=== PATIENT | male | born 1935 | race Asian ===

== ENCOUNTER 2017-03-15 22:38 | Inpatient (IN) | payer OTHER, MEDICAID ==
[~2017-03-15] VITALS: Ht 172.7 cm; Wt 72.6 kg
[2017-03-15] MEDS ORDERED: Vancomycin 1 GM in NS 275 ML IV ONE (22:45)
[2017-03-15] MEDS ORDERED: Piperacillin/Tazobactam 4.5 GM in NS 110 ML IVPB ONE (22:45)
[2017-03-15] MEDS ORDERED: Acetaminophen 650 MG SUPP RECTAL ONE (22:45)
[2017-03-15] MEDS ORDERED: HUMALOG100 UNIT/1 SUBQ (22:50)
[2017-03-15] MEDS ORDERED: METOPROLOL TART50 M1 GT (22:50)
[2017-03-15] MEDS ORDERED: LOVENOX10 MG SUBQ (22:50)
[2017-03-15] MEDS ORDERED: DIGOXIN0.125 MG/2 GT (22:50)
[2017-03-15] MEDS ORDERED: OMEPRAZOLE20 M2 GT (22:50)
[2017-03-15] MEDS ORDERED: CATAPRES0.1 MG GT (22:50)
--- NOTE | 2017-03-15 22:52 | Emergency Room Report ---
History of Present Illness General Chief Complaint: Fever Source: Medical Record, EMS Present Illness HPI This is an 82-year-old [place] male who is a senior care patient. He has a history of rest or failure with tracheostomy, G-tube, chronic Varela, and a PICC line. He was just discharged from [facility] for sepsis from UTI. He presents with chief complaint of fever up to 102. Unable to get any other history from the patient. Onset today. Allergies: Coded Allergies: No Known Allergies (Unverified , 03/15/17) Patient History Past Medical History: see triage record, old chart reviewed Past Surgical History: other Pertinent Family History: none Social History: Denies: smoking Immunizations: other Reviewed Nursing Documentation: PMH: Agreed, PSxH: Agreed Nursing Documentation-PMH Past Medical History: No History, Except For Hx Cardiac Problems: Yes - A-fib, sepsis, cardiac arrest Hx Hypertension: Yes Hx Diabetes: Yes Hx Gastrointestinal Problems: Yes - G-tube Hx Neurological Problems: Yes - quadriplegia Review of Systems Constitutional: Reports: fever All Other Systems: limited - Secondary to his condition. He is nonverbal. Physical Exam Vital Signs Date Time Temp Pulse Resp B/P Pulse Ox O2 Delivery O2 Flow Rate FiO2 03/15/17 22:32 101.1 100 23 92/44 100 Trach Collar 03/15/17 22:44 40 vitals with fever and hypotension Sp02 EP Interpretation: reviewed, normal General Appearance: moderate distress, lethargic, Chronically Ill Head: normocephalic, atraumatic Eyes: bilateral eye EOMI, bilateral eye PERRL ENT: hearing grossly normal, normal pharynx Neck: full range of motion, supple, no meningismus, tracheotomy Respiratory: chest non-tender, respiratory distress, rhonchi Cardiovascular #1: no murmur, irregularly irregular Gastrointestinal: normal bowel sounds, non tender, no mass, no organomegaly, no bruit, non-distended, other - G-tube Musculoskeletal: other - Patient is contracted. Back with multiple shelters Skin: warm/dry Procedures Critical Care Time Critical Care Time Critical care is mandated in this patient who presented with sepsis from UTI. Patient require my urgent intervention to attenuate the risks of metabolic collapse which may lead to cardiovascular collapse and . Critical care time is 35 minutes excluding any reportable procedure. Critical care time included evaluation, multiple reevaluation, looking at old charts, interpreting laboratory and diagnostic data, discussing case with patient and family and consultants, and charting. Medical Decision Making Diagnostic Impression: Primary Impression: Sepsis Qualified Codes: A41.9 - Sepsis, unspecified organism Additional Impressions: Acute and chronic respiratory failure UTI (urinary tract infection) Qualified Codes: N30.00 - Acute cystitis without hematuria Anemia Qualified Codes: D64.9 - Anemia, unspecified Proteinuria Qualified Codes: R80.9 - Proteinuria, unspecified ER Course Patient with sepsis. History of UTI in the past. X-ray unremarkable. Wide spectrum antibiotic started. Also give vancomycin to cover for MRSA because of his PICC line. I discussed the case with Dr. Dao who will admit. Lab Results Impression labs with anemia EKG Diagnostic Results EKG Time: 22:56 Rate: normal Rhythm: other - afib ST Segments: no acute changes Rhythm Strip Diag. Results Rhythm Strip Time: 22:56 EP Interpretation: yes Rate: 95 Rhythm: no PVC's, no ectopy, other - A. fib Chest X-Ray Diagnostic Results Chest X-Ray Diagnostic Results : Chest X-Ray Ordered: Yes # of Views/Limited/Complete: 1 View Indication: Shortness of Breath EP Interpretation: Yes Interpretation: no consolidation, no effusion, no pneumothorax, no acute cardiopulmonary disease Impression: No acute disease Interpreting ER Provider: Electronically signed by Eleazar Chase MD Last Vital Signs Date Time Temp Pulse Resp B/P Pulse Ox O2 Delivery O2 Flow Rate FiO2 03/15/17 22:44 97 16 40 03/15/17 22:32 101.1 92/44 100 Trach Collar Status: improved Disposition: ADMITTED INPATIENT Condition: Critical ELEAZAR CHASE M.D. Mar 15, 2017 22:52
[2017-03-15 23:00] VITALS: BP 97/45
[2017-03-15] MEDS ORDERED: LORazepam Inj 2mg/ml 1ml IV PRN (23:00)
[2017-03-15] MEDS ORDERED: Miralax 17gm pkt ORAL PRN (23:00)
[2017-03-15] MEDS ORDERED: DuoNeb 0.5-3(2.5)mg/3ml neb HHN PRN (23:00)
[2017-03-15] MEDS ORDERED: Morphine Sulfate 4mg/ml Inj IVP PRN (23:00)
[2017-03-15 23:18] LABS: MEAN CORPUSCULAR HEMOGLOBIN 32.7 PG (27.0-31.0); MEAN CORPUSCULAR HGB CONC 33.5 G/DL (32.0-36.0); MEAN CORPUSCULAR VOLUME 98 FL (80-99); MEAN PLATELET VOLUME 6.6 FL (6.5-10.1); PLATELET COUNT 173 K/UL (150-450); RED BLOOD COUNT 2.23 M/UL (4.70-6.10); RED CELL DISTRIBUTION WIDTH 15.5 % (11.6-14.8); WHITE BLOOD COUNT 13.5 K/UL (4.8-10.8)
[2017-03-15 23:22] LABS: APPEARANCE,URINE CLEAR; KETONES,URINE 1+ (NEGATIVE); LEUKOCYTE ESTERASE ,URINE 2+ (NEGATIVE); NITRITE,URINE NEGATIVE (NEGATIVE); PH,URINE 5 (4.5-8.0); PROTEIN,URINE 2+ (NEGATIVE); UROBILINOGEN,URINE 1 MG/DL (0.0-1.0)
[2017-03-15 23:25] LABS: INR 1.1 (0.9-1.1); PROTHROMBIN TIME 11.5 SEC (9.30-11.50)
[2017-03-15 23:29] LABS: TROPONIN I < 0.30 ng/mL (<=0.30)
[2017-03-15 23:32] LABS: ALANINE AMINOTRANSFERASE 12 U/L (3-41); ALBUMIN/GLOBULIN RATIO 0.5 (1.0-2.7); ANION GAP 12 (5-15); ASPARTATE AMINO TRANSFERASE 24 U/L (5-40); CARBON DIOXIDE 24 mEQ/L (20-30); CHLORIDE 95 mEQ/L (98-107); CREATININE 0.7 mg/dL (0.7-1.2); HEMOLYSIS 3; POTASSIUM 4.2 mEQ/L (3.4-4.9); SODIUM 131 mEQ/L (135-145)
[2017-03-15] MEDS ORDERED: Zosyn 4.5gm inj ONE (23:33)
[2017-03-15 23:34] LABS: BACTERIA,URINE FEW /HPF; CALCIUM OXALATE CRYSTALS,UR FEW /LPF; SQUAMOUS EPITHELIAL CELL,UR FEW /LPF (NONE/OCC)
[2017-03-15 23:35] LABS: YEAST,URINE MANY /HPF
[2017-03-15 23:38] LABS: REFLEX LACTIC ACID YES OR NO YES
[2017-03-15 23:42] LABS: CKMB < 1.5 ng/mL (< 6.7)
[2017-03-16] VITALS (7 sets, daily range): BP systolic 102–128; BP diastolic 49–67
[2017-03-16] MEDS ORDERED: Vancomycin 1gm inj IVPB ONE (00:01)
[2017-03-16] MEDS ORDERED: Rx Monitoring Vancomycin MISC PRN (02:45)
[2017-03-16 05:52] LABS: ANION GAP 10 (5-15); CALCIUM 7.8 mg/dL (8.6-10.2); CARBON DIOXIDE 24 mEQ/L (20-30); CHLORIDE 99 mEQ/L (98-107); CREATININE 0.7 mg/dL (0.7-1.2); HEMOLYSIS 2; POTASSIUM 4.3 mEQ/L (3.4-4.9); SODIUM 133 mEQ/L (135-145)
[2017-03-16] MEDS ORDERED: Zosyn 3.375gm inj ONE (05:59)
[2017-03-16] MEDS: Piperacillin/Tazobactam 3.375 GM in NS 110 ML IVPB SCH ×3 (06:03→22:16)
[2017-03-16] MEDS ORDERED: NovoLOG Insulin Flexpen SUBQ SCH ×2 (06:30)
[2017-03-16 07:29] LABS: MEAN CORPUSCULAR HEMOGLOBIN 32.3 PG (27.0-31.0); MEAN CORPUSCULAR VOLUME 98 FL (80-99); MEAN PLATELET VOLUME 6.5 FL (6.5-10.1); PLATELET COUNT 166 K/UL (150-450); RED BLOOD COUNT 2.38 M/UL (4.70-6.10); RED CELL DISTRIBUTION WIDTH 15.4 % (11.6-14.8); WHITE BLOOD COUNT 14.3 K/UL (4.8-10.8)
[2017-03-16] MEDS ORDERED: Heparin 5000 units/ml inj SUBQ SCH (09:00)
[2017-03-16] MEDS: Digoxin Elixir 0.125mg GT SCH (09:44)
[2017-03-16] MEDS: Metoprolol Tartrate 50mg tab GT SCH ×2 (09:45→18:04)
[2017-03-16 09:53] LABS: BAND NEUTROPHILS % (MANUAL) 6 % (0-8); BASOPHILS % (MANUAL) 0 % (0-2); EOSINOPHILS % (MANUAL) 1 % (0-3); LYMPHOCYTES % (MANUAL) 8 % (20-45); NEUTROPHILS % (MANUAL) 81 % (45-75); PLATELET ESTIMATE ADEQUATE; PLATELET MORPHOLOGY NORMAL; TOTAL CELLS COUNTED 100
[2017-03-16 09:54] LABS: ANISOCYTOSIS 1+; MACROCYTES 1+
--- NOTE | 2017-03-16 10:02 | General Progress Note ---
Progress Note Progress Note pt doesn't have any family members to sign his consents. He needs blood transfusion for his severe anemia. LIGIA JARAMILLO Mar 16, 2017 10:02
--- NOTE | 2017-03-16 10:07 | History and Physical ---
History of Present Illness General Date patient seen: Mar 16, 2017 Reason for Hospitalization: Fever Present Illness HPI 82-year-old [place] male with hx of chronic trach/vent/peg, encephalopathy, bed ridden, alf resident was just discharged from [facility] for sepsis from UTI. He presents with chief complaint of fever up to 102. He was diagnosed to have sepsis and admitted for further work up. He looks comfortable and doesn't respond to any tactile stimuli. Allergies: Coded Allergies: No Known Allergies (Unverified , 03/15/17) Medication History Scheduled Clonidine Hcl* (Catapres*), 0.1 MG GT EVERY 6 HOURS, (Reported) Digoxin* (Digoxin*), 0.125 MG GT DAILY, (Reported) Enoxaparin* (Lovenox*), 30 MG SUBQ DAILY, (Reported) Metoprolol Tartrate* (Metoprolol Tartrate*), 50 MG GT BID, (Reported) Omeprazole (Omeprazole), 20 MG GT DAILY, (Reported) Miscellaneous Medications Insulin Lispro (Humalog), 0 SUBQ, (Reported) Patient History Healthcare decision maker Resuscitation status Full Code Advanced Directive on File No Past Medical/Surgical History Past Medical/Surgical History: (1) Anoxic encephalopathy (2) Feeding by G-tube (3) Chronic vegetative state Review of Systems All Other Systems: negative except mentioned in HPI Physical Exam General Appearance: WD/WN Lines, tubes and drains: peripheral HEENT: normocephalic, atraumatic Neck: non-tender, normal alignment Respiratory/Chest: chest wall non-tender, lungs clear Breasts: no masses Cardiovascular/Chest: normal peripheral pulses Abdomen: normal bowel sounds, non tender Genitourinary/Rectal: normal genital exam Extremities: normal range of motion Skin Exam: normal pigmentation Neurologic: inspector chief II-XII grossly normal Lymphatic: posterior cervical (L) Last 24 Hour Vital Signs Date Time Temp Pulse Resp B/P Pulse Ox O2 Delivery O2 Flow Rate FiO2 03/16/17 09:45 99 128/49 03/16/17 09:44 99 03/16/17 08:38 99 18 40 03/16/17 08:00 99.5 104 27 128/49 100 Mechanical Ventilator 40 03/16/17 07:17 97.7 03/16/17 07:00 97 24 40 03/16/17 05:50 40 03/16/17 05:05 85 24 40 03/16/17 04:00 99 03/16/17 04:00 40 03/16/17 04:00 100.4 102 25 111/61 100 Mechanical Ventilator 40 03/16/17 03:39 99 16 40 03/16/17 02:05 99.0 104 21 124/67 100 Mechanical Ventilator 40 03/16/17 01:57 99.0 03/16/17 01:45 99.0 104 21 124/67 100 Mechanical Ventilator 40 03/16/17 00:37 100 16 40 03/16/17 00:29 99.0 108 19 105/53 100 Mechanical Ventilator 40 03/16/17 00:02 40 03/15/17 23:00 101.1 91 17 97/45 100 Mechanical Ventilator 40 03/15/17 22:44 97 16 40 03/15/17 22:32 101.1 100 23 92/44 100 Trach Collar Intake and Output 03/15/17 03/16/17 19:00 07:00 Intake Total 210 ml Output Total 1150 ml Balance -940 ml Intake Oral 0 ml Free Water 100 ml IV Total 110 ml Output Urine Total 1150 ml Laboratory Tests Test 03/15/17 22:55 03/15/17 23:00 03/16/17 01:02 03/16/17 05:00 Urine Color Yellow Urine Appearance Clear Urine pH 5 (4.5-8.0) Urine Specific [place] 1.010 (1.005-1.035) Urine Protein 2+ (NEGATIVE) H Urine Glucose (UA) Negative (NEGATIVE) Urine Ketones 1+ (NEGATIVE) H Urine Occult Blood 4+ (NEGATIVE) H Urine Nitrite Negative (NEGATIVE) Urine Bilirubin Negative (NEGATIVE) Urine Urobilinogen 1 MG/DL (0.0-1.0) H Urine Leukocyte Esterase 2+ (NEGATIVE) H Urine RBC 10-15 /HPF (0 - 0) H Urine WBC 5-10 /HPF (0 - 0) H Urine Squamous Epithelial Cells Few /LPF (NONE/OCC) Urine Calcium Oxalate Crystals Few /LPF (NONE) Urine Bacteria Few /HPF (NONE) Urine Coarse Granular Casts 2-4 /LPF (NONE) H Urine Yeast Many /HPF (NONE) H White Blood Count 13.5 K/UL (4.8-10.8) H 14.3 K/UL (4.8-10.8) H Red Blood Count 2.23 M/UL (4.70-6.10) L 2.38 M/UL (4.70-6.10) L Hemoglobin 7.3 G/DL (14.2-18.0) L 7.7 G/DL (14.2-18.0) L Hematocrit 21.8 % (42.0-52.0) L 23.3 % (42.0-52.0) L Mean Corpuscular Volume 98 FL (80-99) 98 FL (80-99) Mean Corpuscular Hemoglobin 32.7 PG (27.0-31.0) H 32.3 PG (27.0-31.0) H Mean Corpuscular Hemoglobin Concent 33.5 G/DL (32.0-36.0) 33.0 G/DL (32.0-36.0) Red Cell Distribution Width 15.5 % (11.6-14.8) H 15.4 % (11.6-14.8) H Platelet Count 173 K/UL (150-450) 166 K/UL (150-450) Mean Platelet Volume 6.6 FL (6.5-10.1) 6.5 FL (6.5-10.1) Neutrophils (%) (Auto) % (45.0-75.0) % (45.0-75.0) Lymphocytes (%) (Auto) % (20.0-45.0) % (20.0-45.0) Monocytes (%) (Auto) % (1.0-10.0) % (1.0-10.0) Eosinophils (%) (Auto) % (0.0-3.0) % (0.0-3.0) Basophils (%) (Auto) % (0.0-2.0) % (0.0-2.0) Prothrombin Time 11.5 SEC (9.30-11.50) Prothromb Time International Ratio 1.1 (0.9-1.1) Activated Partial Thromboplast Time 39 SEC (23-33) H Sodium Level 131 mEQ/L (135-145) L 133 mEQ/L (135-145) L Potassium Level 4.2 mEQ/L (3.4-4.9) 4.3 mEQ/L (3.4-4.9) Chloride Level 95 mEQ/L (98-107) L 99 mEQ/L (98-107) Carbon Dioxide Level 24 mEQ/L (20-30) 24 mEQ/L (20-30) Anion Gap 12 (5-15) 10 (5-15) Blood Urea Nitrogen 24 mg/dL (7-23) H 20 mg/dL (7-23) Creatinine 0.7 mg/dL (0.7-1.2) 0.7 mg/dL (0.7-1.2) Estimat Glomerular Filtration Rate mL/min (>60) mL/min (>60) Glucose Level 199 mg/dL (74-106) H 167 mg/dL (74-106) H Lactic Acid Level 2.90 mmol/L (0.66-2.22) H 1.70 mmol/L (0.66-2.22) Calcium Level 8.0 mg/dL (8.6-10.2) L 7.8 mg/dL (8.6-10.2) L Total Bilirubin 0.4 mg/dL (0.0-1.2) Aspartate Amino Transf (AST/SGOT) 24 U/L (5-40) Alanine Aminotransferase (ALT/SGPT) 12 U/L (3-41) Alkaline Phosphatase 162 U/L (40-129) H Total Creatine Kinase 105 U/L (38-174) Creatine Kinase MB < 1.5 ng/mL (< 6.7) Creatine Kinase MB Relative Index 1.4 Troponin I < 0.30 ng/mL (<=0.30) Total Protein 6.0 g/dL (6.6-8.7) L Albumin 2.1 g/dL (3.5-5.2) L 2.1 g/dL (3.5-5.2) L Globulin 3.9 g/dL Albumin/Globulin Ratio 0.5 (1.0-2.7) L Differential Total Cells Counted 100 Neutrophils % (Manual) 81 % (45-75) H Lymphocytes % (Manual) 8 % (20-45) L Monocytes % (Manual) 4 % (1-10) Eosinophils % (Manual) 1 % (0-3) Basophils % (Manual) 0 % (0-2) Band Neutrophils 6 % (0-8) Platelet Estimate Adequate Platelet Morphology Normal Anisocytosis 1+ Macrocytosis 1+ Phosphorus Level 3.0 mg/dL (2.5-4.8) Height (Feet): 5 Height (Inches): 8.00 Weight (Pounds): 160 Medications Current Medications Medications (Trade) Dose Ordered Sig/Millicent Route PRN Reason Start Time Stop Time Status Last Admin Dose Admin Acetaminophen (Tylenol) 650 mg Q4H PRN ORAL FEVER 03/15/17 23:00 04/14/17 22:59 03/16/17 06:18 Albuterol/ Ipratropium 3 ml 3 ml Q4H PRN HHN Shortness of Breath 03/15/17 23:00 03/20/17 22:59 Dextrose STAT PRN IV Hypoglycemia 03/15/17 23:00 04/14/17 22:59 Digoxin (Lanoxin) 0.125 mg DAILY GT 03/16/17 09:00 04/15/17 08:59 03/16/17 09:44 Heparin Sodium (Porcine) (Heparin 5000 units/ml) 5,000 units EVERY 12 HOURS SUBQ 03/16/17 09:00 04/15/17 08:59 Insulin Aspart (NovoLOG) Q6HR SUBQ 03/16/17 12:00 04/15/17 11:59 Lorazepam (Ativan 2mg/ml 1ml) 2 mg Q2H PRN IV For Anxiety 03/15/17 23:00 03/22/17 22:59 Metoprolol Tartrate (Lopressor) 50 mg BID GT 03/16/17 09:00 04/15/17 08:59 03/16/17 09:45 Morphine Sulfate (Morphine Sulfate) 4 mg Q4H PRN IVP Severe Pain (Pain Scale 7-10) 03/15/17 23:00 03/22/17 22:59 Ondansetron HCl (Zofran) 4 mg Q6H PRN IVP Nausea & Vomiting 03/15/17 23:00 04/14/17 22:59 Piperacillin Sod/ Tazobactam Sod/ Sodium Chloride (Zosyn/Sodium Chloride) 110 ml @ 27.5 mls/hr Q8H IVPB 03/16/17 06:00 03/23/17 05:59 03/16/17 06:03 Polyethylene Glycol (Miralax) 17 gm DAILYPRN PRN ORAL Constipation 03/15/17 23:00 04/14/17 22:59 Vancomycin HCl (Rx Monitoring Vancomycin) 1 ea DAILY PRN MISC per protocol 03/16/17 02:45 04/15/17 02:44 Vancomycin HCl/ Dextrose (Vancomycin/D5W) 275 ml @ 183.3 mls/ hr Q24H IVPB 03/16/17 21:00 03/21/17 20:59 Assessment/Plan Problem List: (1) Acute and chronic respiratory failure ICD Codes: J96.20 - Acute and chronic respiratory failure, unspecified whether with hypoxia or hypercapnia SNOMED: 88089139 (2) Sepsis ICD Codes: A41.9 - Sepsis, unspecified organism SNOMED: 60338217 Qualifiers: Qualified Codes: A41.9 - Sepsis, unspecified organism (3) Feeding by G-tube ICD Codes: Z93.1 - Gastrostomy status SNOMED: 084227152, 699299301 (4) Chronic vegetative state ICD Codes: R40.3 - Persistent vegetative state SNOMED: 74044597, 274840838 (5) Anemia ICD Codes: D64.9 - Anemia, unspecified SNOMED: 758984090 Qualifiers: Qualified Codes: D64.9 - Anemia, unspecified Respiratory: monitor respiratory rate, adjust FIO2, weaning trial Cardiac: continue to monitor HR/BP Renal: F/U I&O, keep IV fluid, check electrolytes Infectious Disease: check cultures, continue antibiotics Gastrointestinal: continue feedings/current rate Endocrine: monitor blood sugar, check HgA1C, continue sliding scale insulin Hematologic: monitor H/H, transfuse if hgb<8.5 Neurologic: PRN Ativan, PRN Morphine, keep patient comfortable Affect: PRN ativan Prophylaxis: Heparin Notes Reviewed: splicing technician, cardio Discussed with: nurses, consultants, rn case management LIGIA JARAMILLO Mar 16, 2017 10:07
[2017-03-16] MEDS ORDERED: Tubing IV Secondary IV ONE (10:32)
[2017-03-16] MEDS ORDERED: NS 275ml ONE (10:32)
--- NOTE | 2017-03-16 11:02 | Infectious Diseases Prog Note ---
Assessment/Plan Assessment/Plan ID consult dictated # [id number] Subjective Allergies: Coded Allergies: No Known Allergies (Unverified , 03/15/17) Objective Vital Signs Last 24 Hour Vital Signs Date Time Temp Pulse Resp B/P Pulse Ox O2 Delivery O2 Flow Rate FiO2 03/16/17 10:30 89 18 40 03/16/17 09:45 99 128/49 03/16/17 09:44 99 03/16/17 08:38 99 18 40 03/16/17 08:00 99.5 104 27 128/49 100 Mechanical Ventilator 40 03/16/17 07:17 97.7 03/16/17 07:00 97 24 40 03/16/17 05:50 40 03/16/17 05:05 85 24 40 03/16/17 04:00 99 03/16/17 04:00 40 03/16/17 04:00 100.4 102 25 111/61 100 Mechanical Ventilator 40 03/16/17 03:39 99 16 40 03/16/17 02:05 99.0 104 21 124/67 100 Mechanical Ventilator 40 03/16/17 01:57 99.0 03/16/17 01:45 99.0 104 21 124/67 100 Mechanical Ventilator 40 03/16/17 00:37 100 16 40 03/16/17 00:29 99.0 108 19 105/53 100 Mechanical Ventilator 40 03/16/17 00:02 40 03/15/17 23:00 101.1 91 17 97/45 100 Mechanical Ventilator 40 03/15/17 22:44 97 16 40 03/15/17 22:32 101.1 100 23 92/44 100 Trach Collar Height (Feet): 5 Height (Inches): 8.00 Weight (Pounds): 160 Laboratory Tests Test 03/15/17 22:55 03/15/17 23:00 03/16/17 01:02 03/16/17 05:00 Urine Color Yellow Urine Appearance Clear Urine pH 5 (4.5-8.0) Urine Specific [place] 1.010 (1.005-1.035) Urine Protein 2+ (NEGATIVE) H Urine Glucose (UA) Negative (NEGATIVE) Urine Ketones 1+ (NEGATIVE) H Urine Occult Blood 4+ (NEGATIVE) H Urine Nitrite Negative (NEGATIVE) Urine Bilirubin Negative (NEGATIVE) Urine Urobilinogen 1 MG/DL (0.0-1.0) H Urine Leukocyte Esterase 2+ (NEGATIVE) H Urine RBC 10-15 /HPF (0 - 0) H Urine WBC 5-10 /HPF (0 - 0) H Urine Squamous Epithelial Cells Few /LPF (NONE/OCC) Urine Calcium Oxalate Crystals Few /LPF (NONE) Urine Bacteria Few /HPF (NONE) Urine Coarse Granular Casts 2-4 /LPF (NONE) H Urine Yeast Many /HPF (NONE) H White Blood Count 13.5 K/UL (4.8-10.8) H 14.3 K/UL (4.8-10.8) H Red Blood Count 2.23 M/UL (4.70-6.10) L 2.38 M/UL (4.70-6.10) L Hemoglobin 7.3 G/DL (14.2-18.0) L 7.7 G/DL (14.2-18.0) L Hematocrit 21.8 % (42.0-52.0) L 23.3 % (42.0-52.0) L Mean Corpuscular Volume 98 FL (80-99) 98 FL (80-99) Mean Corpuscular Hemoglobin 32.7 PG (27.0-31.0) H 32.3 PG (27.0-31.0) H Mean Corpuscular Hemoglobin Concent 33.5 G/DL (32.0-36.0) 33.0 G/DL (32.0-36.0) Red Cell Distribution Width 15.5 % (11.6-14.8) H 15.4 % (11.6-14.8) H Platelet Count 173 K/UL (150-450) 166 K/UL (150-450) Mean Platelet Volume 6.6 FL (6.5-10.1) 6.5 FL (6.5-10.1) Neutrophils (%) (Auto) % (45.0-75.0) % (45.0-75.0) Lymphocytes (%) (Auto) % (20.0-45.0) % (20.0-45.0) Monocytes (%) (Auto) % (1.0-10.0) % (1.0-10.0) Eosinophils (%) (Auto) % (0.0-3.0) % (0.0-3.0) Basophils (%) (Auto) % (0.0-2.0) % (0.0-2.0) Prothrombin Time 11.5 SEC (9.30-11.50) Prothromb Time International Ratio 1.1 (0.9-1.1) Activated Partial Thromboplast Time 39 SEC (23-33) H Sodium Level 131 mEQ/L (135-145) L 133 mEQ/L (135-145) L Potassium Level 4.2 mEQ/L (3.4-4.9) 4.3 mEQ/L (3.4-4.9) Chloride Level 95 mEQ/L (98-107) L 99 mEQ/L (98-107) Carbon Dioxide Level 24 mEQ/L (20-30) 24 mEQ/L (20-30) Anion Gap 12 (5-15) 10 (5-15) Blood Urea Nitrogen 24 mg/dL (7-23) H 20 mg/dL (7-23) Creatinine 0.7 mg/dL (0.7-1.2) 0.7 mg/dL (0.7-1.2) Estimat Glomerular Filtration Rate mL/min (>60) mL/min (>60) Glucose Level 199 mg/dL (74-106) H 167 mg/dL (74-106) H Lactic Acid Level 2.90 mmol/L (0.66-2.22) H 1.70 mmol/L (0.66-2.22) Calcium Level 8.0 mg/dL (8.6-10.2) L 7.8 mg/dL (8.6-10.2) L Total Bilirubin 0.4 mg/dL (0.0-1.2) Aspartate Amino Transf (AST/SGOT) 24 U/L (5-40) Alanine Aminotransferase (ALT/SGPT) 12 U/L (3-41) Alkaline Phosphatase 162 U/L (40-129) H Total Creatine Kinase 105 U/L (38-174) Creatine Kinase MB < 1.5 ng/mL (< 6.7) Creatine Kinase MB Relative Index 1.4 Troponin I < 0.30 ng/mL (<=0.30) Total Protein 6.0 g/dL (6.6-8.7) L Albumin 2.1 g/dL (3.5-5.2) L 2.1 g/dL (3.5-5.2) L Globulin 3.9 g/dL Albumin/Globulin Ratio 0.5 (1.0-2.7) L Differential Total Cells Counted 100 Neutrophils % (Manual) 81 % (45-75) H Lymphocytes % (Manual) 8 % (20-45) L Monocytes % (Manual) 4 % (1-10) Eosinophils % (Manual) 1 % (0-3) Basophils % (Manual) 0 % (0-2) Band Neutrophils 6 % (0-8) Platelet Estimate Adequate Platelet Morphology Normal Anisocytosis 1+ Macrocytosis 1+ Phosphorus Level 3.0 mg/dL (2.5-4.8) Current Medications Medications (Trade) Dose Ordered Sig/Millicent Route PRN Reason Start Time Stop Time Status Last Admin Dose Admin Acetaminophen (Tylenol) 650 mg Q4H PRN ORAL FEVER 03/15/17 23:00 04/14/17 22:59 03/16/17 06:18 Albuterol/ Ipratropium 3 ml 3 ml Q4H PRN HHN Shortness of Breath 03/15/17 23:00 03/20/17 22:59 Dextrose STAT PRN IV Hypoglycemia 03/15/17 23:00 04/14/17 22:59 Digoxin (Lanoxin) 0.125 mg DAILY GT 03/16/17 09:00 04/15/17 08:59 03/16/17 09:44 Heparin Sodium (Porcine) (Heparin 5000 units/ml) 5,000 units EVERY 12 HOURS SUBQ 03/16/17 09:00 04/15/17 08:59 Insulin Aspart (NovoLOG) Q6HR SUBQ 03/16/17 12:00 04/15/17 11:59 Lorazepam (Ativan 2mg/ml 1ml) 2 mg Q2H PRN IV For Anxiety 03/15/17 23:00 03/22/17 22:59 Metoprolol Tartrate (Lopressor) 50 mg BID GT 03/16/17 09:00 04/15/17 08:59 03/16/17 09:45 Morphine Sulfate (Morphine Sulfate) 4 mg Q4H PRN IVP Severe Pain (Pain Scale 7-10) 03/15/17 23:00 03/22/17 22:59 Ondansetron HCl (Zofran) 4 mg Q6H PRN IVP Nausea & Vomiting 03/15/17 23:00 04/14/17 22:59 Piperacillin Sod/ Tazobactam Sod/ Sodium Chloride (Zosyn/Sodium Chloride) 110 ml @ 27.5 mls/hr Q8H IVPB 03/16/17 06:00 03/23/17 05:59 03/16/17 06:03 Polyethylene Glycol (Miralax) 17 gm DAILYPRN PRN ORAL Constipation 03/15/17 23:00 04/14/17 22:59 Vancomycin HCl (Rx Monitoring Vancomycin) 1 ea DAILY PRN MISC per protocol 03/16/17 02:45 04/15/17 02:44 Vancomycin HCl/ Dextrose (Vancomycin/D5W) 275 ml @ 183.3 mls/ hr Q24H IVPB 03/16/17 21:00 03/21/17 20:59 ROMIE LANDRY Mar 16, 2017 11:02
[2017-03-16] MEDS: NovoLOG Insulin Flexpen SUBQ SCH ×2 (12:21→18:07)
--- NOTE | 2017-03-16 12:43 | Wound Care Consultation ---
Wound Assessment Wound Assessment #1: Wound Number: #1 Wound Present on Admission: Yes New Wound: No Status Change of Wound: No Wound Location Body Site Modif: mid Wound Location Body Site: other - sacrococcygeal that extended to left and right buttocks Wound Type: pressure ulcer Eliz Test: Does not Eliz Pressure Ulcer Stage: IV/unstageable Wound Thickness: Full Thickness Wound Length: 12.0 Wound Width: 10.0 Wound Depth: utd Percent of Wound [place]/Red: 10 Percent of Wound Bed Yellow/Wh: 40 Percent of Wound Black/Brown: 50 Wound Drainage Description: Serosanguineous Wound Drainage Amount: Moderate Wound Drainage Odor: None/Absent Tissue Surrounding Wound: Macerated Wound General Appearance: Draining, Necrotic Wound Assessment #2: Wound Number: #2 Wound Present on Admission: Yes New Wound: No Status Change of Wound: No Wound Location Body Site Modif: right, lower Wound Location Body Site: trochanter Wound Type: pressure ulcer Eliz Test: Does not Eliz Pressure Ulcer Stage: deep tissue injury Wound Thickness: Full Thickness Wound Length: 5.5 Wound Width: 3.0 Wound Depth: utd Percent of Wound Purple/Maroon: 100 Wound Drainage Amount: None Wound Drainage Odor: None/Absent Tissue Surrounding Wound: Erythemic Wound General Appearance: Reddened - purple Wound Assessment #3: Wound Number: #3 Wound Present on Admission: Yes New Wound: No Status Change of Wound: No Wound Location Body Site Modif: right, upper, lateral Wound Location Body Site: thigh Wound Type: blister - open blister Eliz Test: Does not Eliz Wound Thickness: Partial Thickness Wound Length: 3.0 Wound Width: 2.0 Wound Depth: less than 0.1 Percent of Wound [place]/Red: 100 Wound Drainage Description: Serosanguineous Wound Drainage Amount: Scant Wound Drainage Odor: None/Absent Tissue Surrounding Wound: Intact Wound General Appearance: Reddened Wound Assessment #4: Wound Number: #4 Wound Present on Admission: Yes New Wound: No Status Change of Wound: No Wound Location Body Site Modif: right, upper, medial Wound Location Body Site: thigh Wound Type: blister - open blister Eliz Test: Does not Eliz Wound Thickness: Partial Thickness Wound Length: 2.5 Wound Width: 2.0 Wound Depth: less than 0.1 Percent of Wound [place]/Red: 100 Wound Drainage Description: Serosanguineous Wound Drainage Amount: Scant Wound Drainage Odor: None/Absent Tissue Surrounding Wound: Intact Wound General Appearance: Reddened, Draining Wound Assessment #5: Wound Number: #5 Wound Present on Admission: Yes New Wound: No Status Change of Wound: No Wound Location Body Site Modif: right Wound Location Body Site: shoulder Wound Type: pressure ulcer Eliz Test: Does not Eliz Pressure Ulcer Stage: deep tissue injury - blood filled blister Wound Thickness: Full Thickness Wound Length: 1.0 Wound Width: 1.0 Wound Depth: utd Percent of Wound Purple/Maroon: 100 Wound Drainage Amount: None Wound Drainage Odor: None/Absent Tissue Surrounding Wound: Erythemic Wound Assessment #6: Wound Number: #6 Wound Present on Admission: Yes New Wound: No Status Change of Wound: No Wound Location Body Site Modif: right Wound Location Body Site: scapula Wound Type: pressure ulcer Eliz Test: Does not Eliz Pressure Ulcer Stage: II Wound Thickness: Partial Thickness Wound Length: 2.5 Wound Width: 3.5 Wound Depth: 0.1 Percent of Wound [place]/Red: 100 Wound Drainage Description: Serosanguineous Wound Drainage Amount: Scant Wound Drainage Odor: None/Absent Tissue Surrounding Wound: Erythemic Wound General Appearance: Reddened, Draining Wound Assessment #7: Wound Number: #7 Wound Present on Admission: Yes New Wound: No Status Change of Wound: No Wound Location Body Site Modif: left, lower, lateral Wound Location Body Site: leg Wound Type: pressure ulcer Eliz Test: Does not Eliz Pressure Ulcer Stage: IV/unstageable Wound Thickness: Full Thickness Wound Length: 8.0 Wound Width: 1.5 Wound Depth: utd Percent of Wound Bed Yellow/Wh: 60 Percent of Wound Purple/Maroon: 40 Wound Drainage Amount: None Wound Drainage Odor: None/Absent Tissue Surrounding Wound: Intact Wound General Appearance: Reddened Wound Assessment #8: Wound Number: #8 Wound Present on Admission: Yes New Wound: No Status Change of Wound: No Wound Location Body Site Modif: left Wound Location Body Site: knee Wound Type: pressure ulcer Eliz Test: Does not Eliz Pressure Ulcer Stage: IV/unstageable Wound Thickness: Full Thickness Wound Length: 8.5 Wound Width: 8.5 Wound Depth: utd Percent of Wound Black/Brown: 100 Wound Drainage Description: Serosanguineous Wound Drainage Amount: Moderate Wound Drainage Odor: Foul Odor Tissue Surrounding Wound: Macerated - indurated Wound General Appearance: Blackened, Draining, Necrotic Wound Assessment #9: Wound Number: #9 Wound Present on Admission: Yes New Wound: No Status Change of Wound: No Wound Location Body Site Modif: right Wound Location Body Site: heel Wound Type: pressure ulcer Eliz Test: Does not Eliz Pressure Ulcer Stage: deep tissue injury Wound Thickness: Full Thickness Wound Length: 5.0 Wound Width: 6.5 Wound Depth: utd Percent of Wound Purple/Maroon: 100 Wound Drainage Amount: None Wound Drainage Odor: None/Absent Tissue Surrounding Wound: Denuded Wound General Appearance: Reddened - Maroon Wound Assessment #10: Wound Number: #10 Wound Present on Admission: Yes New Wound: No Status Change of Wound: No Wound Location Body Site Modif: medial Wound Location Body Site: malleolus/ankle Wound Type: pressure ulcer Eliz Test: Does not Eliz Pressure Ulcer Stage: deep tissue injury - blood filled blister Wound Thickness: Full Thickness Wound Length: 1.5 Wound Width: 1.0 Wound Depth: utd Percent of Wound Purple/Maroon: 100 Wound Drainage Amount: None Wound Drainage Odor: None/Absent Tissue Surrounding Wound: Erythemic Wound General Appearance: Reddened Wound Assessment #11: Wound Number: #11 Wound Present on Admission: Yes New Wound: No Status Change of Wound: No Wound Location Body Site Modif: right, mid Wound Location Body Site: foot Wound Type: pressure ulcer Eliz Test: Does not Eliz Pressure Ulcer Stage: deep tissue injury Wound Thickness: Full Thickness Wound Length: 2.0 Wound Width: 4.0 Wound Depth: utd Percent of Wound Purple/Maroon: 100 Wound Drainage Amount: None Wound Drainage Odor: None/Absent Tissue Surrounding Wound: Intact Wound Assessment #12: Wound Number: #12 Wound Present on Admission: Yes New Wound: No Status Change of Wound: No Wound Location Body Site Modif: right, lateral Wound Location Body Site: metatarsal head - 1st Wound Type: pressure ulcer Eliz Test: Does not Eliz Pressure Ulcer Stage: deep tissue injury Wound Thickness: Full Thickness Wound Length: 2.5 Wound Width: 2.5 Wound Depth: utd Percent of Wound Purple/Maroon: 100 Wound Drainage Amount: None Wound Drainage Odor: None/Absent Tissue Surrounding Wound: Erythemic Wound Assessment #13: Wound Number: #13 Wound Present on Admission: Yes New Wound: No Status Change of Wound: No Wound Location Body Site Modif: lower Wound Location Body Site: back Wound Type: pressure ulcer Eliz Test: Does not Eliz Pressure Ulcer Stage: II - scattered Wound Thickness: Partial Thickness Percent of Wound [place]/Red: 100 Wound Drainage Description: Serosanguineous Wound Drainage Amount: Scant Wound Drainage Odor: None/Absent Tissue Surrounding Wound: scattered scar tissue Wound General Appearance: Reddened Wound Assessment #14: Wound Number: #14 Wound Present on Admission: Yes New Wound: No Status Change of Wound: No Wound Location Body Site Modif: left, lateral Wound Location Body Site: malleolus/ankle Wound Type: pressure ulcer Eliz Test: Does not Eliz Pressure Ulcer Stage: deep tissue injury Wound Thickness: Full Thickness Wound Length: 3.0 Wound Width: 2.5 Wound Depth: utd Percent of Wound Purple/Maroon: 100 Wound Drainage Amount: None Wound Drainage Odor: None/Absent Tissue Surrounding Wound: Erythemic Wound Comment #1 Sacrococcygeal unstageable pressure ulcer that extended to left and right buttocks #2 Right shoulder blood filled DTI pressure ulcer #3 Right scapula stage II pressure ulcer #4 Right lower trochanter DTI pressure ulcer #5 Right upper lateral thigh open blister #6 Right inner upper thigh open blister #7 Left lower lateral leg unstageable pressure ulcer #8 Right heel DTI pressure ulcer #9 Left heel unstageable pressure ulcer with black eschar adhered to wound bed #10 Left lateral malleolus DTI pressure ulcer #11 Left medial malleolus DTI pressure ulcer #12 Right mid foot DTI pressure ulcer #13 Right 1st lateral metatarsal head DTI pressure ulcer #14 Lower back with scattered stage II pressure ulcers and with scattered scars Recommendation -Right scapula stage II pressure ulcer, Right upper lateral thigh open blister, Right inner upper thigh open blister and Lower back with scattered stage II pressure ulcers Cleanse with saline, pat dry, apply Triad cream, cover with Biatain silicone daily and PRN soiled/dislodged -Sacrococcygeal unstageable pressure ulcer that extended to left and right buttocks Cleanse with saline, pat dry, apply Triad cream on sharon wound area, apply Therahoney to wound bed, cover with 4x4, secure with bordered gauze daily and PRN soiled/ dislodged -Local wound care per protocol for DTIs -Low air loss mattress -Optimize nutrition -Keep clean and dry -Turn and reposition -Offload both heels -Heel protector on both heels -Podiatry consult for left foot -Assess and f/u accordingly for any changes SORIN HU RN Mar 16, 2017 12:43
[2017-03-16] MEDS ORDERED: Miralax 17gm pkt GT PRN (15:00)
[2017-03-16 18:13] LABS: PATH BLOOD SMEAR/OMC SENT TO PATHOLOGIST
[2017-03-16 18:16] LABS: PSA TOTAL 1.3 ng/mL (< 4.5)
[2017-03-16 18:33] LABS: HEMOLYSIS 5; IRON 26 ug/dL (59-158); TOTAL IRON BINDING CAPACITY 151 ug/dL (250-400)
[2017-03-16 18:37] LABS: FERRITIN > 2000 ng/mL (10-230)
[2017-03-16] MEDS: Vancomycin 1 GM in D5W 275 ML IVPB SCH (20:38)
[2017-03-17] VITALS (7 sets, daily range): BP systolic 95–116; BP diastolic 52–64
[2017-03-17] MEDS: NovoLOG Insulin Flexpen SUBQ SCH ×4 (00:09→18:00)
--- NOTE | 2017-03-17 01:30 | Consultation ---
DATE OF CONSULTATION: 03/16/2017 HEMATOLOGY/ONCOLOGY CONSULTATION REQUESTING PHYSICIAN: Dago Dao M.D. REASON FOR CONSULTATION: Evaluation of anemia and coagulopathy. IDENTIFICATION DATA: The patient is a pleasant 82-year-old male who presents to [facility]. He has a past medical history significant for chronic trach, vent, PEG, and history of encephalopathy. He is bedridden. He is a residential patient. He has been discharged from [facility] with sepsis and UTI, and presents with a chief complaint of fever up to 102 degrees Fahrenheit, diagnosed with sepsis, admitted for further care. Appears at this time; however, was not found to have any stimuli, was noted to be with a hemoglobin of 7.7 as well as leukocytosis. Therefore, Hematology service is consulted. The patient also noted to have an elevated PTT and therefore Hematology will continue to follow up and again consultation. PAST MEDICAL HISTORY: Chronic vent, trach, PEG, encephalopathy, bedridden, and residential resident. MEDICATIONS: Clonidine, digoxin, Lovenox, metoprolol, and metronidazole . ALLERGIES: No known drug allergies. SOCIAL HISTORY: Lives in a nursing facility. FAMILY HISTORY: Difficult to obtain. Again, the patient is on chronic trach. REVIEW OF SYSTEMS: Difficult to obtain. PHYSICAL EXAMINATION: VITAL SIGNS: Temperature is 98 degrees Fahrenheit, pulse 82, respiratory rate 12, blood pressure 128/79, and pulse oximetry is 100% on room air. GENERAL: The patient is in no acute distress. PULMONARY: Decreased breath sounds. Some crackles noted and trach. CARDIOVASCULAR: Regular rate. No S3 or S4. ABDOMEN: Soft, nontender, and nondistended. EXTREMITIES: No cyanosis, edema noted. LABORATORY DATA: WBC 14, hemoglobin 10.7, hematocrit 23, and platelet count 166,000. BUN of 20, creatinine 0.7. Lactic acid 1.7. 0.9. Calcium 7.8. AST 24 and ALT 12. ASSESSMENT AND PLAN: 1. Coagulopathy, potentially secondary to underlying sepsis. We will order PTT. 2. Anemia, likely secondary to hemodilution. 3. Anemia, secondary to chronic disease. Anemia workup has been ordered and ordered. If those are within normal limits, . 4. Leukocytosis, potentially secondary to underlying sepsis with a left shift, neutrophil predominant leukocytosis. Infectious Disease service has been consulted. We will continue to follow up. 5. Hypocalcemia potentially secondary to hemodilution. Continue to monitor. 6. Sepsis. He is on antibiotics. 7. Chronic vegetative state, persistent vegetative state. Giovanny Brennan M.D. DR: VANIA JOB#: [id number] CC:
--- NOTE | 2017-03-17 02:00 | Consultation ---
DATE OF CONSULTATION: 03/16/2017 INFECTIOUS DISEASE CONSULTATION This consult is for coverage of Dr. Crawley. PRIMARY ATTENDING PHYSICIAN: Dago Dao M.D. REASON FOR CONSULT: Sepsis. HISTORY OF PRESENT ILLNESS: This is an 82-year-old Irish male, who is a long-term resident admitted last night because of fever with a temperature of 102 degrees in the facility and in the ER, temperature 101.1 degrees. The patient is not a source of history. He had recent admission to [facility] with sepsis. He had a PICC line at the time of admission and leukocytosis and lactic acidosis. PAST MEDICAL HISTORY: Significant for diabetes mellitus, hypertension, ventilator-dependent respiratory failure, status post G-tube, chronic atrial fibrillation, anemia, dementia, and persistent Flavio Sparks M.D. DR: NATHALIA JOB#: [id number] CC:
[2017-03-17] MEDS: Piperacillin/Tazobactam 3.375 GM in NS 110 ML IVPB SCH ×3 (05:37→23:07)
--- NOTE | 2017-03-17 07:48 | Diagnostic Imaging Report ---
Indications: Shortness breath Technique: Portable AP chest Findings: Comparison: None Right hemidiaphragm mildly elevated. Linear densities overlying right lung base. Downward retraction of right minor fissure. Linear density left lung base. Heart size, pulmonary vasculature within normal limits. No pleural abnormalities. Aortic arch calcified. Tracheostomy tube in place. PICC in place. IMPRESSION: Bibasal subsegmental atelectasis, right greater left, with associated right lung volume loss Aortosclerosis Lines and tubes in place as described
[2017-03-17] MEDS: Digoxin Elixir 0.125mg GT SCH (09:16)
[2017-03-17] MEDS: Metoprolol Tartrate 50mg tab GT SCH ×2 (09:16→21:32)
--- NOTE | 2017-03-17 10:27 | Pulmonology Progress Note ---
Assessment/Plan Problems: (1) Acute and chronic respiratory failure (2) Sepsis (3) Feeding by G-tube (4) Chronic vegetative state (5) Anemia Respiratory: monitor respiratory rate, adjust FIO2, CXR Cardiac: continue pressors Renal: F/U I&O, keep IV fluid Infectious Disease: check cultures Gastrointestinal: continue feedings/current rate, hold feedings Endocrine: check TSH, continue sliding scale insulin Hematologic: monitor H/H, transfuse if hgb<8.5 Neurologic: PRN Ativan, keep patient comfortable Affect: PRN ativan Prophylaxis: Heparin Disposition: keep in ICU Notes Reviewed: cardio, renal Discussed with: nurses, employment case manager Subjective ROS Limited/Unobtainable: No Interval Events: still febrile, got prbc yesterday Allergies: Coded Allergies: No Known Allergies (Unverified , 03/15/17) Objective Last 24 Hour Vital Signs Date Time Temp Pulse Resp B/P (MAP) Pulse Ox O2 Delivery O2 Flow Rate FiO2 03/17/17 09:16 112 95/52 03/17/17 09:16 112 03/17/17 08:32 99.5 03/17/17 08:00 40 03/17/17 08:00 102.9 112 24 95/52 100 Mechanical Ventilator 03/17/17 07:45 129 03/17/17 05:02 116 21 40 03/17/17 04:00 40 03/17/17 04:00 91 03/17/17 04:00 Mechanical Ventilator 03/17/17 02:38 95 39 40 03/17/17 01:32 95 34 40 03/17/17 00:00 93 03/17/17 00:00 40 03/17/17 00:00 100.9 120 24 95/53 100 Mechanical Ventilator 03/16/17 23:38 98 36 40 03/16/17 22:30 101.3 110 35 100 03/16/17 22:01 111 35 40 03/16/17 20:00 101 03/16/17 20:00 40 03/16/17 19:50 103.0 111 20 109/60 100 Mechanical Ventilator 03/16/17 19:26 107 32 40 03/16/17 18:04 102 102/52 03/16/17 16:53 102 20 40 03/16/17 16:00 100.9 99 18 103/51 100 Mechanical Ventilator 40 03/16/17 16:00 40 03/16/17 16:00 95 03/16/17 15:22 93 18 40 03/16/17 12:30 90 19 40 03/16/17 12:00 100.4 107 23 102/52 100 Mechanical Ventilator 40 03/16/17 12:00 40 03/16/17 11:34 93 03/16/17 10:30 89 18 40 Intake and Output 03/17/17 03/18/17 19:00 07:00 Intake Total 82.5 ml Balance 82.5 ml IV Total 82.5 ml General Appearance: WD/WN HEENT: normocephalic, atraumatic Respiratory/Chest: chest wall non-tender, lungs clear Cardiovascular: normal peripheral pulses, normal rate Abdomen: normal bowel sounds, soft, non tender Genitourinary: normal external genitalia Extremities: no cyanosis Skin: no rash Neurologic/Psychiatric: package 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 grossly normal, no motor/sensory deficits Lymphatic: no groin adenopathy Musculoskeletal: normal muscle bulk Microbiology Date/Time Source Procedure Growth Status 03/15/17 23:00 Blood Blood Culture - Preliminary NO GROWTH AFTER 24 HOURS Resulted 03/15/17 23:00 Blood Blood Culture - Preliminary NO GROWTH AFTER 24 HOURS Resulted 03/15/17 22:55 Indwelling Cath Urine Culture - Preliminary Mixed Gram Positive Organism Resulted 03/16/17 02:00 Back Gram Stain - Final Resulted 03/16/17 02:00 Back Wound Culture Pending Resulted Laboratory Tests 03/16/17 16:55: Reticulocyte Count 1.0, PTT Mixing Study [Pending], APTT Patient/Control Mix [ Pending], Mix PTT Incubation Time [Pending], Mix PTT Normal/Saline 1:1 Immediate [Pending], Thrombin Time Normal Plasma [Pending], Fibrinogen 638H, Iron Level 26L, Total Iron Binding Capacity 151L, Percent Iron Saturation 17, Unsaturated Iron Binding 125, Ferritin > 2000H, Carcinoembryonic Antigen 5.8H, Prostate Specific Antigen 1.3, Vitamin B12 Level 1262H, Methylmalonic Acid [ Pending], Folate [Pending], Thyroid Stimulating Hormone (TSH) 1.910, Hepatitis A IgM Antibody [Pending], Hepatitis B Surface Antigen [Pending], Hepatitis B Core IgM Antibody [Pending], Hepatitis C Antibody [Pending], HIV (1&2) Antibody Rapid Negative 03/16/17 18:00: Stool Occult Blood Negative Current Medications Medications (Trade) Dose Ordered Sig/Millicent Route PRN Reason Start Time Stop Time Status Last Admin Dose Admin Acetaminophen (Tylenol) 650 mg Q4H PRN ORAL FEVER 03/15/17 23:00 04/14/17 22:59 03/17/17 07:33 Albuterol/ Ipratropium (DuoNeb 0.5-3(2.5)mg/3ml) 3 ml Q4H PRN HHN Shortness of Breath 03/15/17 23:00 03/20/17 22:59 Dextrose (Dextrose 50%) STAT PRN IV Hypoglycemia 03/15/17 23:00 04/14/17 22:59 Digoxin (Lanoxin) 0.125 mg DAILY GT 03/16/17 09:00 04/15/17 08:59 03/17/17 09:16 Insulin Aspart (NovoLOG) Q6HR SUBQ 03/16/17 12:00 04/15/17 11:59 03/17/17 05:58 Lorazepam (Ativan 2mg/ml 1ml) 2 mg Q2H PRN IV For Anxiety 03/15/17 23:00 03/22/17 22:59 Metoprolol Tartrate (Lopressor) 50 mg Q12HR GT 03/17/17 09:00 04/15/17 08:59 03/17/17 09:16 Morphine Sulfate (Morphine Sulfate) 4 mg Q4H PRN IVP Severe Pain (Pain Scale 7-10) 03/15/17 23:00 03/22/17 22:59 Ondansetron HCl (Zofran) 4 mg Q6H PRN IVP Nausea & Vomiting 03/15/17 23:00 04/14/17 22:59 Piperacillin Sod/ Tazobactam Sod 3.375 gm/Sodium Chloride 110 ml @ 27.5 mls/hr Q8H IVPB 03/16/17 06:00 03/23/17 05:59 03/17/17 05:37 Polyethylene Glycol (Miralax) 17 gm DAILYPRN PRN GT Constipation 03/16/17 15:00 04/14/17 22:59 Vancomycin HCl (Rx Monitoring Vancomycin) 1 ea DAILY PRN MISC per protocol 03/16/17 02:45 04/15/17 02:44 Vancomycin HCl 1 gm/Dextrose 275 ml @ 183.3 mls/ hr Q24H IVPB 03/16/17 21:00 03/21/17 20:59 03/16/17 20:38 LIGIA JARAMILLO Mar 17, 2017 10:27
[2017-03-17] MEDS ORDERED: Amikacin Rx to dose MISC PRN (11:30)
[2017-03-17 11:36] LABS: MEAN CORPUSCULAR HEMOGLOBIN 31.4 PG (27.0-31.0); MEAN CORPUSCULAR HGB CONC 32.5 G/DL (32.0-36.0); MEAN CORPUSCULAR VOLUME 97 FL (80-99); MEAN PLATELET VOLUME 7.1 FL (6.5-10.1); PLATELET COUNT 160 K/UL (150-450); RED BLOOD COUNT 2.38 M/UL (4.70-6.10); RED CELL DISTRIBUTION WIDTH 15.3 % (11.6-14.8); WHITE BLOOD COUNT 10.1 K/UL (4.8-10.8)
[2017-03-17 11:43] LABS: ALANINE AMINOTRANSFERASE 13 U/L (3-41); ALBUMIN/GLOBULIN RATIO 0.3 (1.0-2.7); ANION GAP 11 (5-15); ASPARTATE AMINO TRANSFERASE 23 U/L (5-40); CALCIUM 7.8 mg/dL (8.6-10.2); CARBON DIOXIDE 22 mEQ/L (20-30); CHLORIDE 100 mEQ/L (98-107); CREATININE 0.8 mg/dL (0.7-1.2); HEMOLYSIS 4; POTASSIUM 3.7 mEQ/L (3.4-4.9); SODIUM 133 mEQ/L (135-145); TOTAL PROTEIN 5.8 g/dL (6.6-8.7)
[2017-03-17 12:07] LABS: BAND NEUTROPHILS % (MANUAL) 3 % (0-8); EOSINOPHILS % (MANUAL) 4 % (0-3); LYMPHOCYTES % (MANUAL) 11 % (20-45); NEUTROPHILS % (MANUAL) 74 % (45-75); TOTAL CELLS COUNTED 100
[2017-03-17 12:08] LABS: ANISOCYTOSIS 1+; BASOPHILS % (MANUAL) 0 % (0-2); PLATELET ESTIMATE ADEQUATE; PLATELET MORPHOLOGY NORMAL
[2017-03-17 12:09] LABS: MICROCYTES 1+
[2017-03-17 12:43] LABS: MEAN CORPUSCULAR HEMOGLOBIN 30.9 PG (27.0-31.0); MEAN CORPUSCULAR HGB CONC 32.2 G/DL (32.0-36.0); MEAN CORPUSCULAR VOLUME 96 FL (80-99); MEAN PLATELET VOLUME 6.6 FL (6.5-10.1); PLATELET COUNT 156 K/UL (150-450); RED BLOOD COUNT 2.47 M/UL (4.70-6.10); RED CELL DISTRIBUTION WIDTH 15.2 % (11.6-14.8); WHITE BLOOD COUNT 9.8 K/UL (4.8-10.8)
[2017-03-17] MEDS ORDERED: Amikacin 1,000 MG in NS 110 ML IV SCH (13:00)
[2017-03-17 13:07] LABS: BAND NEUTROPHILS % (MANUAL) 2 % (0-8); EOSINOPHILS % (MANUAL) 5 % (0-3); LYMPHOCYTES % (MANUAL) 7 % (20-45); NEUTROPHILS % (MANUAL) 77 % (45-75); TOTAL CELLS COUNTED 100
[2017-03-17 13:08] LABS: ANISOCYTOSIS 1+; BASOPHILS % (MANUAL) 0 % (0-2); PLATELET ESTIMATE ADEQUATE; PLATELET MORPHOLOGY NORMAL
[2017-03-17 13:09] LABS: MICROCYTES 1+
--- NOTE | 2017-03-17 15:17 | Infectious Diseases Prog Note ---
Assessment/Plan Assessment/Plan Assessment 1. Febrile illness, persistent, w/o MSOF, improved a bit with addition of amikacin. 2. Leukocytosis with left shift, resolved on >24hrs empiric antibiotics, clinical course overall improved. 3. Sepsis 4. Chronic vegetative state, vent dependent, s/p peg tube 5. h/o recent sepsis, admitted to [facility], still has RUE PICC in place 6. L heel dry gangrene 7. CXR w/ subtle R>L basilar changes, pneumonia less likely. 8. r/o urosepsis 9. r/o L heel osteomyelitis 10. r/o line infection 11. superficial sacral pressure ulcer 12. Hyperferritinemia, no rash, no other criteria to suggest AOSD. 13. HIV and viral hepatitis serology negative Recs: --continue empiric IV vancomycin and zosyn D#2 and IV amikacin D#1 --f/u blood, urine, sputum, and wound cx --abd x ray --low threshold to d/c RUE picc line if fevers persist, since as of yet no clear alternative source of infection identified. -- heel X rays to r/o obvious bony erosions. --ESR and CRP Subjective ROS Limited/Unobtainable: Yes Allergies: Coded Allergies: No Known Allergies (Unverified , 03/15/17) Objective Vital Signs Last 24 Hour Vital Signs Date Time Temp Pulse Resp B/P (MAP) Pulse Ox O2 Delivery O2 Flow Rate FiO2 03/17/17 12:00 40 03/17/17 12:00 98.8 93 24 98/54 100 Mechanical Ventilator 40 03/17/17 11:54 103 03/17/17 09:16 112 95/52 03/17/17 09:16 112 03/17/17 08:32 99.5 03/17/17 08:00 40 03/17/17 08:00 102.9 112 24 95/52 100 Mechanical Ventilator 03/17/17 07:45 129 03/17/17 05:02 116 21 40 03/17/17 04:00 40 03/17/17 04:00 91 03/17/17 04:00 Mechanical Ventilator 03/17/17 02:38 95 39 40 03/17/17 01:32 95 34 40 03/17/17 00:00 93 03/17/17 00:00 40 03/17/17 00:00 100.9 120 24 95/53 100 Mechanical Ventilator 03/16/17 23:38 98 36 40 03/16/17 22:30 101.3 110 35 100 03/16/17 22:01 111 35 40 03/16/17 20:00 101 03/16/17 20:00 40 03/16/17 19:50 103.0 111 20 109/60 100 Mechanical Ventilator 03/16/17 19:26 107 32 40 03/16/17 18:04 102 102/52 03/16/17 16:53 102 20 40 03/16/17 16:00 100.9 99 18 103/51 100 Mechanical Ventilator 40 03/16/17 16:00 40 03/16/17 16:00 95 03/16/17 15:22 93 18 40 Height (Feet): 5 Height (Inches): 8.00 Weight (Pounds): 160 Objective gen: eyes open, not responsive heent: sclera anicteric, oral mucosa dry cv: tachycardic, no murmurs lungs: faint rhonchi abd: soft, nt, difficult exam, peg tube c/d/i ext: RUE picc c/d/i w/o surrounding erythema. L heel with large dry eschar w/o surrounding erythema. gu: condom cath in place Microbiology Date/Time Source Procedure Growth Status 03/15/17 23:00 Blood Blood Culture - Preliminary Resulted 03/15/17 23:00 Blood Blood Culture - Preliminary Resulted 03/16/17 07:30 Sputum Gram Stain - Final Resulted 03/16/17 07:30 Sputum Sputum Culture Pending Resulted 03/15/17 22:55 Indwelling Cath Urine Culture - Preliminary Mixed Gram Positive Organism Resulted 03/16/17 02:00 Back Gram Stain - Final Resulted 03/16/17 02:00 Wound Culture - Preliminary Gram Negative Bacillus 1 Gram Negative Bacillus 2 Gram Negative Bacillus 3 Resulted Laboratory Tests Test 03/16/17 16:55 03/16/17 18:00 03/17/17 11:00 03/17/17 12:00 Reticulocyte Count 1.0 % (0.0-2.0) PTT Mixing Study Pending APTT Patient/Control Mix Pending Mix PTT Incubation Time Pending Mix PTT Normal/Saline 1:1 Immediate Pending Thrombin Time Normal Plasma Pending Fibrinogen 638 mg/dL (200-400) H Iron Level 26 ug/dL (59-158) L Total Iron Binding Capacity 151 ug/dL (250-400) L Percent Iron Saturation 17 % (15-50) Unsaturated Iron Binding 125 ug/dL (112-346) Ferritin > 2000 ng/mL (10-230) H Carcinoembryonic Antigen 5.8 ng/mL H Prostate Specific Antigen 1.3 ng/mL (< 4.5) Vitamin B12 Level 1262 pg/mL (211-946) H Methylmalonic Acid Pending Folate Pending Thyroid Stimulating Hormone (TSH) 1.910 uIU/mL (0.300-4.500) Hepatitis A IgM Antibody Negative (Negative) Hepatitis B Surface Antigen Negative (Negative) Hepatitis B Core IgM Antibody Negative (Negative) Hepatitis C Antibody 0.1 s/co ratio (0.0-0.9) HIV (1&2) Antibody Rapid Negative (NEGATIVE) Stool Occult Blood Negative (NEGATIVE) White Blood Count 10.1 K/UL (4.8-10.8) 9.8 K/UL (4.8-10.8) Red Blood Count 2.38 M/UL (4.70-6.10) L 2.47 M/UL (4.70-6.10) L Hemoglobin 7.5 G/DL (14.2-18.0) L 7.6 G/DL (14.2-18.0) L Hematocrit 23.0 % (42.0-52.0) L 23.7 % (42.0-52.0) L Mean Corpuscular Volume 97 FL (80-99) 96 FL (80-99) Mean Corpuscular Hemoglobin 31.4 PG (27.0-31.0) H 30.9 PG (27.0-31.0) Mean Corpuscular Hemoglobin Concent 32.5 G/DL (32.0-36.0) 32.2 G/DL (32.0-36.0) Red Cell Distribution Width 15.3 % (11.6-14.8) H 15.2 % (11.6-14.8) H Platelet Count 160 K/UL (150-450) 156 K/UL (150-450) Mean Platelet Volume 7.1 FL (6.5-10.1) 6.6 FL (6.5-10.1) Neutrophils (%) (Auto) % (45.0-75.0) % (45.0-75.0) Lymphocytes (%) (Auto) % (20.0-45.0) % (20.0-45.0) Monocytes (%) (Auto) % (1.0-10.0) % (1.0-10.0) Eosinophils (%) (Auto) % (0.0-3.0) % (0.0-3.0) Basophils (%) (Auto) % (0.0-2.0) % (0.0-2.0) Differential Total Cells Counted 100 100 Neutrophils % (Manual) 74 % (45-75) 77 % (45-75) H Lymphocytes % (Manual) 11 % (20-45) L 7 % (20-45) L Monocytes % (Manual) 8 % (1-10) 9 % (1-10) Eosinophils % (Manual) 4 % (0-3) H 5 % (0-3) H Basophils % (Manual) 0 % (0-2) 0 % (0-2) Band Neutrophils 3 % (0-8) 2 % (0-8) Platelet Estimate Adequate Adequate Platelet Morphology Normal Normal Anisocytosis 1+ 1+ Microcytosis 1+ 1+ Sodium Level 133 mEQ/L (135-145) L Potassium Level 3.7 mEQ/L (3.4-4.9) Chloride Level 100 mEQ/L (98-107) Carbon Dioxide Level 22 mEQ/L (20-30) Anion Gap 11 (5-15) Blood Urea Nitrogen 21 mg/dL (7-23) Creatinine 0.8 mg/dL (0.7-1.2) Estimat Glomerular Filtration Rate mL/min (>60) Glucose Level 121 mg/dL (74-106) H Calcium Level 7.8 mg/dL (8.6-10.2) L Total Bilirubin 0.6 mg/dL (0.0-1.2) Aspartate Amino Transf (AST/SGOT) 23 U/L (5-40) Alanine Aminotransferase (ALT/SGPT) 13 U/L (3-41) Alkaline Phosphatase 163 U/L (40-129) H Total Protein 5.8 g/dL (6.6-8.7) L Albumin 1.5 g/dL (3.5-5.2) L Globulin 4.3 g/dL Albumin/Globulin Ratio 0.3 (1.0-2.7) L Current Medications Medications (Trade) Dose Ordered Sig/Millicent Route PRN Reason Start Time Stop Time Status Last Admin Dose Admin Acetaminophen (Tylenol) 650 mg Q4H PRN ORAL FEVER 03/15/17 23:00 04/14/17 22:59 03/17/17 07:33 Albuterol/ Ipratropium (DuoNeb 0.5-3(2.5)mg/3ml) 3 ml Q4H PRN HHN Shortness of Breath 03/15/17 23:00 03/20/17 22:59 Amikacin Protocol (Amikacin pharmacy to dose) 1 ea DAILY PRN MISC Per rx protocol 03/17/17 11:30 04/16/17 11:29 Amikacin Sulfate 1000 mg/Sodium Chloride 114 ml @ 114 mls/hr Q36H IV 03/17/17 13:00 03/24/17 12:59 03/17/17 13:34 Dextrose (Dextrose 50%) STAT PRN IV Hypoglycemia 03/15/17 23:00 04/14/17 22:59 Digoxin (Lanoxin) 0.125 mg DAILY GT 03/16/17 09:00 04/15/17 08:59 03/17/17 09:16 Insulin Aspart (NovoLOG) Q6HR SUBQ 03/16/17 12:00 04/15/17 11:59 03/17/17 12:34 Lorazepam (Ativan 2mg/ml 1ml) 2 mg Q2H PRN IV For Anxiety 03/15/17 23:00 03/22/17 22:59 Metoprolol Tartrate (Lopressor) 50 mg Q12HR GT 03/17/17 09:00 04/15/17 08:59 03/17/17 09:16 Morphine Sulfate (Morphine Sulfate) 4 mg Q4H PRN IVP Severe Pain (Pain Scale 7-10) 03/15/17 23:00 03/22/17 22:59 Ondansetron HCl (Zofran) 4 mg Q6H PRN IVP Nausea & Vomiting 03/15/17 23:00 04/14/17 22:59 Piperacillin Sod/ Tazobactam Sod 3.375 gm/Sodium Chloride 110 ml @ 27.5 mls/hr Q8H IVPB 03/16/17 06:00 03/23/17 05:59 03/17/17 05:37 Polyethylene Glycol (Miralax) 17 gm DAILYPRN PRN GT Constipation 03/16/17 15:00 04/14/17 22:59 Vancomycin HCl (Rx Monitoring Vancomycin) 1 ea DAILY PRN MISC per protocol 03/16/17 02:45 04/15/17 02:44 Vancomycin HCl 1 gm/Dextrose 275 ml @ 183.3 mls/ hr Q24H IVPB 03/16/17 21:00 03/21/17 20:59 03/16/17 20:38 Moises Aleman M.D. Mar 17, 2017 15:17
--- NOTE | 2017-03-17 15:33 | Cardiology Report ---
APPROVED REPORT EKG Measurement Heart [id number] Atrial fibrillation Abnormal ECG
--- NOTE | 2017-03-17 16:06 | Diagnostic Imaging Report ---
Indications: Abdominal/flank pain. Technique: AP view of the abdomen Findings: Comparison: None. Bowel gas pattern is unremarkable. Scattered arterial mural calcifications. 5 mm calcific density projects over the interpolar region of the left renal silhouette. No additional abnormal calcific or soft tissue densities are demonstrated. Disc margin osteophytes scattered throughout lumbar, lower thoracic spine. Percutaneous gastrostomy tube in place.. IMPRESSION: No evidence of acute cardiopulmonary disease. Suggestion of left nephrolithiasis versus overlying calcification Degenerative spondylosis Arteriosclerosis Gastrostomy tube
--- NOTE | 2017-03-17 16:16 | Diagnostic Imaging Report ---
Indications: Left heel pain, dry gangrene Technique: 2 views left calcaneus Findings: Comparison: None Soft tissues of the posterior aspect of the calcaneus are swollen and irregular. Subjacent posterior calcaneal cortex demonstrates multiple areas of disruption with subjacent marrow space lucency. No similar changes are identified in remaining bones imaged. Prominent vascular calcifications are present. IMPRESSION: Posterior heel pad soft tissue swelling and irregularity compatible with given history. Underlying changes in the posterior calcaneus compatible with osteomyelitis. Arteriosclerosis
[2017-03-17] MEDS ORDERED: Tubing IV Secondary IV ONE (16:25)
[2017-03-17] MEDS ORDERED: NS 275ml ONE (16:25)
--- NOTE | 2017-03-17 16:26 | Diagnostic Imaging Report ---
Indications: Right heel pain, dry gangrene Technique: 2 views right calcaneus. Findings: Comparison: None Small foci of cortical discontinuity are suggested along the posterior margin of the calcaneus on craniocaudal view. No fracture, dislocation, joint space widening , Johnson lytic destruction, periosteal reaction , surrounding soft tissue swelling/foreign body/gas, or other acute changes are identified. Small spurs emanate from plantar and posterior aspects of calcaneus. Prominent arterial mural calcifications are present. IMPRESSION: Suggestion of small foci of cortical discontinuity posterior calcaneus. Early osteomyelitis must be considered. Consider MRI for further evaluation. Calcaneal enthesophytes Arteriosclerosis .
[2017-03-17] MEDS: Vancomycin 1 GM in D5W 275 ML IVPB SCH (21:33)
[2017-03-18] MEDS: NovoLOG Insulin Flexpen SUBQ SCH ×4 (00:47→17:10)
[2017-03-18 02:04] LABS: MEAN CORPUSCULAR HEMOGLOBIN 31.4 PG (27.0-31.0); MEAN CORPUSCULAR HGB CONC 32.6 G/DL (32.0-36.0); MEAN CORPUSCULAR VOLUME 96 FL (80-99); MEAN PLATELET VOLUME 6.9 FL (6.5-10.1); PLATELET COUNT 142 K/UL (150-450); RED BLOOD COUNT 2.31 M/UL (4.70-6.10); RED CELL DISTRIBUTION WIDTH 15.2 % (11.6-14.8); WHITE BLOOD COUNT 8.6 K/UL (4.8-10.8)
[2017-03-18 02:18] LABS: ALANINE AMINOTRANSFERASE 12 U/L (3-41); ALBUMIN/GLOBULIN RATIO 0.3 (1.0-2.7); ANION GAP 11 (5-15); ASPARTATE AMINO TRANSFERASE 25 U/L (5-40); CALCIUM 7.9 mg/dL (8.6-10.2); CARBON DIOXIDE 22 mEQ/L (20-30); CHLORIDE 101 mEQ/L (98-107); CREATININE 0.6 mg/dL (0.7-1.2); HEMOLYSIS 1; MAGNESIUM 1.6 mg/dL (1.7-2.5); PHOSPHORUS 3.3 mg/dL (2.5-4.8); POTASSIUM 3.6 mEQ/L (3.4-4.9); SODIUM 134 mEQ/L (135-145)
[2017-03-18 04:00] VITALS: BP 101/66
[2017-03-18] MEDS: Piperacillin/Tazobactam 3.375 GM in NS 110 ML IVPB SCH ×3 (06:22→22:33)
[2017-03-18 08:00] VITALS: BP 113/59
--- NOTE | 2017-03-18 08:49 | Diagnostic Imaging Report ---
Indication: Dyspnea Comparison: 03/15/17 A single view chest radiograph was obtained. Findings: There is a tracheostomy. Lungs are clear. Heart size is normal. Aorta is mildly calcified. The bones are osteopenic. There is a right PICC line present in good position. The tip is projected over the SVC. Impression: No acute findings. No change compared to the previous study done 03/15/17
[2017-03-18 09:27] LABS: MEAN CORPUSCULAR HEMOGLOBIN 31.8 PG (27.0-31.0); MEAN CORPUSCULAR HGB CONC 32.5 G/DL (32.0-36.0); MEAN CORPUSCULAR VOLUME 98 FL (80-99); MEAN PLATELET VOLUME 7.2 FL (6.5-10.1); PLATELET COUNT 155 K/UL (150-450); RED BLOOD COUNT 2.56 M/UL (4.70-6.10); RED CELL DISTRIBUTION WIDTH 15.3 % (11.6-14.8); WHITE BLOOD COUNT 8.5 K/UL (4.8-10.8)
[2017-03-18] MEDS: Digoxin Elixir 0.125mg GT SCH (09:36)
[2017-03-18] MEDS: Metoprolol Tartrate 50mg tab GT SCH ×2 (09:36→22:13)
[2017-03-18 10:28] LABS: BAND NEUTROPHILS % (MANUAL) 5 % (0-8); BASOPHILS % (MANUAL) 0 % (0-2); EOSINOPHILS % (MANUAL) 1 % (0-3); LYMPHOCYTES % (MANUAL) 15 % (20-45); NEUTROPHILS % (MANUAL) 76 % (45-75); PLATELET ESTIMATE ADEQUATE; TOTAL CELLS COUNTED 100
[2017-03-18 10:29] LABS: ANISOCYTOSIS 1+; MACROCYTES 1+; PLATELET MORPHOLOGY NORMAL
[2017-03-18 12:00] VITALS: BP 99/50
--- NOTE | 2017-03-18 12:11 | Pulmonology Progress Note ---
Assessment/Plan Problems: (1) Acute and chronic respiratory failure (2) Sepsis (3) Feeding by G-tube (4) Chronic vegetative state (5) Anemia Respiratory: monitor respiratory rate Cardiac: continue pressors Renal: F/U I&O, keep IV fluid Infectious Disease: check cultures Gastrointestinal: continue feedings/current rate, hold feedings Endocrine: monitor blood sugar, continue sliding scale insulin Hematologic: monitor H/H, transfuse if hgb<8.5 Neurologic: PRN Ativan, keep patient comfortable Prophylaxis: Heparin Notes Reviewed: cardio, renal Discussed with: consultants, medical case manager Subjective ROS Limited/Unobtainable: No Interval Events: was febrile, all night, couldn't get blood transfusion Constitutional: Reports: no symptoms HEENT: Repors: no symptoms Allergies: Coded Allergies: No Known Allergies (Unverified , 03/15/17) Objective Last 24 Hour Vital Signs Date Time Temp Pulse Resp B/P (MAP) Pulse Ox O2 Delivery O2 Flow Rate FiO2 03/18/17 12:00 40 03/18/17 11:15 107 19 40 03/18/17 09:36 101 113/59 03/18/17 09:36 101 03/18/17 09:17 118 20 40 03/18/17 08:00 102.2 119 21 113/59 100 Mechanical Ventilator 40 03/18/17 08:00 142 03/18/17 08:00 40 03/18/17 07:54 100.1 03/18/17 06:53 139 28 40 03/18/17 05:30 106 21 40 03/18/17 04:12 100.9 03/18/17 04:05 96 03/18/17 04:00 40 03/18/17 04:00 100.1 92 21 101/66 100 Mechanical Ventilator 40 03/18/17 03:23 94 18 40 03/18/17 01:13 88 22 40 03/18/17 00:00 40 03/18/17 00:00 95 03/17/17 23:53 99.9 95 23 103/54 100 03/17/17 23:27 84 23 40 03/17/17 21:32 124 100/55 03/17/17 21:10 124 23 40 03/17/17 20:08 99.9 100 21 100/55 100 Mechanical Ventilator 40 03/17/17 20:00 40 03/17/17 19:40 117 16 40 03/17/17 19:23 118 03/17/17 17:27 111 18 40 03/17/17 16:00 40 03/17/17 16:00 101.5 102 24 99/56 100 Mechanical Ventilator 40 03/17/17 15:22 107 22 40 03/17/17 15:17 116 03/17/17 12:39 106 23 40 General Appearance: WD/WN HEENT: normocephalic, atraumatic Respiratory/Chest: chest wall non-tender, lungs clear Cardiovascular: normal peripheral pulses, normal rate Abdomen: normal bowel sounds, soft, non tender, no organomegaly Genitourinary: normal external genitalia Extremities: no clubbing Skin: no ulcers 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, no motor/sensory deficits Lymphatic: no neck adenopathy Microbiology Date/Time Source Procedure Growth Status 03/15/17 23:00 Blood Blood Culture - Preliminary Gram Negative Bacillus 1 Gram Negative Bacillus 2 Resulted 03/15/17 23:00 Blood Blood Culture - Preliminary Staphylococcus Sp Coag Neg Resulted 03/16/17 07:30 Sputum Gram Stain - Final Resulted 03/16/17 07:30 Sputum Culture - Preliminary Gram Negative Bacillus 1 Gram Negative Bacillus 2 Resulted 03/15/17 22:55 Indwelling Cath Urine Culture - Final Mixed Gram Positive Organism Complete 03/16/17 02:00 Back Gram Stain - Final Resulted 03/16/17 02:00 Wound Culture - Preliminary Klebsiella Pneumoniae Gram Negative Bacillus 2 Gram Negative Bacillus 3 Staphylococcus Aureus Resulted 03/15/17 22:55 Rectum VRE Culture - Final Enterococcus Faecium - Vre Complete Laboratory Tests 03/18/17 01:30: White Blood Count 8.6, Red Blood Count 2.31L, Hemoglobin 7.2L, Hematocrit 22.2L , Mean Corpuscular Volume 96, Mean Corpuscular Hemoglobin 31.4H, Mean Corpuscular Hemoglobin Concent 32.6, Red Cell Distribution Width 15.2H, Platelet Count 142L, Mean Platelet Volume 6.9, Neutrophils (%) (Auto) , Lymphocytes (%) (Auto) , Monocytes (%) (Auto) , Eosinophils (%) (Auto) , Basophils (%) (Auto) , Sodium Level 134L, Potassium Level 3.6, Chloride Level 101, Carbon Dioxide Level 22, Anion Gap 11, Blood Urea Nitrogen 18, Creatinine 0.6L, Estimat Glomerular Filtration Rate , Glucose Level 128H, Calcium Level 7.9L, Phosphorus Level 3.3, Magnesium Level 1.6L, Total Bilirubin 0.7, Aspartate Amino Transf (AST/SGOT) 25, Alanine Aminotransferase (ALT/SGPT) 12, Alkaline Phosphatase 167H, Total Protein 6.0L, Albumin 1.7L, Globulin 4.3, Albumin/Globulin Ratio 0.3L, Random Amikacin Level 8.7 03/18/17 08:30: White Blood Count 8.5, Red Blood Count 2.56L, Hemoglobin 8.2L, Hematocrit 25.1L , Mean Corpuscular Volume 98, Mean Corpuscular Hemoglobin 31.8H, Mean Corpuscular Hemoglobin Concent 32.5, Red Cell Distribution Width 15.3H, Platelet Count 155, Mean Platelet Volume 7.2, Neutrophils (%) (Auto) , Lymphocytes (%) (Auto) , Monocytes (%) (Auto) , Eosinophils (%) (Auto) , Basophils (%) (Auto) , Differential Total Cells Counted 100, Neutrophils % ( Manual) 76H, Lymphocytes % (Manual) 15L, Monocytes % (Manual) 3, Eosinophils % ( Manual) 1, Basophils % (Manual) 0, Band Neutrophils 5, Platelet Estimate Adequate, Platelet Morphology Normal, Anisocytosis 1+, Macrocytosis 1+ Current Medications Medications (Trade) Dose Ordered Sig/Millicent Route PRN Reason Start Time Stop Time Status Last Admin Dose Admin Acetaminophen (Tylenol) 650 mg Q4H PRN ORAL FEVER 03/15/17 23:00 04/14/17 22:59 03/18/17 06:55 Albuterol/ Ipratropium (DuoNeb 0.5-3(2.5)mg/3ml) 3 ml Q4H PRN HHN Shortness of Breath 03/15/17 23:00 03/20/17 22:59 Amikacin Protocol (Amikacin pharmacy to dose) 1 ea DAILY PRN MISC Per rx protocol 03/17/17 11:30 04/16/17 11:29 Amikacin Sulfate 1000 mg/Sodium Chloride 114 ml @ 114 mls/hr Q24H IV 03/18/17 13:00 03/25/17 12:59 Dextrose (Dextrose 50%) STAT PRN IV Hypoglycemia 03/15/17 23:00 04/14/17 22:59 Digoxin (Lanoxin) 0.125 mg DAILY GT 03/16/17 09:00 04/15/17 08:59 03/18/17 09:36 Insulin Aspart (NovoLOG) Q6HR SUBQ 03/16/17 12:00 04/15/17 11:59 03/18/17 06:02 Lorazepam (Ativan 2mg/ml 1ml) 2 mg Q2H PRN IV For Anxiety 03/15/17 23:00 03/22/17 22:59 Metoprolol Tartrate (Lopressor) 50 mg Q12HR GT 03/17/17 09:00 04/15/17 08:59 03/18/17 09:36 Morphine Sulfate (Morphine Sulfate) 4 mg Q4H PRN IVP Severe Pain (Pain Scale 7-10) 03/15/17 23:00 03/22/17 22:59 Ondansetron HCl (Zofran) 4 mg Q6H PRN IVP Nausea & Vomiting 03/15/17 23:00 04/14/17 22:59 Piperacillin Sod/ Tazobactam Sod 3.375 gm/Sodium Chloride 110 ml @ 27.5 mls/hr Q8H IVPB 03/16/17 06:00 03/23/17 05:59 03/18/17 06:22 Polyethylene Glycol (Miralax) 17 gm DAILYPRN PRN GT Constipation 03/16/17 15:00 04/14/17 22:59 Vancomycin HCl (Rx Monitoring Vancomycin) 1 ea DAILY PRN MISC per protocol 03/16/17 02:45 04/15/17 02:44 Vancomycin HCl 1 gm/Dextrose 275 ml @ 183.3 mls/ hr Q24H IVPB 03/16/17 21:00 03/21/17 20:59 03/17/17 21:33 LIGIA JARAMILLO Mar 18, 2017 12:11
[2017-03-18] MEDS ORDERED: Amikacin 1,000 MG in NS 110 ML IV SCH (13:00)
--- NOTE | 2017-03-18 13:40 | Diagnostic Imaging Report ---
APPROVED REPORT CPT Code: 76924 Present Symptoms Shortness of breath BILATERAL: Imaging reveals a patent deep venous system bilaterally. There is no evidence of thrombus within the femoral, popliteal or tibial segments. The greater saphenous veins are also within normal limits. Doppler indicates normal spontaneous flow within these segments.
[2017-03-18] MEDS ORDERED: Tubing Blood Filter IV ONE (13:51)
--- NOTE | 2017-03-18 15:05 | Infectious Diseases Prog Note ---
Assessment/Plan Assessment/Plan Assessment Persistently febrile on empiric IV vanc/zosyn/amikacin with GNR bacteremia. 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 doesn't looks like he has pulmonary or urinary tract source. KUB negative for acute findings and his LFTs are reassuring, although mildly elevated alk phos concerning for increased bone turnover (eg. osteomyelitis). his severe diffuse xerosis puts him at risk of invasive gram positive infections, but he has no evidence of cellulitis at this time. sacral wound growing a carbapenem/aminoglycoside resistant Klebsiella, so given his persistent fevers I am concerned that the GNR bacteremia is the MDR Klebsiella that is also in his sacral wound. If that proves to be the case, it is critical that we ensure whatever source is involved that he have effective debridement as this may be our only chance to eradicate infection. He does have a coag negative staph in his blood from one set on admission, so will continue on iv vanc for minimum 5-7 days. --Gram negative bacteremia --Febrile illness, persistent, w/o MSOF, improved a bit with addition of amikacin. --Leukocytosis with left shift, resolved on >24hrs empiric antibiotics. 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 --HIV and viral hepatitis serology negative --elevated inflammatory markers (CRP 23 mg/dL) --severe diffuse xerosis --b/l onychomycosis --poor healing potential Recs: --continue empiric IV vancomycin and zosyn D#3. --D/c IV amikacin currently on D#2 --Start colistin 2.5mg/kg IV q12hr, first dose stat --I'hermelindo called micro lab to ask them to check the susceptibility of the sacral wound cx Klebsiella pneumoniae (specimen # [id number] ) for: 1) colistin (or polymyxin B) e-test 2) fosfomycin 3) Avycaz (ceftazadime/avibactam)--although suspect will be negative --If he continues to be febrile or develops hypotension, his RUE Picc has to be removed and tip sent for culture. If he grows Acinetobacter or Pseudomonas from blood, also these would be absolute indications for catheter removal as well. --f/u blood, urine, sputum, and wound cx --MRI pelvis to evaluate for sacral osteomyelitis or abscess --surveillance blood cx today --continue wound care. s/p wound care consultation. --will defer to primary service for topical emollients for severe xerosis. --prealbumin, nutrition consultation Subjective ROS Limited/Unobtainable: Yes Allergies: Coded Allergies: No Known Allergies (Unverified , 03/15/17) Objective Vital Signs Last 24 Hour Vital Signs Date Time Temp Pulse Resp B/P (MAP) Pulse Ox O2 Delivery O2 Flow Rate FiO2 03/18/17 12:46 103 18 40 03/18/17 12:00 40 03/18/17 12:00 103 03/18/17 12:00 98.1 107 16 99/50 100 Mechanical Ventilator 40 03/18/17 11:15 107 19 40 03/18/17 09:36 101 113/59 03/18/17 09:36 101 03/18/17 09:17 118 20 40 03/18/17 08:00 102.2 119 21 113/59 100 Mechanical Ventilator 40 03/18/17 08:00 142 03/18/17 08:00 40 03/18/17 07:54 100.1 03/18/17 06:53 139 28 40 03/18/17 05:30 106 21 40 03/18/17 04:12 100.9 03/18/17 04:05 96 03/18/17 04:00 40 03/18/17 04:00 100.1 92 21 101/66 100 Mechanical Ventilator 40 03/18/17 03:23 94 18 40 03/18/17 01:13 88 22 40 03/18/17 00:00 40 03/18/17 00:00 95 03/17/17 23:53 99.9 95 23 103/54 100 03/17/17 23:27 84 23 40 03/17/17 21:32 124 100/55 03/17/17 21:10 124 23 40 03/17/17 20:08 99.9 100 21 100/55 100 Mechanical Ventilator 40 03/17/17 20:00 40 03/17/17 19:40 117 16 40 03/17/17 19:23 118 03/17/17 17:27 111 18 40 03/17/17 16:00 40 03/17/17 16:00 101.5 102 24 99/56 100 Mechanical Ventilator 40 03/17/17 15:22 107 22 40 03/17/17 15:17 116 Height (Feet): 5 Height (Inches): 8.00 Weight (Pounds): 160 Objective gen: eyes open, not responsive heent: sclera anicteric, oral mucosa dry cv: tachycardic, no murmurs lungs: faint rhonchi abd: soft, nt, difficult exam, peg tube c/d/i ext: RUE picc c/d/i w/o surrounding erythema. L heel with large dry eschar w/o surrounding erythema. gu: condom cath in place reviewed wound care notes and wound care photos, demonstrating a stage IV sacral decubitus ulcer that doesn't seem to extend deep. Microbiology Date/Time Source Procedure Growth Status 03/15/17 23:00 Blood Blood Culture - Preliminary Gram Negative Bacillus 1 Gram Negative Bacillus 2 Resulted 03/15/17 23:00 Blood Blood Culture - Preliminary Staphylococcus Sp Coag Neg Resulted 03/16/17 07:30 Sputum Gram Stain - Final Resulted 03/16/17 07:30 Sputum Culture - Preliminary Gram Negative Bacillus 1 Gram Negative Bacillus 2 Resulted 03/15/17 22:55 Indwelling Cath Urine Culture - Final Mixed Gram Positive Organism Complete 03/16/17 02:00 Back Gram Stain - Final Resulted 03/16/17 02:00 Wound Culture - Preliminary Klebsiella Pneumoniae Gram Negative Bacillus 2 Gram Negative Bacillus 3 Staphylococcus Aureus Resulted 03/15/17 22:55 Rectum VRE Culture - Final Enterococcus Faecium - Vre Complete Laboratory Tests Test 03/18/17 01:30 03/18/17 08:30 White Blood Count 8.6 K/UL (4.8-10.8) 8.5 K/UL (4.8-10.8) Red Blood Count 2.31 M/UL (4.70-6.10) L 2.56 M/UL (4.70-6.10) L Hemoglobin 7.2 G/DL (14.2-18.0) L 8.2 G/DL (14.2-18.0) L Hematocrit 22.2 % (42.0-52.0) L 25.1 % (42.0-52.0) L Mean Corpuscular Volume 96 FL (80-99) 98 FL (80-99) Mean Corpuscular Hemoglobin 31.4 PG (27.0-31.0) H 31.8 PG (27.0-31.0) H Mean Corpuscular Hemoglobin Concent 32.6 G/DL (32.0-36.0) 32.5 G/DL (32.0-36.0) Red Cell Distribution Width 15.2 % (11.6-14.8) H 15.3 % (11.6-14.8) H Platelet Count 142 K/UL (150-450) L 155 K/UL (150-450) Mean Platelet Volume 6.9 FL (6.5-10.1) 7.2 FL (6.5-10.1) Neutrophils (%) (Auto) % (45.0-75.0) % (45.0-75.0) Lymphocytes (%) (Auto) % (20.0-45.0) % (20.0-45.0) Monocytes (%) (Auto) % (1.0-10.0) % (1.0-10.0) Eosinophils (%) (Auto) % (0.0-3.0) % (0.0-3.0) Basophils (%) (Auto) % (0.0-2.0) % (0.0-2.0) Sodium Level 134 mEQ/L (135-145) L Potassium Level 3.6 mEQ/L (3.4-4.9) Chloride Level 101 mEQ/L (98-107) Carbon Dioxide Level 22 mEQ/L (20-30) Anion Gap 11 (5-15) Blood Urea Nitrogen 18 mg/dL (7-23) Creatinine 0.6 mg/dL (0.7-1.2) L Estimat Glomerular Filtration Rate mL/min (>60) Glucose Level 128 mg/dL (74-106) H Calcium Level 7.9 mg/dL (8.6-10.2) L Phosphorus Level 3.3 mg/dL (2.5-4.8) Magnesium Level 1.6 mg/dL (1.7-2.5) L Total Bilirubin 0.7 mg/dL (0.0-1.2) Aspartate Amino Transf (AST/SGOT) 25 U/L (5-40) Alanine Aminotransferase (ALT/SGPT) 12 U/L (3-41) Alkaline Phosphatase 167 U/L (40-129) H Total Protein 6.0 g/dL (6.6-8.7) L Albumin 1.7 g/dL (3.5-5.2) L Globulin 4.3 g/dL Albumin/Globulin Ratio 0.3 (1.0-2.7) L Random Amikacin Level 8.7 ug/mL Differential Total Cells Counted 100 Neutrophils % (Manual) 76 % (45-75) H Lymphocytes % (Manual) 15 % (20-45) L Monocytes % (Manual) 3 % (1-10) Eosinophils % (Manual) 1 % (0-3) Basophils % (Manual) 0 % (0-2) Band Neutrophils 5 % (0-8) Platelet Estimate Adequate Platelet Morphology Normal Anisocytosis 1+ Macrocytosis 1+ Current Medications Medications (Trade) Dose Ordered Sig/Millicent Route PRN Reason Start Time Stop Time Status Last Admin Dose Admin Acetaminophen (Tylenol) 650 mg Q4H PRN ORAL FEVER 03/15/17 23:00 04/14/17 22:59 03/18/17 06:55 Albuterol/ Ipratropium (DuoNeb 0.5-3(2.5)mg/3ml) 3 ml Q4H PRN HHN Shortness of Breath 03/15/17 23:00 03/20/17 22:59 Amikacin Protocol (Amikacin pharmacy to dose) 1 ea DAILY PRN MISC Per rx protocol 03/17/17 11:30 04/16/17 11:29 Amikacin Sulfate 1000 mg/Sodium Chloride 114 ml @ 114 mls/hr Q24H IV 03/18/17 13:00 03/25/17 12:59 03/18/17 12:54 Dextrose (Dextrose 50%) STAT PRN IV Hypoglycemia 03/15/17 23:00 04/14/17 22:59 Digoxin (Lanoxin) 0.125 mg DAILY GT 03/16/17 09:00 04/15/17 08:59 03/18/17 09:36 Insulin Aspart (NovoLOG) Q6HR SUBQ 03/16/17 12:00 04/15/17 11:59 03/18/17 12:22 Lorazepam (Ativan 2mg/ml 1ml) 2 mg Q2H PRN IV For Anxiety 03/15/17 23:00 03/22/17 22:59 Metoprolol Tartrate (Lopressor) 50 mg Q12HR GT 03/17/17 09:00 04/15/17 08:59 03/18/17 09:36 Morphine Sulfate (Morphine Sulfate) 4 mg Q4H PRN IVP Severe Pain (Pain Scale 7-10) 03/15/17 23:00 03/22/17 22:59 Ondansetron HCl (Zofran) 4 mg Q6H PRN IVP Nausea & Vomiting 03/15/17 23:00 04/14/17 22:59 Piperacillin Sod/ Tazobactam Sod 3.375 gm/Sodium Chloride 110 ml @ 27.5 mls/hr Q8H IVPB 03/16/17 06:00 03/23/17 05:59 03/18/17 14:08 Polyethylene Glycol (Miralax) 17 gm DAILYPRN PRN GT Constipation 03/16/17 15:00 04/14/17 22:59 Vancomycin HCl (Rx Monitoring Vancomycin) 1 ea DAILY PRN MISC per protocol 03/16/17 02:45 04/15/17 02:44 Vancomycin HCl 1 gm/Dextrose 275 ml @ 183.3 mls/ hr Q24H IVPB 03/16/17 21:00 03/21/17 20:59 03/17/17 21:33 Moises Aleman M.D. Mar 18, 2017 15:05
[2017-03-18 16:00] VITALS: BP 114/70
[2017-03-18] MEDS: Colistin 150mg vial IVP SCH (16:10)
--- NOTE | 2017-03-18 17:14 | General Progress Note ---
Assessment/Plan Assessment/Plan 1. Coagulopathy, potentially secondary to underlying sepsis. We will order PTT. 2. Anemia, likely secondary to hemodilution. 3. Anemia, secondary to chronic disease. Anemia workup has been ordered. 4. Leukocytosis, potentially secondary to underlying sepsis with a left shift, neutrophil predominant leukocytosis. --> id following 5. Hypocalcemia potentially secondary to hemodilution. Continue to monitor. 6. Sepsis. He is on antibiotics. 7. Chronic vegetative state Subjective Date patient seen: Mar 17, 2017 Constitutional: Reports: no symptoms HEENT: Reports: no symptoms Cardiovascular: Reports: no symptoms Respiratory: Reports: no symptoms Gastrointestinal/Abdominal: Reports: no symptoms Genitourinary: Reports: no symptoms Neurologic/Psychiatric: Reports: no symptoms Endocrine: Reports: no symptoms Hematologic/Lymphatic: Reports: anemia Allergies: Coded Allergies: No Known Allergies (Unverified , 03/15/17) Subjective on a vent Objective Last 24 Hour Vital Signs Date Time Temp Pulse Resp B/P (MAP) Pulse Ox O2 Delivery O2 Flow Rate FiO2 03/18/17 16:48 112 21 40 03/18/17 16:00 98.2 102 18 114/70 100 Mechanical Ventilator 40 03/18/17 16:00 40 03/18/17 15:31 97 21 40 03/18/17 12:46 103 18 40 03/18/17 12:00 40 03/18/17 12:00 103 03/18/17 12:00 98.1 107 16 99/50 100 Mechanical Ventilator 40 03/18/17 11:15 107 19 40 03/18/17 09:36 101 113/59 03/18/17 09:36 101 03/18/17 09:17 118 20 40 03/18/17 08:00 102.2 119 21 113/59 100 Mechanical Ventilator 40 03/18/17 08:00 142 03/18/17 08:00 40 03/18/17 07:54 100.1 03/18/17 06:53 139 28 40 03/18/17 05:30 106 21 40 03/18/17 04:12 100.9 03/18/17 04:05 96 03/18/17 04:00 40 03/18/17 04:00 100.1 92 21 101/66 100 Mechanical Ventilator 40 03/18/17 03:23 94 18 40 03/18/17 01:13 88 22 40 8/24/17 00:00 40 03/18/17 00:00 95 03/17/17 23:53 99.9 95 23 103/54 100 03/17/17 23:27 84 23 40 03/17/17 21:32 124 100/55 03/17/17 21:10 124 23 40 03/17/17 20:08 99.9 100 21 100/55 100 Mechanical Ventilator 40 03/17/17 20:00 40 03/17/17 19:40 117 16 40 03/17/17 19:23 118 03/17/17 17:27 111 18 40 Intake and Output 03/18/17 03/19/17 19:00 07:00 Intake Total 1006.5 ml Balance 1006.5 ml Free Water 200 ml IV Total 251.5 ml Tube Feeding 495 ml Other 60 ml Laboratory Tests 03/18/17 01:30: White Blood Count 8.6, Red Blood Count 2.31L, Hemoglobin 7.2L, Hematocrit 22.2L , Mean Corpuscular Volume 96, Mean Corpuscular Hemoglobin 31.4H, Mean Corpuscular Hemoglobin Concent 32.6, Red Cell Distribution Width 15.2H, Platelet Count 142L, Mean Platelet Volume 6.9, Neutrophils (%) (Auto) , Lymphocytes (%) (Auto) , Monocytes (%) (Auto) , Eosinophils (%) (Auto) , Basophils (%) (Auto) , Sodium Level 134L, Potassium Level 3.6, Chloride Level 101, Carbon Dioxide Level 22, Anion Gap 11, Blood Urea Nitrogen 18, Creatinine 0.6L, Estimat Glomerular Filtration Rate , Glucose Level 128H, Calcium Level 7.9L, Phosphorus Level 3.3, Magnesium Level 1.6L, Total Bilirubin 0.7, Aspartate Amino Transf (AST/SGOT) 25, Alanine Aminotransferase (ALT/SGPT) 12, Alkaline Phosphatase 167H, Total Protein 6.0L, Albumin 1.7L, Globulin 4.3, Albumin/Globulin Ratio 0.3L, Random Amikacin Level 8.7 03/18/17 08:30: White Blood Count 8.5, Red Blood Count 2.56L, Hemoglobin 8.2L, Hematocrit 25.1L , Mean Corpuscular Volume 98, Mean Corpuscular Hemoglobin 31.8H, Mean Corpuscular Hemoglobin Concent 32.5, Red Cell Distribution Width 15.3H, Platelet Count 155, Mean Platelet Volume 7.2, Neutrophils (%) (Auto) , Lymphocytes (%) (Auto) , Monocytes (%) (Auto) , Eosinophils (%) (Auto) , Basophils (%) (Auto) , Differential Total Cells Counted 100, Neutrophils % ( Manual) 76H, Lymphocytes % (Manual) 15L, Monocytes % (Manual) 3, Eosinophils % ( Manual) 1, Basophils % (Manual) 0, Band Neutrophils 5, Platelet Estimate Adequate, Platelet Morphology Normal, Anisocytosis 1+, Macrocytosis 1+ Height (Feet): 5 Height (Inches): 8.00 Weight (Pounds): 160 General Appearance: no apparent distress EENT: normal ENT inspection Cardiovascular: normal rate Neurologic: unresponsive Giovanny Brennan Mar 18, 2017 17:14
--- NOTE | 2017-03-18 18:00 | General Progress Note ---
Assessment/Plan Assessment/Plan 1. Coagulopathy, potentially secondary to underlying sepsis. We will order PTT study --> pending 2. Anemia, likely secondary to hemodilution. 3. Anemia, secondary to chronic disease. Anemia workup has been ordered. --> no evidence of iron,folate, b12 def, ferritin is elevated and tibc is low --> continue to monitor counts 4. Leukocytosis, potentially secondary to underlying sepsis with a left shift, neutrophil predominant leukocytosis. --> id following 5. Hypocalcemia potentially secondary to hemodilution. Continue to monitor. 6. Sepsis. He is on antibiotics. 7. Chronic vegetative state Subjective Constitutional: Reports: no symptoms HEENT: Reports: no symptoms Cardiovascular: Reports: no symptoms Respiratory: Reports: no symptoms Gastrointestinal/Abdominal: Reports: no symptoms Genitourinary: Reports: no symptoms Neurologic/Psychiatric: Reports: no symptoms Endocrine: Reports: no symptoms Hematologic/Lymphatic: Reports: anemia Allergies: Coded Allergies: No Known Allergies (Unverified , 03/15/17) Subjective H/H better, plt count wnl Objective Last 24 Hour Vital Signs Date Time Temp Pulse Resp B/P (MAP) Pulse Ox O2 Delivery O2 Flow Rate FiO2 03/18/17 16:48 112 21 40 03/18/17 16:00 98.2 102 18 114/70 100 Mechanical Ventilator 40 03/18/17 16:00 40 03/18/17 16:00 107 03/18/17 15:31 97 21 40 03/18/17 12:46 103 18 40 03/18/17 12:00 40 03/18/17 12:00 103 03/18/17 12:00 98.1 107 16 99/50 100 Mechanical Ventilator 40 03/18/17 11:15 107 19 40 03/18/17 09:36 101 113/59 03/18/17 09:36 101 03/18/17 09:17 118 20 40 03/18/17 08:00 102.2 119 21 113/59 100 Mechanical Ventilator 40 03/18/17 08:00 142 03/18/17 08:00 40 03/18/17 07:54 100.1 03/18/17 06:53 139 28 40 03/18/17 05:30 106 21 40 03/18/17 04:12 100.9 03/18/17 04:05 96 03/18/17 04:00 40 03/18/17 04:00 100.1 92 21 101/66 100 Mechanical Ventilator 40 03/18/17 03:23 94 18 40 03/18/17 01:13 88 22 40 03/18/17 00:00 40 03/18/17 00:00 95 03/17/17 23:53 99.9 95 23 103/54 100 03/17/17 23:27 84 23 40 03/17/17 21:32 124 100/55 03/17/17 21:10 124 23 40 03/17/17 20:08 99.9 100 21 100/55 100 Mechanical Ventilator 40 03/17/17 20:00 40 03/17/17 19:40 117 16 40 03/17/17 19:23 118 Intake and Output 03/18/17 03/19/17 19:00 07:00 Intake Total 1006.5 ml Balance 1006.5 ml Free Water 200 ml IV Total 251.5 ml Tube Feeding 495 ml Other 60 ml Laboratory Tests 03/18/17 01:30: White Blood Count 8.6, Red Blood Count 2.31L, Hemoglobin 7.2L, Hematocrit 22.2L , Mean Corpuscular Volume 96, Mean Corpuscular Hemoglobin 31.4H, Mean Corpuscular Hemoglobin Concent 32.6, Red Cell Distribution Width 15.2H, Platelet Count 142L, Mean Platelet Volume 6.9, Neutrophils (%) (Auto) , Lymphocytes (%) (Auto) , Monocytes (%) (Auto) , Eosinophils (%) (Auto) , Basophils (%) (Auto) , Sodium Level 134L, Potassium Level 3.6, Chloride Level 101, Carbon Dioxide Level 22, Anion Gap 11, Blood Urea Nitrogen 18, Creatinine 0.6L, Estimat Glomerular Filtration Rate , Glucose Level 128H, Calcium Level 7.9L, Phosphorus Level 3.3, Magnesium Level 1.6L, Total Bilirubin 0.7, Aspartate Amino Transf (AST/SGOT) 25, Alanine Aminotransferase (ALT/SGPT) 12, Alkaline Phosphatase 167H, Total Protein 6.0L, Albumin 1.7L, Globulin 4.3, Albumin/Globulin Ratio 0.3L, Random Amikacin Level 8.7 03/18/17 08:30: White Blood Count 8.5, Red Blood Count 2.56L, Hemoglobin 8.2L, Hematocrit 25.1L , Mean Corpuscular Volume 98, Mean Corpuscular Hemoglobin 31.8H, Mean Corpuscular Hemoglobin Concent 32.5, Red Cell Distribution Width 15.3H, Platelet Count 155, Mean Platelet Volume 7.2, Neutrophils (%) (Auto) , Lymphocytes (%) (Auto) , Monocytes (%) (Auto) , Eosinophils (%) (Auto) , Basophils (%) (Auto) , Differential Total Cells Counted 100, Neutrophils % ( Manual) 76H, Lymphocytes % (Manual) 15L, Monocytes % (Manual) 3, Eosinophils % ( Manual) 1, Basophils % (Manual) 0, Band Neutrophils 5, Platelet Estimate Adequate, Platelet Morphology Normal, Anisocytosis 1+, Macrocytosis 1+ Height (Feet): 5 Height (Inches): 8.00 Weight (Pounds): 160 General Appearance: no apparent distress EENT: normal ENT inspection Cardiovascular: normal rate Respiratory/Chest: no accessory muscle use Skin: warm/dry Giovanny Brennan Mar 18, 2017 18:00
[2017-03-18 20:33] VITALS: BP 109/57
[2017-03-18] MEDS ORDERED: Dyna-Hex 2% Top Sol 8oz TOPIC SCH (21:00)
[2017-03-18] MEDS: Vancomycin 1 GM in D5W 275 ML IVPB SCH (22:07)
[2017-03-19] MEDS: Colistin 150mg vial IVP SCH ×3 (00:12→20:41)
[2017-03-19] MEDS: NovoLOG Insulin Flexpen SUBQ SCH ×4 (00:14→18:00)
[2017-03-19 00:51] VITALS: BP 103/53
[2017-03-19 04:00] VITALS: BP 119/65
[2017-03-19 05:31] LABS: MEAN CORPUSCULAR HEMOGLOBIN 31.1 PG (27.0-31.0); MEAN CORPUSCULAR HGB CONC 32.3 G/DL (32.0-36.0); MEAN CORPUSCULAR VOLUME 96 FL (80-99); PLATELET COUNT 154 K/UL (150-450); RED BLOOD COUNT 2.48 M/UL (4.70-6.10); RED CELL DISTRIBUTION WIDTH 14.8 % (11.6-14.8); WHITE BLOOD COUNT 8.5 K/UL (4.8-10.8)
[2017-03-19] MEDS: Piperacillin/Tazobactam 3.375 GM in NS 110 ML IVPB SCH ×3 (06:13→22:19)
[2017-03-19 06:32] LABS: ALANINE AMINOTRANSFERASE 16 U/L (3-41); ALBUMIN/GLOBULIN RATIO 0.4 (1.0-2.7); ANION GAP 14 (5-15); ASPARTATE AMINO TRANSFERASE 34 U/L (5-40); CALCIUM 8.3 mg/dL (8.6-10.2); CARBON DIOXIDE 23 mEQ/L (20-30); CHLORIDE 100 mEQ/L (98-107); CREATININE 0.7 mg/dL (0.7-1.2); HEMOLYSIS 4; MAGNESIUM 1.7 mg/dL (1.7-2.5); PHOSPHORUS 3.6 mg/dL (2.5-4.8); POTASSIUM 4.3 mEQ/L (3.4-4.9); SODIUM 137 mEQ/L (135-145); TOTAL PROTEIN 6.8 g/dL (6.6-8.7)
[2017-03-19 08:00] VITALS: BP 102/48
[2017-03-19] MEDS ORDERED: Vancomycin 1250mg/D5W 250ml IVPB SCH (09:00)
[2017-03-19] MEDS ORDERED: Dyna-Hex 2% Top Sol 8oz TOPIC SCH ×2 (09:00→21:00)
[2017-03-19] MEDS: Digoxin Elixir 0.125mg GT SCH (09:18)
[2017-03-19] MEDS: Metoprolol Tartrate 50mg tab GT SCH ×2 (09:19→20:39)
[2017-03-19 09:20] LABS: MEAN CORPUSCULAR HEMOGLOBIN 31.9 PG (27.0-31.0); MEAN CORPUSCULAR HGB CONC 32.9 G/DL (32.0-36.0); MEAN CORPUSCULAR VOLUME 97 FL (80-99); MEAN PLATELET VOLUME 7.1 FL (6.5-10.1); PLATELET COUNT 145 K/UL (150-450); RED BLOOD COUNT 2.13 M/UL (4.70-6.10); RED CELL DISTRIBUTION WIDTH 14.7 % (11.6-14.8); WHITE BLOOD COUNT 7.7 K/UL (4.8-10.8)
--- NOTE | 2017-03-19 09:20 | Diagnostic Imaging Report ---
Indication: Sacrum decubitus ulcer stage IV Technique: Continuous helical transaxial imaging of the pelvis was obtained from the iliac crest to the pubic symphysis. Coronal 2-D reformats were also obtained. Study obtained in a Siemens sensation [address] Intravenous non-ionic contrast was administered. Total Dose length Product (DLP): [address] Dose Index Volume (CTDIvol): 19 mGy Comparison: None Findings: There is a prominent decubitus ulcer, midline in location posterior to the coccyx. The ulcer that is identified on this examination by presence of air that extends anteriorly to the posterior margin of the coccyx, just below the sacral hiatus of the median crest. The coccyx itself appears intact. There is no abscess. The sacral vertebral and posterior median crest structures are normal and uninvolved. Whether there is bone marrow edema within the coccyx (i.e. early osteomyelitis) is not elucidated adequately on CT. That said, there is no erosion or destruction of the coccyx identified on this study, which would represent late findings of osteomyelitis. There is generalized subcutaneous edema within the visualized pelvis seen as reticulation and soft tissue stranding of the subcutaneous fat. The reason for this is unknown and is nonspecific finding. In terms of the intrapelvic region, there is presacral edema noted. No abscess is seen. There is some thickening of the urinary bladder wall. There is air in the bladder lumen which may be associated with recent Varela catheter placement. Please correlate clinically. Moderate arterial calcifications are present within the aorta and iliac arteries. 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 On the left the aneurysm is about 2.3 cm. On the right the aneurysm is approximately 1.9 cm. Impression: Stage IV decubitus ulcer extending to the posterior margin of the coccyx. Coccyx appears normal by CT. As CT only detects late osteomyelitis, consider MRI for further evaluation as warranted clinically. No abscess identified. Generalized subcutaneous edema (anasarca), generalized reticulation involving presacral periotoneal and extraperitoneal spaces. Nature of this is unknown. 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 Air in the bladder lumen probably on the basis of recent Varela catheter placement. Please correlate clinically. Thickening of the urinary bladder wall. Cystitis should be considered. The CT scanner at [facility] is accredited by the [employer] and the scans are performed using dose optimization techniques as appropriate to a performed exam including Automatic Exposure control.
[2017-03-19 09:50] LABS: ANISOCYTOSIS 1+; BAND NEUTROPHILS % (MANUAL) 1 % (0-8); BASOPHILS % (MANUAL) 0 % (0-2); EOSINOPHILS % (MANUAL) 3 % (0-3); HYPOCHROMASIA 1+; LYMPHOCYTES % (MANUAL) 7 % (20-45); NEUTROPHILS % (MANUAL) 79 % (45-75); PLATELET ESTIMATE ADEQUATE; PLATELET MORPHOLOGY NORMAL; TOTAL CELLS COUNTED 100
[2017-03-19 10:05] LABS: ANISOCYTOSIS 1+; BAND NEUTROPHILS % (MANUAL) 1 % (0-8); BASOPHILS % (MANUAL) 0 % (0-2); EOSINOPHILS % (MANUAL) 1 % (0-3); HYPOCHROMASIA 1+; LYMPHOCYTES % (MANUAL) 13 % (20-45); NEUTROPHILS % (MANUAL) 79 % (45-75); PLATELET ESTIMATE ADEQUATE; PLATELET MORPHOLOGY NORMAL; TOTAL CELLS COUNTED 100
--- NOTE | 2017-03-19 11:09 | Pulmonology Progress Note ---
Assessment/Plan Problems: (1) Acute and chronic respiratory failure (2) Sepsis (3) Feeding by G-tube (4) Chronic vegetative state (5) Anemia Respiratory: monitor respiratory rate, adjust FIO2, CXR Renal: F/U I&O Infectious Disease: check cultures, continue antibiotics Gastrointestinal: other - still febrile Endocrine: monitor blood sugar Hematologic: monitor H/H Neurologic: PRN Ativan, PRN Morphine Affect: PRN ativan Notes Reviewed: rigging man, cardio Discussed with: nurses, consultants, lead case manager Subjective ROS Limited/Unobtainable: No Constitutional: Reports: no symptoms HEENT: Repors: no symptoms Allergies: Coded Allergies: No Known Allergies (Unverified , 03/15/17) Objective Last 24 Hour Vital Signs Date Time Temp Pulse Resp B/P (MAP) Pulse Ox O2 Delivery O2 Flow Rate FiO2 03/19/17 10:38 88 18 30 03/19/17 09:19 97 102/48 03/19/17 09:18 97 03/19/17 08:43 97 18 30 03/19/17 08:00 99.7 97 21 102/48 100 Mechanical Ventilator 30 03/19/17 08:00 40 03/19/17 07:40 97 03/19/17 07:18 100.0 03/19/17 06:39 122 19 30 03/19/17 05:11 112 25 30 03/19/17 04:00 40 03/19/17 04:00 100 03/19/17 04:00 102.2 127 23 119/65 100 Mechanical Ventilator 35 03/19/17 02:51 101 24 30 03/19/17 01:30 102 21 30 03/19/17 00:51 98.8 95 23 103/53 100 Mechanical Ventilator 30 03/18/17 22:44 90 25 30 03/18/17 22:13 100 113/64 03/18/17 21:05 98 18 30 03/18/17 20:33 98.2 94 17 109/57 100 Mechanical Ventilator 30 03/18/17 20:00 107 03/18/17 20:00 40 03/18/17 19:30 101 17 30 03/18/17 16:48 112 21 40 03/18/17 16:00 98.2 102 18 114/70 100 Mechanical Ventilator 40 03/18/17 16:00 40 03/18/17 16:00 107 03/18/17 15:31 97 21 40 03/18/17 12:46 103 18 40 03/18/17 12:00 40 03/18/17 12:00 103 03/18/17 12:00 98.1 107 16 99/50 100 Mechanical Ventilator 40 03/18/17 11:15 107 19 40 Intake and Output 03/19/17 03/20/17 19:00 07:00 Intake Total 276.667 ml Balance 276.667 ml IV Total 276.667 ml General Appearance: WD/WN HEENT: normocephalic, atraumatic, status post trach Respiratory/Chest: chest wall non-tender, lungs clear Cardiovascular: normal peripheral pulses, normal rate Abdomen: normal bowel sounds, soft, non tender Extremities: no cyanosis, no clubbing Neurologic/Psychiatric: no motor/sensory deficits, alert Microbiology Date/Time Source Procedure Growth Status 03/18/17 08:30 Blood Blood Culture - Preliminary Resulted 03/18/17 08:39 Sputum Induced Gram Stain Pending Resulted 03/18/17 08:39 Sputum Induced Sputum Culture - Preliminary Resulted 03/18/17 11:00 Urine,Clean Catch Urine Culture - Preliminary NO GROWTH Resulted Laboratory Tests 03/18/17 21:00: Vancomycin Level Trough 10.0 03/19/17 04:30: White Blood Count 8.5, Red Blood Count 2.48L, Hemoglobin 7.7L, Hematocrit 23.9L , Mean Corpuscular Volume 96, Mean Corpuscular Hemoglobin 31.1H, Mean Corpuscular Hemoglobin Concent 32.3, Red Cell Distribution Width 14.8, Platelet Count 154, Mean Platelet Volume 7.0, Neutrophils (%) (Auto) , Lymphocytes (%) ( Auto) , Monocytes (%) (Auto) , Eosinophils (%) (Auto) , Basophils (%) (Auto) , Differential Total Cells Counted 100, Neutrophils % (Manual) 79H, Lymphocytes % (Manual) 7L, Monocytes % (Manual) 10, Eosinophils % (Manual) 3, Basophils % ( Manual) 0, Band Neutrophils 1, Platelet Estimate Adequate, Platelet Morphology Normal, Hypochromasia 1+, Anisocytosis 1+, Sodium Level 137, Potassium Level 4.3 , Chloride Level 100, Carbon Dioxide Level 23, Anion Gap 14, Blood Urea Nitrogen 21, Creatinine 0.7, Estimat Glomerular Filtration Rate , Glucose Level 137H, Calcium Level 8.3L, Phosphorus Level 3.6, Magnesium Level 1.7, Total Bilirubin 0.6, Aspartate Amino Transf (AST/SGOT) 34, Alanine Aminotransferase ( ALT/SGPT) 16, Alkaline Phosphatase 282H, Total Protein 6.8, Albumin 2.1L, Globulin 4.7, Albumin/Globulin Ratio 0.4L 03/19/17 08:50: White Blood Count 7.7, Red Blood Count 2.13L, Hemoglobin 6.8*L, Hematocrit 20.6L , Mean Corpuscular Volume 97, Mean Corpuscular Hemoglobin 31.9H, Mean Corpuscular Hemoglobin Concent 32.9, Red Cell Distribution Width 14.7, Platelet Count 145L, Mean Platelet Volume 7.1, Neutrophils (%) (Auto) , Lymphocytes (%) ( Auto) , Monocytes (%) (Auto) , Eosinophils (%) (Auto) , Basophils (%) (Auto) , Differential Total Cells Counted 100, Neutrophils % (Manual) 79H, Lymphocytes % (Manual) 13L, Monocytes % (Manual) 6, Eosinophils % (Manual) 1, Basophils % ( Manual) 0, Band Neutrophils 1, Platelet Estimate Adequate, Platelet Morphology Normal, Hypochromasia 1+, Anisocytosis 1+ Current Medications Medications (Trade) Dose Ordered Sig/Millicent Route PRN Reason Start Time Stop Time Status Last Admin Dose Admin Acetaminophen (Tylenol) 650 mg Q4H PRN ORAL FEVER 03/15/17 23:00 04/14/17 22:59 03/19/17 06:16 Albuterol/ Ipratropium (DuoNeb 0.5-3(2.5)mg/3ml) 3 ml Q4H PRN HHN Shortness of Breath 03/15/17 23:00 03/20/17 22:59 Chlorhexidine Gluconate (Ivanna-Hex 2%) 1 applic BEDTIME TOPIC 03/19/17 21:00 04/18/17 20:59 Chlorhexidine Gluconate (Ivanna-Hex 2%) 1 applic QHS TOPIC 03/19/17 21:00 04/18/17 20:59 Colistimethate Sodium (Colistin) 180 mg EVERY 12 HOURS IVP 03/18/17 16:00 03/25/17 15:59 03/19/17 09:11 Dextrose (Dextrose 50%) STAT PRN IV Hypoglycemia 03/15/17 23:00 04/14/17 22:59 Digoxin (Lanoxin) 0.125 mg DAILY GT 03/16/17 09:00 04/15/17 08:59 03/19/17 09:18 Heparin Sodium/ Sodium Chloride (Heparin 2000 units/Ns 1000ml premix) 2,000 unit ONCE ONCE INJ 03/19/17 21:00 03/19/17 21:01 Insulin Aspart (NovoLOG) Q6HR SUBQ 03/16/17 12:00 04/15/17 11:59 03/19/17 06:15 Lidocaine HCl (Xylocaine 1% 30ml) 30 ml ONCE ONCE INJ 03/19/17 21:00 03/19/17 21:01 Lorazepam (Ativan 2mg/ml 1ml) 2 mg Q2H PRN IV For Anxiety 03/15/17 23:00 03/22/17 22:59 Metoprolol Tartrate (Lopressor) 50 mg Q12HR GT 03/17/17 09:00 04/15/17 08:59 03/19/17 09:19 Morphine Sulfate (Morphine Sulfate) 4 mg Q4H PRN IVP Severe Pain (Pain Scale 7-10) 03/15/17 23:00 03/22/17 22:59 Ondansetron HCl (Zofran) 4 mg Q6H PRN IVP Nausea & Vomiting 03/15/17 23:00 04/14/17 22:59 Piperacillin Sod/ Tazobactam Sod 3.375 gm/Sodium Chloride 110 ml @ 27.5 mls/hr Q8H IVPB 03/16/17 06:00 03/23/17 05:59 03/19/17 06:13 Polyethylene Glycol (Miralax) 17 gm DAILYPRN PRN GT Constipation 03/16/17 15:00 04/14/17 22:59 Vancomycin HCl (Rx Monitoring Vancomycin) 1 ea DAILY PRN MISC per protocol 03/16/17 02:45 04/15/17 02:44 Vancomycin HCl/ Dextrose 250 ml @ 166.667 mls/hr Q24H IVPB 03/19/17 09:00 03/24/17 08:59 03/19/17 09:11 LIGIA JARAMILLO Mar 19, 2017 11:09
[2017-03-19 11:23] LABS: OTHERS PATHOLOGIST COMMENT
--- NOTE | 2017-03-19 12:35 | Cardiology Progress Note ---
Assessment/Plan Assessment/Plan [id number] Objective Last 24 Hour Vital Signs Date Time Temp Pulse Resp B/P (MAP) Pulse Ox O2 Delivery O2 Flow Rate FiO2 03/19/17 12:00 40 03/19/17 10:38 88 18 30 03/19/17 09:19 97 102/48 03/19/17 09:18 97 03/19/17 08:43 97 18 30 03/19/17 08:00 99.7 97 21 102/48 100 Mechanical Ventilator 30 03/19/17 08:00 40 03/19/17 07:40 97 03/19/17 07:18 100.0 03/19/17 06:39 122 19 30 03/19/17 05:11 112 25 30 03/19/17 04:00 40 03/19/17 04:00 100 03/19/17 04:00 102.2 127 23 119/65 100 Mechanical Ventilator 35 03/19/17 02:51 101 24 30 03/19/17 01:30 102 21 30 03/19/17 00:51 98.8 95 23 103/53 100 Mechanical Ventilator 30 03/18/17 22:44 90 25 30 03/18/17 22:13 100 113/64 03/18/17 21:05 98 18 30 03/18/17 20:33 98.2 94 17 109/57 100 Mechanical Ventilator 30 03/18/17 20:00 107 03/18/17 20:00 40 03/18/17 19:30 101 17 30 03/18/17 16:48 112 21 40 03/18/17 16:00 98.2 102 18 114/70 100 Mechanical Ventilator 40 03/18/17 16:00 40 03/18/17 16:00 107 03/18/17 15:31 97 21 40 03/18/17 12:46 103 18 40 Intake and Output 03/19/17 03/20/17 19:00 07:00 Intake Total 360.000 ml Balance 360.000 ml IV Total 360.000 ml Laboratory Tests Test 03/18/17 21:00 03/19/17 04:30 03/19/17 08:50 Vancomycin Level Trough 10.0 ug/mL (5.0-12.0) White Blood Count 8.5 K/UL (4.8-10.8) 7.7 K/UL (4.8-10.8) Red Blood Count 2.48 M/UL (4.70-6.10) L 2.13 M/UL (4.70-6.10) L Hemoglobin 7.7 G/DL (14.2-18.0) L 6.8 G/DL (14.2-18.0) *L Hematocrit 23.9 % (42.0-52.0) L 20.6 % (42.0-52.0) L Mean Corpuscular Volume 96 FL (80-99) 97 FL (80-99) Mean Corpuscular Hemoglobin 31.1 PG (27.0-31.0) H 31.9 PG (27.0-31.0) H Mean Corpuscular Hemoglobin Concent 32.3 G/DL (32.0-36.0) 32.9 G/DL (32.0-36.0) Red Cell Distribution Width 14.8 % (11.6-14.8) 14.7 % (11.6-14.8) Platelet Count 154 K/UL (150-450) 145 K/UL (150-450) L Mean Platelet Volume 7.0 FL (6.5-10.1) 7.1 FL (6.5-10.1) Neutrophils (%) (Auto) % (45.0-75.0) % (45.0-75.0) Lymphocytes (%) (Auto) % (20.0-45.0) % (20.0-45.0) Monocytes (%) (Auto) % (1.0-10.0) % (1.0-10.0) Eosinophils (%) (Auto) % (0.0-3.0) % (0.0-3.0) Basophils (%) (Auto) % (0.0-2.0) % (0.0-2.0) Differential Total Cells Counted 100 100 Neutrophils % (Manual) 79 % (45-75) H 79 % (45-75) H Lymphocytes % (Manual) 7 % (20-45) L 13 % (20-45) L Monocytes % (Manual) 10 % (1-10) 6 % (1-10) Eosinophils % (Manual) 3 % (0-3) 1 % (0-3) Basophils % (Manual) 0 % (0-2) 0 % (0-2) Band Neutrophils 1 % (0-8) 1 % (0-8) Platelet Estimate Adequate Adequate Platelet Morphology Normal Normal Hypochromasia 1+ 1+ Anisocytosis 1+ 1+ Sodium Level 137 mEQ/L (135-145) Potassium Level 4.3 mEQ/L (3.4-4.9) Chloride Level 100 mEQ/L (98-107) Carbon Dioxide Level 23 mEQ/L (20-30) Anion Gap 14 (5-15) Blood Urea Nitrogen 21 mg/dL (7-23) Creatinine 0.7 mg/dL (0.7-1.2) Estimat Glomerular Filtration Rate mL/min (>60) Glucose Level 137 mg/dL (74-106) H Calcium Level 8.3 mg/dL (8.6-10.2) L Phosphorus Level 3.6 mg/dL (2.5-4.8) Magnesium Level 1.7 mg/dL (1.7-2.5) Total Bilirubin 0.6 mg/dL (0.0-1.2) Aspartate Amino Transf (AST/SGOT) 34 U/L (5-40) Alanine Aminotransferase (ALT/SGPT) 16 U/L (3-41) Alkaline Phosphatase 282 U/L (40-129) H Total Protein 6.8 g/dL (6.6-8.7) Albumin 2.1 g/dL (3.5-5.2) L Globulin 4.7 g/dL Albumin/Globulin Ratio 0.4 (1.0-2.7) L Microbiology Date/Time Source Procedure Growth Status 03/18/17 08:30 Blood Blood Culture - Preliminary Resulted 03/18/17 08:39 Sputum Induced Gram Stain - Final Resulted 03/18/17 08:39 Sputum Induced Sputum Culture - Preliminary Resulted 03/18/17 11:00 Urine,Clean Catch Urine Culture - Preliminary NO GROWTH Resulted DEBORAH MUKHERJEE Mar 19, 2017 12:35
[2017-03-19 13:00] VITALS: BP 123/62
--- NOTE | 2017-03-19 14:45 | Infectious Diseases Prog Note ---
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 This explains why he had been persistently febrile on empiric IV vanc, zosyn, and amikacin. 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 doesn't looks like he has pulmonary or urinary tract source. both blood cx from admission were from picc and surveillance blood cx drawn yesterday before colistin started was drawn from peripheral and is also positive, so I don't have a differential time to positivity that could help us conclude whether this is primarily PICC infection. However, based on superficial cx of his Stage IV sacral decub, i think this is the primary source and the picc may have been secondarily infected. picc being removed today. b/c of persistent fevers, will add on tigecycline now which will also cover the coag neg staph found from one blood cx bottle on admission. However, because of tigecycline's large volume of distribution and is bacteriostatic, will remain on the colistin now full D#1 and remains on the zosyn to cover the Proteus mirabilis also in sacral wound, since proteus is intrinsically resistant to tigecycline. 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 Sputum colonized with ESBL Proteus mirabilis --r/o'ed urosepsis; small L nephrolithiasis w/o evidence of obstruction --r/o line infection --Stage IV sacral pressure ulcer with foul smell, receiving medihoney s/p CT w/o significant bony erosions and negative for abscess --Hyperferritinemia, no rash, no other criteria to suggest AOSD. --HIV and viral hepatitis serology negative --elevated inflammatory markers (CRP 23 mg/dL) --severe diffuse xerosis --b/l onychomycosis --poor healing potential Recs: --Continue colistin 2.5mg/kg IV q12hr D#1 --Start tigecycline 100mg loading dose then 50mg IV q12hr D#0 --d/c IV vancomycin now (D#4) (03/18 s/p IV amikacin D#2) --f/u extended spectrum susceptibilities for the ACB and KPC --d/c RUE picc, please send tip for culture --f/u surveillance blood cx result from yesterday drawn before colistin started --repeat surveillance blood cx in morning to document clearance --continue wound care. s/p wound care consultation. continue topical/chemical debridements as needed --will defer to primary service for topical emollients for severe xerosis. --prealbumin, nutrition consultation Subjective ROS Limited/Unobtainable: Yes Allergies: Coded Allergies: No Known Allergies (Unverified , 03/15/17) Objective Vital Signs Last 24 Hour Vital Signs Date Time Temp Pulse Resp B/P (MAP) Pulse Ox O2 Delivery O2 Flow Rate FiO2 03/19/17 13:00 98.5 106 21 123/62 100 Mechanical Ventilator 30 03/19/17 12:45 95 18 30 03/19/17 12:00 40 03/19/17 12:00 92 03/19/17 10:38 88 18 30 03/19/17 09:19 97 102/48 03/19/17 09:18 97 03/19/17 08:43 97 18 30 03/19/17 08:00 99.7 97 21 102/48 100 Mechanical Ventilator 30 03/19/17 08:00 40 03/19/17 07:40 97 03/19/17 07:18 100.0 03/19/17 06:39 122 19 30 03/19/17 05:11 112 25 30 03/19/17 04:00 40 03/19/17 04:00 100 03/19/17 04:00 102.2 127 23 119/65 100 Mechanical Ventilator 35 03/19/17 02:51 101 24 30 03/19/17 01:30 102 21 30 03/19/17 00:51 98.8 95 23 103/53 100 Mechanical Ventilator 30 03/18/17 22:44 90 25 30 03/18/17 22:13 100 113/64 03/18/17 21:05 98 18 30 03/18/17 20:33 98.2 94 17 109/57 100 Mechanical Ventilator 30 03/18/17 20:00 107 03/18/17 20:00 40 03/18/17 19:30 101 17 30 03/18/17 16:48 112 21 40 03/18/17 16:00 98.2 102 18 114/70 100 Mechanical Ventilator 40 03/18/17 16:00 40 03/18/17 16:00 107 03/18/17 15:31 97 21 40 Height (Feet): 5 Height (Inches): 8.00 Weight (Pounds): 160 Objective gen: eyes open, not responsive heent: sclera anicteric, oral mucosa dry cv: tachycardic, no murmurs lungs: faint rhonchi abd: soft, nt, difficult exam, peg tube c/d/i ext: RUE picc c/d/i w/o surrounding erythema. L heel with large dry eschar w/o surrounding erythema. gu: condom cath in place reviewed wound care notes and wound care photos, demonstrating a stage IV sacral decubitus ulcer that doesn't seem to extend deep. Microbiology Date/Time Source Procedure Growth Status 03/18/17 08:30 Blood Blood Culture - Preliminary Resulted 03/18/17 08:39 Sputum Induced Gram Stain - Final Resulted 03/18/17 08:39 Sputum Induced Sputum Culture - Preliminary Resulted 03/18/17 11:00 Urine,Clean Catch Urine Culture - Preliminary NO GROWTH Resulted Laboratory Tests Test 03/18/17 21:00 03/19/17 04:30 03/19/17 08:50 Vancomycin Level Trough 10.0 ug/mL (5.0-12.0) White Blood Count 8.5 K/UL (4.8-10.8) 7.7 K/UL (4.8-10.8) Red Blood Count 2.48 M/UL (4.70-6.10) L 2.13 M/UL (4.70-6.10) L Hemoglobin 7.7 G/DL (14.2-18.0) L 6.8 G/DL (14.2-18.0) *L Hematocrit 23.9 % (42.0-52.0) L 20.6 % (42.0-52.0) L Mean Corpuscular Volume 96 FL (80-99) 97 FL (80-99) Mean Corpuscular Hemoglobin 31.1 PG (27.0-31.0) H 31.9 PG (27.0-31.0) H Mean Corpuscular Hemoglobin Concent 32.3 G/DL (32.0-36.0) 32.9 G/DL (32.0-36.0) Red Cell Distribution Width 14.8 % (11.6-14.8) 14.7 % (11.6-14.8) Platelet Count 154 K/UL (150-450) 145 K/UL (150-450) L Mean Platelet Volume 7.0 FL (6.5-10.1) 7.1 FL (6.5-10.1) Neutrophils (%) (Auto) % (45.0-75.0) % (45.0-75.0) Lymphocytes (%) (Auto) % (20.0-45.0) % (20.0-45.0) Monocytes (%) (Auto) % (1.0-10.0) % (1.0-10.0) Eosinophils (%) (Auto) % (0.0-3.0) % (0.0-3.0) Basophils (%) (Auto) % (0.0-2.0) % (0.0-2.0) Differential Total Cells Counted 100 100 Neutrophils % (Manual) 79 % (45-75) H 79 % (45-75) H Lymphocytes % (Manual) 7 % (20-45) L 13 % (20-45) L Monocytes % (Manual) 10 % (1-10) 6 % (1-10) Eosinophils % (Manual) 3 % (0-3) 1 % (0-3) Basophils % (Manual) 0 % (0-2) 0 % (0-2) Band Neutrophils 1 % (0-8) 1 % (0-8) Platelet Estimate Adequate Adequate Platelet Morphology Normal Normal Hypochromasia 1+ 1+ Anisocytosis 1+ 1+ Sodium Level 137 mEQ/L (135-145) Potassium Level 4.3 mEQ/L (3.4-4.9) Chloride Level 100 mEQ/L (98-107) Carbon Dioxide Level 23 mEQ/L (20-30) Anion Gap 14 (5-15) Blood Urea Nitrogen 21 mg/dL (7-23) Creatinine 0.7 mg/dL (0.7-1.2) Estimat Glomerular Filtration Rate mL/min (>60) Glucose Level 137 mg/dL (74-106) H Calcium Level 8.3 mg/dL (8.6-10.2) L Phosphorus Level 3.6 mg/dL (2.5-4.8) Magnesium Level 1.7 mg/dL (1.7-2.5) Total Bilirubin 0.6 mg/dL (0.0-1.2) Aspartate Amino Transf (AST/SGOT) 34 U/L (5-40) Alanine Aminotransferase (ALT/SGPT) 16 U/L (3-41) Alkaline Phosphatase 282 U/L (40-129) H Total Protein 6.8 g/dL (6.6-8.7) Albumin 2.1 g/dL (3.5-5.2) L Globulin 4.7 g/dL Albumin/Globulin Ratio 0.4 (1.0-2.7) L Current Medications Medications (Trade) Dose Ordered Sig/Millicent Route PRN Reason Start Time Stop Time Status Last Admin Dose Admin Acetaminophen (Tylenol) 650 mg Q4H PRN ORAL FEVER 03/15/17 23:00 04/14/17 22:59 03/19/17 06:16 Albuterol/ Ipratropium (DuoNeb 0.5-3(2.5)mg/3ml) 3 ml Q4H PRN HHN Shortness of Breath 03/15/17 23:00 03/20/17 22:59 Chlorhexidine Gluconate (Ivanna-Hex 2%) 1 applic QHS TOPIC 03/19/17 21:00 04/18/17 20:59 Colistimethate Sodium (Colistin) 180 mg EVERY 12 HOURS IVP 03/18/17 16:00 03/25/17 15:59 03/19/17 09:11 Dextrose (Dextrose 50%) STAT PRN IV Hypoglycemia 03/15/17 23:00 04/14/17 22:59 Digoxin (Lanoxin) 0.125 mg DAILY GT 03/16/17 09:00 04/15/17 08:59 03/19/17 09:18 Heparin Sodium/ Sodium Chloride (Heparin 2000 units/Ns 1000ml premix) 2,000 unit ONCE ONCE INJ 03/19/17 21:00 03/19/17 21:01 Insulin Aspart (NovoLOG) Q6HR SUBQ 03/16/17 12:00 04/15/17 11:59 03/19/17 11:35 Lidocaine HCl (Xylocaine 1% 30ml) 30 ml ONCE ONCE INJ 03/19/17 21:00 03/19/17 21:01 Lorazepam (Ativan 2mg/ml 1ml) 2 mg Q2H PRN IV For Anxiety 03/15/17 23:00 03/22/17 22:59 Metoprolol Tartrate (Lopressor) 50 mg Q12HR GT 03/17/17 09:00 04/15/17 08:59 03/19/17 09:19 Morphine Sulfate (Morphine Sulfate) 4 mg Q4H PRN IVP Severe Pain (Pain Scale 7-10) 03/15/17 23:00 03/22/17 22:59 Ondansetron HCl (Zofran) 4 mg Q6H PRN IVP Nausea & Vomiting 03/15/17 23:00 04/14/17 22:59 Piperacillin Sod/ Tazobactam Sod 3.375 gm/Sodium Chloride 110 ml @ 27.5 mls/hr Q8H IVPB 03/16/17 06:00 03/23/17 05:59 03/19/17 06:13 Polyethylene Glycol (Miralax) 17 gm DAILYPRN PRN GT Constipation 03/16/17 15:00 04/14/17 22:59 Tigecycline 100 mg/Dextrose 110 ml @ 110 mls/hr ONCE ONCE IVPB 03/19/17 20:00 03/19/17 20:59 Tigecycline 50 mg/ Dextrose 110 ml @ 220 mls/hr Q12H IVPB 03/20/17 08:00 03/27/17 07:59 Moises Aleman M.D. Mar 19, 2017 14:45
[2017-03-19 16:00] VITALS: BP 147/73
--- NOTE | 2017-03-19 16:36 | Diagnostic Imaging Report ---
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 The left upper extremity was prepped with alcohol. All elements of maximal sterile barrier technique were followed including usage of a cap, mask, sterile gown, sterile gloves, hand hygiene and a large sterile sheet. Sonographic evaluation of the upper extremity was performed demonstrating a patent and compressible basilic vein. Access was obtained under real-time ultrasound guidance and digital image was saved and archived. An .018 wire was introduced. Needle exchanged for a 5 Ukrainian peel-away sheath. Measurements were obtained. A 5 Ukrainian dual-lumen Power PICC line catheter was cut to 30 cm and introduced over the wire. Peel-away sheath and wire were removed.Catheter was secured to the skin using 2-0 Prolene suture. Both ports aspirate and flush easily. Post procedure chest x-ray demonstrates good position of the PICC line catheter within the left innominate vein. Impression: Successful placement of an upper extremity PICC line catheter
--- NOTE | 2017-03-19 17:19 | General Progress Note ---
Assessment/Plan Assessment/Plan 1. Coagulopathy. PTT study reviewed. -->2/2 sepsis vs medications 2. Anemia, likely secondary to hemodilution. 3. Anemia, secondary to chronic disease. Anemia workup has been ordered. --> no evidence of iron,folate, b12 def, ferritin is elevated and tibc is low --> continue to monitor counts --> tranfusion in process 4. Leukocytosis, potentially secondary to underlying sepsis with a left shift, neutrophil predominant leukocytosis. --> id following 5. Hypocalcemia potentially secondary to hemodilution. Continue to monitor. 6. Sepsis. He is on antibiotics. 7. Chronic vegetative state Subjective Constitutional: Reports: no symptoms HEENT: Reports: no symptoms Cardiovascular: Reports: no symptoms Respiratory: Reports: no symptoms Gastrointestinal/Abdominal: Reports: no symptoms Genitourinary: Reports: no symptoms Neurologic/Psychiatric: Reports: no symptoms Endocrine: Reports: no symptoms Hematologic/Lymphatic: Reports: no symptoms Allergies: Coded Allergies: No Known Allergies (Unverified , 03/15/17) Subjective febrile, needs prbc, already ordered Objective Last 24 Hour Vital Signs Date Time Temp Pulse Resp B/P (MAP) Pulse Ox O2 Delivery O2 Flow Rate FiO2 03/19/17 16:35 91 20 30 03/19/17 16:00 40 03/19/17 16:00 98.1 98 17 147/73 100 Mechanical Ventilator 30 03/19/17 15:57 96 03/19/17 15:04 101 18 30 03/19/17 13:00 98.5 106 21 123/62 100 Mechanical Ventilator 30 03/19/17 12:45 95 18 30 03/19/17 12:00 40 03/19/17 12:00 92 03/19/17 10:38 88 18 30 03/19/17 09:19 97 102/48 03/19/17 09:18 97 03/19/17 08:43 97 18 30 03/19/17 08:00 99.7 97 21 102/48 100 Mechanical Ventilator 30 03/19/17 08:00 40 03/19/17 07:40 97 03/19/17 07:18 100.0 03/19/17 06:39 122 19 30 03/19/17 05:11 112 25 30 03/19/17 04:00 40 03/19/17 04:00 100 03/19/17 04:00 102.2 127 23 119/65 100 Mechanical Ventilator 35 03/19/17 02:51 101 24 30 03/19/17 01:30 102 21 30 03/19/17 00:51 98.8 95 23 103/53 100 Mechanical Ventilator 30 03/18/17 22:44 90 25 30 03/18/17 22:13 100 113/64 03/18/17 21:05 98 18 30 03/18/17 20:33 98.2 94 17 109/57 100 Mechanical Ventilator 30 03/18/17 20:00 107 03/18/17 20:00 40 03/18/17 19:30 101 17 30 Intake and Output 03/19/17 03/20/17 19:00 07:00 Intake Total 360.000 ml Balance 360.000 ml IV Total 360.000 ml Laboratory Tests 03/18/17 21:00: Vancomycin Level Trough 10.0 03/19/17 04:30: White Blood Count 8.5, Red Blood Count 2.48L, Hemoglobin 7.7L, Hematocrit 23.9L , Mean Corpuscular Volume 96, Mean Corpuscular Hemoglobin 31.1H, Mean Corpuscular Hemoglobin Concent 32.3, Red Cell Distribution Width 14.8, Platelet Count 154, Mean Platelet Volume 7.0, Neutrophils (%) (Auto) , Lymphocytes (%) ( Auto) , Monocytes (%) (Auto) , Eosinophils (%) (Auto) , Basophils (%) (Auto) , Differential Total Cells Counted 100, Neutrophils % (Manual) 79H, Lymphocytes % (Manual) 7L, Monocytes % (Manual) 10, Eosinophils % (Manual) 3, Basophils % ( Manual) 0, Band Neutrophils 1, Platelet Estimate Adequate, Platelet Morphology Normal, Hypochromasia 1+, Anisocytosis 1+, Sodium Level 137, Potassium Level 4.3 , Chloride Level 100, Carbon Dioxide Level 23, Anion Gap 14, Blood Urea Nitrogen 21, Creatinine 0.7, Estimat Glomerular Filtration Rate , Glucose Level 137H, Calcium Level 8.3L, Phosphorus Level 3.6, Magnesium Level 1.7, Total Bilirubin 0.6, Aspartate Amino Transf (AST/SGOT) 34, Alanine Aminotransferase ( ALT/SGPT) 16, Alkaline Phosphatase 282H, Total Protein 6.8, Albumin 2.1L, Globulin 4.7, Albumin/Globulin Ratio 0.4L 8/25/17 08:50: White Blood Count 7.7, Red Blood Count 2.13L, Hemoglobin 6.8*L, Hematocrit 20.6L , Mean Corpuscular Volume 97, Mean Corpuscular Hemoglobin 31.9H, Mean Corpuscular Hemoglobin Concent 32.9, Red Cell Distribution Width 14.7, Platelet Count 145L, Mean Platelet Volume 7.1, Neutrophils (%) (Auto) , Lymphocytes (%) ( Auto) , Monocytes (%) (Auto) , Eosinophils (%) (Auto) , Basophils (%) (Auto) , Differential Total Cells Counted 100, Neutrophils % (Manual) 79H, Lymphocytes % (Manual) 13L, Monocytes % (Manual) 6, Eosinophils % (Manual) 1, Basophils % ( Manual) 0, Band Neutrophils 1, Platelet Estimate Adequate, Platelet Morphology Normal, Hypochromasia 1+, Anisocytosis 1+ Height (Feet): 5 Height (Inches): 8.00 Weight (Pounds): 160 General Appearance: no apparent distress EENT: normal ENT inspection Neck: normal alignment Abdomen: no mass Neurologic: bag machine tender II-XII grossly normal Skin: warm/dry Giovanny Brennan Mar 19, 2017 17:19
[2017-03-19] MEDS ORDERED: Tigecycline 100 MG in D5W 110 ML IVPB ONE ×2 (20:00→20:30)
[2017-03-19 20:31] VITALS: BP 134/78
[2017-03-19] MEDS: Dyna-Hex 2% Top Sol 8oz TOPIC SCH (20:39)
[2017-03-19] MEDS ORDERED: Lidocaine 1% Plain 30 ml INJ ONE (21:00)
[2017-03-19] MEDS ORDERED: Heparin 2000 units/Ns 1000ml INJ ONE (21:00)
[2017-03-20] MEDS: NovoLOG Insulin Flexpen SUBQ SCH ×4 (00:27→18:00)
[2017-03-20 00:48] VITALS: BP 139/70
[2017-03-20 04:00] VITALS: BP 140/70
[2017-03-20 05:18] LABS: METHYLMALONIC ACID 217 nmol/L (0-378)
[2017-03-20 05:41] LABS: BASOPHILS % (AUTO) 0.5 % (0.0-2.0); EOSINOPHILS % (AUTO) 2.7 % (0.0-3.0); LYMPHOCYTES % (AUTO) 14.6 % (20.0-45.0); MEAN CORPUSCULAR HEMOGLOBIN 32.1 PG (27.0-31.0); MEAN CORPUSCULAR HGB CONC 33.2 G/DL (32.0-36.0); MEAN CORPUSCULAR VOLUME 96 FL (80-99); MEAN PLATELET VOLUME 8.2 FL (6.5-10.1); MONOCYTES % (AUTO) 10.5 % (1.0-10.0); NEUTROPHILS % (AUTO) 71.7 % (45.0-75.0); PLATELET COUNT 144 K/UL (150-450); RED BLOOD COUNT 2.48 M/UL (4.70-6.10); RED CELL DISTRIBUTION WIDTH 14.8 % (11.6-14.8); WHITE BLOOD COUNT 8.8 K/UL (4.8-10.8)
--- NOTE | 2017-03-20 06:00 | Consultation ---
DATE OF CONSULTATION: 03/19/2017 CARDIOLOGY CONSULTATION CONSULTING PHYSICIAN: Khadar Giordano M.D. REFERRING PHYSICIAN: Dago Dao M.D. REASON FOR REFERRAL: Atrial fibrillation with rapid ventricular response. HISTORY OF PRESENT ILLNESS: This is an elderly gentleman who has had a family history of cardiac arrest. He has been admitted to the hospital because of sepsis, was noted to be tachycardic; therefore this consultation was requested. The patient is unable to provide any meaningful history whatsoever; therefore information is obtained from the review of the patient's chart. The patient is being treated at this time for sepsis as well as acute on chronic respiratory failure with persistent vegetative state and is on antibiotics at the present time. PAST MEDICAL HISTORY: Positive for history of sepsis, secondary urinary tract infection, G-tube site cellulitis and possible abscess, chronic respiratory failure, vent-dependent, tracheostomy, history of cardiac arrest with anoxic encephalopathy, diabetes mellitus, atrial fibrillation, chronic, permanent; and anemia. ALLERGIES: No known drug allergies. SOCIAL HISTORY: The patient is a resident of convalescent facility on a mechanical ventilator at the present time. He has a son here. Apparently the son is March here. REVIEW OF SYSTEMS: Unable to obtain. PHYSICAL EXAMINATION: VITAL SIGNS: Temperature is 99.7 axillary, blood pressure 102/48 with a heart rate of 97, O2 saturation 100% saturation. GENERAL: Shows to be elderly gentleman with decorticate posturing. NECK: Supple. Trach is in place. LUNGS: Appear to be clear to auscultation anteriorly. CARDIAC: Irregularly irregular. Borderline tachycardia. ABDOMEN: Soft. G-tube is present. EXTREMITIES: There is trace edema. Dressing on the lower extremities in the feet are noted. GENITOURINARY: External condom catheter is noted. LABORATORY AND DIAGNOSTIC DATA: White count of 7.7, hemoglobin 6.8, and platelet count of 145,000. The patient's hemoglobin earlier was 8.2. Sodium is 137, potassium 4.2, chloride 100, bicarbonate 23, BUN 21, creatinine 0.7. Troponin was less than 0.01 at time of admission. Electrocardiogram shows atrial fibrillation. Telemetry shows also atrial fibrillation. No significant ST or T-wave abnormalities noted. ASSESSMENT: 1. Permanent atrial fibrillation. 2. Anoxic encephalopathy. 3. Sepsis. Dr. Dao, this patient was seen in cardiac consultation being treated with Zosyn intravenous antibiotic as well as vancomycin for the sepsis. Heart rate appears to be well controlled at the present time with the combination of digoxin and metoprolol that he has been getting. I would continue those at this time as the patient appears to be responding. We will continue vent support and treatment of underlying infection which is likely contributing to the tachycardia process although not appear to be as significant at the time of admission. Khadar Giordano M.D. DR: Rola JOB#: [id number] CC:
[2017-03-20 06:16] LABS: ALANINE AMINOTRANSFERASE 14 U/L (3-41); ALBUMIN/GLOBULIN RATIO 0.3 (1.0-2.7); ANION GAP 12 (5-15); ASPARTATE AMINO TRANSFERASE 33 U/L (5-40); CALCIUM 8.1 mg/dL (8.6-10.2); CARBON DIOXIDE 23 mEQ/L (20-30); CHLORIDE 100 mEQ/L (98-107); CREATININE 0.7 mg/dL (0.7-1.2); HEMOLYSIS 8; MAGNESIUM 1.5 mg/dL (1.7-2.5); PHOSPHORUS 3.4 mg/dL (2.5-4.8); POTASSIUM 3.7 mEQ/L (3.4-4.9); SODIUM 135 mEQ/L (135-145); TOTAL PROTEIN 6.1 g/dL (6.6-8.7)
[2017-03-20] MEDS: Piperacillin/Tazobactam 3.375 GM in NS 110 ML IVPB SCH (06:24)
[2017-03-20 08:00] VITALS: BP 153/75
[2017-03-20] MEDS: Tigecycline 50 MG in D5W 110 ML IVPB SCH ×2 (08:36→20:35)
[2017-03-20] MEDS: Digoxin Elixir 0.125mg GT SCH (08:44)
[2017-03-20] MEDS: Colistin 150mg vial IVP SCH ×2 (08:44→21:42)
[2017-03-20] MEDS: Metoprolol Tartrate 50mg tab GT SCH ×2 (08:45→20:41)
[2017-03-20] MEDS: Acetaminophen 650mg/20.3ml GT PRN ×2 (09:21→16:17)
[2017-03-20 10:16] LABS: OTHERS PATHOLOGIST COMMENT
[2017-03-20 12:00] VITALS: BP 131/71
[2017-03-20] MEDS ORDERED: NS 275ml ONE (13:31)
[2017-03-20] MEDS ORDERED: Tubing IV Secondary IV ONE (13:31)
--- NOTE | 2017-03-20 14:05 | Infectious Diseases Prog Note ---
Assessment/Plan Assessment/Plan Assessment Polymicrobial gram negative bacteremia. both the KPC and the MDR ACB are sensitive to tigecycline and colistin, confirmed today. persistently bacteremic , with blood cx from 03/18 also now positive pending org identification but likely the same. now s/p removal of old RUE PICC with tip sent for cx yesterday afternoon, so far cx ngtd at 24 hrs. 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 expect his bacteremia to start to clear and fevers to resolve now s/p PICC removal yesterday and on colistin D#2 and tigecycline D#1. suspect source of bacteremia was originally his sacral decub that infected the picc. starting to develop a subtle torso/upper arm rash today w/o leukocytosis, so will d/c zosyn as don't think the Proteus is a real pathogen here. alk phos doubled over last two days, so will r/o biliary source for gram negative septicemia --Polymicrobial MDR Gram negative septicemia (KPC, MDR ACB); persistent (03/16), (03/18) --Febrile illness, persistent --Leukocytosis with left shift, resolved on >24hrs empiric antibiotics. 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 Sputum colonized with ESBL Proteus mirabilis --r/o'ed urosepsis; small L nephrolithiasis w/o evidence of obstruction --yeast from condom cath --r/o line infection --Stage IV sacral pressure ulcer with foul smell, receiving medihoney s/p CT w/o significant bony erosions and negative for abscess --Hyperferritinemia, no rash, no other criteria to suggest AOSD. --HIV and viral hepatitis serology negative --elevated inflammatory markers (CRP 23 mg/dL) --severe diffuse xerosis --b/l onychomycosis --poor healing potential --torso/upper arm rash --increasing alk phos Recs: --Continue colistin 2.5mg/kg IV q12hr D#2 --Continue tigecycline 50mg IV q12hr D#1 --d/c IV zosyn D#4 now (03/19 s/p IV IV vancomycin D#4 (03/18 s/p IV amikacin D#2) --f/u RUE picc tip cx (03/19) --f/u surveillance blood cx (03/20) --f/u ucx from condom cath growing yeast. likely colonized, but low threshold to start antifungals if fevers persist on broad spectrum gram negative coverage --continue wound care. s/p wound care consultation. continue topical/chemical debridements as needed --will defer to primary service for topical emollients for severe xerosis. --prealbumin, nutrition consultation --RUQ u/s to r/o biliary source of septicemia Subjective ROS Limited/Unobtainable: Yes Allergies: Coded Allergies: No Known Allergies (Unverified , 03/15/17) Objective Vital Signs Last 24 Hour Vital Signs Date Time Temp Pulse Resp B/P (MAP) Pulse Ox O2 Delivery O2 Flow Rate FiO2 03/20/17 12:40 88 26 30 03/20/17 12:00 100.3 91 21 131/71 100 Mechanical Ventilator 30 03/20/17 11:00 99.9 03/20/17 10:38 77 20 30 03/20/17 09:45 101.5 03/20/17 09:30 101.5 03/20/17 08:45 119 153/75 03/20/17 08:44 119 03/20/17 08:39 115 24 30 03/20/17 08:38 116 03/20/17 08:00 102.0 119 25 153/75 100 Mechanical Ventilator 30 03/20/17 06:58 125 26 30 03/20/17 05:06 114 22 30 03/20/17 04:00 97 03/20/17 04:00 40 03/20/17 04:00 99.7 105 21 140/70 100 Mechanical Ventilator 30 03/20/17 02:58 104 24 30 03/20/17 02:19 100.0 03/20/17 00:52 110 25 30 03/20/17 00:48 99.5 99 27 139/70 100 Mechanical Ventilator 30 03/20/17 00:00 40 03/19/17 23:18 99 24 30 03/19/17 21:11 100 21 30 03/19/17 20:39 118 134/78 03/19/17 20:31 98.6 118 20 134/78 100 Mechanical Ventilator 30 03/19/17 20:00 40 03/19/17 20:00 109 03/19/17 19:09 100 23 30 03/19/17 16:35 91 20 30 03/19/17 16:00 40 03/19/17 16:00 98.1 98 17 147/73 100 Mechanical Ventilator 30 03/19/17 15:57 96 03/19/17 15:04 101 18 30 Height (Feet): 5 Height (Inches): 8.00 Weight (Pounds): 160 Objective gen: eyes open, not responsive heent: sclera anicteric, oral mucosa dry cv: tachycardic, no murmurs lungs: faint rhonchi, scant trach aspirate abd: soft, nt, difficult exam, peg tube c/d/i ext: new picc c/d/i w/o surrounding erythema. L heel with large dry eschar w/o surrounding erythema. gu: condom cath in place skin: faint erythematous rash developing on torso and upper arms reviewed wound care notes and wound care photos, demonstrating a stage IV sacral decubitus ulcer that doesn't seem to extend deep. Microbiology Date/Time Source Procedure Growth Status 03/18/17 08:30 Blood Blood Culture - Preliminary Gram Negative Tim Resulted 03/18/17 08:39 Sputum Induced Gram Stain - Final Resulted 03/18/17 08:39 Sputum Culture - Preliminary Gram Negative Bacillus 1 Gram Negative Bacillus 2 Resulted 03/18/17 11:00 Urine,Clean Catch Urine Culture - Final YEAST Complete 03/19/17 17:17 Arm Right Catheter Tip Culture - Preliminary NO GROWTH AFTER 24 HOURS Resulted Laboratory Tests Test 03/20/17 03:30 White Blood Count 8.8 K/UL (4.8-10.8) Red Blood Count 2.48 M/UL (4.70-6.10) L Hemoglobin 8.0 G/DL (14.2-18.0) L Hematocrit 23.9 % (42.0-52.0) L Mean Corpuscular Volume 96 FL (80-99) Mean Corpuscular Hemoglobin 32.1 PG (27.0-31.0) H Mean Corpuscular Hemoglobin Concent 33.2 G/DL (32.0-36.0) Red Cell Distribution Width 14.8 % (11.6-14.8) Platelet Count 144 K/UL (150-450) L Mean Platelet Volume 8.2 FL (6.5-10.1) Neutrophils (%) (Auto) 71.7 % (45.0-75.0) Lymphocytes (%) (Auto) 14.6 % (20.0-45.0) L Monocytes (%) (Auto) 10.5 % (1.0-10.0) H Eosinophils (%) (Auto) 2.7 % (0.0-3.0) Basophils (%) (Auto) 0.5 % (0.0-2.0) Sodium Level 135 mEQ/L (135-145) Potassium Level 3.7 mEQ/L (3.4-4.9) Chloride Level 100 mEQ/L (98-107) Carbon Dioxide Level 23 mEQ/L (20-30) Anion Gap 12 (5-15) Blood Urea Nitrogen 27 mg/dL (7-23) H Creatinine 0.7 mg/dL (0.7-1.2) Estimat Glomerular Filtration Rate mL/min (>60) Glucose Level 123 mg/dL (74-106) H Calcium Level 8.1 mg/dL (8.6-10.2) L Phosphorus Level 3.4 mg/dL (2.5-4.8) Magnesium Level 1.5 mg/dL (1.7-2.5) L Total Bilirubin 0.9 mg/dL (0.0-1.2) Aspartate Amino Transf (AST/SGOT) 33 U/L (5-40) Alanine Aminotransferase (ALT/SGPT) 14 U/L (3-41) Alkaline Phosphatase 306 U/L (40-129) H Total Protein 6.1 g/dL (6.6-8.7) L Albumin 1.7 g/dL (3.5-5.2) L Globulin 4.4 g/dL Albumin/Globulin Ratio 0.3 (1.0-2.7) L Current Medications Medications (Trade) Dose Ordered Sig/Millicent Route PRN Reason Start Time Stop Time Status Last Admin Dose Admin Acetaminophen (Tylenol) 650 mg EVERY 4 HOURS PRN GT fever 03/20/17 08:15 04/19/17 08:14 03/20/17 09:21 Albuterol/ Ipratropium (DuoNeb 0.5-3(2.5)mg/3ml) 3 ml Q4H PRN HHN Shortness of Breath 03/15/17 23:00 03/20/17 22:59 Chlorhexidine Gluconate (Ivanna-Hex 2%) 1 applic QHS TOPIC 03/19/17 21:00 04/18/17 20:59 03/19/17 20:39 Colistimethate Sodium (Colistin) 180 mg EVERY 12 HOURS IVP 03/18/17 16:00 03/25/17 15:59 03/20/17 08:44 Dextrose (Dextrose 50%) STAT PRN IV Hypoglycemia 03/15/17 23:00 04/14/17 22:59 Digoxin (Lanoxin) 0.125 mg DAILY GT 03/16/17 09:00 04/15/17 08:59 03/20/17 08:44 Insulin Aspart (NovoLOG) Q6HR SUBQ 03/16/17 12:00 04/15/17 11:59 03/20/17 11:36 Lorazepam (Ativan 2mg/ml 1ml) 2 mg Q2H PRN IV For Anxiety 03/15/17 23:00 03/22/17 22:59 Metoprolol Tartrate (Lopressor) 50 mg Q12HR GT 03/17/17 09:00 04/15/17 08:59 03/20/17 08:45 Morphine Sulfate (Morphine Sulfate) 4 mg Q4H PRN IVP Severe Pain (Pain Scale 7-10) 03/15/17 23:00 03/22/17 22:59 Ondansetron HCl (Zofran) 4 mg Q6H PRN IVP Nausea & Vomiting 03/15/17 23:00 04/14/17 22:59 Polyethylene Glycol (Miralax) 17 gm DAILYPRN PRN GT Constipation 03/16/17 15:00 04/14/17 22:59 Tigecycline 50 mg/ Dextrose 110 ml @ 220 mls/hr Q12H IVPB 03/20/17 08:00 03/27/17 07:59 03/20/17 08:36 Moises Aleman M.D. Mar 20, 2017 14:05
--- NOTE | 2017-03-20 14:13 | Cardiology Progress Note ---
Assessment/Plan Problem List: (1) Anemia (2) Acute and chronic respiratory failure (3) UTI (urinary tract infection) (4) Anoxic encephalopathy (5) Chronic vegetative state (6) Feeding by G-tube (7) Sepsis (8) Persistent atrial fibrillation Status: stable, unchanged Status Narrative s/p cardiac arrest - anoxic encephalopathy, persistent vegetative state. Sepsis - GNR on 08/27 blood cultures - ID/sens pending Vent support- chronic GT feeds AF - persistent/ permanent Assessment/Plan Pt febrile, to 100. + bld cx noted. PICC line, decubitus sources of infection suspected per ID. Continue iv antibiotics, vent support , GT feeds. Continue metoprolol for rate control in AF. No anticoagulation due to anemia, bleeding risk Subjective ROS Limited/Unobtainable: Yes Subjective Intubated, not responsive Objective Last 24 Hour Vital Signs Date Time Temp Pulse Resp B/P (MAP) Pulse Ox O2 Delivery O2 Flow Rate FiO2 03/20/17 12:40 88 26 30 03/20/17 12:00 100.3 91 21 131/71 100 Mechanical Ventilator 30 03/20/17 11:00 99.9 03/20/17 10:38 77 20 30 03/20/17 09:45 101.5 03/20/17 09:30 101.5 03/20/17 08:45 119 153/75 03/20/17 08:44 119 03/20/17 08:39 115 24 30 03/20/17 08:38 116 03/20/17 08:00 102.0 119 25 153/75 100 Mechanical Ventilator 30 03/20/17 06:58 125 26 30 03/20/17 05:06 114 22 30 03/20/17 04:00 97 03/20/17 04:00 40 03/20/17 04:00 99.7 105 21 140/70 100 Mechanical Ventilator 30 03/20/17 02:58 104 24 30 03/20/17 02:19 100.0 03/20/17 00:52 110 25 30 03/20/17 00:48 99.5 99 27 139/70 100 Mechanical Ventilator 30 03/20/17 00:00 40 03/19/17 23:18 99 24 30 03/19/17 21:11 100 21 30 03/19/17 20:39 118 134/78 03/19/17 20:31 98.6 118 20 134/78 100 Mechanical Ventilator 30 03/19/17 20:00 40 03/19/17 20:00 109 03/19/17 19:09 100 23 30 03/19/17 16:35 91 20 30 03/19/17 16:00 40 03/19/17 16:00 98.1 98 17 147/73 100 Mechanical Ventilator 30 03/19/17 15:57 96 03/19/17 15:04 101 18 30 General Appearance: WD/WN, obese, on vent EENT: PERRL/EOMI Neck: other - trach Rhythm: Afib Cardiovascular: no gallop/murmur, irregularly irregular Respiratory/Chest: other - R rhonchi.. erythema - chest wall Abdomen: non tender, soft, other - + g tube Extremities: other - UE contractures Laboratory Tests Test 03/20/17 03:30 White Blood Count 8.8 K/UL (4.8-10.8) Red Blood Count 2.48 M/UL (4.70-6.10) L Hemoglobin 8.0 G/DL (14.2-18.0) L Hematocrit 23.9 % (42.0-52.0) L Mean Corpuscular Volume 96 FL (80-99) Mean Corpuscular Hemoglobin 32.1 PG (27.0-31.0) H Mean Corpuscular Hemoglobin Concent 33.2 G/DL (32.0-36.0) Red Cell Distribution Width 14.8 % (11.6-14.8) Platelet Count 144 K/UL (150-450) L Mean Platelet Volume 8.2 FL (6.5-10.1) Neutrophils (%) (Auto) 71.7 % (45.0-75.0) Lymphocytes (%) (Auto) 14.6 % (20.0-45.0) L Monocytes (%) (Auto) 10.5 % (1.0-10.0) H Eosinophils (%) (Auto) 2.7 % (0.0-3.0) Basophils (%) (Auto) 0.5 % (0.0-2.0) Sodium Level 135 mEQ/L (135-145) Potassium Level 3.7 mEQ/L (3.4-4.9) Chloride Level 100 mEQ/L (98-107) Carbon Dioxide Level 23 mEQ/L (20-30) Anion Gap 12 (5-15) Blood Urea Nitrogen 27 mg/dL (7-23) H Creatinine 0.7 mg/dL (0.7-1.2) Estimat Glomerular Filtration Rate mL/min (>60) Glucose Level 123 mg/dL (74-106) H Calcium Level 8.1 mg/dL (8.6-10.2) L Phosphorus Level 3.4 mg/dL (2.5-4.8) Magnesium Level 1.5 mg/dL (1.7-2.5) L Total Bilirubin 0.9 mg/dL (0.0-1.2) Aspartate Amino Transf (AST/SGOT) 33 U/L (5-40) Alanine Aminotransferase (ALT/SGPT) 14 U/L (3-41) Alkaline Phosphatase 306 U/L (40-129) H Total Protein 6.1 g/dL (6.6-8.7) L Albumin 1.7 g/dL (3.5-5.2) L Globulin 4.4 g/dL Albumin/Globulin Ratio 0.3 (1.0-2.7) L Microbiology Date/Time Source Procedure Growth Status 03/18/17 08:30 Blood Blood Culture - Preliminary Gram Negative Tim Resulted 03/18/17 08:39 Sputum Induced Gram Stain - Final Resulted 03/18/17 08:39 Sputum Culture - Preliminary Gram Negative Bacillus 1 Gram Negative Bacillus 2 Resulted 03/18/17 11:00 Urine,Clean Catch Urine Culture - Final YEAST Complete 03/19/17 17:17 Arm Right Catheter Tip Culture - Preliminary NO GROWTH AFTER 24 HOURS Resulted GLORIA RAZA Mar 20, 2017 14:13
[2017-03-20 16:00] VITALS: BP 146/59
--- NOTE | 2017-03-20 17:54 | Pulmonology Progress Note ---
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 Anemia requiring blood transfusion Elevated inflammatory markers Dysphagia, G tube Functional quadriplegia Chronic vegetative state Multiple decub ulcers POA: sacrococcyx decub ulcer st 3, R scapula decub ulcer st 2 POA, L heel pressure ulcer unstageable L heel dry gangrene Coagulopathy PLAN OF CARE ELBA status Vent care, Pulmonary toilet Baseline ABG and titrate settings as needed Abx ID follows 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 cx + GNR PICC line changed 03/19, tip sent for for cx, preliminary negative X ray L heel c/w OM, X ray R heel possible early OM CT pelvis no significant bony erosions, no abscess Wound care as per wound nurse recommendations Monitor HH, transfuse prn Heme follows Coagulopathy likely 2 to sepsis vs medications Stool OB negative Strict aspiration precautions, G tube feeing, monitor tolerance Venous Duplex BLE negative, SCD for mechanical prophylaxis of DVT DNR/DNI status case discussed and evaluated by supervising physician Subjective Allergies: Coded Allergies: No Known Allergies (Unverified , 03/15/17) Subjective febrile-102.6, no leucocytosis PICC line changed 03/19, preliminary cath tip cx negative s/p blood transfusion HH only up to 8.0/23.9 no signs of respiratory distress on current settings Objective Last 24 Hour Vital Signs Date Time Temp Pulse Resp B/P (MAP) Pulse Ox O2 Delivery O2 Flow Rate FiO2 03/20/17 16:45 89 23 30 03/20/17 16:08 40 03/20/17 16:00 102.6 96 25 146/59 100 Mechanical Ventilator 30 03/20/17 16:00 85 03/20/17 14:49 93 26 30 03/20/17 12:40 88 26 30 03/20/17 12:00 40 03/20/17 12:00 100.3 91 21 131/71 100 Mechanical Ventilator 30 03/20/17 12:00 91 03/20/17 12:00 40 03/20/17 11:00 99.9 03/20/17 10:38 77 20 30 03/20/17 09:45 101.5 03/20/17 09:30 101.5 03/20/17 08:45 119 153/75 03/20/17 08:44 119 03/20/17 08:39 115 24 30 03/20/17 08:38 116 03/20/17 08:00 40 03/20/17 08:00 102.0 119 25 153/75 100 Mechanical Ventilator 30 03/20/17 06:58 125 26 30 03/20/17 05:06 114 22 30 03/20/17 04:00 97 03/20/17 04:00 40 03/20/17 04:00 99.7 105 21 140/70 100 Mechanical Ventilator 30 03/20/17 02:58 104 24 30 03/20/17 02:19 100.0 03/20/17 00:52 110 25 30 03/20/17 00:48 99.5 99 27 139/70 100 Mechanical Ventilator 30 03/20/17 00:00 40 03/19/17 23:18 99 24 30 03/19/17 21:11 100 21 30 03/19/17 20:39 118 134/78 03/19/17 20:31 98.6 118 20 134/78 100 Mechanical Ventilator 30 03/19/17 20:00 40 03/19/17 20:00 109 03/19/17 19:09 100 23 30 Intake and Output 03/20/17 03/21/17 19:00 07:00 # Bowel Movements 3 General Appearance: other - bedridden, vent dependent chronically ill looking, elderly male SIMV 60-30-8 HEENT: normocephalic, atraumatic, anicteric, status post trach - Shiley #7, secretions scant, yellow, thick Respiratory/Chest: no respiratory distress, rhonchi - scattered Cardiovascular: tachycardia - 110th , irregularly irregular - A fib on monitor , other - LUE PICC intact Abdomen: soft, non tender, non distended, other - G tube with TF Genitourinary: other - jamie catheter Extremities: other - edema +1 BUE Skin: other - decub ulcers POA Neurologic/Psychiatric: other - open eyes spontaneously, poorly resposnive, spastic LE Musculoskeletal: atrophy - BLE Microbiology Date/Time Source Procedure Growth Status 03/18/17 08:30 Blood Blood Culture - Preliminary Gram Negative Tim Resulted 03/18/17 08:39 Sputum Induced Gram Stain - Final Resulted 03/18/17 08:39 Sputum Culture - Preliminary Gram Negative Bacillus 1 Gram Negative Bacillus 2 Resulted 03/18/17 11:00 Urine,Clean Catch Urine Culture - Final YEAST Complete 03/19/17 17:17 Arm Right Catheter Tip Culture - Preliminary NO GROWTH AFTER 24 HOURS Resulted Laboratory Tests 03/20/17 03:30: White Blood Count 8.8, Red Blood Count 2.48L, Hemoglobin 8.0L, Hematocrit 23.9L , Mean Corpuscular Volume 96, Mean Corpuscular Hemoglobin 32.1H, Mean Corpuscular Hemoglobin Concent 33.2, Red Cell Distribution Width 14.8, Platelet Count 144L, Mean Platelet Volume 8.2, Neutrophils (%) (Auto) 71.7, Lymphocytes ( %) (Auto) 14.6L, Monocytes (%) (Auto) 10.5H, Eosinophils (%) (Auto) 2.7, Basophils (%) (Auto) 0.5, Sodium Level 135, Potassium Level 3.7, Chloride Level 100, Carbon Dioxide Level 23, Anion Gap 12, Blood Urea Nitrogen 27H, Creatinine 0.7, Estimat Glomerular Filtration Rate , Glucose Level 123H, Calcium Level 8.1L , Phosphorus Level 3.4, Magnesium Level 1.5L, Total Bilirubin 0.9, Aspartate Amino Transf (AST/SGOT) 33, Alanine Aminotransferase (ALT/SGPT) 14, Alkaline Phosphatase 306H, Total Protein 6.1L, Albumin 1.7L, Globulin 4.4, Albumin/ Globulin Ratio 0.3L Current Medications Medications (Trade) Dose Ordered Sig/Millicent Route PRN Reason Start Time Stop Time Status Last Admin Dose Admin Acetaminophen (Tylenol) 650 mg EVERY 4 HOURS PRN GT fever 03/20/17 08:15 04/19/17 08:14 03/20/17 16:17 Albuterol/ Ipratropium (DuoNeb 0.5-3(2.5)mg/3ml) 3 ml Q4H PRN HHN Shortness of Breath 03/15/17 23:00 03/20/17 22:59 Chlorhexidine Gluconate (Ivanna-Hex 2%) 1 applic QHS TOPIC 03/19/17 21:00 04/18/17 20:59 03/19/17 20:39 Colistimethate Sodium (Colistin) 180 mg EVERY 12 HOURS IVP 03/18/17 16:00 03/25/17 15:59 03/20/17 08:44 Dextrose (Dextrose 50%) STAT PRN IV Hypoglycemia 03/15/17 23:00 04/14/17 22:59 Digoxin (Lanoxin) 0.125 mg DAILY GT 03/16/17 09:00 04/15/17 08:59 03/20/17 08:44 Insulin Aspart (NovoLOG) Q6HR SUBQ 03/16/17 12:00 04/15/17 11:59 03/20/17 11:36 Lorazepam (Ativan 2mg/ml 1ml) 2 mg Q2H PRN IV For Anxiety 03/15/17 23:00 03/22/17 22:59 Metoprolol Tartrate (Lopressor) 50 mg Q12HR GT 03/17/17 09:00 04/15/17 08:59 03/20/17 08:45 Morphine Sulfate (Morphine Sulfate) 4 mg Q4H PRN IVP Severe Pain (Pain Scale 7-10) 03/15/17 23:00 03/22/17 22:59 Ondansetron HCl (Zofran) 4 mg Q6H PRN IVP Nausea & Vomiting 03/15/17 23:00 04/14/17 22:59 Polyethylene Glycol (Miralax) 17 gm DAILYPRN PRN GT Constipation 03/16/17 15:00 04/14/17 22:59 Tigecycline 50 mg/ Dextrose 110 ml @ 220 mls/hr Q12H IVPB 03/20/17 08:00 03/27/17 07:59 03/20/17 08:36 Chelly Coelho NP ([facility]) Mar 20, 2017 17:54
[2017-03-20] MEDS ORDERED: Morphine Sulfate 4mg/ml Inj IVP PRN (19:00)
[2017-03-20] MEDS ORDERED: LORazepam Inj 2mg/ml 1ml IV PRN (19:00)
[2017-03-20] MEDS ORDERED: DuoNeb 0.5-3(2.5)mg/3ml neb HHN PRN (19:00)
[2017-03-20 20:00] VITALS: BP 108/50
[2017-03-20] MEDS: Dyna-Hex 2% Top Sol 8oz TOPIC SCH (20:35)
[2017-03-21] VITALS: BP 122/57
[2017-03-21 04:00] VITALS: BP 106/61
[2017-03-21 05:08] LABS: BASOPHILS % (AUTO) 0.5 % (0.0-2.0); EOSINOPHILS % (AUTO) 3.1 % (0.0-3.0); LYMPHOCYTES % (AUTO) 7.6 % (20.0-45.0); MEAN CORPUSCULAR HEMOGLOBIN 33.3 PG (27.0-31.0); MEAN CORPUSCULAR HGB CONC 34.4 G/DL (32.0-36.0); MEAN CORPUSCULAR VOLUME 97 FL (80-99); MEAN PLATELET VOLUME 8.3 FL (6.5-10.1); MONOCYTES % (AUTO) 9.2 % (1.0-10.0); NEUTROPHILS % (AUTO) 79.7 % (45.0-75.0); PLATELET COUNT 143 K/UL (150-450); RED BLOOD COUNT 2.52 M/UL (4.70-6.10); RED CELL DISTRIBUTION WIDTH 14.8 % (11.6-14.8); WHITE BLOOD COUNT 15.2 K/UL (4.8-10.8)
[2017-03-21 05:38] LABS: ANION GAP 14 (5-15); CALCIUM 8.2 mg/dL (8.6-10.2); CARBON DIOXIDE 22 mEQ/L (20-30); CHLORIDE 96 mEQ/L (98-107); HEMOLYSIS 0; POTASSIUM 4.5 mEQ/L (3.4-4.9); SODIUM 132 mEQ/L (135-145)
[2017-03-21] MEDS: NovoLOG Insulin Flexpen SUBQ SCH ×5 (06:00→23:32)
[2017-03-21] MEDS: Tigecycline 50 MG in D5W 110 ML IVPB SCH ×2 (07:57→20:28)
[2017-03-21 08:00] VITALS: BP 141/81
[2017-03-21] MEDS: Metoprolol Tartrate 50mg tab GT SCH ×2 (09:07→20:28)
[2017-03-21] MEDS: Colistin 150mg vial IVP SCH ×2 (09:08→21:00)
[2017-03-21] MEDS: Digoxin Elixir 0.125mg GT SCH (09:08)
[2017-03-21 12:00] VITALS: BP 115/52
--- NOTE | 2017-03-21 13:02 | Cardiology Progress Note ---
Assessment/Plan Problem List: (1) Anemia (2) Acute and chronic respiratory failure (3) UTI (urinary tract infection) (4) Anoxic encephalopathy (5) Chronic vegetative state (6) Feeding by G-tube (7) Sepsis (8) Persistent atrial fibrillation Status: stable, unchanged Status Narrative s/p cardiac arrest - anoxic encephalopathy, persistent vegetative state. Sepsis - polymicrobial, w/ klebsiella and A baumanii in blood, as well as proteus, MRSA in wound GT feeds AF - appears to be permanent Assessment/Plan Pt febrile, WBC has increased. Continue iv antibiotics, per ID Colistin, tigecycline . Continue metoprolol and low dose digoxin for rate control in AF. No anticoagulation due to anemia, bleeding risk and overall functional status. Subjective ROS Limited/Unobtainable: Yes Subjective Intubated, not responsive Objective Last 24 Hour Vital Signs Date Time Temp Pulse Resp B/P (MAP) Pulse Ox O2 Delivery O2 Flow Rate FiO2 03/21/17 12:00 98.5 85 18 115/52 99 Mechanical Ventilator 30 03/21/17 10:46 82 25 30 03/21/17 09:20 85 22 30 03/21/17 09:08 100 03/21/17 09:07 100 141/81 03/21/17 08:00 99.8 100 28 141/81 100 Mechanical Ventilator 30 03/21/17 07:59 40 03/21/17 07:49 104 03/21/17 06:49 104 24 30 03/21/17 05:10 121 25 30 03/21/17 04:00 98.4 121 20 106/61 100 Mechanical Ventilator 50 03/21/17 04:00 40 03/21/17 04:00 98 03/21/17 03:00 105 26 30 03/21/17 00:52 95 26 30 03/21/17 00:00 40 03/21/17 00:00 103 03/21/17 00:00 98.8 89 25 122/57 100 Mechanical Ventilator 30 03/20/17 22:41 91 21 30 03/20/17 20:48 81 19 30 03/20/17 20:41 89 96/57 03/20/17 20:00 40 03/20/17 20:00 84 03/20/17 20:00 98.6 76 25 108/50 100 Mechanical Ventilator 30 03/20/17 18:39 88 20 30 03/20/17 16:45 89 23 30 03/20/17 16:40 100.0 03/20/17 16:40 100.0 03/20/17 16:08 40 03/20/17 16:00 102.6 96 25 146/59 100 Mechanical Ventilator 30 03/20/17 16:00 85 03/20/17 14:49 93 26 30 General Appearance: on vent, other - comatose Neck: other - trach Rhythm: Afib Cardiovascular: normal rate, irregularly irregular Respiratory/Chest: other - scattered rhonchi bilat Abdomen: non tender, soft, other - + gtube Extremities: moderate edema - 2+ pitting edema of hands, forearms bilat. Bilat SCDs Intake and Output 03/21/17 03/22/17 19:00 07:00 Intake Total 475 ml Balance 475 ml Free Water 200 ml IV Total 110 ml Tube Feeding 165 ml # Bowel Movements 1 Laboratory Tests Test 03/21/17 04:00 White Blood Count 15.2 K/UL (4.8-10.8) #H Red Blood Count 2.52 M/UL (4.70-6.10) L Hemoglobin 8.4 G/DL (14.2-18.0) L Hematocrit 24.4 % (42.0-52.0) L Mean Corpuscular Volume 97 FL (80-99) Mean Corpuscular Hemoglobin 33.3 PG (27.0-31.0) H Mean Corpuscular Hemoglobin Concent 34.4 G/DL (32.0-36.0) Red Cell Distribution Width 14.8 % (11.6-14.8) Platelet Count 143 K/UL (150-450) L Mean Platelet Volume 8.3 FL (6.5-10.1) Neutrophils (%) (Auto) 79.7 % (45.0-75.0) H Lymphocytes (%) (Auto) 7.6 % (20.0-45.0) L Monocytes (%) (Auto) 9.2 % (1.0-10.0) Eosinophils (%) (Auto) 3.1 % (0.0-3.0) H Basophils (%) (Auto) 0.5 % (0.0-2.0) Sodium Level 132 mEQ/L (135-145) L Potassium Level 4.5 mEQ/L (3.4-4.9) Chloride Level 96 mEQ/L (98-107) L Carbon Dioxide Level 22 mEQ/L (20-30) Anion Gap 14 (5-15) Blood Urea Nitrogen 52 mg/dL (7-23) #H Creatinine 2.0 mg/dL (0.7-1.2) #H Estimat Glomerular Filtration Rate mL/min (>60) Glucose Level 82 mg/dL (74-106) Calcium Level 8.2 mg/dL (8.6-10.2) L Digoxin Level Pending Microbiology Date/Time Source Procedure Growth Status 03/20/17 03:05 Blood Blood Culture - Preliminary NO GROWTH AFTER 24 HOURS Resulted 03/20/17 03:00 Blood Blood Culture - Preliminary NO GROWTH AFTER 24 HOURS Resulted 03/19/17 17:17 Arm Right Catheter Tip Culture - Preliminary NO GROWTH AFTER 48 HOURS Resulted GLORIA RAZA Mar 21, 2017 13:02
--- NOTE | 2017-03-21 13:06 | Pulmonology Progress Note ---
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 Anemia requiring blood transfusion Elevated inflammatory markers Dysphagia, G tube Functional quadriplegia Chronic vegetative state Multiple decub ulcers POA: sacrococcyx decub ulcer st 3, R scapula decub ulcer st 2 POA, L heel pressure ulcer unstageable L heel dry gangrene Coagulopathy PLAN OF CARE ELBA status Vent care, Pulmonary toilet get baseline ABG and titrate settings as needed Abx ID follows 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 cx preliminary negative, prior + KPC PICC line changed 03/19, tip sent for for cx, preliminary negative nephro eval due to ARF start IVF further management of ARF as per nephro X ray L heel c/w OM, X ray R heel possible early OM CT pelvis no significant bony erosions, no abscess Wound care as per wound nurse recommendations Monitor HH, transfuse prn Heme follows Coagulopathy likely 2 to sepsis vs medications Stool OB negative Strict aspiration precautions, G tube feeing, monitor tolerance Venous Duplex BLE negative, SCD for mechanical prophylaxis of DVT DNR/DNI status case discussed and evaluated by supervising physician Subjective Allergies: Coded Allergies: No Known Allergies (Unverified , 03/15/17) Subjective febrile earlier, now afebrile, with leucocytosis today up to 15 PICC line changed 03/19, preliminary cath tip cx negative no signs of respiratory distress on current settings lab work this am with evidence of acute renal failrue : BUN-52 , creat -2.0 Objective Last 24 Hour Vital Signs Date Time Temp Pulse Resp B/P (MAP) Pulse Ox O2 Delivery O2 Flow Rate FiO2 03/21/17 12:56 84 24 30 03/21/17 12:00 98.5 85 18 115/52 99 Mechanical Ventilator 30 03/21/17 10:46 82 25 30 03/21/17 09:20 85 22 30 03/21/17 09:08 100 03/21/17 09:07 100 141/81 03/21/17 08:00 99.8 100 28 141/81 100 Mechanical Ventilator 30 03/21/17 07:59 40 03/21/17 07:49 104 03/21/17 06:49 104 24 30 8/27/17 05:10 121 25 30 03/21/17 04:00 98.4 121 20 106/61 100 Mechanical Ventilator 50 03/21/17 04:00 40 03/21/17 04:00 98 03/21/17 03:00 105 26 30 03/21/17 00:52 95 26 30 03/21/17 00:00 40 03/21/17 00:00 103 03/21/17 00:00 98.8 89 25 122/57 100 Mechanical Ventilator 30 03/20/17 22:41 91 21 30 03/20/17 20:48 81 19 30 03/20/17 20:41 89 96/57 03/20/17 20:00 40 03/20/17 20:00 84 03/20/17 20:00 98.6 76 25 108/50 100 Mechanical Ventilator 30 03/20/17 18:39 88 20 30 03/20/17 16:45 89 23 30 03/20/17 16:40 100.0 03/20/17 16:40 100.0 03/20/17 16:08 40 03/20/17 16:00 102.6 96 25 146/59 100 Mechanical Ventilator 30 03/20/17 16:00 85 03/20/17 14:49 93 26 30 Intake and Output 03/21/17 03/22/17 19:00 07:00 Intake Total 475 ml Balance 475 ml Free Water 200 ml IV Total 110 ml Tube Feeding 165 ml # Bowel Movements 1 Objective General Appearance: bedridden, vent dependent chronically ill looking, elderly male SIMV 60-30-8 HEENT: normocephalic, atraumatic, anicteric, status post trach - Shiley #7, secretions scant, yellow, thick Respiratory/Chest: no respiratory distress, rhonchi - scattered Cardiovascular: tachycardia - 110th , irregularly irregular - A fib on monitor , other - LUE PICC intact Abdomen: soft, non tender, non distended, other - G tube with TF Genitourinary: condom catheter Extremities: edema +1 BUE Skin: decub ulcers POA Neurologic/Psychiatric: open eyes spontaneously, poorly responsive, spastic LE Musculoskeletal: atrophy - BLE Microbiology Date/Time Source Procedure Growth Status 03/20/17 03:05 Blood Blood Culture - Preliminary NO GROWTH AFTER 24 HOURS Resulted 03/20/17 03:00 Blood Blood Culture - Preliminary NO GROWTH AFTER 24 HOURS Resulted 03/19/17 17:17 Arm Right Catheter Tip Culture - Preliminary NO GROWTH AFTER 48 HOURS Resulted Laboratory Tests 03/21/17 04:00: White Blood Count 15.2#H, Red Blood Count 2.52L, Hemoglobin 8.4L, Hematocrit 24.4L, Mean Corpuscular Volume 97, Mean Corpuscular Hemoglobin 33.3H, Mean Corpuscular Hemoglobin Concent 34.4, Red Cell Distribution Width 14.8, Platelet Count 143L, Mean Platelet Volume 8.3, Neutrophils (%) (Auto) 79.7H, Lymphocytes (%) (Auto) 7.6L, Monocytes (%) (Auto) 9.2, Eosinophils (%) (Auto) 3.1H, Basophils (%) (Auto) 0.5, Sodium Level 132L, Potassium Level 4.5, Chloride Level 96L, Carbon Dioxide Level 22, Anion Gap 14, Blood Urea Nitrogen 52#H, Creatinine 2.0#H, Estimat Glomerular Filtration Rate , Glucose Level 82, Calcium Level 8.2L, Digoxin Level [Pending] Current Medications Medications (Trade) Dose Ordered Sig/Millicent Route PRN Reason Start Time Stop Time Status Last Admin Dose Admin Acetaminophen (Tylenol) 650 mg EVERY 4 HOURS PRN GT fever 03/20/17 08:15 04/19/17 08:14 03/20/17 16:17 Albuterol/ Ipratropium (DuoNeb 0.5-3(2.5)mg/3ml) 3 ml Q4H PRN HHN Shortness of Breath 03/20/17 19:00 03/25/17 23:59 Chlorhexidine Gluconate (Ivanna-Hex 2%) 1 applic QHS TOPIC 03/19/17 21:00 04/18/17 20:59 03/20/17 20:35 Colistimethate Sodium (Colistin) 180 mg EVERY 12 HOURS IVP 03/18/17 16:00 03/25/17 15:59 03/21/17 09:08 Dextrose (Dextrose 50%) STAT PRN IV Hypoglycemia 03/15/17 23:00 04/14/17 22:59 Digoxin (Lanoxin) 0.125 mg DAILY GT 03/16/17 09:00 04/15/17 08:59 03/21/17 09:08 Insulin Aspart (NovoLOG) Q6HR SUBQ 03/16/17 12:00 04/15/17 11:59 03/20/17 11:36 Lorazepam (Ativan 2mg/ml 1ml) 2 mg Q2H PRN IV For Anxiety 03/20/17 19:00 03/27/17 23:59 Metoprolol Tartrate (Lopressor) 50 mg Q12HR GT 03/17/17 09:00 04/15/17 08:59 03/21/17 09:07 Morphine Sulfate (Morphine Sulfate) 4 mg Q4H PRN IVP Severe Pain (Pain Scale 7-10) 03/20/17 19:00 03/27/17 23:59 Ondansetron HCl (Zofran) 4 mg Q6H PRN IVP Nausea & Vomiting 03/15/17 23:00 04/14/17 22:59 Polyethylene Glycol (Miralax) 17 gm DAILYPRN PRN GT Constipation 03/16/17 15:00 04/14/17 22:59 Tigecycline 50 mg/ Dextrose 110 ml @ 220 mls/hr Q12H IVPB 03/20/17 08:00 03/27/17 07:59 03/21/17 07:57 [facility]Chelly NP Mar 21, 2017 13:06
[2017-03-21 16:00] VITALS: BP 116/62
[2017-03-21 20:00] VITALS: BP 119/63
[2017-03-21] MEDS: Dyna-Hex 2% Top Sol 8oz TOPIC SCH (20:28)
--- NOTE | 2017-03-21 23:35 | General Progress Note ---
Assessment/Plan Assessment/Plan 1. Coagulopathy. PTT study reviewed. -->2/2 sepsis vs medications 2. Anemia, likely secondary to hemodilution. 3. Anemia, secondary to chronic disease. Anemia workup has been ordered. --> no evidence of iron,folate, b12 def, ferritin is elevated and tibc is low --> continue to monitor counts --> s/p transfusion, hgb now over 8 4. Leukocytosis, potentially secondary to underlying sepsis with a left shift, neutrophil predominant leukocytosis. --> id following 5. Hypocalcemia potentially secondary to hemodilution. Continue to monitor. 6. Sepsis. He is on antibiotics. 7. Chronic vegetative state Subjective Date patient seen: Mar 20, 2017 ROS Limited/Unobtainable: No Constitutional: Denies: no symptoms, chills, diaphoresis, fever, malaise, weakness, other HEENT: Denies: no symptoms, eye pain, blurred vision, tearing, double vision, ear pain, ear discharge, nose pain, nose congestion, throat pain, throat swelling, mouth pain, mouth swelling, other Cardiovascular: Denies: no symptoms, chest pain, edema, irregular heart rate, lightheadedness, palpitations, syncope, other Respiratory: Denies: no symptoms, cough, orthopnea, shortness of breath, SOB with excertion, SOB at rest, sputum, stridor, wheezing, other Gastrointestinal/Abdominal: Denies: no symptoms, abdomen distended, abdominal pain, black stools, tarry stools, blood in stool, constipated, diarrhea, difficulty swallowing, nausea, poor appetite, poor fluid intake, rectal bleeding , vomiting, other Genitourinary: Denies: no symptoms, burning, discharge, frequency, flank pain, hematuria, incontinence, pain, urgency, other Neurologic/Psychiatric: Denies: no symptoms, anxiety, depressed, emotional problems, headache, numbness, paresthesia, pre-existing deficit, seizure, tingling, tremors, weakness, other Endocrine: Denies: no symptoms, excessive sweating, flushing, intolerance to cold, intolerance to heat, increased hunger, increased thirst, increased urine, unexplained weight gain, unexplained weight loss, other Hematologic/Lymphatic: Reports: anemia Allergies: Coded Allergies: No Known Allergies (Unverified , 03/15/17) Subjective S/P PRBC, no adverse reactions, Temperature down from yesterday Objective Last 24 Hour Vital Signs Date Time Temp Pulse Resp B/P (MAP) Pulse Ox O2 Delivery O2 Flow Rate FiO2 03/21/17 23:05 72 27 30 03/21/17 21:03 74 29 30 03/21/17 20:28 77 119/62 03/21/17 20:00 40 03/21/17 20:00 98.1 77 22 119/63 100 30 03/21/17 20:00 75 03/21/17 19:05 71 27 30 03/21/17 17:20 73 18 30 03/21/17 16:00 76 03/21/17 16:00 40 03/21/17 16:00 97.8 81 19 116/62 100 Mechanical Ventilator 30 03/21/17 15:08 85 28 30 03/21/17 12:56 84 24 30 03/21/17 12:00 82 03/21/17 12:00 40 03/21/17 12:00 98.5 85 18 115/52 99 Mechanical Ventilator 30 03/21/17 10:46 82 25 30 03/21/17 09:20 85 22 30 03/21/17 09:08 100 03/21/17 09:07 100 141/81 03/21/17 08:00 99.8 100 28 141/81 100 Mechanical Ventilator 30 03/21/17 07:59 40 03/21/17 07:49 104 03/21/17 06:49 104 24 30 03/21/17 05:10 121 25 30 03/21/17 04:00 98.4 121 20 106/61 100 Mechanical Ventilator 50 03/21/17 04:00 40 03/21/17 04:00 98 03/21/17 03:00 105 26 30 03/21/17 00:52 95 26 30 03/21/17 00:00 40 03/21/17 00:00 103 03/21/17 00:00 98.8 89 25 122/57 100 Mechanical Ventilator 30 03/20/17 22:41 91 21 30 03/20/17 20:48 81 19 30 03/20/17 20:41 89 96/57 03/20/17 20:00 40 03/20/17 20:00 84 03/20/17 20:00 98.6 76 25 108/50 100 Mechanical Ventilator 30 03/20/17 18:39 88 20 30 03/20/17 16:45 89 23 30 03/20/17 16:40 100.0 03/20/17 16:40 100.0 03/20/17 16:08 40 03/20/17 16:00 102.6 96 25 146/59 100 Mechanical Ventilator 30 03/20/17 16:00 85 03/20/17 14:49 93 26 30 03/20/17 12:40 88 26 30 03/20/17 12:00 40 03/20/17 12:00 100.3 91 21 131/71 100 Mechanical Ventilator 30 03/20/17 12:00 91 03/20/17 12:00 40 03/20/17 11:00 99.9 03/20/17 10:38 77 20 30 03/20/17 09:30 101.5 03/20/17 08:45 119 153/75 03/20/17 08:44 119 03/20/17 08:39 115 24 30 03/20/17 08:38 116 03/20/17 08:00 40 03/20/17 08:00 102.0 119 25 153/75 100 Mechanical Ventilator 30 03/20/17 06:58 125 26 30 03/20/17 05:06 114 22 30 03/20/17 04:00 97 03/20/17 04:00 40 03/20/17 04:00 99.7 105 21 140/70 100 Mechanical Ventilator 30 03/20/17 02:58 104 24 30 03/20/17 02:19 100.0 03/20/17 00:52 110 25 30 03/20/17 00:48 99.5 99 27 139/70 100 Mechanical Ventilator 30 03/20/17 00:00 40 Labs Test 03/20/17 03:30 03/21/17 04:00 White Blood Count 8.8 K/UL (4.8-10.8) 15.2 K/UL (4.8-10.8) Red Blood Count 2.48 M/UL (4.70-6.10) 2.52 M/UL (4.70-6.10) Hemoglobin 8.0 G/DL (14.2-18.0) 8.4 G/DL (14.2-18.0) Hematocrit 23.9 % (42.0-52.0) 24.4 % (42.0-52.0) Mean Corpuscular Volume 96 FL (80-99) 97 FL (80-99) Mean Corpuscular Hemoglobin 32.1 PG (27.0-31.0) 33.3 PG (27.0-31.0) Mean Corpuscular Hemoglobin Concent 33.2 G/DL (32.0-36.0) 34.4 G/DL (32.0-36.0) Red Cell Distribution Width 14.8 % (11.6-14.8) 14.8 % (11.6-14.8) Platelet Count 144 K/UL (150-450) 143 K/UL (150-450) Mean Platelet Volume 8.2 FL (6.5-10.1) 8.3 FL (6.5-10.1) Neutrophils (%) (Auto) 71.7 % (45.0-75.0) 79.7 % (45.0-75.0) Lymphocytes (%) (Auto) 14.6 % (20.0-45.0) 7.6 % (20.0-45.0) Monocytes (%) (Auto) 10.5 % (1.0-10.0) 9.2 % (1.0-10.0) Eosinophils (%) (Auto) 2.7 % (0.0-3.0) 3.1 % (0.0-3.0) Basophils (%) (Auto) 0.5 % (0.0-2.0) 0.5 % (0.0-2.0) Sodium Level 135 mEQ/L (135-145) 132 mEQ/L (135-145) Potassium Level 3.7 mEQ/L (3.4-4.9) 4.5 mEQ/L (3.4-4.9) Chloride Level 100 mEQ/L (98-107) 96 mEQ/L (98-107) Carbon Dioxide Level 23 mEQ/L (20-30) 22 mEQ/L (20-30) Anion Gap 12 (5-15) 14 (5-15) Blood Urea Nitrogen 27 mg/dL (7-23) 52 mg/dL (7-23) Creatinine 0.7 mg/dL (0.7-1.2) 2.0 mg/dL (0.7-1.2) Estimat Glomerular Filtration Rate mL/min (>60) mL/min (>60) Glucose Level 123 mg/dL (74-106) 82 mg/dL (74-106) Calcium Level 8.1 mg/dL (8.6-10.2) 8.2 mg/dL (8.6-10.2) Phosphorus Level 3.4 mg/dL (2.5-4.8) Magnesium Level 1.5 mg/dL (1.7-2.5) Total Bilirubin 0.9 mg/dL (0.0-1.2) Aspartate Amino Transf (AST/SGOT) 33 U/L (5-40) Alanine Aminotransferase (ALT/SGPT) 14 U/L (3-41) Alkaline Phosphatase 306 U/L (40-129) Total Protein 6.1 g/dL (6.6-8.7) Albumin 1.7 g/dL (3.5-5.2) Globulin 4.4 g/dL Albumin/Globulin Ratio 0.3 (1.0-2.7) Digoxin Level 1.2 ng/mL (0.5-2.0) Last 24 Hour Vital Signs Date Time Temp Pulse Resp B/P (MAP) Pulse Ox O2 Delivery O2 Flow Rate FiO2 03/21/17 23:05 72 27 30 03/21/17 21:03 74 29 30 03/21/17 20:28 77 119/62 03/21/17 20:00 40 03/21/17 20:00 98.1 77 22 119/63 100 30 03/21/17 20:00 75 03/21/17 19:05 71 27 30 03/21/17 17:20 73 18 30 03/21/17 16:00 76 03/21/17 16:00 40 03/21/17 16:00 97.8 81 19 116/62 100 Mechanical Ventilator 30 03/21/17 15:08 85 28 30 03/21/17 12:56 84 24 30 03/21/17 12:00 82 03/21/17 12:00 40 03/21/17 12:00 98.5 85 18 115/52 99 Mechanical Ventilator 30 03/21/17 10:46 82 25 30 03/21/17 09:20 85 22 30 03/21/17 09:08 100 03/21/17 09:07 100 141/81 8/27/17 08:00 99.8 100 28 141/81 100 Mechanical Ventilator 30 03/21/17 07:59 40 03/21/17 07:49 104 03/21/17 06:49 104 24 30 03/21/17 05:10 121 25 30 03/21/17 04:00 98.4 121 20 106/61 100 Mechanical Ventilator 50 03/21/17 04:00 40 03/21/17 04:00 98 03/21/17 03:00 105 26 30 03/21/17 00:52 95 26 30 03/21/17 00:00 40 03/21/17 00:00 103 03/21/17 00:00 98.8 89 25 122/57 100 Mechanical Ventilator 30 03/20/17 22:41 91 21 30 03/20/17 20:48 81 19 30 03/20/17 20:41 89 96/57 03/20/17 20:00 40 03/20/17 20:00 84 03/20/17 20:00 98.6 76 25 108/50 100 Mechanical Ventilator 30 03/20/17 18:39 88 20 30 03/20/17 16:45 89 23 30 03/20/17 16:40 100.0 03/20/17 16:40 100.0 03/20/17 16:08 40 03/20/17 16:00 102.6 96 25 146/59 100 Mechanical Ventilator 30 03/20/17 16:00 85 03/20/17 14:49 93 26 30 03/20/17 12:40 88 26 30 03/20/17 12:00 40 03/20/17 12:00 100.3 91 21 131/71 100 Mechanical Ventilator 30 03/20/17 12:00 91 03/20/17 12:00 40 03/20/17 11:00 99.9 03/20/17 10:38 77 20 30 03/20/17 09:30 101.5 03/20/17 08:45 119 153/75 03/20/17 08:44 119 03/20/17 08:39 115 24 30 03/20/17 08:38 116 03/20/17 08:00 40 03/20/17 08:00 102.0 119 25 153/75 100 Mechanical Ventilator 30 03/20/17 06:58 125 26 30 03/20/17 05:06 114 22 30 03/20/17 04:00 97 03/20/17 04:00 40 03/20/17 04:00 99.7 105 21 140/70 100 Mechanical Ventilator 30 03/20/17 02:58 104 24 30 03/20/17 02:19 100.0 03/20/17 00:52 110 25 30 03/20/17 00:48 99.5 99 27 139/70 100 Mechanical Ventilator 30 03/20/17 00:00 40 Last 24 Hour Vital Signs Date Time Temp Pulse Resp B/P (MAP) Pulse Ox O2 Delivery O2 Flow Rate FiO2 03/21/17 23:05 72 27 30 03/21/17 21:03 74 29 30 03/21/17 20:28 77 119/62 03/21/17 20:00 40 03/21/17 20:00 98.1 77 22 119/63 100 30 03/21/17 20:00 75 03/21/17 19:05 71 27 30 03/21/17 17:20 73 18 30 03/21/17 16:00 76 03/21/17 16:00 40 03/21/17 16:00 97.8 81 19 116/62 100 Mechanical Ventilator 30 03/21/17 15:08 85 28 30 03/21/17 12:56 84 24 30 03/21/17 12:00 82 03/21/17 12:00 40 03/21/17 12:00 98.5 85 18 115/52 99 Mechanical Ventilator 30 03/21/17 10:46 82 25 30 03/21/17 09:20 85 22 30 03/21/17 09:08 100 03/21/17 09:07 100 141/81 03/21/17 08:00 99.8 100 28 141/81 100 Mechanical Ventilator 30 03/21/17 07:59 40 03/21/17 07:49 104 03/21/17 06:49 104 24 30 03/21/17 05:10 121 25 30 03/21/17 04:00 98.4 121 20 106/61 100 Mechanical Ventilator 50 03/21/17 04:00 40 03/21/17 04:00 98 03/21/17 03:00 105 26 30 03/21/17 00:52 95 26 30 03/21/17 00:00 40 03/21/17 00:00 103 03/21/17 00:00 98.8 89 25 122/57 100 Mechanical Ventilator 30 Intake and Output 03/21/17 03/22/17 19:00 07:00 Intake Total 1490 ml 810 ml Output Total 200 ml Balance 1290 ml 810 ml Free Water 400 ml 200 ml IV Total 485 ml 445 ml Tube Feeding 605 ml 165 ml Output Urine Total 200 ml # Bowel Movements 5 1 Labs Test 03/20/17 03:30 03/21/17 04:00 White Blood Count 8.8 K/UL (4.8-10.8) 15.2 K/UL (4.8-10.8) Red Blood Count 2.48 M/UL (4.70-6.10) 2.52 M/UL (4.70-6.10) Hemoglobin 8.0 G/DL (14.2-18.0) 8.4 G/DL (14.2-18.0) Hematocrit 23.9 % (42.0-52.0) 24.4 % (42.0-52.0) Mean Corpuscular Volume 96 FL (80-99) 97 FL (80-99) Mean Corpuscular Hemoglobin 32.1 PG (27.0-31.0) 33.3 PG (27.0-31.0) Mean Corpuscular Hemoglobin Concent 33.2 G/DL (32.0-36.0) 34.4 G/DL (32.0-36.0) Red Cell Distribution Width 14.8 % (11.6-14.8) 14.8 % (11.6-14.8) Platelet Count 144 K/UL (150-450) 143 K/UL (150-450) Mean Platelet Volume 8.2 FL (6.5-10.1) 8.3 FL (6.5-10.1) Neutrophils (%) (Auto) 71.7 % (45.0-75.0) 79.7 % (45.0-75.0) Lymphocytes (%) (Auto) 14.6 % (20.0-45.0) 7.6 % (20.0-45.0) Monocytes (%) (Auto) 10.5 % (1.0-10.0) 9.2 % (1.0-10.0) Eosinophils (%) (Auto) 2.7 % (0.0-3.0) 3.1 % (0.0-3.0) Basophils (%) (Auto) 0.5 % (0.0-2.0) 0.5 % (0.0-2.0) Sodium Level 135 mEQ/L (135-145) 132 mEQ/L (135-145) Potassium Level 3.7 mEQ/L (3.4-4.9) 4.5 mEQ/L (3.4-4.9) Chloride Level 100 mEQ/L (98-107) 96 mEQ/L (98-107) Carbon Dioxide Level 23 mEQ/L (20-30) 22 mEQ/L (20-30) Anion Gap 12 (5-15) 14 (5-15) Blood Urea Nitrogen 27 mg/dL (7-23) 52 mg/dL (7-23) Creatinine 0.7 mg/dL (0.7-1.2) 2.0 mg/dL (0.7-1.2) Estimat Glomerular Filtration Rate mL/min (>60) mL/min (>60) Glucose Level 123 mg/dL (74-106) 82 mg/dL (74-106) Calcium Level 8.1 mg/dL (8.6-10.2) 8.2 mg/dL (8.6-10.2) Phosphorus Level 3.4 mg/dL (2.5-4.8) Magnesium Level 1.5 mg/dL (1.7-2.5) Total Bilirubin 0.9 mg/dL (0.0-1.2) Aspartate Amino Transf (AST/SGOT) 33 U/L (5-40) Alanine Aminotransferase (ALT/SGPT) 14 U/L (3-41) Alkaline Phosphatase 306 U/L (40-129) Total Protein 6.1 g/dL (6.6-8.7) Albumin 1.7 g/dL (3.5-5.2) Globulin 4.4 g/dL Albumin/Globulin Ratio 0.3 (1.0-2.7) Digoxin Level 1.2 ng/mL (0.5-2.0) Laboratory Tests Test 03/21/17 04:00 White Blood Count 15.2 K/UL (4.8-10.8) #H Red Blood Count 2.52 M/UL (4.70-6.10) L Hemoglobin 8.4 G/DL (14.2-18.0) L Hematocrit 24.4 % (42.0-52.0) L Mean Corpuscular Volume 97 FL (80-99) Mean Corpuscular Hemoglobin 33.3 PG (27.0-31.0) H Mean Corpuscular Hemoglobin Concent 34.4 G/DL (32.0-36.0) Red Cell Distribution Width 14.8 % (11.6-14.8) Platelet Count 143 K/UL (150-450) L Mean Platelet Volume 8.3 FL (6.5-10.1) Neutrophils (%) (Auto) 79.7 % (45.0-75.0) H Lymphocytes (%) (Auto) 7.6 % (20.0-45.0) L Monocytes (%) (Auto) 9.2 % (1.0-10.0) Eosinophils (%) (Auto) 3.1 % (0.0-3.0) H Basophils (%) (Auto) 0.5 % (0.0-2.0) Sodium Level 132 mEQ/L (135-145) L Potassium Level 4.5 mEQ/L (3.4-4.9) Chloride Level 96 mEQ/L (98-107) L Carbon Dioxide Level 22 mEQ/L (20-30) Anion Gap 14 (5-15) Blood Urea Nitrogen 52 mg/dL (7-23) #H Creatinine 2.0 mg/dL (0.7-1.2) #H Estimat Glomerular Filtration Rate mL/min (>60) Glucose Level 82 mg/dL (74-106) Calcium Level 8.2 mg/dL (8.6-10.2) L Digoxin Level 1.2 ng/mL (0.5-2.0) Laboratory Tests 03/21/17 04:00: White Blood Count 15.2#H, Red Blood Count 2.52L, Hemoglobin 8.4L, Hematocrit 24.4L, Mean Corpuscular Volume 97, Mean Corpuscular Hemoglobin 33.3H, Mean Corpuscular Hemoglobin Concent 34.4, Red Cell Distribution Width 14.8, Platelet Count 143L, Mean Platelet Volume 8.3, Neutrophils (%) (Auto) 79.7H, Lymphocytes (%) (Auto) 7.6L, Monocytes (%) (Auto) 9.2, Eosinophils (%) (Auto) 3.1H, Basophils (%) (Auto) 0.5, Sodium Level 132L, Potassium Level 4.5, Chloride Level 96L, Carbon Dioxide Level 22, Anion Gap 14, Blood Urea Nitrogen 52#H, Creatinine 2.0#H, Estimat Glomerular Filtration Rate , Glucose Level 82, Calcium Level 8.2L, Digoxin Level 1.2 Height (Feet): 5 Height (Inches): 8.00 Weight (Pounds): 160 General Appearance: no apparent distress EENT: normal ENT inspection Neck: non-tender Abdomen: non tender Neurologic: carbonation equipment tender II-XII grossly normal AMALIA SAEED Mar 21, 2017 23:35
--- NOTE | 2017-03-21 23:36 | General Progress Note ---
Assessment/Plan Assessment/Plan 1. Coagulopathy. PTT study reviewed. -->2/2 sepsis vs medications 2. Anemia, likely secondary to hemodilution. 3. Anemia, secondary to chronic disease. Anemia workup has been ordered. --> no evidence of iron,folate, b12 def, ferritin is elevated and tibc is low --> continue to monitor counts --> s/p transfusion, hgb now over 8 4. Leukocytosis, potentially secondary to underlying sepsis with a left shift, neutrophil predominant leukocytosis. --> id following 5. Hypocalcemia potentially secondary to hemodilution. Continue to monitor. 6. Sepsis. He is on antibiotics. 7. Chronic vegetative state Subjective Date patient seen: Mar 21, 2017 Constitutional: Denies: no symptoms, chills, diaphoresis, fever, malaise, weakness, other HEENT: Denies: no symptoms, eye pain, blurred vision, tearing, double vision, ear pain, ear discharge, nose pain, nose congestion, throat pain, throat swelling, mouth pain, mouth swelling, other Cardiovascular: Denies: no symptoms, chest pain, edema, irregular heart rate, lightheadedness, palpitations, syncope, other Respiratory: Denies: no symptoms, cough, orthopnea, shortness of breath, SOB with excertion, SOB at rest, sputum, stridor, wheezing, other Gastrointestinal/Abdominal: Denies: no symptoms, abdomen distended, abdominal pain, black stools, tarry stools, blood in stool, constipated, diarrhea, difficulty swallowing, nausea, poor appetite, poor fluid intake, rectal bleeding , vomiting, other Genitourinary: Denies: no symptoms, burning, discharge, frequency, flank pain, hematuria, incontinence, pain, urgency, other Hematologic/Lymphatic: Reports: anemia Allergies: Coded Allergies: No Known Allergies (Unverified , 03/15/17) Subjective S/P PRBC, no adverse reactions, Afebrile. Hemoglobin stable Objective Last 24 Hour Vital Signs Date Time Temp Pulse Resp B/P (MAP) Pulse Ox O2 Delivery O2 Flow Rate FiO2 03/21/17 23:05 72 27 30 03/21/17 21:03 74 29 30 03/21/17 20:28 77 119/62 03/21/17 20:00 40 03/21/17 20:00 98.1 77 22 119/63 100 30 03/21/17 20:00 75 03/21/17 19:05 71 27 30 03/21/17 17:20 73 18 30 03/21/17 16:00 76 03/21/17 16:00 40 03/21/17 16:00 97.8 81 19 116/62 100 Mechanical Ventilator 30 03/21/17 15:08 85 28 30 03/21/17 12:56 84 24 30 03/21/17 12:00 82 03/21/17 12:00 40 03/21/17 12:00 98.5 85 18 115/52 99 Mechanical Ventilator 30 03/21/17 10:46 82 25 30 03/21/17 09:20 85 22 30 03/21/17 09:08 100 03/21/17 09:07 100 141/81 03/21/17 08:00 99.8 100 28 141/81 100 Mechanical Ventilator 30 03/21/17 07:59 40 03/21/17 07:49 104 03/21/17 06:49 104 24 30 03/21/17 05:10 121 25 30 03/21/17 04:00 98.4 121 20 106/61 100 Mechanical Ventilator 50 03/21/17 04:00 40 03/21/17 04:00 98 03/21/17 03:00 105 26 30 03/21/17 00:52 95 26 30 03/21/17 00:00 40 03/21/17 00:00 103 03/21/17 00:00 98.8 89 25 122/57 100 Mechanical Ventilator 30 Intake and Output 03/21/17 03/22/17 19:00 07:00 Intake Total 1490 ml 810 ml Output Total 200 ml Balance 1290 ml 810 ml Free Water 400 ml 200 ml IV Total 485 ml 445 ml Tube Feeding 605 ml 165 ml Output Urine Total 200 ml # Bowel Movements 5 1 Laboratory Tests 03/21/17 04:00: White Blood Count 15.2#H, Red Blood Count 2.52L, Hemoglobin 8.4L, Hematocrit 24.4L, Mean Corpuscular Volume 97, Mean Corpuscular Hemoglobin 33.3H, Mean Corpuscular Hemoglobin Concent 34.4, Red Cell Distribution Width 14.8, Platelet Count 143L, Mean Platelet Volume 8.3, Neutrophils (%) (Auto) 79.7H, Lymphocytes (%) (Auto) 7.6L, Monocytes (%) (Auto) 9.2, Eosinophils (%) (Auto) 3.1H, Basophils (%) (Auto) 0.5, Sodium Level 132L, Potassium Level 4.5, Chloride Level 96L, Carbon Dioxide Level 22, Anion Gap 14, Blood Urea Nitrogen 52#H, Creatinine 2.0#H, Estimat Glomerular Filtration Rate , Glucose Level 82, Calcium Level 8.2L, Digoxin Level 1.2 Height (Feet): 5 Height (Inches): 8.00 Weight (Pounds): 160 General Appearance: no apparent distress EENT: normal ENT inspection Cardiovascular: normal rate Respiratory/Chest: decreased breath sounds Neurologic: alum operator II-XII grossly normal AMALIA SAEED Mar 21, 2017 23:36
[2017-03-22] VITALS: BP 117/58
[2017-03-22 04:00] VITALS: BP 132/65
[2017-03-22 05:15] LABS: MEAN CORPUSCULAR HEMOGLOBIN 32.3 PG (27.0-31.0); MEAN CORPUSCULAR HGB CONC 33.3 G/DL (32.0-36.0); MEAN CORPUSCULAR VOLUME 97 FL (80-99); PLATELET COUNT 121 K/UL (150-450); RED BLOOD COUNT 2.28 M/UL (4.70-6.10); RED CELL DISTRIBUTION WIDTH 14.4 % (11.6-14.8); WHITE BLOOD COUNT 16.3 K/UL (4.8-10.8)
[2017-03-22] MEDS: NovoLOG Insulin Flexpen SUBQ SCH ×4 (05:36→23:02)
[2017-03-22 05:57] LABS: ANION GAP 16 (5-15); CALCIUM 7.5 mg/dL (8.6-10.2); CARBON DIOXIDE 18 mEQ/L (20-30); CHLORIDE 99 mEQ/L (98-107); CREATININE 2.6 mg/dL (0.7-1.2); HEMOLYSIS 0; POTASSIUM 4.7 mEQ/L (3.4-4.9); SODIUM 133 mEQ/L (135-145)
[2017-03-22 08:00] VITALS: BP 128/69
[2017-03-22 08:14] LABS: BASOPHILS % (AUTO) 0.4 % (0.0-2.0); EOSINOPHILS % (AUTO) 2.5 % (0.0-3.0); LYMPHOCYTES % (AUTO) 10.6 % (20.0-45.0); MEAN CORPUSCULAR HEMOGLOBIN 32.1 PG (27.0-31.0); MEAN CORPUSCULAR VOLUME 97 FL (80-99); MEAN PLATELET VOLUME 8.4 FL (6.5-10.1); NEUTROPHILS % (AUTO) 78.5 % (45.0-75.0); PLATELET COUNT 134 K/UL (150-450); RED BLOOD COUNT 2.53 M/UL (4.70-6.10); RED CELL DISTRIBUTION WIDTH 14.7 % (11.6-14.8); WHITE BLOOD COUNT 12.7 K/UL (4.8-10.8)
[2017-03-22] MEDS: Tigecycline 50 MG in D5W 110 ML IVPB SCH ×2 (08:15→20:08)
[2017-03-22 08:43] LABS: ABG BASE EXCESS -4.7; ABG PCO2 31.1 mmHg (35.0-45.0)
[2017-03-22 08:44] LABS: ABG ALLEN TEST POSITIVE
[2017-03-22] MEDS: Digoxin Elixir 0.125mg GT SCH (09:51)
[2017-03-22] MEDS: Colistin 150mg vial IVP SCH (09:51)
[2017-03-22] MEDS: Metoprolol Tartrate 50mg tab GT SCH ×2 (09:51→20:01)
[2017-03-22 11:03] LABS: ANISOCYTOSIS 1+; BAND NEUTROPHILS % (MANUAL) 0 % (0-8); BASOPHILS % (MANUAL) 0 % (0-2); EOSINOPHILS % (MANUAL) 1 % (0-3); HYPOCHROMASIA 1+; LYMPHOCYTES % (MANUAL) 8 % (20-45); NEUTROPHILS % (MANUAL) 84 % (45-75); PLATELET ESTIMATE DECREASED; PLATELET MORPHOLOGY NORMAL; TOTAL CELLS COUNTED 100
--- NOTE | 2017-03-22 11:09 | Pulmonology Progress Note ---
Assessment/Plan Problems: (1) Acute and chronic respiratory failure (2) Sepsis (3) Bacteremia (4) ATN (acute tubular necrosis) (5) Anemia (6) Chronic vegetative state (7) Feeding by G-tube Respiratory: monitor respiratory rate, adjust FIO2 Cardiac: continue to monitor HR/BP Renal: F/U I&O, check electrolytes Infectious Disease: check cultures, continue antibiotics, other - --Continue colistin 2.5mg/kg IV q12hr D#2 Gastrointestinal: continue feedings/current rate Endocrine: monitor blood sugar, check HgA1C, continue sliding scale insulin Hematologic: transfuse if hgb<8.5 Neurologic: PRN Morphine, keep patient comfortable Affect: PRN ativan Prophylaxis: Protonix Time Spent (Minutes): 40 Notes Reviewed: cardio Discussed with: nurses, consultants, casework supervisor Subjective ROS Limited/Unobtainable: No Constitutional: Reports: no symptoms HEENT: Repors: no symptoms Respiratory: Reports: no symptoms Allergies: Coded Allergies: No Known Allergies (Unverified , 03/15/17) Objective Last 24 Hour Vital Signs Date Time Temp Pulse Resp B/P (MAP) Pulse Ox O2 Delivery O2 Flow Rate FiO2 03/22/17 10:45 70 23 30 03/22/17 09:51 63 128/69 03/22/17 09:51 63 03/22/17 08:48 63 21 30 03/22/17 08:00 40 03/22/17 08:00 68 03/22/17 08:00 97.9 68 21 128/69 100 Mechanical Ventilator 30 03/22/17 07:00 60 23 30 03/22/17 04:55 63 23 30 03/22/17 04:00 72 03/22/17 04:00 97.7 65 22 132/65 100 Mechanical Ventilator 30 03/22/17 04:00 40 03/22/17 03:14 67 27 30 03/22/17 01:28 65 24 30 03/22/17 00:00 97.5 70 28 117/58 100 Mechanical Ventilator 30 03/22/17 00:00 68 03/22/17 00:00 40 03/21/17 23:05 72 27 30 03/21/17 21:03 74 29 30 03/21/17 20:28 77 119/62 03/21/17 20:00 40 03/21/17 20:00 98.1 77 22 119/63 100 30 03/21/17 20:00 75 03/21/17 19:05 71 27 30 03/21/17 17:20 73 18 30 03/21/17 16:00 76 03/21/17 16:00 40 03/21/17 16:00 97.8 81 19 116/62 100 Mechanical Ventilator 30 03/21/17 15:08 85 28 30 03/21/17 12:56 84 24 30 03/21/17 12:00 82 03/21/17 12:00 40 03/21/17 12:00 98.5 85 18 115/52 99 Mechanical Ventilator 30 Intake and Output 03/22/17 03/23/17 19:00 07:00 # Bowel Movements 1 General Appearance: WD/WN Respiratory/Chest: chest wall non-tender, lungs clear, chest wall tender Cardiovascular: normal rate, regular rhythm, regularly irregular Abdomen: normal bowel sounds, soft, non tender Genitourinary: normal external genitalia Extremities: no clubbing Skin: no lesions, no ulcers Microbiology Date/Time Source Procedure Growth Status 03/20/17 03:05 Blood Blood Culture - Preliminary NO GROWTH AFTER 48 HOURS Resulted 03/20/17 03:00 Blood Blood Culture - Preliminary NO GROWTH AFTER 48 HOURS Resulted 03/19/17 17:17 Arm Right Catheter Tip Culture - Preliminary NO GROWTH AFTER 72 HOURS Resulted Laboratory Tests 03/22/17 04:00: White Blood Count 16.3H, Red Blood Count 2.28L, Hemoglobin 7.4L, Hematocrit 22.1L, Mean Corpuscular Volume 97, Mean Corpuscular Hemoglobin 32.3H, Mean Corpuscular Hemoglobin Concent 33.3, Red Cell Distribution Width 14.4, Platelet Count 121L, Mean Platelet Volume 9.0, Neutrophils (%) (Auto) , Lymphocytes (%) ( Auto) , Monocytes (%) (Auto) , Eosinophils (%) (Auto) , Basophils (%) (Auto) , Differential Total Cells Counted 100, Neutrophils % (Manual) 84H, Lymphocytes % (Manual) 8L, Monocytes % (Manual) 7, Eosinophils % (Manual) 1, Basophils % ( Manual) 0, Band Neutrophils 0, Platelet Estimate DecreasedL, Platelet Morphology Normal, Hypochromasia 1+, Anisocytosis 1+, Sodium Level 133L, Potassium Level 4.7, Chloride Level 99, Carbon Dioxide Level 18L, Anion Gap 16H , Blood Urea Nitrogen 68H, Creatinine 2.6H, Estimat Glomerular Filtration Rate , Glucose Level 142H, Calcium Level 7.5L 03/22/17 07:01: White Blood Count 12.7H, Red Blood Count 2.53L, Hemoglobin 8.1L, Hematocrit 24.7L, Mean Corpuscular Volume 97, Mean Corpuscular Hemoglobin 32.1H, Mean Corpuscular Hemoglobin Concent 33.0, Red Cell Distribution Width 14.7, Platelet Count 134L, Mean Platelet Volume 8.4, Neutrophils (%) (Auto) 78.5H, Lymphocytes (%) (Auto) 10.6L, Monocytes (%) (Auto) 8.0, Eosinophils (%) (Auto) 2.5, Basophils (%) (Auto) 0.4 03/22/17 08:40: Arterial Blood pH 7.410, Arterial Blood Partial Pressure CO2 31.1L, Arterial Blood Partial Pressure O2 139.6H, Arterial Blood HCO3 19.3L, Arterial Blood Oxygen Saturation 98.5H, Arterial Blood Base Excess -4.7, Daniel Test Positive Current Medications Medications (Trade) Dose Ordered Sig/Millicent Route PRN Reason Start Time Stop Time Status Last Admin Dose Admin Acetaminophen (Tylenol) 650 mg EVERY 4 HOURS PRN GT fever 03/20/17 08:15 04/19/17 08:14 03/20/17 16:17 Albuterol/ Ipratropium (DuoNeb 0.5-3(2.5)mg/3ml) 3 ml Q4H PRN HHN Shortness of Breath 03/20/17 19:00 03/25/17 23:59 Chlorhexidine Gluconate (Ivanna-Hex 2%) 1 applic QHS TOPIC 03/19/17 21:00 04/18/17 20:59 03/21/17 20:28 Colistimethate Sodium (Colistin) 90 mg EVERY 12 HOURS IVP 03/21/17 21:00 03/28/17 20:59 03/22/17 09:51 Dextrose (Dextrose 50%) STAT PRN IV Hypoglycemia 03/15/17 23:00 04/14/17 22:59 Digoxin (Lanoxin) 0.125 mg DAILY GT 03/16/17 09:00 04/15/17 08:59 03/22/17 09:51 Insulin Aspart (NovoLOG) Q6HR SUBQ 03/16/17 12:00 04/15/17 11:59 03/22/17 05:36 Lorazepam (Ativan 2mg/ml 1ml) 2 mg Q2H PRN IV For Anxiety 03/20/17 19:00 03/27/17 23:59 Metoprolol Tartrate (Lopressor) 50 mg Q12HR GT 03/17/17 09:00 04/15/17 08:59 03/22/17 09:51 Morphine Sulfate (Morphine Sulfate) 4 mg Q4H PRN IVP Severe Pain (Pain Scale 7-10) 03/20/17 19:00 03/27/17 23:59 Ondansetron HCl (Zofran) 4 mg Q6H PRN IVP Nausea & Vomiting 03/15/17 23:00 04/14/17 22:59 Polyethylene Glycol (Miralax) 17 gm DAILYPRN PRN GT Constipation 03/16/17 15:00 04/14/17 22:59 Sodium Chloride 1,000 ml @ 75 mls/hr [id number] IV 03/21/17 14:00 04/20/17 13:59 03/22/17 02:22 Tigecycline 50 mg/ Dextrose 110 ml @ 220 mls/hr Q12H IVPB 03/20/17 08:00 03/27/17 07:59 03/22/17 08:15 LIGIA JARAMILLO Mar 22, 2017 11:09
[2017-03-22 11:27] VITALS: BP 129/65
[2017-03-22 12:17] LABS: URIC ACID 5.2 mg/dL (3.0-7.5)
--- NOTE | 2017-03-22 12:33 | Diagnostic Imaging Report ---
Indication: Dyspnea Comparison: 03/18/17 A single view chest radiograph was obtained. Findings: Mild interstitial edema suspected. Dense left basal consolidation or atelectasis demonstrated. Cardiomegaly is stable. Tracheostomy noted. New left PICC line is present in good position. The tip is projected over the left innominate vein. Impression: Interstitial edema.
--- NOTE | 2017-03-22 14:48 | Diagnostic Imaging Report ---
Indication:Abdominal pain. Rising alkaline phosphatase. Technique: Grayscale and duplex Doppler imaging of the abdomen performed. Comparison: None Findings: The liver is unremarkable. There are bilateral pleural effusions present slightly larger on the right. Demonstrated part of the pancreas is unremarkable. The liver surface does not appear nodular. The main portal vein is patent by Doppler examination. Gallbladder is not visualized. The kidneys appear slightly echogenic. There are a few cysts present within the kidneys. There is no hydronephrosis. The IVC is unremarkable. CBD measures 7 mm. Aorta shows calcium within the wall. Spleen is normal in size. There is no ascites. Impression: No evidence of biliary ductal dilatation. Unremarkable sonographic appearance of the liver. Echogenic kidneys. Medical renal disease suspected. Small bilateral renal cysts. Atherosclerotic disease
--- NOTE | 2017-03-22 15:00 | Consultation ---
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
[2017-03-22 16:32] LABS: APPEARANCE,URINE SLIGHTLY CLOUDY; KETONES,URINE NEGATIVE (NEGATIVE); LEUKOCYTE ESTERASE ,URINE 3+ (NEGATIVE); NITRITE,URINE NEGATIVE (NEGATIVE); PH,URINE 7 (4.5-8.0); PROTEIN,URINE 3+ (NEGATIVE); UROBILINOGEN,URINE NORMAL MG/DL (0.0-1.0)
[2017-03-22 16:36] VITALS: BP 119/63
[2017-03-22 17:12] LABS: BACTERIA,URINE MODERATE /HPF
[2017-03-22 17:13] LABS: AMORPHOUS SEDIMENT,UR MODERATE /LPF
[2017-03-22 17:14] LABS: YEAST,URINE FEW /HPF
--- NOTE | 2017-03-22 19:02 | Cardiology Progress Note ---
Assessment/Plan Assessment/Plan 1. Permanent atrial fibrillation. 2. Anoxic encephalopathy. 3. Sepsis. on vetn iv abx hhn tel noted poor anticoag candidate Subjective ROS Limited/Unobtainable: Yes Objective Last 24 Hour Vital Signs Date Time Temp Pulse Resp B/P (MAP) Pulse Ox O2 Delivery O2 Flow Rate FiO2 03/22/17 17:25 66 23 30 03/22/17 16:36 98.1 62 20 119/63 100 30 03/22/17 16:00 40 03/22/17 16:00 60 03/22/17 15:23 67 23 30 03/22/17 13:10 69 21 30 03/22/17 11:28 40 03/22/17 11:27 97.7 65 22 129/65 100 Mechanical Ventilator 30 03/22/17 11:27 71 03/22/17 10:45 70 23 30 03/22/17 09:51 63 128/69 03/22/17 09:51 63 03/22/17 08:48 63 21 30 03/22/17 08:00 40 03/22/17 08:00 68 03/22/17 08:00 97.9 68 21 128/69 100 Mechanical Ventilator 30 03/22/17 07:00 60 23 30 03/22/17 04:55 63 23 30 03/22/17 04:00 72 03/22/17 04:00 97.7 65 22 132/65 100 Mechanical Ventilator 30 03/22/17 04:00 40 03/22/17 03:14 67 27 30 03/22/17 01:28 65 24 30 03/22/17 00:00 97.5 70 28 117/58 100 Mechanical Ventilator 30 03/22/17 00:00 68 03/22/17 00:00 40 03/21/17 23:05 72 27 30 03/21/17 21:03 74 29 30 03/21/17 20:28 77 119/62 03/21/17 20:00 40 03/21/17 20:00 98.1 77 22 119/63 100 30 03/21/17 20:00 75 03/21/17 19:05 71 27 30 General Appearance: on vent, patient on isolation Neck: supple Cardiovascular: irregularly irregular Respiratory/Chest: rhonchi - bilaterally Abdomen: normal bowel sounds, non tender, soft Extremities: no swelling Intake and Output 03/22/17 03/23/17 19:00 07:00 Intake Total 1390 ml Output Total 250 ml Balance 1140 ml Free Water 200 ml IV Total 860 ml Tube Feeding 330 ml Output Urine Total 250 ml # Bowel Movements 4 Laboratory Tests Test 03/22/17 04:00 03/22/17 06:00 03/22/17 07:01 03/22/17 08:40 White Blood Count 16.3 K/UL (4.8-10.8) H 12.7 K/UL (4.8-10.8) H Red Blood Count 2.28 M/UL (4.70-6.10) L 2.53 M/UL (4.70-6.10) L Hemoglobin 7.4 G/DL (14.2-18.0) L 8.1 G/DL (14.2-18.0) L Hematocrit 22.1 % (42.0-52.0) L 24.7 % (42.0-52.0) L Mean Corpuscular Volume 97 FL (80-99) 97 FL (80-99) Mean Corpuscular Hemoglobin 32.3 PG (27.0-31.0) H 32.1 PG (27.0-31.0) H Mean Corpuscular Hemoglobin Concent 33.3 G/DL (32.0-36.0) 33.0 G/DL (32.0-36.0) Red Cell Distribution Width 14.4 % (11.6-14.8) 14.7 % (11.6-14.8) Platelet Count 121 K/UL (150-450) L 134 K/UL (150-450) L Mean Platelet Volume 9.0 FL (6.5-10.1) 8.4 FL (6.5-10.1) Neutrophils (%) (Auto) % (45.0-75.0) 78.5 % (45.0-75.0) H Lymphocytes (%) (Auto) % (20.0-45.0) 10.6 % (20.0-45.0) L Monocytes (%) (Auto) % (1.0-10.0) 8.0 % (1.0-10.0) Eosinophils (%) (Auto) % (0.0-3.0) 2.5 % (0.0-3.0) Basophils (%) (Auto) % (0.0-2.0) 0.4 % (0.0-2.0) Differential Total Cells Counted 100 Neutrophils % (Manual) 84 % (45-75) H Lymphocytes % (Manual) 8 % (20-45) L Monocytes % (Manual) 7 % (1-10) Eosinophils % (Manual) 1 % (0-3) Basophils % (Manual) 0 % (0-2) Band Neutrophils 0 % (0-8) Platelet Estimate Decreased L Platelet Morphology Normal Hypochromasia 1+ Anisocytosis 1+ Sodium Level 133 mEQ/L (135-145) L Potassium Level 4.7 mEQ/L (3.4-4.9) Chloride Level 99 mEQ/L (98-107) Carbon Dioxide Level 18 mEQ/L (20-30) L Anion Gap 16 (5-15) H Blood Urea Nitrogen 68 mg/dL (7-23) H Creatinine 2.6 mg/dL (0.7-1.2) H Estimat Glomerular Filtration Rate mL/min (>60) Glucose Level 142 mg/dL (74-106) H Calcium Level 7.5 mg/dL (8.6-10.2) L Uric Acid 5.2 mg/dL (3.0-7.5) Total Creatine Kinase 49 U/L (38-174) Arterial Blood pH 7.410 (7.350-7.450) Arterial Blood Partial Pressure CO2 31.1 mmHg (35.0-45.0) L Arterial Blood Partial Pressure O2 139.6 mmHg (75.0-100.0) H Arterial Blood HCO3 19.3 mmol/L (22.0-26.0) L Arterial Blood Oxygen Saturation 98.5 % (92.0-98.0) H Arterial Blood Base Excess -4.7 Daniel Test Positive Test 03/22/17 14:00 Urine Color Pale yellow Urine Appearance Slightly cloudy Urine pH 7 (4.5-8.0) Urine Specific [place] 1.010 (1.005-1.035) Urine Protein 3+ (NEGATIVE) H Urine Glucose (UA) Negative (NEGATIVE) Urine Ketones Negative (NEGATIVE) Urine Occult Blood 5+ (NEGATIVE) H Urine Nitrite Negative (NEGATIVE) Urine Bilirubin Negative (NEGATIVE) Urine Urobilinogen Normal MG/DL (0.0-1.0) Urine Leukocyte Esterase 3+ (NEGATIVE) H Urine RBC 10-15 /HPF (0 - 0) H Urine WBC 5-10 /HPF (0 - 0) H Urine Squamous Epithelial Cells None /LPF (NONE/OCC) Urine Amorphous Sediment Moderate /LPF (NONE) H Urine Bacteria Moderate /HPF (NONE) H Urine Coarse Granular Casts 2-4 /LPF (NONE) H Urine Yeast Few /HPF (NONE) H Urine Eosinophils None seen Urine Random Sodium 80 mmol/L Urine Potassium Timed 42 mmol/L Microbiology Date/Time Source Procedure Growth Status 03/20/17 03:05 Blood Blood Culture - Preliminary NO GROWTH AFTER 48 HOURS Resulted 03/20/17 03:00 Blood Blood Culture - Preliminary NO GROWTH AFTER 48 HOURS Resulted DEBORAH MUKHERJEE Mar 22, 2017 19:02
--- NOTE | 2017-03-22 19:37 | General Progress Note ---
Assessment/Plan Status: stable Assessment/Plan 1. Coagulopathy. PTT study reviewed. -->2/2 sepsis vs medications 2. Anemia, likely secondary to hemodilution. --> Monitor 3. Anemia, secondary to chronic disease. Anemia workup has been ordered. --> no evidence of iron,folate, b12 def, ferritin is elevated and tibc is low --> continue to monitor counts --> give blood transfusion if symptomatic or hgb <7.5 --> s/p transfusion, hgb now over 8 4. Leukocytosis, potentially secondary to underlying sepsis with a left shift, neutrophil predominant leukocytosis. --> id following --> On Antibiotics, has improved 5. Hypocalcemia potentially secondary to hemodilution. Continue to monitor. 6. Sepsis. He is on antibiotics. 7. Chronic vegetative state Subjective Date patient seen: Mar 22, 2017 Constitutional: Denies: no symptoms, chills, diaphoresis, fever, malaise, weakness, other HEENT: Denies: no symptoms, eye pain, blurred vision, tearing, double vision, ear pain, ear discharge, nose pain, nose congestion, throat pain, throat swelling, mouth pain, mouth swelling, other Cardiovascular: Denies: no symptoms, chest pain, edema, irregular heart rate, lightheadedness, palpitations, syncope, other Respiratory: Denies: no symptoms, cough, orthopnea, shortness of breath, SOB with excertion, SOB at rest, sputum, stridor, wheezing, other Gastrointestinal/Abdominal: Denies: no symptoms, abdomen distended, abdominal pain, black stools, tarry stools, blood in stool, constipated, diarrhea, difficulty swallowing, nausea, poor appetite, poor fluid intake, rectal bleeding , vomiting, other Genitourinary: Denies: no symptoms, burning, discharge, frequency, flank pain, hematuria, incontinence, pain, urgency, other Hematologic/Lymphatic: Reports: anemia Allergies: Coded Allergies: No Known Allergies (Unverified , 03/15/17) Subjective S/P PRBC, no adverse reactions, Afebrile. Hemoglobin has improved. Leukocytosis has improved. Objective Last 24 Hour Vital Signs Date Time Temp Pulse Resp B/P (MAP) Pulse Ox O2 Delivery O2 Flow Rate FiO2 03/22/17 17:25 66 23 30 03/22/17 16:36 98.1 62 20 119/63 100 30 8/28/17 16:00 40 03/22/17 16:00 60 03/22/17 15:23 67 23 30 03/22/17 13:10 69 21 30 03/22/17 11:28 40 03/22/17 11:27 97.7 65 22 129/65 100 Mechanical Ventilator 30 03/22/17 11:27 71 03/22/17 10:45 70 23 30 03/22/17 09:51 63 128/69 03/22/17 09:51 63 03/22/17 08:48 63 21 30 03/22/17 08:00 40 03/22/17 08:00 68 03/22/17 08:00 97.9 68 21 128/69 100 Mechanical Ventilator 30 03/22/17 07:00 60 23 30 03/22/17 04:55 63 23 30 03/22/17 04:00 72 03/22/17 04:00 97.7 65 22 132/65 100 Mechanical Ventilator 30 03/22/17 04:00 40 03/22/17 03:14 67 27 30 03/22/17 01:28 65 24 30 03/22/17 00:00 97.5 70 28 117/58 100 Mechanical Ventilator 30 03/22/17 00:00 68 03/22/17 00:00 40 03/21/17 23:05 72 27 30 03/21/17 21:03 74 29 30 03/21/17 20:28 77 119/62 03/21/17 20:00 40 03/21/17 20:00 98.1 77 22 119/63 100 30 03/21/17 20:00 75 Intake and Output 03/22/17 03/23/17 19:00 07:00 Intake Total 1390 ml Output Total 250 ml Balance 1140 ml Free Water 200 ml IV Total 860 ml Tube Feeding 330 ml Output Urine Total 250 ml # Bowel Movements 4 Labs Test 03/21/17 04:00 03/22/17 04:00 03/22/17 06:00 03/22/17 07:01 White Blood Count 15.2 K/UL (4.8-10.8) 16.3 K/UL (4.8-10.8) 12.7 K/UL (4.8-10.8) Red Blood Count 2.52 M/UL (4.70-6.10) 2.28 M/UL (4.70-6.10) 2.53 M/UL (4.70-6.10) Hemoglobin 8.4 G/DL (14.2-18.0) 7.4 G/DL (14.2-18.0) 8.1 G/DL (14.2-18.0) Hematocrit 24.4 % (42.0-52.0) 22.1 % (42.0-52.0) 24.7 % (42.0-52.0) Mean Corpuscular Volume 97 FL (80-99) 97 FL (80-99) 97 FL (80-99) Mean Corpuscular Hemoglobin 33.3 PG (27.0-31.0) 32.3 PG (27.0-31.0) 32.1 PG (27.0-31.0) Mean Corpuscular Hemoglobin Concent 34.4 G/DL (32.0-36.0) 33.3 G/DL (32.0-36.0) 33.0 G/DL (32.0-36.0) Red Cell Distribution Width 14.8 % (11.6-14.8) 14.4 % (11.6-14.8) 14.7 % (11.6-14.8) Platelet Count 143 K/UL (150-450) 121 K/UL (150-450) 134 K/UL (150-450) Mean Platelet Volume 8.3 FL (6.5-10.1) 9.0 FL (6.5-10.1) 8.4 FL (6.5-10.1) Neutrophils (%) (Auto) 79.7 % (45.0-75.0) % (45.0-75.0) 78.5 % (45.0-75.0) Lymphocytes (%) (Auto) 7.6 % (20.0-45.0) % (20.0-45.0) 10.6 % (20.0-45.0) Monocytes (%) (Auto) 9.2 % (1.0-10.0) % (1.0-10.0) 8.0 % (1.0-10.0) Eosinophils (%) (Auto) 3.1 % (0.0-3.0) % (0.0-3.0) 2.5 % (0.0-3.0) Basophils (%) (Auto) 0.5 % (0.0-2.0) % (0.0-2.0) 0.4 % (0.0-2.0) Sodium Level 132 mEQ/L (135-145) 133 mEQ/L (135-145) Potassium Level 4.5 mEQ/L (3.4-4.9) 4.7 mEQ/L (3.4-4.9) Chloride Level 96 mEQ/L (98-107) 99 mEQ/L (98-107) Carbon Dioxide Level 22 mEQ/L (20-30) 18 mEQ/L (20-30) Anion Gap 14 (5-15) 16 (5-15) Blood Urea Nitrogen 52 mg/dL (7-23) 68 mg/dL (7-23) Creatinine 2.0 mg/dL (0.7-1.2) 2.6 mg/dL (0.7-1.2) Estimat Glomerular Filtration Rate mL/min (>60) mL/min (>60) Glucose Level 82 mg/dL (74-106) 142 mg/dL (74-106) Calcium Level 8.2 mg/dL (8.6-10.2) 7.5 mg/dL (8.6-10.2) Digoxin Level 1.2 ng/mL (0.5-2.0) Differential Total Cells Counted 100 Neutrophils % (Manual) 84 % (45-75) Lymphocytes % (Manual) 8 % (20-45) Monocytes % (Manual) 7 % (1-10) Eosinophils % (Manual) 1 % (0-3) Basophils % (Manual) 0 % (0-2) Band Neutrophils 0 % (0-8) Platelet Estimate Decreased Platelet Morphology Normal Hypochromasia 1+ Anisocytosis 1+ Uric Acid 5.2 mg/dL (3.0-7.5) Total Creatine Kinase 49 U/L (38-174) Test 03/22/17 08:40 03/22/17 14:00 Arterial Blood pH 7.410 (7.350-7.450) Arterial Blood Partial Pressure CO2 31.1 mmHg (35.0-45.0) Arterial Blood Partial Pressure O2 139.6 mmHg (75.0-100.0) Arterial Blood HCO3 19.3 mmol/L (22.0-26.0) Arterial Blood Oxygen Saturation 98.5 % (92.0-98.0) Arterial Blood Base Excess -4.7 Daniel Test Positive Urine Color Pale yellow Urine Appearance Slightly cloudy Urine pH 7 (4.5-8.0) Urine Specific [place] 1.010 (1.005-1.035) Urine Protein 3+ (NEGATIVE) Urine Glucose (UA) Negative (NEGATIVE) Urine Ketones Negative (NEGATIVE) Urine Occult Blood 5+ (NEGATIVE) Urine Nitrite Negative (NEGATIVE) Urine Bilirubin Negative (NEGATIVE) Urine Urobilinogen Normal MG/DL (0.0-1.0) Urine Leukocyte Esterase 3+ (NEGATIVE) Urine RBC 10-15 /HPF (0 - 0) Urine WBC 5-10 /HPF (0 - 0) Urine Squamous Epithelial Cells None /LPF (NONE/OCC) Urine Amorphous Sediment Moderate /LPF (NONE) Urine Bacteria Moderate /HPF (NONE) Urine Coarse Granular Casts 2-4 /LPF (NONE) Urine Yeast Few /HPF (NONE) Urine Eosinophils None seen Urine Random Sodium 80 mmol/L Urine Potassium Timed 42 mmol/L Laboratory Tests 03/22/17 04:00: White Blood Count 16.3H, Red Blood Count 2.28L, Hemoglobin 7.4L, Hematocrit 22.1L, Mean Corpuscular Volume 97, Mean Corpuscular Hemoglobin 32.3H, Mean Corpuscular Hemoglobin Concent 33.3, Red Cell Distribution Width 14.4, Platelet Count 121L, Mean Platelet Volume 9.0, Neutrophils (%) (Auto) , Lymphocytes (%) ( Auto) , Monocytes (%) (Auto) , Eosinophils (%) (Auto) , Basophils (%) (Auto) , Differential Total Cells Counted 100, Neutrophils % (Manual) 84H, Lymphocytes % (Manual) 8L, Monocytes % (Manual) 7, Eosinophils % (Manual) 1, Basophils % ( Manual) 0, Band Neutrophils 0, Platelet Estimate DecreasedL, Platelet Morphology Normal, Hypochromasia 1+, Anisocytosis 1+, Sodium Level 133L, Potassium Level 4.7, Chloride Level 99, Carbon Dioxide Level 18L, Anion Gap 16H , Blood Urea Nitrogen 68H, Creatinine 2.6H, Estimat Glomerular Filtration Rate , Glucose Level 142H, Calcium Level 7.5L 03/22/17 06:00: Uric Acid 5.2, Total Creatine Kinase 49 03/22/17 07:01: White Blood Count 12.7H, Red Blood Count 2.53L, Hemoglobin 8.1L, Hematocrit 24.7L, Mean Corpuscular Volume 97, Mean Corpuscular Hemoglobin 32.1H, Mean Corpuscular Hemoglobin Concent 33.0, Red Cell Distribution Width 14.7, Platelet Count 134L, Mean Platelet Volume 8.4, Neutrophils (%) (Auto) 78.5H, Lymphocytes (%) (Auto) 10.6L, Monocytes (%) (Auto) 8.0, Eosinophils (%) (Auto) 2.5, Basophils (%) (Auto) 0.4 03/22/17 08:40: Arterial Blood pH 7.410, Arterial Blood Partial Pressure CO2 31.1L, Arterial Blood Partial Pressure O2 139.6H, Arterial Blood HCO3 19.3L, Arterial Blood Oxygen Saturation 98.5H, Arterial Blood Base Excess -4.7, Daniel Test Positive 03/22/17 14:00: Urine Color Pale yellow, Urine Appearance Slightly cloudy, Urine pH 7, Urine Specific [place] 1.010, Urine Protein 3+H, Urine Glucose (UA) Negative, Urine Ketones Negative, Urine Occult Blood 5+H, Urine Nitrite Negative, Urine Bilirubin Negative, Urine Urobilinogen Normal, Urine Leukocyte Esterase 3+H, Urine RBC 10-15H, Urine WBC 5-10H, Urine Squamous Epithelial Cells None, Urine Amorphous Sediment ModerateH, Urine Bacteria ModerateH, Urine Coarse Granular Casts 2-4H, Urine Yeast FewH, Urine Eosinophils None seen, Urine Random Sodium 80, Urine Potassium Timed 42 Height (Feet): 5 Height (Inches): 8.00 Weight (Pounds): 160 General Appearance: WD/WN Cardiovascular: normal rate, regular rhythm, regularly irregular Respiratory/Chest: chest wall non-tender, lungs clear, normal breath sounds Abdomen: normal bowel sounds, non tender, soft AMALIA SAEED Mar 22, 2017 19:37
[2017-03-22 20:00] VITALS: BP 108/68
[2017-03-22] MEDS: Dyna-Hex 2% Top Sol 8oz TOPIC SCH (20:08)
--- NOTE | 2017-03-22 23:16 | Infectious Diseases Prog Note ---
Assessment/Plan Assessment/Plan Assessment Polymicrobial gram negative bacteremia. both the KPC and the MDR ACB are sensitive to tigecycline and colistin, confirmed today. persistently bacteremic , with blood cx from 03/18 also now positive pending org identification but likely the same. now s/p removal of old RUE PICC with tip sent for cx yesterday afternoon, so far cx ngtd at 24 hrs. 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 expect his bacteremia to start to clear and fevers to resolve now s/p PICC removal yesterday and on colistin D#2 and tigecycline D#1. suspect source of bacteremia was originally his sacral decub that infected the picc. starting to develop a subtle torso/upper arm rash today w/o leukocytosis, so will d/c zosyn as don't think the Proteus is a real pathogen here. 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 pneumonia less likely. 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 colistin --Chronic vegetative state, vent dependent, s/p peg tube --HIV and viral hepatitis serology negative --elevated inflammatory markers (CRP 23 mg/dL) --severe diffuse xerosis --b/l onychomycosis --poor healing potential --torso/upper arm rash --increasing alk phos Recs: - add Merrem d# 1 ( synergic effect w Colistin ) --Continue colistin 2.5mg/kg IV q12hr D# 4 ( will cont despite of ARF, pt has no better AB Rx choice a this time ) --Continue tigecycline 50mg IV q12hr D#3 -- ( IV zosyn D#4 ) (03/19 s/p IV IV vancomycin D#4 (03/18 s/p IV amikacin D#2) --f/u RUE picc tip cx (03/19) --f/u surveillance blood cx (03/20) --f/u ucx from condom cath growing yeast. likely colonized, but low threshold to start antifungals if fevers persist on broad spectrum gram negative coverage --continue wound care. s/p wound care consultation. continue topical/chemical debridements as needed --will defer to primary service for topical emollients for severe xerosis. --prealbumin, nutrition consultation Subjective Allergies: Coded Allergies: No Known Allergies (Unverified , 03/15/17) Subjective Cr is worsening Objective Vital Signs Last 24 Hour Vital Signs Date Time Temp Pulse Resp B/P (MAP) Pulse Ox O2 Delivery O2 Flow Rate FiO2 03/22/17 21:30 60 21 30 03/22/17 20:01 68 108/60 03/22/17 20:00 60 03/22/17 20:00 40 03/22/17 20:00 97.9 68 18 108/68 100 30 03/22/17 19:30 67 26 30 03/22/17 17:25 66 23 30 03/22/17 16:36 98.1 62 20 119/63 100 30 03/22/17 16:00 40 03/22/17 16:00 60 03/22/17 15:23 67 23 30 03/22/17 13:10 69 21 30 03/22/17 11:28 40 03/22/17 11:27 97.7 65 22 129/65 100 Mechanical Ventilator 30 03/22/17 11:27 71 03/22/17 10:45 70 23 30 03/22/17 09:51 63 128/69 03/22/17 09:51 63 03/22/17 08:48 63 21 30 03/22/17 08:00 40 03/22/17 08:00 68 03/22/17 08:00 97.9 68 21 128/69 100 Mechanical Ventilator 30 03/22/17 07:00 60 23 30 03/22/17 04:55 63 23 30 03/22/17 04:00 72 03/22/17 04:00 97.7 65 22 132/65 100 Mechanical Ventilator 30 03/22/17 04:00 40 03/22/17 03:14 67 27 30 03/22/17 01:28 65 24 30 03/22/17 00:00 97.5 70 28 117/58 100 Mechanical Ventilator 30 03/22/17 00:00 68 03/22/17 00:00 40 Height (Feet): 5 Height (Inches): 8.00 Weight (Pounds): 160 HEENT: anicteric Respiratory/Chest: normal breath sounds Cardiovascular: normal rate Abdomen: non distended Microbiology Date/Time Source Procedure Growth Status 03/20/17 03:05 Blood Blood Culture - Preliminary NO GROWTH AFTER 48 HOURS Resulted 03/20/17 03:00 Blood Blood Culture - Preliminary NO GROWTH AFTER 48 HOURS Resulted Laboratory Tests Test 03/22/17 04:00 03/22/17 06:00 03/22/17 07:01 03/22/17 08:40 White Blood Count 16.3 K/UL (4.8-10.8) H 12.7 K/UL (4.8-10.8) H Red Blood Count 2.28 M/UL (4.70-6.10) L 2.53 M/UL (4.70-6.10) L Hemoglobin 7.4 G/DL (14.2-18.0) L 8.1 G/DL (14.2-18.0) L Hematocrit 22.1 % (42.0-52.0) L 24.7 % (42.0-52.0) L Mean Corpuscular Volume 97 FL (80-99) 97 FL (80-99) Mean Corpuscular Hemoglobin 32.3 PG (27.0-31.0) H 32.1 PG (27.0-31.0) H Mean Corpuscular Hemoglobin Concent 33.3 G/DL (32.0-36.0) 33.0 G/DL (32.0-36.0) Red Cell Distribution Width 14.4 % (11.6-14.8) 14.7 % (11.6-14.8) Platelet Count 121 K/UL (150-450) L 134 K/UL (150-450) L Mean Platelet Volume 9.0 FL (6.5-10.1) 8.4 FL (6.5-10.1) Neutrophils (%) (Auto) % (45.0-75.0) 78.5 % (45.0-75.0) H Lymphocytes (%) (Auto) % (20.0-45.0) 10.6 % (20.0-45.0) L Monocytes (%) (Auto) % (1.0-10.0) 8.0 % (1.0-10.0) Eosinophils (%) (Auto) % (0.0-3.0) 2.5 % (0.0-3.0) Basophils (%) (Auto) % (0.0-2.0) 0.4 % (0.0-2.0) Differential Total Cells Counted 100 Neutrophils % (Manual) 84 % (45-75) H Lymphocytes % (Manual) 8 % (20-45) L Monocytes % (Manual) 7 % (1-10) Eosinophils % (Manual) 1 % (0-3) Basophils % (Manual) 0 % (0-2) Band Neutrophils 0 % (0-8) Platelet Estimate Decreased L Platelet Morphology Normal Hypochromasia 1+ Anisocytosis 1+ Sodium Level 133 mEQ/L (135-145) L Potassium Level 4.7 mEQ/L (3.4-4.9) Chloride Level 99 mEQ/L (98-107) Carbon Dioxide Level 18 mEQ/L (20-30) L Anion Gap 16 (5-15) H Blood Urea Nitrogen 68 mg/dL (7-23) H Creatinine 2.6 mg/dL (0.7-1.2) H Estimat Glomerular Filtration Rate mL/min (>60) Glucose Level 142 mg/dL (74-106) H Calcium Level 7.5 mg/dL (8.6-10.2) L Uric Acid 5.2 mg/dL (3.0-7.5) Total Creatine Kinase 49 U/L (38-174) Arterial Blood pH 7.410 (7.350-7.450) Arterial Blood Partial Pressure CO2 31.1 mmHg (35.0-45.0) L Arterial Blood Partial Pressure O2 139.6 mmHg (75.0-100.0) H Arterial Blood HCO3 19.3 mmol/L (22.0-26.0) L Arterial Blood Oxygen Saturation 98.5 % (92.0-98.0) H Arterial Blood Base Excess -4.7 Daniel Test Positive Test 03/22/17 14:00 Urine Color Pale yellow Urine Appearance Slightly cloudy Urine pH 7 (4.5-8.0) Urine Specific [place] 1.010 (1.005-1.035) Urine Protein 3+ (NEGATIVE) H Urine Glucose (UA) Negative (NEGATIVE) Urine Ketones Negative (NEGATIVE) Urine Occult Blood 5+ (NEGATIVE) H Urine Nitrite Negative (NEGATIVE) Urine Bilirubin Negative (NEGATIVE) Urine Urobilinogen Normal MG/DL (0.0-1.0) Urine Leukocyte Esterase 3+ (NEGATIVE) H Urine RBC 10-15 /HPF (0 - 0) H Urine WBC 5-10 /HPF (0 - 0) H Urine Squamous Epithelial Cells None /LPF (NONE/OCC) Urine Amorphous Sediment Moderate /LPF (NONE) H Urine Bacteria Moderate /HPF (NONE) H Urine Coarse Granular Casts 2-4 /LPF (NONE) H Urine Yeast Few /HPF (NONE) H Urine Eosinophils None seen Urine Random Sodium 80 mmol/L Urine Potassium Timed 42 mmol/L Current Medications Medications (Trade) Dose Ordered Sig/Millicent Route PRN Reason Start Time Stop Time Status Last Admin Dose Admin Acetaminophen (Tylenol) 650 mg EVERY 4 HOURS PRN GT fever 03/20/17 08:15 04/19/17 08:14 03/20/17 16:17 Albuterol/ Ipratropium (DuoNeb 0.5-3(2.5)mg/3ml) 3 ml Q4H PRN HHN Shortness of Breath 03/20/17 19:00 03/25/17 23:59 Chlorhexidine Gluconate (Ivanna-Hex 2%) 1 applic QHS TOPIC 03/19/17 21:00 04/18/17 20:59 03/22/17 20:08 Colistimethate Sodium (Colistin) 100 mg Q36H IVP 03/23/17 21:00 03/30/17 20:59 Dextrose (Dextrose 50%) STAT PRN IV Hypoglycemia 03/15/17 23:00 04/14/17 22:59 Digoxin (Lanoxin) 0.125 mg DAILY GT 03/16/17 09:00 04/15/17 08:59 03/22/17 09:51 Insulin Aspart (NovoLOG) Q6HR SUBQ 03/16/17 12:00 04/15/17 11:59 03/22/17 23:02 Lorazepam (Ativan 2mg/ml 1ml) 2 mg Q2H PRN IV For Anxiety 03/20/17 19:00 03/27/17 23:59 Metoprolol Tartrate (Lopressor) 50 mg Q12HR GT 03/17/17 09:00 04/15/17 08:59 03/22/17 09:51 Morphine Sulfate (Morphine Sulfate) 4 mg Q4H PRN IVP Severe Pain (Pain Scale 7-10) 03/20/17 19:00 03/27/17 23:59 Ondansetron HCl (Zofran) 4 mg Q6H PRN IVP Nausea & Vomiting 03/15/17 23:00 04/14/17 22:59 Polyethylene Glycol (Miralax) 17 gm DAILYPRN PRN GT Constipation 03/16/17 15:00 04/14/17 22:59 Sodium Chloride 1,000 ml @ 75 mls/hr [id number] IV 03/21/17 14:00 04/20/17 13:59 03/22/17 17:12 Tigecycline 50 mg/ Dextrose 110 ml @ 220 mls/hr Q12H IVPB 03/20/17 08:00 03/27/17 07:59 03/22/17 20:08 SOFIA HUBER M.D. Mar 22, 2017 23:16
[2017-03-23] VITALS: BP_SYST 108; BP_DIAS 58; BP_DIAS 68
[2017-03-23] MEDS ORDERED: Meropenem 1gm vial ONE (00:14)
[2017-03-23] MEDS: Meropenem 1 GM in NS 110 ML IVPB SCH ×2 (00:24→15:30)
[2017-03-23 04:00] VITALS: BP 97/48
[2017-03-23 05:42] LABS: MEAN CORPUSCULAR HEMOGLOBIN 32.8 PG (27.0-31.0); MEAN CORPUSCULAR HGB CONC 34.2 G/DL (32.0-36.0); MEAN CORPUSCULAR VOLUME 96 FL (80-99); MEAN PLATELET VOLUME 8.3 FL (6.5-10.1); PLATELET COUNT 122 K/UL (150-450); RED CELL DISTRIBUTION WIDTH 14.6 % (11.6-14.8); WHITE BLOOD COUNT 10.2 K/UL (4.8-10.8)
[2017-03-23] MEDS: NovoLOG Insulin Flexpen SUBQ SCH ×4 (06:16→23:24)
[2017-03-23 07:13] LABS: ERYTHROCYTE SEDIMENTATION RATE 129 MM/HR (0-20)
[2017-03-23 07:53] LABS: BAND NEUTROPHILS % (MANUAL) 0 % (0-8); BASOPHILS % (MANUAL) 0 % (0-2); EOSINOPHILS % (MANUAL) 4 % (0-3); LYMPHOCYTES % (MANUAL) 12 % (20-45); NEUTROPHILS % (MANUAL) 73 % (45-75); PLATELET ESTIMATE DECREASED; PLATELET MORPHOLOGY NORMAL; TOTAL CELLS COUNTED 100
[2017-03-23 07:54] LABS: ANISOCYTOSIS 1+
[2017-03-23 08:00] VITALS: BP 128/69
[2017-03-23 08:09] LABS: URIC ACID 6.5 mg/dL (3.0-7.5)
[2017-03-23 08:31] LABS: ALANINE AMINOTRANSFERASE 19 U/L (3-41); ALBUMIN/GLOBULIN RATIO 0.3 (1.0-2.7); ANION GAP 19 (5-15); ASPARTATE AMINO TRANSFERASE 38 U/L (5-40); CALCIUM 7.9 mg/dL (8.6-10.2); CARBON DIOXIDE 14 mEQ/L (20-30); CHLORIDE 98 mEQ/L (98-107); CREATININE 3.4 mg/dL (0.7-1.2); CRP QUANT 23.2 mg/dL (< 0.5); HEMOLYSIS 8; MAGNESIUM 2.5 mg/dL (1.7-2.5); PHOSPHORUS 7.4 mg/dL (2.5-4.8); POTASSIUM 5.2 mEQ/L (3.4-4.9); SODIUM 131 mEQ/L (135-145); TOTAL PROTEIN 5.2 g/dL (6.6-8.7)
[2017-03-23] MEDS: Metoprolol Tartrate 50mg tab GT SCH (09:00)
[2017-03-23] MEDS: Digoxin Elixir 0.125mg GT SCH (09:00)
[2017-03-23] MEDS: Tigecycline 50 MG in D5W 110 ML IVPB SCH ×2 (09:47→20:36)
--- NOTE | 2017-03-23 10:46 | Pulmonology Progress Note ---
Assessment/Plan Problems: (1) ATN (acute tubular necrosis) (2) Acute and chronic respiratory failure (3) Sepsis (4) Bacteremia (5) Anemia (6) Chronic vegetative state (7) Feeding by G-tube Respiratory: monitor respiratory rate, adjust FIO2, CXR Cardiac: continue to monitor HR/BP Renal: F/U I&O, keep IV fluid Infectious Disease: check cultures Gastrointestinal: continue feedings/current rate Endocrine: monitor blood sugar, check TSH, continue sliding scale insulin Hematologic: monitor H/H, transfuse if hgb<8.5 Neurologic: PRN Ativan, PRN Morphine, keep patient comfortable Affect: PRN ativan Notes 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: 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 services 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, cardio, renal Discussed with: nurses, consultants, manager case management Subjective ROS Limited/Unobtainable: Yes Constitutional: Reports: no symptoms HEENT: Repors: no symptoms Allergies: Coded Allergies: No Known Allergies (Unverified , 03/15/17) Objective Last 24 Hour Vital Signs Date Time Temp Pulse Resp B/P (MAP) Pulse Ox O2 Delivery O2 Flow Rate FiO2 03/23/17 09:00 63 114/63 03/23/17 09:00 63 03/23/17 08:41 70 25 30 03/23/17 08:00 63 03/23/17 08:00 97.9 68 21 128/69 100 Mechanical Ventilator 30 03/23/17 08:00 40 03/23/17 07:18 66 25 30 03/23/17 05:34 79 29 30 03/23/17 04:00 61 03/23/17 04:00 97.6 64 20 97/48 100 30 03/23/17 04:00 40 03/23/17 03:18 64 27 30 03/23/17 00:15 71 26 30 03/23/17 00:00 61 03/23/17 00:00 40 03/23/17 00:00 40 03/23/17 00:00 97.1 61 20 108/58 100 30 03/22/17 23:30 65 27 30 03/22/17 21:30 60 21 30 03/22/17 20:01 68 108/60 03/22/17 20:00 60 03/22/17 20:00 40 03/22/17 20:00 97.9 68 18 108/68 100 30 8/28/17 19:30 67 26 30 03/22/17 17:25 66 23 30 03/22/17 16:36 98.1 62 20 119/63 100 30 03/22/17 16:00 40 03/22/17 16:00 60 03/22/17 15:23 67 23 30 03/22/17 13:10 69 21 30 03/22/17 11:28 40 03/22/17 11:27 97.7 65 22 129/65 100 Mechanical Ventilator 30 03/22/17 11:27 71 Intake and Output 03/23/17 03/24/17 19:00 07:00 # Bowel Movements 1 HEENT: normocephalic, atraumatic Respiratory/Chest: chest wall non-tender, lungs clear Cardiovascular: normal rate, regular rhythm, no JVD Abdomen: soft, non tender, no scars Extremities: no cyanosis Skin: no rash Microbiology Date/Time Source Procedure Growth Status 03/22/17 14:00 Urine,Clean Catch Urine Culture - Preliminary NO GROWTH Resulted Laboratory Tests 03/22/17 14:00: Urine Color Pale yellow, Urine Appearance Slightly cloudy, Urine pH 7, Urine Specific [place] 1.010, Urine Protein 3+H, Urine Glucose (UA) Negative, Urine Ketones Negative, Urine Occult Blood 5+H, Urine Nitrite Negative, Urine Bilirubin Negative, Urine Urobilinogen Normal, Urine Leukocyte Esterase 3+H, Urine RBC 10-15H, Urine WBC 5-10H, Urine Squamous Epithelial Cells None, Urine Amorphous Sediment ModerateH, Urine Bacteria ModerateH, Urine Coarse Granular Casts 2-4H, Urine Yeast FewH, Urine Eosinophils None seen, Urine Random Sodium 80, Urine Potassium Timed 42 03/23/17 04:25: White Blood Count 10.2, Red Blood Count 2.40L, Hemoglobin 7.9L, Hematocrit 23.0L , Mean Corpuscular Volume 96, Mean Corpuscular Hemoglobin 32.8H, Mean Corpuscular Hemoglobin Concent 34.2, Red Cell Distribution Width 14.6, Platelet Count 122L, Mean Platelet Volume 8.3, Neutrophils (%) (Auto) , Lymphocytes (%) ( Auto) , Monocytes (%) (Auto) , Eosinophils (%) (Auto) , Basophils (%) (Auto) , Differential Total Cells Counted 100, Neutrophils % (Manual) 73, Lymphocytes % ( Manual) 12L, Monocytes % (Manual) 11H, Eosinophils % (Manual) 4H, Basophils % ( Manual) 0, Band Neutrophils 0, Platelet Estimate DecreasedL, Platelet Morphology Normal, Anisocytosis 1+, Erythrocyte Sedimentation Rate 129H, Sodium Level 131L, Potassium Level 5.2H, Chloride Level 98, Carbon Dioxide Level 14L, Anion Gap 19H, Blood Urea Nitrogen 92H, Creatinine 3.4H, Estimat Glomerular Filtration Rate , Glucose Level 148H, Uric Acid 6.5, Calcium Level 7.9L, Phosphorus Level 7.4H, Magnesium Level 2.5, Total Bilirubin 0.4, Aspartate Amino Transf (AST/SGOT) 38, Alanine Aminotransferase (ALT/SGPT) 19, Alkaline Phosphatase 163H, C-Reactive Protein, Quantitative 23.2H, Pro-B-Type Natriuretic Peptide 15468S, Total Protein 5.2L, Albumin 1.3L, Globulin 3.9, Albumin/Globulin Ratio 0.3L, Thyroid Stimulating Hormone (TSH) 5.370H Current Medications Medications (Trade) Dose Ordered Sig/Millicent Route PRN Reason Start Time Stop Time Status Last Admin Dose Admin Acetaminophen (Tylenol) 650 mg EVERY 4 HOURS PRN GT fever 03/20/17 08:15 04/19/17 08:14 03/20/17 16:17 Albuterol/ Ipratropium (DuoNeb 0.5-3(2.5)mg/3ml) 3 ml Q4H PRN HHN Shortness of Breath 03/20/17 19:00 03/25/17 23:59 Chlorhexidine Gluconate (Ivanna-Hex 2%) 1 applic QHS TOPIC 03/19/17 21:00 04/18/17 20:59 03/22/17 20:08 Colistimethate Sodium (Colistin) 100 mg Q36H IVP 03/23/17 21:00 03/30/17 20:59 Dextrose (Dextrose 50%) STAT PRN IV Hypoglycemia 03/15/17 23:00 04/14/17 22:59 Digoxin (Lanoxin) 0.125 mg DAILY GT 03/16/17 09:00 04/15/17 08:59 03/22/17 09:51 Insulin Aspart (NovoLOG) Q6HR SUBQ 03/16/17 12:00 04/15/17 11:59 03/23/17 06:16 Lorazepam (Ativan 2mg/ml 1ml) 2 mg Q2H PRN IV For Anxiety 03/20/17 19:00 03/27/17 23:59 Meropenem 1 gm/ Sodium Chloride 110 ml @ 220 mls/hr Q12H IVPB 03/23/17 01:00 03/28/17 00:59 03/23/17 00:24 Metoprolol Tartrate (Lopressor) 50 mg Q12HR GT 03/17/17 09:00 04/15/17 08:59 03/22/17 09:51 Morphine Sulfate (Morphine Sulfate) 4 mg Q4H PRN IVP Severe Pain (Pain Scale 7-10) 03/20/17 19:00 03/27/17 23:59 Ondansetron HCl (Zofran) 4 mg Q6H PRN IVP Nausea & Vomiting 03/15/17 23:00 04/14/17 22:59 Polyethylene Glycol (Miralax) 17 gm DAILYPRN PRN GT Constipation 03/16/17 15:00 04/14/17 22:59 Sodium Chloride 1,000 ml @ 75 mls/hr [id number] IV 03/21/17 14:00 04/20/17 13:59 03/23/17 06:17 Tigecycline 50 mg/ Dextrose 110 ml @ 220 mls/hr Q12H IVPB 03/20/17 08:00 03/27/17 07:59 03/23/17 09:47 LIGIA JARAMILLO Mar 23, 2017 10:46
--- NOTE | 2017-03-23 11:35 | Cardiology Progress Note ---
Assessment/Plan Assessment/Plan 1. Permanent atrial fibrillation. 2. Anoxic encephalopathy. 3. Sepsis. 4. ARF on vetn iv abx hhn tel noted poor anticoag candidate hold dig check level cr sig elevated renal following Subjective ROS Limited/Unobtainable: Yes Objective Last 24 Hour Vital Signs Date Time Temp Pulse Resp B/P (MAP) Pulse Ox O2 Delivery O2 Flow Rate FiO2 03/23/17 11:00 68 26 30 03/23/17 09:00 63 114/63 03/23/17 09:00 63 03/23/17 08:41 70 25 30 03/23/17 08:00 63 03/23/17 08:00 97.9 68 21 128/69 100 Mechanical Ventilator 30 03/23/17 08:00 40 03/23/17 07:18 66 25 30 03/23/17 05:34 79 29 30 03/23/17 04:00 61 03/23/17 04:00 97.6 64 20 97/48 100 30 03/23/17 04:00 40 03/23/17 03:18 64 27 30 03/23/17 00:15 71 26 30 03/23/17 00:00 61 03/23/17 00:00 40 03/23/17 00:00 40 03/23/17 00:00 97.1 61 20 108/58 100 30 03/22/17 23:30 65 27 30 03/22/17 21:30 60 21 30 03/22/17 20:01 68 108/60 03/22/17 20:00 60 03/22/17 20:00 40 03/22/17 20:00 97.9 68 18 108/68 100 30 03/22/17 19:30 67 26 30 03/22/17 17:25 66 23 30 03/22/17 16:36 98.1 62 20 119/63 100 30 03/22/17 16:00 40 03/22/17 16:00 60 03/22/17 15:23 67 23 30 03/22/17 13:10 69 21 30 General Appearance: on vent, patient on isolation Neck: supple Cardiovascular: normal rate, regular rhythm Respiratory/Chest: rhonchi - bilaterally Abdomen: normal bowel sounds, non tender, soft Extremities: moderate edema Intake and Output 03/23/17 03/24/17 19:00 07:00 # Bowel Movements 1 Laboratory Tests Test 03/22/17 14:00 03/23/17 04:25 Urine Color Pale yellow Urine Appearance Slightly cloudy Urine pH 7 (4.5-8.0) Urine Specific [place] 1.010 (1.005-1.035) Urine Protein 3+ (NEGATIVE) H Urine Glucose (UA) Negative (NEGATIVE) Urine Ketones Negative (NEGATIVE) Urine Occult Blood 5+ (NEGATIVE) H Urine Nitrite Negative (NEGATIVE) Urine Bilirubin Negative (NEGATIVE) Urine Urobilinogen Normal MG/DL (0.0-1.0) Urine Leukocyte Esterase 3+ (NEGATIVE) H Urine RBC 10-15 /HPF (0 - 0) H Urine WBC 5-10 /HPF (0 - 0) H Urine Squamous Epithelial Cells None /LPF (NONE/OCC) Urine Amorphous Sediment Moderate /LPF (NONE) H Urine Bacteria Moderate /HPF (NONE) H Urine Coarse Granular Casts 2-4 /LPF (NONE) H Urine Yeast Few /HPF (NONE) H Urine Eosinophils None seen Urine Random Sodium 80 mmol/L Urine Potassium Timed 42 mmol/L White Blood Count 10.2 K/UL (4.8-10.8) Red Blood Count 2.40 M/UL (4.70-6.10) L Hemoglobin 7.9 G/DL (14.2-18.0) L Hematocrit 23.0 % (42.0-52.0) L Mean Corpuscular Volume 96 FL (80-99) Mean Corpuscular Hemoglobin 32.8 PG (27.0-31.0) H Mean Corpuscular Hemoglobin Concent 34.2 G/DL (32.0-36.0) Red Cell Distribution Width 14.6 % (11.6-14.8) Platelet Count 122 K/UL (150-450) L Mean Platelet Volume 8.3 FL (6.5-10.1) Neutrophils (%) (Auto) % (45.0-75.0) Lymphocytes (%) (Auto) % (20.0-45.0) Monocytes (%) (Auto) % (1.0-10.0) Eosinophils (%) (Auto) % (0.0-3.0) Basophils (%) (Auto) % (0.0-2.0) Differential Total Cells Counted 100 Neutrophils % (Manual) 73 % (45-75) Lymphocytes % (Manual) 12 % (20-45) L Monocytes % (Manual) 11 % (1-10) H Eosinophils % (Manual) 4 % (0-3) H Basophils % (Manual) 0 % (0-2) Band Neutrophils 0 % (0-8) Platelet Estimate Decreased L Platelet Morphology Normal Anisocytosis 1+ Erythrocyte Sedimentation Rate 129 MM/HR (0-20) H Sodium Level 131 mEQ/L (135-145) L Potassium Level 5.2 mEQ/L (3.4-4.9) H Chloride Level 98 mEQ/L (98-107) Carbon Dioxide Level 14 mEQ/L (20-30) L Anion Gap 19 (5-15) H Blood Urea Nitrogen 92 mg/dL (7-23) H Creatinine 3.4 mg/dL (0.7-1.2) H Estimat Glomerular Filtration Rate mL/min (>60) Glucose Level 148 mg/dL (74-106) H Uric Acid 6.5 mg/dL (3.0-7.5) Calcium Level 7.9 mg/dL (8.6-10.2) L Phosphorus Level 7.4 mg/dL (2.5-4.8) H Magnesium Level 2.5 mg/dL (1.7-2.5) Total Bilirubin 0.4 mg/dL (0.0-1.2) Aspartate Amino Transf (AST/SGOT) 38 U/L (5-40) Alanine Aminotransferase (ALT/SGPT) 19 U/L (3-41) Alkaline Phosphatase 163 U/L (40-129) H C-Reactive Protein, Quantitative 23.2 mg/dL (< 0.5) H Pro-B-Type Natriuretic Peptide 93154 pg/mL (0-450) H Total Protein 5.2 g/dL (6.6-8.7) L Albumin 1.3 g/dL (3.5-5.2) L Globulin 3.9 g/dL Albumin/Globulin Ratio 0.3 (1.0-2.7) L Thyroid Stimulating Hormone (TSH) 5.370 uIU/mL (0.300-4.500) Microbiology Date/Time Source Procedure Growth Status 03/22/17 14:00 Urine,Clean Catch Urine Culture - Preliminary NO GROWTH Resulted DEBORAH MUKHERJEE Mar 23, 2017 11:35
[2017-03-23 12:00] VITALS: BP 101/52
--- NOTE | 2017-03-23 13:58 | General Progress Note ---
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 Anemia requiring blood transfusion Elevated inflammatory markers Dysphagia, G tube Functional quadriplegia Chronic vegetative state Multiple decub ulcers POA: sacrococcyx decub ulcer st 3, R scapula decub ulcer st 2 POA, L heel pressure ulcer unstageable L heel dry gangrene Coagulopathy Sugg: Urine studies- Avoid Nephrotoxics if possible: On colistin and received Amikacin and Vanco Monitor renal parameters Keep BP and BS in check stop Lopressor Albumin bollous Subjective ROS Limited/Unobtainable: Yes Allergies: Coded Allergies: No Known Allergies (Unverified , 03/15/17) Objective Last 24 Hour Vital Signs Date Time Temp Pulse Resp B/P (MAP) Pulse Ox O2 Delivery O2 Flow Rate FiO2 03/23/17 12:45 72 24 30 03/23/17 12:00 60 24 101/52 100 Mechanical Ventilator 30 03/23/17 11:33 71 03/23/17 11:33 40 03/23/17 11:00 68 26 30 03/23/17 09:00 63 114/63 03/23/17 09:00 63 03/23/17 08:41 70 25 30 03/23/17 08:00 63 03/23/17 08:00 97.9 68 21 128/69 100 Mechanical Ventilator 30 03/23/17 08:00 40 03/23/17 07:18 66 25 30 03/23/17 05:34 79 29 30 03/23/17 04:00 61 03/23/17 04:00 97.6 64 20 97/48 100 30 03/23/17 04:00 40 03/23/17 03:18 64 27 30 03/23/17 00:15 71 26 30 03/23/17 00:00 61 03/23/17 00:00 40 03/23/17 00:00 40 03/23/17 00:00 97.1 61 20 108/58 100 30 03/22/17 23:30 65 27 30 03/22/17 21:30 60 21 30 03/22/17 20:01 68 108/60 03/22/17 20:00 60 03/22/17 20:00 40 03/22/17 20:00 97.9 68 18 108/68 100 30 03/22/17 19:30 67 26 30 03/22/17 17:25 66 23 30 03/22/17 16:36 98.1 62 20 119/63 100 30 03/22/17 16:00 40 03/22/17 16:00 60 03/22/17 15:23 67 23 30 Intake and Output 03/23/17 03/24/17 19:00 07:00 # Bowel Movements 2 Laboratory Tests 03/22/17 14:00: Urine Color Pale yellow, Urine Appearance Slightly cloudy, Urine pH 7, Urine Specific [place] 1.010, Urine Protein 3+H, Urine Glucose (UA) Negative, Urine Ketones Negative, Urine Occult Blood 5+H, Urine Nitrite Negative, Urine Bilirubin Negative, Urine Urobilinogen Normal, Urine Leukocyte Esterase 3+H, Urine RBC 10-15H, Urine WBC 5-10H, Urine Squamous Epithelial Cells None, Urine Amorphous Sediment ModerateH, Urine Bacteria ModerateH, Urine Coarse Granular Casts 2-4H, Urine Yeast FewH, Urine Eosinophils None seen, Urine Random Sodium 80, Urine Potassium Timed 42 03/23/17 04:25: White Blood Count 10.2, Red Blood Count 2.40L, Hemoglobin 7.9L, Hematocrit 23.0L , Mean Corpuscular Volume 96, Mean Corpuscular Hemoglobin 32.8H, Mean Corpuscular Hemoglobin Concent 34.2, Red Cell Distribution Width 14.6, Platelet Count 122L, Mean Platelet Volume 8.3, Neutrophils (%) (Auto) , Lymphocytes (%) ( Auto) , Monocytes (%) (Auto) , Eosinophils (%) (Auto) , Basophils (%) (Auto) , Differential Total Cells Counted 100, Neutrophils % (Manual) 73, Lymphocytes % ( Manual) 12L, Monocytes % (Manual) 11H, Eosinophils % (Manual) 4H, Basophils % ( Manual) 0, Band Neutrophils 0, Platelet Estimate DecreasedL, Platelet Morphology Normal, Anisocytosis 1+, Erythrocyte Sedimentation Rate 129H, Sodium Level 131L, Potassium Level 5.2H, Chloride Level 98, Carbon Dioxide Level 14L, Anion Gap 19H, Blood Urea Nitrogen 92H, Creatinine 3.4H, Estimat Glomerular Filtration Rate , Glucose Level 148H, Uric Acid 6.5, Calcium Level 7.9L, Phosphorus Level 7.4H, Magnesium Level 2.5, Total Bilirubin 0.4, Aspartate Amino Transf (AST/SGOT) 38, Alanine Aminotransferase (ALT/SGPT) 19, Alkaline Phosphatase 163H, C-Reactive Protein, Quantitative 23.2H, Pro-B-Type Natriuretic Peptide 61617N, Total Protein 5.2L, Albumin 1.3L, Globulin 3.9, Albumin/Globulin Ratio 0.3L, Thyroid Stimulating Hormone (TSH) 5.370H Height (Feet): 5 Height (Inches): 8.00 Weight (Pounds): 160 General Appearance: lethargic Cardiovascular: normal rate Respiratory/Chest: decreased breath sounds Abdomen: distended MIGUEL SLOAN Mar 23, 2017 13:58
[2017-03-23] MEDS ORDERED: Tubing IV Secondary IV ONE (14:03)
[2017-03-23] MEDS ORDERED: Sterile Water Irrig 1000ml IRRIG ONE (14:03)
[2017-03-23] MEDS ORDERED: NS 275ml ONE (14:03)
[2017-03-23 16:00] VITALS: BP 144/66
[2017-03-23] MEDS ORDERED: Sodium Polystyrene Sulfonate 15gm Powder ORAL ONE (18:00)
--- NOTE | 2017-03-23 19:48 | Infectious Diseases Prog Note ---
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 colistin --Chronic vegetative state, vent dependent, s/p peg tube --HIV and viral hepatitis serology negative --elevated inflammatory markers (CRP 23 mg/dL) --severe diffuse xerosis --b/l onychomycosis --poor healing potential --torso/upper arm rash --increasing alk phos Recs: -- cont Merrem d# 2 / ( synergic effect w Colistin ) --Continue colistin 2.5mg/kg IV q12hr D# / ( will cont despite of ARF, pt has no better AB Rx choice a this time ) --Continue tigecycline 50mg IV q12hr D# 4 /7 -- ( IV zosyn D#4 ) (03/19 s/p IV IV vancomycin D#4 (03/18 s/p IV amikacin D#2) --f/u RUE picc tip cx (03/19) --f/u surveillance blood cx (03/20) --continue wound care. s/p wound care consultation. continue topical/chemical debridements as needed -- Nephro is following Subjective Allergies: Coded Allergies: No Known Allergies (Unverified , 03/15/17) Subjective Cr is worsening Objective Vital Signs Last 24 Hour Vital Signs Date Time Temp Pulse Resp B/P (MAP) Pulse Ox O2 Delivery O2 Flow Rate FiO2 03/23/17 18:42 66 25 30 03/23/17 16:30 66 25 30 03/23/17 16:00 76 28 144/66 100 Mechanical Ventilator 30 03/23/17 15:39 40 03/23/17 15:39 68 03/23/17 14:36 62 28 30 03/23/17 12:45 72 24 30 03/23/17 12:00 60 24 101/52 100 Mechanical Ventilator 30 03/23/17 11:33 71 03/23/17 11:33 40 03/23/17 11:00 68 26 30 03/23/17 09:00 63 114/63 03/23/17 09:00 63 03/23/17 08:41 70 25 30 03/23/17 08:00 63 03/23/17 08:00 97.9 68 21 128/69 100 Mechanical Ventilator 30 03/23/17 08:00 40 03/23/17 07:18 66 25 30 03/23/17 05:34 79 29 30 03/23/17 04:00 61 03/23/17 04:00 97.6 64 20 97/48 100 30 03/23/17 04:00 40 03/23/17 03:18 64 27 30 03/23/17 00:15 71 26 30 03/23/17 00:00 61 03/23/17 00:00 40 03/23/17 00:00 40 03/23/17 00:00 97.1 61 20 108/58 100 30 03/22/17 23:30 65 27 30 03/22/17 21:30 60 21 30 03/22/17 20:01 68 108/60 03/22/17 20:00 60 03/22/17 20:00 40 03/22/17 20:00 97.9 68 18 108/68 100 30 Height (Feet): 5 Height (Inches): 8.00 Weight (Pounds): 160 HEENT: anicteric Respiratory/Chest: respiratory distress Cardiovascular: regularly irregular Abdomen: non distended Microbiology Date/Time Source Procedure Growth Status 03/22/17 14:00 Urine,Clean Catch Urine Culture - Preliminary NO GROWTH Resulted Laboratory Tests Test 03/23/17 04:25 White Blood Count 10.2 K/UL (4.8-10.8) Red Blood Count 2.40 M/UL (4.70-6.10) L Hemoglobin 7.9 G/DL (14.2-18.0) L Hematocrit 23.0 % (42.0-52.0) L Mean Corpuscular Volume 96 FL (80-99) Mean Corpuscular Hemoglobin 32.8 PG (27.0-31.0) H Mean Corpuscular Hemoglobin Concent 34.2 G/DL (32.0-36.0) Red Cell Distribution Width 14.6 % (11.6-14.8) Platelet Count 122 K/UL (150-450) L Mean Platelet Volume 8.3 FL (6.5-10.1) Neutrophils (%) (Auto) % (45.0-75.0) Lymphocytes (%) (Auto) % (20.0-45.0) Monocytes (%) (Auto) % (1.0-10.0) Eosinophils (%) (Auto) % (0.0-3.0) Basophils (%) (Auto) % (0.0-2.0) Differential Total Cells Counted 100 Neutrophils % (Manual) 73 % (45-75) Lymphocytes % (Manual) 12 % (20-45) L Monocytes % (Manual) 11 % (1-10) H Eosinophils % (Manual) 4 % (0-3) H Basophils % (Manual) 0 % (0-2) Band Neutrophils 0 % (0-8) Platelet Estimate Decreased L Platelet Morphology Normal Anisocytosis 1+ Erythrocyte Sedimentation Rate 129 MM/HR (0-20) H Sodium Level 131 mEQ/L (135-145) L Potassium Level 5.2 mEQ/L (3.4-4.9) H Chloride Level 98 mEQ/L (98-107) Carbon Dioxide Level 14 mEQ/L (20-30) L Anion Gap 19 (5-15) H Blood Urea Nitrogen 92 mg/dL (7-23) H Creatinine 3.4 mg/dL (0.7-1.2) H Estimat Glomerular Filtration Rate mL/min (>60) Glucose Level 148 mg/dL (74-106) H Uric Acid 6.5 mg/dL (3.0-7.5) Calcium Level 7.9 mg/dL (8.6-10.2) L Phosphorus Level 7.4 mg/dL (2.5-4.8) H Magnesium Level 2.5 mg/dL (1.7-2.5) Total Bilirubin 0.4 mg/dL (0.0-1.2) Aspartate Amino Transf (AST/SGOT) 38 U/L (5-40) Alanine Aminotransferase (ALT/SGPT) 19 U/L (3-41) Alkaline Phosphatase 163 U/L (40-129) H C-Reactive Protein, Quantitative 23.2 mg/dL (< 0.5) H Pro-B-Type Natriuretic Peptide 22722 pg/mL (0-450) H Total Protein 5.2 g/dL (6.6-8.7) L Albumin 1.3 g/dL (3.5-5.2) L Globulin 3.9 g/dL Albumin/Globulin Ratio 0.3 (1.0-2.7) L Thyroid Stimulating Hormone (TSH) 5.370 uIU/mL (0.300-4.500) Current Medications Medications (Trade) Dose Ordered Sig/Millicent Route PRN Reason Start Time Stop Time Status Last Admin Dose Admin Acetaminophen (Tylenol) 650 mg EVERY 4 HOURS PRN GT fever 03/20/17 08:15 04/19/17 08:14 03/20/17 16:17 Albuterol/ Ipratropium (DuoNeb 0.5-3(2.5)mg/3ml) 3 ml Q4H PRN HHN Shortness of Breath 03/20/17 19:00 03/25/17 23:59 Chlorhexidine Gluconate (Ivanna-Hex 2%) 1 applic QHS TOPIC 03/19/17 21:00 04/18/17 20:59 03/22/17 20:08 Colistimethate Sodium (Colistin) 100 mg Q36H IVP 03/23/17 21:00 03/30/17 20:59 Dextrose (Dextrose 50%) STAT PRN IV Hypoglycemia 03/15/17 23:00 04/14/17 22:59 Insulin Aspart (NovoLOG) Q6HR SUBQ 03/16/17 12:00 04/15/17 11:59 03/23/17 18:00 Lorazepam (Ativan 2mg/ml 1ml) 2 mg Q2H PRN IV For Anxiety 03/20/17 19:00 03/27/17 23:59 Meropenem 1 gm/ Sodium Chloride 110 ml @ 220 mls/hr Q12H IVPB 03/23/17 01:00 03/28/17 00:59 03/23/17 15:30 Morphine Sulfate (Morphine Sulfate) 4 mg Q4H PRN IVP Severe Pain (Pain Scale 7-10) 03/20/17 19:00 03/27/17 23:59 Ondansetron HCl (Zofran) 4 mg Q6H PRN IVP Nausea & Vomiting 03/15/17 23:00 04/14/17 22:59 Polyethylene Glycol (Miralax) 17 gm DAILYPRN PRN GT Constipation 03/16/17 15:00 04/14/17 22:59 Sodium Chloride 1,000 ml @ 75 mls/hr [id number] IV 03/21/17 14:00 04/20/17 13:59 03/23/17 18:33 Tigecycline 50 mg/ Dextrose 110 ml @ 220 mls/hr Q12H IVPB 03/20/17 08:00 03/27/17 07:59 03/23/17 09:47 SOFIA HUBER M.D. Mar 23, 2017 19:48
[2017-03-23 20:00] VITALS: BP 132/79
[2017-03-23] MEDS: Dyna-Hex 2% Top Sol 8oz TOPIC SCH (20:36)
[2017-03-23] MEDS: Colistin 150mg vial IVP SCH (20:36)
[2017-03-23] MEDS ORDERED: Colistin 150mg vial IVP SCH (21:00)
--- NOTE | 2017-03-23 23:05 | General Progress Note ---
Assessment/Plan Status: unchanged Assessment/Plan 1. Coagulopathy. PTT study reviewed. -->2/2 sepsis vs medications 2. Anemia, likely secondary to hemodilution. --> Monitor 3. Anemia, secondary to chronic disease. Anemia workup has been completed and reviewed. --> no evidence of iron,folate, b12 def, ferritin is elevated and tibc is low --> continue to monitor counts --> give blood transfusion if symptomatic or hgb <7.5 --> s/p transfusion, hgb now over 8 4. Leukocytosis, potentially secondary to underlying sepsis with a left shift, neutrophil predominant leukocytosis. --> id following --> On Antibiotics, has improved 5. Hypocalcemia potentially secondary to hemodilution. Continue to monitor. 6. Sepsis. He is on antibiotics. 7. Chronic vegetative state 8. Atherosclerotic disease. --> Ultrasound of abdomen revealed small bilateral renal cysts Subjective Date patient seen: Mar 23, 2017 Time patient seen: 06:00 Constitutional: Denies: no symptoms, chills, diaphoresis, fever, malaise, weakness, other HEENT: Denies: no symptoms, eye pain, blurred vision, tearing, double vision, ear pain, ear discharge, nose pain, nose congestion, throat pain, throat swelling, mouth pain, mouth swelling, other Cardiovascular: Denies: no symptoms, chest pain, edema, irregular heart rate, lightheadedness, palpitations, syncope, other Respiratory: Denies: no symptoms, cough, orthopnea, shortness of breath, SOB with excertion, SOB at rest, sputum, stridor, wheezing, other Gastrointestinal/Abdominal: Denies: no symptoms, abdomen distended, abdominal pain, black stools, tarry stools, blood in stool, constipated, diarrhea, difficulty swallowing, nausea, poor appetite, poor fluid intake, rectal bleeding , vomiting, other Genitourinary: Denies: no symptoms, burning, discharge, frequency, flank pain, hematuria, incontinence, pain, urgency, other Neurologic/Psychiatric: Denies: no symptoms, anxiety, depressed, emotional problems, headache, numbness, paresthesia, pre-existing deficit, seizure, tingling, tremors, weakness, other Hematologic/Lymphatic: Reports: anemia Allergies: Coded Allergies: No Known Allergies (Unverified , 03/15/17) Subjective Comfortable. Afebrile. Hemoglobin levels low. Leukocytosis has improved. Objective Last 24 Hour Vital Signs Date Time Temp Pulse Resp B/P (MAP) Pulse Ox O2 Delivery O2 Flow Rate FiO2 03/23/17 21:25 74 23 30 03/23/17 18:42 66 25 30 03/23/17 16:30 66 25 30 03/23/17 16:00 76 28 144/66 100 Mechanical Ventilator 30 03/23/17 15:39 40 03/23/17 15:39 68 03/23/17 14:36 62 28 30 03/23/17 12:45 72 24 30 03/23/17 12:00 60 24 101/52 100 Mechanical Ventilator 30 03/23/17 11:33 71 03/23/17 11:33 40 03/23/17 11:00 68 26 30 03/23/17 09:00 63 114/63 03/23/17 09:00 63 03/23/17 08:41 70 25 30 03/23/17 08:00 63 03/23/17 08:00 97.9 68 21 128/69 100 Mechanical Ventilator 30 03/23/17 08:00 40 03/23/17 07:18 66 25 30 03/23/17 05:34 79 29 30 03/23/17 04:00 61 03/23/17 04:00 97.6 64 20 97/48 100 30 03/23/17 04:00 40 03/23/17 03:18 64 27 30 03/23/17 00:15 71 26 30 03/23/17 00:00 61 03/23/17 00:00 40 03/23/17 00:00 40 03/23/17 00:00 97.1 61 20 108/58 100 30 03/22/17 23:30 65 27 30 Intake and Output 03/23/17 03/24/17 19:00 07:00 Intake Total 1970 ml Output Total 150 ml Balance 1820 ml Free Water 250 ml IV Total 1220 ml Tube Feeding 500 ml Stool Total 150 ml # Bowel Movements 5 Laboratory Tests 03/23/17 04:25: White Blood Count 10.2, Red Blood Count 2.40L, Hemoglobin 7.9L, Hematocrit 23.0L , Mean Corpuscular Volume 96, Mean Corpuscular Hemoglobin 32.8H, Mean Corpuscular Hemoglobin Concent 34.2, Red Cell Distribution Width 14.6, Platelet Count 122L, Mean Platelet Volume 8.3, Neutrophils (%) (Auto) , Lymphocytes (%) ( Auto) , Monocytes (%) (Auto) , Eosinophils (%) (Auto) , Basophils (%) (Auto) , Differential Total Cells Counted 100, Neutrophils % (Manual) 73, Lymphocytes % ( Manual) 12L, Monocytes % (Manual) 11H, Eosinophils % (Manual) 4H, Basophils % ( Manual) 0, Band Neutrophils 0, Platelet Estimate DecreasedL, Platelet Morphology Normal, Anisocytosis 1+, Erythrocyte Sedimentation Rate 129H, Sodium Level 131L, Potassium Level 5.2H, Chloride Level 98, Carbon Dioxide Level 14L, Anion Gap 19H, Blood Urea Nitrogen 92H, Creatinine 3.4H, Estimat Glomerular Filtration Rate , Glucose Level 148H, Uric Acid 6.5, Calcium Level 7.9L, Phosphorus Level 7.4H, Magnesium Level 2.5, Total Bilirubin 0.4, Aspartate Amino Transf (AST/SGOT) 38, Alanine Aminotransferase (ALT/SGPT) 19, Alkaline Phosphatase 163H, C-Reactive Protein, Quantitative 23.2H, Pro-B-Type Natriuretic Peptide 39679U, Total Protein 5.2L, Albumin 1.3L, Globulin 3.9, Albumin/Globulin Ratio 0.3L, Thyroid Stimulating Hormone (TSH) 5.370H Height (Feet): 5 Height (Inches): 8.00 Weight (Pounds): 160 General Appearance: WD/WN Neck: non-tender Cardiovascular: normal peripheral pulses, normal rate, regular rhythm Respiratory/Chest: chest wall non-tender, lungs clear, no respiratory distress Abdomen: normal bowel sounds, non tender, soft AMALIA SAEED Mar 23, 2017 23:05
[2017-03-24] VITALS: BP 107/63
[2017-03-24] MEDS: Meropenem 1 GM in NS 110 ML IVPB SCH ×2 (00:18→12:16)
[2017-03-24 04:00] VITALS: BP 107/72
[2017-03-24 05:39] LABS: MEAN CORPUSCULAR HEMOGLOBIN 32.4 PG (27.0-31.0); MEAN CORPUSCULAR HGB CONC 33.5 G/DL (32.0-36.0); MEAN CORPUSCULAR VOLUME 97 FL (80-99); MEAN PLATELET VOLUME 10.9 FL (6.5-10.1); PLATELET COUNT 101 K/UL (150-450); RED BLOOD COUNT 2.11 M/UL (4.70-6.10); RED CELL DISTRIBUTION WIDTH 14.2 % (11.6-14.8); WHITE BLOOD COUNT 8.2 K/UL (4.8-10.8)
[2017-03-24 05:54] LABS: URIC ACID 6.7 mg/dL (3.0-7.5)
[2017-03-24 05:55] LABS: ALANINE AMINOTRANSFERASE 17 U/L (3-41); ALBUMIN/GLOBULIN RATIO 0.5 (1.0-2.7); ANION GAP 18 (5-15); ASPARTATE AMINO TRANSFERASE 28 U/L (5-40); CALCIUM 7.6 mg/dL (8.6-10.2); CARBON DIOXIDE 15 mEQ/L (20-30); CHLORIDE 102 mEQ/L (98-107); CREATININE 3.7 mg/dL (0.7-1.2); CRP QUANT 17.3 mg/dL (< 0.5); HEMOLYSIS 5; MAGNESIUM 2.4 mg/dL (1.7-2.5); PHOSPHORUS 7.9 mg/dL (2.5-4.8); POTASSIUM 4.8 mEQ/L (3.4-4.9); SODIUM 135 mEQ/L (135-145)
[2017-03-24] MEDS: NovoLOG Insulin Flexpen SUBQ SCH ×4 (06:06→23:50)
[2017-03-24 07:11] LABS: ERYTHROCYTE SEDIMENTATION RATE 122 MM/HR (0-20)
[2017-03-24 08:00] VITALS: BP 90/36
[2017-03-24 08:11] LABS: BAND NEUTROPHILS % (MANUAL) 17 % (0-8); BASOPHILS % (MANUAL) 0 % (0-2); EOSINOPHILS % (MANUAL) 3 % (0-3); HYPOCHROMASIA 1+; LYMPHOCYTES % (MANUAL) 3 % (20-45); NEUTROPHILS % (MANUAL) 73 % (45-75); PLATELET ESTIMATE DECREASED; PLATELET MORPHOLOGY NORMAL; TOTAL CELLS COUNTED 100
[2017-03-24 08:12] LABS: ANISOCYTOSIS 1+
[2017-03-24] MEDS: Tigecycline 50 MG in D5W 110 ML IVPB SCH ×2 (08:27→20:51)
--- NOTE | 2017-03-24 09:24 | General Progress Note ---
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 Anemia requiring blood transfusion Elevated inflammatory markers Dysphagia, G tube Functional quadriplegia Chronic vegetative state Multiple decub ulcers POA: sacrococcyx decub ulcer st 3, R scapula decub ulcer st 2 POA, L heel pressure ulcer unstageable L heel dry gangrene Coagulopathy Sugg: add bicitra- Transfuse per PMD, 2 units Urine studies- Avoid Nephrotoxics if possible: On colistin and received Amikacin and Vanco Monitor renal parameters Keep BP and BS in check stop Lopressor Subjective ROS Limited/Unobtainable: Yes Allergies: Coded Allergies: No Known Allergies (Unverified , 03/15/17) Objective Last 24 Hour Vital Signs Date Time Temp Pulse Resp B/P (MAP) Pulse Ox O2 Delivery O2 Flow Rate FiO2 03/24/17 08:54 71 26 30 03/24/17 08:00 76 03/24/17 08:00 96.0 74 25 90/36 100 Mechanical Ventilator 30 03/24/17 08:00 30 03/24/17 07:31 61 22 30 03/24/17 04:54 75 27 30 03/24/17 04:00 98.6 96 24 107/72 100 Mechanical Ventilator 03/24/17 04:00 70 03/24/17 04:00 40 03/24/17 02:37 82 25 30 03/24/17 00:42 67 27 30 03/24/17 00:00 96.1 94 24 107/63 100 Mechanical Ventilator 30 03/24/17 00:00 66 03/24/17 00:00 40 03/23/17 23:32 75 24 30 03/23/17 21:25 74 23 30 03/23/17 20:00 40 03/23/17 20:00 97.8 72 22 132/79 100 Mechanical Ventilator 03/23/17 20:00 65 03/23/17 18:42 66 25 30 03/23/17 16:30 66 25 30 03/23/17 16:00 76 28 144/66 100 Mechanical Ventilator 30 03/23/17 15:39 40 03/23/17 15:39 68 03/23/17 14:36 62 28 30 03/23/17 12:45 72 24 30 03/23/17 12:00 60 24 101/52 100 Mechanical Ventilator 30 03/23/17 11:33 71 03/23/17 11:33 40 03/23/17 11:00 68 26 30 Intake and Output 03/24/17 03/25/17 19:00 07:00 Intake Total 400 ml Balance 400 ml Free Water 50 ml IV Total 260 ml Tube Feeding 90 ml Laboratory Tests 03/24/17 04:00: White Blood Count 8.2, Red Blood Count 2.11L, Hemoglobin 6.9*L, Hematocrit 20.5L , Mean Corpuscular Volume 97, Mean Corpuscular Hemoglobin 32.4H, Mean Corpuscular Hemoglobin Concent 33.5, Red Cell Distribution Width 14.2, Platelet Count 101L, Mean Platelet Volume 10.9H, Neutrophils (%) (Auto) , Lymphocytes (% ) (Auto) , Monocytes (%) (Auto) , Eosinophils (%) (Auto) , Basophils (%) (Auto) , Differential Total Cells Counted 100, Neutrophils % (Manual) 73, Lymphocytes % (Manual) 3L, Monocytes % (Manual) 4, Eosinophils % (Manual) 3, Basophils % ( Manual) 0, Band Neutrophils 17H, Platelet Estimate DecreasedL, Platelet Morphology Normal, Hypochromasia 1+, Anisocytosis 1+, Erythrocyte Sedimentation Rate 122H, Sodium Level 135, Potassium Level 4.8, Chloride Level 102, Carbon Dioxide Level 15L, Anion Gap 18H, Blood Urea Nitrogen 103H, Creatinine 3.7H, Estimat Glomerular Filtration Rate , Glucose Level 108H, Uric Acid 6.7, Calcium Level 7.6L, Phosphorus Level 7.9H, Magnesium Level 2.4, Total Bilirubin 0.4, Gamma Glutamyl Transpeptidase 76H, Aspartate Amino Transf (AST/SGOT) 28, Alanine Aminotransferase (ALT/SGPT) 17, Alkaline Phosphatase 153H, Total Creatine Kinase 33L, C-Reactive Protein, Quantitative 17.3H, Pro-B-Type Natriuretic Peptide 30078O, Total Protein 5.0L, Albumin 1.7L, Globulin 3.3, Albumin/Globulin Ratio 0.5L, Digoxin Level [Pending] Height (Feet): 5 Height (Inches): 8.00 Weight (Pounds): 160 General Appearance: no apparent distress, lethargic Cardiovascular: normal rate Respiratory/Chest: decreased breath sounds Abdomen: distended MIGUEL SLOAN Mar 24, 2017 09:24
[2017-03-24] MEDS: Sodium Citrate 30ml GT SCH ×4 (09:43→23:41)
[2017-03-24] MEDS: Famotidine 20 MG/ 2ML VIAL IVP SCH ×2 (09:43→20:52)
--- NOTE | 2017-03-24 10:36 | Pulmonology Progress Note ---
Assessment/Plan Problems: (1) ATN (acute tubular necrosis) (2) Acute and chronic respiratory failure (3) Sepsis (4) Bacteremia (5) Anemia (6) Chronic vegetative state (7) Feeding by G-tube Respiratory: monitor respiratory rate, adjust FIO2 Cardiac: continue to monitor HR/BP Renal: F/U I&O, other - renal function worsening Infectious Disease: check cultures Gastrointestinal: continue feedings/current rate Endocrine: monitor blood sugar Hematologic: transfuse if hgb<8.5 - 2 units today Neurologic: PRN Morphine, keep patient comfortable Affect: PRN ativan Prophylaxis: Protonix Notes Reviewed: cardio, renal Discussed with: nurses, consultants, case advocate Subjective ROS Limited/Unobtainable: No Constitutional: Reports: no symptoms HEENT: Repors: no symptoms Respiratory: Reports: no symptoms Cardiovascular: Reports: no symptoms Allergies: Coded Allergies: No Known Allergies (Unverified , 03/15/17) Objective Last 24 Hour Vital Signs Date Time Temp Pulse Resp B/P (MAP) Pulse Ox O2 Delivery O2 Flow Rate FiO2 03/24/17 08:54 71 26 30 03/24/17 08:00 76 03/24/17 08:00 96.0 74 25 90/36 100 Mechanical Ventilator 30 03/24/17 08:00 30 03/24/17 07:31 61 22 30 03/24/17 04:54 75 27 30 03/24/17 04:00 98.6 96 24 107/72 100 Mechanical Ventilator 30 03/24/17 04:00 70 03/24/17 04:00 40 03/24/17 02:37 82 25 30 03/24/17 00:42 67 27 30 03/24/17 00:00 96.1 94 24 107/63 100 Mechanical Ventilator 30 03/24/17 00:00 66 03/24/17 00:00 40 03/23/17 23:32 75 24 30 03/23/17 21:25 74 23 30 03/23/17 20:00 40 03/23/17 20:00 97.8 72 22 132/79 100 Mechanical Ventilator 30 03/23/17 20:00 65 03/23/17 18:42 66 25 30 03/23/17 16:30 66 25 30 03/23/17 16:00 76 28 144/66 100 Mechanical Ventilator 30 03/23/17 15:39 40 03/23/17 15:39 68 03/23/17 14:36 62 28 30 03/23/17 12:45 72 24 30 03/23/17 12:00 60 24 101/52 100 Mechanical Ventilator 30 03/23/17 11:33 71 03/23/17 11:33 40 03/23/17 11:00 68 26 30 Intake and Output 03/24/17 03/25/17 19:00 07:00 Intake Total 550 ml Balance 550 ml Free Water 50 ml IV Total 335 ml Tube Feeding 135 ml Other 30 ml General Appearance: WD/WN HEENT: normocephalic, atraumatic Respiratory/Chest: chest wall non-tender, lungs clear Cardiovascular: normal peripheral pulses, normal rate Abdomen: normal bowel sounds, soft, non tender Genitourinary: normal external genitalia Extremities: no clubbing Skin: no lesions 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 Lymphatic: no neck adenopathy Musculoskeletal: normal muscle bulk Microbiology Date/Time Source Procedure Growth Status 03/22/17 14:00 Urine,Clean Catch Urine Culture - Preliminary YEAST Resulted Laboratory Tests 03/24/17 04:00: White Blood Count 8.2, Red Blood Count 2.11L, Hemoglobin 6.9*L, Hematocrit 20.5L , Mean Corpuscular Volume 97, Mean Corpuscular Hemoglobin 32.4H, Mean Corpuscular Hemoglobin Concent 33.5, Red Cell Distribution Width 14.2, Platelet Count 101L, Mean Platelet Volume 10.9H, Neutrophils (%) (Auto) , Lymphocytes (% ) (Auto) , Monocytes (%) (Auto) , Eosinophils (%) (Auto) , Basophils (%) (Auto) , Differential Total Cells Counted 100, Neutrophils % (Manual) 73, Lymphocytes % (Manual) 3L, Monocytes % (Manual) 4, Eosinophils % (Manual) 3, Basophils % ( Manual) 0, Band Neutrophils 17H, Platelet Estimate DecreasedL, Platelet Morphology Normal, Hypochromasia 1+, Anisocytosis 1+, Erythrocyte Sedimentation Rate 122H, Sodium Level 135, Potassium Level 4.8, Chloride Level 102, Carbon Dioxide Level 15L, Anion Gap 18H, Blood Urea Nitrogen 103H, Creatinine 3.7H, Estimat Glomerular Filtration Rate , Glucose Level 108H, Uric Acid 6.7, Calcium Level 7.6L, Phosphorus Level 7.9H, Magnesium Level 2.4, Total Bilirubin 0.4, Gamma Glutamyl Transpeptidase 76H, Aspartate Amino Transf (AST/SGOT) 28, Alanine Aminotransferase (ALT/SGPT) 17, Alkaline Phosphatase 153H, Total Creatine Kinase 33L, C-Reactive Protein, Quantitative 17.3H, Pro-B-Type Natriuretic Peptide 01817O, Total Protein 5.0L, Albumin 1.7L, Globulin 3.3, Albumin/Globulin Ratio 0.5L, Digoxin Level [Pending] Current Medications Medications (Trade) Dose Ordered Sig/Millicent Route PRN Reason Start Time Stop Time Status Last Admin Dose Admin Acetaminophen (Tylenol) 650 mg EVERY 4 HOURS PRN GT fever 03/20/17 08:15 04/19/17 08:14 03/20/17 16:17 Albuterol/ Ipratropium (DuoNeb 0.5-3(2.5)mg/3ml) 3 ml Q4H PRN HHN Shortness of Breath 03/20/17 19:00 03/25/17 23:59 Chlorhexidine Gluconate (Iavnna-Hex 2%) 1 applic QHS TOPIC 03/19/17 21:00 04/18/17 20:59 03/23/17 20:36 Colistimethate Sodium (Colistin) 100 mg Q36H IVP 03/23/17 21:00 03/30/17 20:59 03/23/17 20:36 Dextrose (Dextrose 50%) STAT PRN IV Hypoglycemia 03/15/17 23:00 04/14/17 22:59 Famotidine (Pepcid I.v.) 20 mg Q12HR IVP 03/24/17 09:45 04/23/17 09:44 03/24/17 09:43 Insulin Aspart (NovoLOG) Q6HR SUBQ 03/16/17 12:00 04/15/17 11:59 03/24/17 06:06 Lorazepam (Ativan 2mg/ml 1ml) 2 mg Q2H PRN IV For Anxiety 03/20/17 19:00 03/27/17 23:59 Meropenem 1 gm/ Sodium Chloride 110 ml @ 220 mls/hr Q12H IVPB 03/23/17 01:00 03/28/17 00:59 03/24/17 00:18 Morphine Sulfate (Morphine Sulfate) 4 mg Q4H PRN IVP Severe Pain (Pain Scale 7-10) 03/20/17 19:00 03/27/17 23:59 Ondansetron HCl (Zofran) 4 mg Q6H PRN IVP Nausea & Vomiting 03/15/17 23:00 04/14/17 22:59 Polyethylene Glycol (Miralax) 17 gm DAILYPRN PRN GT Constipation 03/16/17 15:00 04/14/17 22:59 Sodium Chloride 1,000 ml @ 75 mls/hr [id number] IV 03/21/17 14:00 04/20/17 13:59 03/24/17 08:27 Sodium Citrate (Bicitra) 30 ml EVERY 6 HOURS GT 03/24/17 09:45 04/23/17 09:44 03/24/17 09:43 Tigecycline 50 mg/ Dextrose 110 ml @ 220 mls/hr Q12H IVPB 03/20/17 08:00 03/27/17 07:59 03/24/17 08:27 LIGIA JARAMILLO Mar 24, 2017 10:36
[2017-03-24 12:00] VITALS: BP 100/48
[2017-03-24] MEDS ORDERED: Tubing IV Secondary IV ONE (14:02)
[2017-03-24] MEDS ORDERED: NS 275ml ONE (14:02)
[2017-03-24 16:00] VITALS: BP 102/57
--- NOTE | 2017-03-24 18:05 | Infectious Diseases Prog Note ---
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 colistin --Chronic vegetative state, vent dependent, s/p peg tube --HIV and viral hepatitis serology negative --elevated inflammatory markers (CRP 23 mg/dL) --severe diffuse xerosis --b/l onychomycosis --poor healing potential --torso/upper arm rash --increasing alk phos Recs: -- cont Merrem d# 3 / 5 ( synergic effect w Colistin ) --Continue colistin 2.5mg/kg IV q12hr D# 6 / 7 ( will cont despite of ARF, pt has no better AB Rx choice a this time ) --Continue tigecycline 50mg IV q12hr D# 5 /7 -- ( IV zosyn D#4 ) (03/19 s/p IV IV vancomycin D#4 (03/18 s/p IV amikacin D#2) --f/u RUE picc tip cx (03/19) --f/u surveillance blood cx (03/20) --continue wound care. s/p wound care consultation. continue topical/chemical debridements as needed -- Nephro is following -- family may consider comfort-care Subjective Allergies: Coded Allergies: No Known Allergies (Unverified , 03/15/17) Subjective Cr is worsening Objective Vital Signs Last 24 Hour Vital Signs Date Time Temp Pulse Resp B/P (MAP) Pulse Ox O2 Delivery O2 Flow Rate FiO2 03/24/17 17:08 67 23 30 03/24/17 16:00 79 03/24/17 16:00 96.0 72 30 102/57 100 Mechanical Ventilator 30 03/24/17 16:00 30 03/24/17 15:19 93 30 30 03/24/17 12:57 79 27 30 03/24/17 12:17 81 03/24/17 12:00 96.0 87 28 100/48 100 Mechanical Ventilator 30 03/24/17 12:00 30 03/24/17 10:50 68 24 30 03/24/17 08:54 71 26 30 03/24/17 08:00 76 03/24/17 08:00 96.0 74 25 90/36 100 Mechanical Ventilator 30 03/24/17 08:00 30 03/24/17 07:31 61 22 30 03/24/17 04:54 75 27 30 03/24/17 04:00 98.6 96 24 107/72 100 Mechanical Ventilator 30 03/24/17 04:00 70 03/24/17 04:00 40 03/24/17 02:37 82 25 30 03/24/17 00:42 67 27 30 03/24/17 00:00 96.1 94 24 107/63 100 Mechanical Ventilator 30 03/24/17 00:00 66 03/24/17 00:00 40 03/23/17 23:32 75 24 30 03/23/17 21:25 74 23 30 03/23/17 20:00 40 03/23/17 20:00 97.8 72 22 132/79 100 Mechanical Ventilator 30 03/23/17 20:00 65 03/23/17 18:42 66 25 30 Height (Feet): 5 Height (Inches): 8.00 Weight (Pounds): 160 HEENT: anicteric Respiratory/Chest: normal breath sounds Cardiovascular: regular rhythm Abdomen: soft, non tender Microbiology Date/Time Source Procedure Growth Status 03/22/17 14:00 Urine,Clean Catch Urine Culture - Preliminary YEAST Resulted Laboratory Tests Test 03/24/17 04:00 White Blood Count 8.2 K/UL (4.8-10.8) Red Blood Count 2.11 M/UL (4.70-6.10) L Hemoglobin 6.9 G/DL (14.2-18.0) *L Hematocrit 20.5 % (42.0-52.0) L Mean Corpuscular Volume 97 FL (80-99) Mean Corpuscular Hemoglobin 32.4 PG (27.0-31.0) H Mean Corpuscular Hemoglobin Concent 33.5 G/DL (32.0-36.0) Red Cell Distribution Width 14.2 % (11.6-14.8) Platelet Count 101 K/UL (150-450) L Mean Platelet Volume 10.9 FL (6.5-10.1) H Neutrophils (%) (Auto) % (45.0-75.0) Lymphocytes (%) (Auto) % (20.0-45.0) Monocytes (%) (Auto) % (1.0-10.0) Eosinophils (%) (Auto) % (0.0-3.0) Basophils (%) (Auto) % (0.0-2.0) Differential Total Cells Counted 100 Neutrophils % (Manual) 73 % (45-75) Lymphocytes % (Manual) 3 % (20-45) L Monocytes % (Manual) 4 % (1-10) Eosinophils % (Manual) 3 % (0-3) Basophils % (Manual) 0 % (0-2) Band Neutrophils 17 % (0-8) H Platelet Estimate Decreased L Platelet Morphology Normal Hypochromasia 1+ Anisocytosis 1+ Erythrocyte Sedimentation Rate 122 MM/HR (0-20) H Sodium Level 135 mEQ/L (135-145) Potassium Level 4.8 mEQ/L (3.4-4.9) Chloride Level 102 mEQ/L (98-107) Carbon Dioxide Level 15 mEQ/L (20-30) L Anion Gap 18 (5-15) H Blood Urea Nitrogen 103 mg/dL (7-23) H Creatinine 3.7 mg/dL (0.7-1.2) H Estimat Glomerular Filtration Rate mL/min (>60) Glucose Level 108 mg/dL (74-106) H Uric Acid 6.7 mg/dL (3.0-7.5) Calcium Level 7.6 mg/dL (8.6-10.2) L Phosphorus Level 7.9 mg/dL (2.5-4.8) H Magnesium Level 2.4 mg/dL (1.7-2.5) Total Bilirubin 0.4 mg/dL (0.0-1.2) Gamma Glutamyl Transpeptidase 76 U/L (8-61) H Aspartate Amino Transf (AST/SGOT) 28 U/L (5-40) Alanine Aminotransferase (ALT/SGPT) 17 U/L (3-41) Alkaline Phosphatase 153 U/L (40-129) H Total Creatine Kinase 33 U/L (38-174) L C-Reactive Protein, Quantitative 17.3 mg/dL (< 0.5) H Pro-B-Type Natriuretic Peptide 50114 pg/mL (0-450) H Total Protein 5.0 g/dL (6.6-8.7) L Albumin 1.7 g/dL (3.5-5.2) L Globulin 3.3 g/dL Albumin/Globulin Ratio 0.5 (1.0-2.7) L Digoxin Level 0.8 ng/mL (0.5-2.0) Current Medications Medications (Trade) Dose Ordered Sig/Millicent Route PRN Reason Start Time Stop Time Status Last Admin Dose Admin Acetaminophen (Tylenol) 650 mg EVERY 4 HOURS PRN GT fever 03/20/17 08:15 04/19/17 08:14 03/20/17 16:17 Albuterol/ Ipratropium (DuoNeb 0.5-3(2.5)mg/3ml) 3 ml Q4H PRN HHN Shortness of Breath 03/20/17 19:00 03/25/17 23:59 Chlorhexidine Gluconate (Ivanna-Hex 2%) 1 applic QHS TOPIC 03/19/17 21:00 04/18/17 20:59 03/23/17 20:36 Colistimethate Sodium (Colistin) 100 mg Q36H IVP 03/23/17 21:00 03/30/17 20:59 03/23/17 20:36 Dextrose (Dextrose 50%) STAT PRN IV Hypoglycemia 03/15/17 23:00 04/14/17 22:59 Famotidine (Pepcid I.v.) 20 mg Q12HR IVP 03/24/17 09:45 04/23/17 09:44 03/24/17 09:43 Insulin Aspart (NovoLOG) Q6HR SUBQ 03/16/17 12:00 04/15/17 11:59 03/24/17 17:52 Lorazepam (Ativan 2mg/ml 1ml) 2 mg Q2H PRN IV For Anxiety 03/20/17 19:00 03/27/17 23:59 Meropenem 1 gm/ Sodium Chloride 110 ml @ 220 mls/hr Q12H IVPB 03/23/17 01:00 03/28/17 00:59 03/24/17 12:16 Morphine Sulfate (Morphine Sulfate) 4 mg Q4H PRN IVP Severe Pain (Pain Scale 7-10) 03/20/17 19:00 03/27/17 23:59 Ondansetron HCl (Zofran) 4 mg Q6H PRN IVP Nausea & Vomiting 03/15/17 23:00 04/14/17 22:59 Polyethylene Glycol (Miralax) 17 gm DAILYPRN PRN GT Constipation 03/16/17 15:00 04/14/17 22:59 Sodium Chloride 1,000 ml @ 75 mls/hr [id number] IV 03/21/17 14:00 04/20/17 13:59 03/24/17 08:27 Sodium Citrate (Bicitra) 30 ml EVERY 6 HOURS GT 03/24/17 09:45 04/23/17 09:44 03/24/17 17:50 Tigecycline 50 mg/ Dextrose 110 ml @ 220 mls/hr Q12H IVPB 03/20/17 08:00 03/27/17 07:59 03/24/17 08:27 SOFIA HUBER M.D. Mar 24, 2017 18:05
--- NOTE | 2017-03-24 19:45 | Cardiology Progress Note ---
Assessment/Plan Assessment/Plan 1. Permanent atrial fibrillation. 2. Anoxic encephalopathy. 3. Sepsis. 4. ARF on vetn iv abx hhn tel noted poor anticoag candidate dig level was ok cr sig elevated renal following Subjective ROS Limited/Unobtainable: Yes Objective Last 24 Hour Vital Signs Date Time Temp Pulse Resp B/P (MAP) Pulse Ox O2 Delivery O2 Flow Rate FiO2 03/24/17 19:06 67 27 30 03/24/17 17:08 67 23 30 03/24/17 16:00 79 03/24/17 16:00 96.0 72 30 102/57 100 Mechanical Ventilator 30 03/24/17 16:00 30 03/24/17 15:19 93 30 30 03/24/17 12:57 79 27 30 03/24/17 12:17 81 03/24/17 12:00 96.0 87 28 100/48 100 Mechanical Ventilator 30 03/24/17 12:00 30 03/24/17 10:50 68 24 30 03/24/17 08:54 71 26 30 03/24/17 08:00 76 03/24/17 08:00 96.0 74 25 90/36 100 Mechanical Ventilator 30 03/24/17 08:00 30 03/24/17 07:31 61 22 30 03/24/17 04:54 75 27 30 03/24/17 04:00 98.6 96 24 107/72 100 Mechanical Ventilator 30 03/24/17 04:00 70 03/24/17 04:00 40 03/24/17 02:37 82 25 30 03/24/17 00:42 67 27 30 03/24/17 00:00 96.1 94 24 107/63 100 Mechanical Ventilator 03/24/17 00:00 66 03/24/17 00:00 40 03/23/17 23:32 75 24 30 03/23/17 21:25 74 23 30 03/23/17 20:00 40 03/23/17 20:00 97.8 72 22 132/79 100 Mechanical Ventilator 03/23/17 20:00 65 General Appearance: on vent, patient on isolation Intake and Output 03/24/17 03/25/17 19:00 07:00 Intake Total 1870 ml Output Total 350 ml Balance 1520 ml Free Water 50 ml IV Total 1120 ml Tube Feeding 360 ml Blood Product 250 ml Other 90 ml Output Urine Total 100 ml Stool Total 250 ml Laboratory Tests Test 03/24/17 04:00 White Blood Count 8.2 K/UL (4.8-10.8) Red Blood Count 2.11 M/UL (4.70-6.10) L Hemoglobin 6.9 G/DL (14.2-18.0) *L Hematocrit 20.5 % (42.0-52.0) L Mean Corpuscular Volume 97 FL (80-99) Mean Corpuscular Hemoglobin 32.4 PG (27.0-31.0) H Mean Corpuscular Hemoglobin Concent 33.5 G/DL (32.0-36.0) Red Cell Distribution Width 14.2 % (11.6-14.8) Platelet Count 101 K/UL (150-450) L Mean Platelet Volume 10.9 FL (6.5-10.1) H Neutrophils (%) (Auto) % (45.0-75.0) Lymphocytes (%) (Auto) % (20.0-45.0) Monocytes (%) (Auto) % (1.0-10.0) Eosinophils (%) (Auto) % (0.0-3.0) Basophils (%) (Auto) % (0.0-2.0) Differential Total Cells Counted 100 Neutrophils % (Manual) 73 % (45-75) Lymphocytes % (Manual) 3 % (20-45) L Monocytes % (Manual) 4 % (1-10) Eosinophils % (Manual) 3 % (0-3) Basophils % (Manual) 0 % (0-2) Band Neutrophils 17 % (0-8) H Platelet Estimate Decreased L Platelet Morphology Normal Hypochromasia 1+ Anisocytosis 1+ Erythrocyte Sedimentation Rate 122 MM/HR (0-20) H Sodium Level 135 mEQ/L (135-145) Potassium Level 4.8 mEQ/L (3.4-4.9) Chloride Level 102 mEQ/L (98-107) Carbon Dioxide Level 15 mEQ/L (20-30) L Anion Gap 18 (5-15) H Blood Urea Nitrogen 103 mg/dL (7-23) H Creatinine 3.7 mg/dL (0.7-1.2) H Estimat Glomerular Filtration Rate mL/min (>60) Glucose Level 108 mg/dL (74-106) H Uric Acid 6.7 mg/dL (3.0-7.5) Calcium Level 7.6 mg/dL (8.6-10.2) L Phosphorus Level 7.9 mg/dL (2.5-4.8) H Magnesium Level 2.4 mg/dL (1.7-2.5) Total Bilirubin 0.4 mg/dL (0.0-1.2) Gamma Glutamyl Transpeptidase 76 U/L (8-61) H Aspartate Amino Transf (AST/SGOT) 28 U/L (5-40) Alanine Aminotransferase (ALT/SGPT) 17 U/L (3-41) Alkaline Phosphatase 153 U/L (40-129) H Total Creatine Kinase 33 U/L (38-174) L C-Reactive Protein, Quantitative 17.3 mg/dL (< 0.5) H Pro-B-Type Natriuretic Peptide 19435 pg/mL (0-450) H Total Protein 5.0 g/dL (6.6-8.7) L Albumin 1.7 g/dL (3.5-5.2) L Globulin 3.3 g/dL Albumin/Globulin Ratio 0.5 (1.0-2.7) L Digoxin Level 0.8 ng/mL (0.5-2.0) Microbiology Date/Time Source Procedure Growth Status 03/22/17 14:00 Urine,Clean Catch Urine Culture - Preliminary YEAST Resulted DEBORAH MUKHERJEE Mar 24, 2017 19:45
[2017-03-24 20:00] VITALS: BP 84/39
[2017-03-24] MEDS: Dyna-Hex 2% Top Sol 8oz TOPIC SCH (20:51)
--- NOTE | 2017-03-24 22:46 | General Progress Note ---
Assessment/Plan Status: unchanged Assessment/Plan 1. Coagulopathy. PTT study reviewed. -->2/2 sepsis vs medications 2. Anemia, likely secondary to hemodilution. --> Monitor 3. Anemia, secondary to chronic disease. Anemia workup has been completed and reviewed. --> no evidence of iron,folate, b12 def, ferritin is elevated and tibc is low --> continue to monitor counts --> give blood transfusion if symptomatic or hgb <7.5 --> Hemoglobin lower than 7.5, pt to receive prbc 4. Leukocytosis, potentially secondary to underlying sepsis with a left shift, neutrophil predominant leukocytosis. --> id following --> On Antibiotics, has resolved. 5. Hypocalcemia potentially secondary to hemodilution. Continue to monitor. 6. Sepsis. He is on antibiotics. 7. Chronic vegetative state 8. Atherosclerotic disease. --> Ultrasound of abdomen revealed small bilateral renal cysts Subjective Date patient seen: Mar 24, 2017 Time patient seen: 06:00 Hematologic/Lymphatic: Reports: anemia Allergies: Coded Allergies: No Known Allergies (Unverified , 03/15/17) Subjective Comfortable. Afebrile. Hemoglobin levels low. Leukocytosis has improved. Pending prbc Objective Last 24 Hour Vital Signs Date Time Temp Pulse Resp B/P (MAP) Pulse Ox O2 Delivery O2 Flow Rate FiO2 03/24/17 22:31 102 22 30 03/24/17 21:15 79 23 30 03/24/17 20:00 91 27 84/39 100 Mechanical Ventilator 30 03/24/17 20:00 71 03/24/17 19:06 67 27 30 03/24/17 17:08 67 23 30 03/24/17 16:00 79 03/24/17 16:00 96.0 72 30 102/57 100 Mechanical Ventilator 30 03/24/17 16:00 30 03/24/17 15:19 93 30 30 03/24/17 12:57 79 27 30 03/24/17 12:17 81 03/24/17 12:00 96.0 87 28 100/48 100 Mechanical Ventilator 30 03/24/17 12:00 30 03/24/17 10:50 68 24 30 03/24/17 08:54 71 26 30 03/24/17 08:00 76 03/24/17 08:00 96.0 74 25 90/36 100 Mechanical Ventilator 30 03/24/17 08:00 30 03/24/17 07:31 61 22 30 03/24/17 04:54 75 27 30 03/24/17 04:00 98.6 96 24 107/72 100 Mechanical Ventilator 30 03/24/17 04:00 70 03/24/17 04:00 40 03/24/17 02:37 82 25 30 03/24/17 00:42 67 27 30 03/24/17 00:00 96.1 94 24 107/63 100 Mechanical Ventilator 30 03/24/17 00:00 66 03/24/17 00:00 40 03/23/17 23:32 75 24 30 Intake and Output 03/24/17 03/25/17 19:00 07:00 Intake Total 1870 ml Output Total 350 ml Balance 1520 ml Free Water 50 ml IV Total 1120 ml Tube Feeding 360 ml Blood Product 250 ml Other 90 ml Output Urine Total 100 ml Stool Total 250 ml Laboratory Tests 03/24/17 04:00: White Blood Count 8.2, Red Blood Count 2.11L, Hemoglobin 6.9*L, Hematocrit 20.5L , Mean Corpuscular Volume 97, Mean Corpuscular Hemoglobin 32.4H, Mean Corpuscular Hemoglobin Concent 33.5, Red Cell Distribution Width 14.2, Platelet Count 101L, Mean Platelet Volume 10.9H, Neutrophils (%) (Auto) , Lymphocytes (% ) (Auto) , Monocytes (%) (Auto) , Eosinophils (%) (Auto) , Basophils (%) (Auto) , Differential Total Cells Counted 100, Neutrophils % (Manual) 73, Lymphocytes % (Manual) 3L, Monocytes % (Manual) 4, Eosinophils % (Manual) 3, Basophils % ( Manual) 0, Band Neutrophils 17H, Platelet Estimate DecreasedL, Platelet Morphology Normal, Hypochromasia 1+, Anisocytosis 1+, Erythrocyte Sedimentation Rate 122H, Sodium Level 135, Potassium Level 4.8, Chloride Level 102, Carbon Dioxide Level 15L, Anion Gap 18H, Blood Urea Nitrogen 103H, Creatinine 3.7H, Estimat Glomerular Filtration Rate , Glucose Level 108H, Uric Acid 6.7, Calcium Level 7.6L, Phosphorus Level 7.9H, Magnesium Level 2.4, Total Bilirubin 0.4, Gamma Glutamyl Transpeptidase 76H, Aspartate Amino Transf (AST/SGOT) 28, Alanine Aminotransferase (ALT/SGPT) 17, Alkaline Phosphatase 153H, Total Creatine Kinase 33L, C-Reactive Protein, Quantitative 17.3H, Pro-B-Type Natriuretic Peptide 64813K, Total Protein 5.0L, Albumin 1.7L, Globulin 3.3, Albumin/Globulin Ratio 0.5L, Digoxin Level 0.8 Height (Feet): 5 Height (Inches): 8.00 Weight (Pounds): 160 General Appearance: no apparent distress, lethargic Cardiovascular: normal rate, regular rhythm Respiratory/Chest: chest wall non-tender, decreased breath sounds Abdomen: normal bowel sounds, distended AMALIA SAEED Mar 24, 2017 22:46
[2017-03-25] MEDS: Meropenem 1 GM in NS 110 ML IVPB SCH ×2 (00:04→12:32)
[2017-03-25 00:09] VITALS: BP 101/42
[2017-03-25 04:00] VITALS: BP 88/48
[2017-03-25 05:25] LABS: MEAN CORPUSCULAR HEMOGLOBIN 31.8 PG (27.0-31.0); MEAN CORPUSCULAR HGB CONC 33.2 G/DL (32.0-36.0); MEAN CORPUSCULAR VOLUME 96 FL (80-99); MEAN PLATELET VOLUME 10.7 FL (6.5-10.1); PLATELET COUNT 98 K/UL (150-450); RED BLOOD COUNT 3.17 M/UL (4.70-6.10); RED CELL DISTRIBUTION WIDTH 14.2 % (11.6-14.8); WHITE BLOOD COUNT 14.6 K/UL (4.8-10.8)
[2017-03-25 05:37] LABS: ALANINE AMINOTRANSFERASE 21 U/L (3-41); ALBUMIN/GLOBULIN RATIO 0.4 (1.0-2.7); ANION GAP 22 (5-15); ASPARTATE AMINO TRANSFERASE 49 U/L (5-40); CALCIUM 8.1 mg/dL (8.6-10.2); CARBON DIOXIDE 13 mEQ/L (20-30); CHLORIDE 103 mEQ/L (98-107); CREATININE 3.8 mg/dL (0.7-1.2); CRP QUANT 20.8 mg/dL (< 0.5); HEMOLYSIS 5; MAGNESIUM 2.3 mg/dL (1.7-2.5); POTASSIUM 5.3 mEQ/L (3.4-4.9); SODIUM 138 mEQ/L (135-145); TOTAL PROTEIN 5.4 g/dL (6.6-8.7)
[2017-03-25] MEDS: NovoLOG Insulin Flexpen SUBQ SCH ×3 (06:00→18:00)
[2017-03-25] MEDS: Sodium Citrate 30ml GT SCH ×3 (06:18→18:01)
[2017-03-25 08:00] VITALS: BP 79/46
[2017-03-25] MEDS: Tigecycline 50 MG in D5W 110 ML IVPB SCH ×2 (08:31→21:09)
[2017-03-25] MEDS: Famotidine 20 MG/ 2ML VIAL IVP SCH (09:18)
[2017-03-25] MEDS: Colistin 150mg vial IVP SCH (09:18)
--- NOTE | 2017-03-25 10:34 | Pulmonology Progress Note ---
Assessment/Plan Problems: (1) ATN (acute tubular necrosis) (2) Acute and chronic respiratory failure (3) Sepsis (4) Bacteremia (5) Anemia (6) Chronic vegetative state (7) Feeding by G-tube Respiratory: monitor respiratory rate, adjust FIO2, CXR Cardiac: continue to monitor HR/BP Renal: F/U I&O, keep IV fluid, check electrolytes Infectious Disease: check cultures, continue antibiotics Gastrointestinal: continue feedings/current rate, hold feedings Endocrine: monitor blood sugar Neurologic: PRN Ativan Prophylaxis: Protonix Time Spent (Minutes): 40 Notes Reviewed: renal Discussed with: nurses, consultants, outsole caser Subjective ROS Limited/Unobtainable: No Constitutional: Reports: no symptoms HEENT: Repors: no symptoms Respiratory: Reports: no symptoms Allergies: Coded Allergies: No Known Allergies (Unverified , 03/15/17) Objective Last 24 Hour Vital Signs Date Time Temp Pulse Resp B/P (MAP) Pulse Ox O2 Delivery O2 Flow Rate FiO2 03/25/17 08:56 99 27 30 03/25/17 08:00 95.7 97 24 79/46 100 Mechanical Ventilator 30 03/25/17 08:00 83 03/25/17 07:05 93 26 30 03/25/17 05:13 103 31 30 03/25/17 04:13 30 03/25/17 04:00 91 03/25/17 04:00 92.9 85 30 88/48 100 Mechanical Ventilator 03/25/17 03:08 90 29 30 03/25/17 01:25 104 24 30 03/25/17 00:09 106 32 101/42 98 Mechanical Ventilator 03/25/17 00:00 92 03/24/17 22:31 102 22 30 03/24/17 21:15 79 23 30 03/24/17 20:00 91 27 84/39 100 Mechanical Ventilator 30 03/24/17 20:00 71 03/24/17 20:00 30 03/24/17 19:06 67 27 30 03/24/17 17:08 67 23 30 03/24/17 16:00 79 03/24/17 16:00 96.0 72 30 102/57 100 Mechanical Ventilator 30 03/24/17 16:00 30 03/24/17 15:19 93 30 30 03/24/17 12:57 79 27 30 03/24/17 12:17 81 03/24/17 12:00 96.0 87 28 100/48 100 Mechanical Ventilator 30 03/24/17 12:00 30 03/24/17 10:50 68 24 30 General Appearance: WD/WN HEENT: normocephalic, atraumatic, status post trach Respiratory/Chest: chest wall non-tender, lungs clear Cardiovascular: normal peripheral pulses, normal rate Abdomen: normal bowel sounds, soft, non tender, no mass Genitourinary: normal external genitalia Extremities: no cyanosis Microbiology Date/Time Source Procedure Growth Status 03/22/17 14:00 Urine,Clean Catch Urine Culture - Final Mary Tropicalis Complete Laboratory Tests 03/25/17 05:15: White Blood Count 14.6#H, Red Blood Count 3.17L, Hemoglobin 10.1#L, Hematocrit 30.3#L, Mean Corpuscular Volume 96, Mean Corpuscular Hemoglobin 31.8H, Mean Corpuscular Hemoglobin Concent 33.2, Red Cell Distribution Width 14.2, Platelet Count 98L, Mean Platelet Volume 10.7H, Neutrophils (%) (Auto) , Lymphocytes (%) (Auto) , Monocytes (%) (Auto) , Eosinophils (%) (Auto) , Basophils (%) (Auto) , Sodium Level 138, Potassium Level 5.3H, Chloride Level 103, Carbon Dioxide Level 13L, Anion Gap 22H, Blood Urea Nitrogen 106H, Creatinine 3.8H, Estimat Glomerular Filtration Rate , Glucose Level 91, Calcium Level 8.1L, Phosphorus Level 9.0H, Magnesium Level 2.3, Total Bilirubin 1.4H, Direct Bilirubin 1.0H, Aspartate Amino Transf (AST/SGOT) 49H, Alanine Aminotransferase (ALT/SGPT) 21, Alkaline Phosphatase 165H, C-Reactive Protein, Quantitative 20.8H, Pro-B-Type Natriuretic Peptide 34659P, Total Protein 5.4L, Albumin 1.7L, Globulin 3.7, Albumin/Globulin Ratio 0.4L Current Medications Medications (Trade) Dose Ordered Sig/Millicent Route PRN Reason Start Time Stop Time Status Last Admin Dose Admin Acetaminophen (Tylenol) 650 mg EVERY 4 HOURS PRN GT fever 03/20/17 08:15 04/19/17 08:14 03/20/17 16:17 Albuterol/ Ipratropium (DuoNeb 0.5-3(2.5)mg/3ml) 3 ml Q4H PRN HHN Shortness of Breath 03/20/17 19:00 03/25/17 23:59 Chlorhexidine Gluconate (Ivanna-Hex 2%) 1 applic QHS TOPIC 03/19/17 21:00 04/18/17 20:59 03/24/17 20:51 Colistimethate Sodium (Colistin) 100 mg Q36H IVP 03/23/17 21:00 03/30/17 20:59 03/25/17 09:18 Dextrose (Dextrose 50%) STAT PRN IV Hypoglycemia 03/15/17 23:00 04/14/17 22:59 Famotidine (Pepcid I.v.) 20 mg Q12HR IVP 03/24/17 09:45 04/23/17 09:44 03/25/17 09:18 Insulin Aspart (NovoLOG) Q6HR SUBQ 03/16/17 12:00 04/15/17 11:59 03/24/17 17:52 Lorazepam (Ativan 2mg/ml 1ml) 2 mg Q2H PRN IV For Anxiety 03/20/17 19:00 03/27/17 23:59 Meropenem 1 gm/ Sodium Chloride 110 ml @ 220 mls/hr Q12H IVPB 03/23/17 01:00 03/28/17 00:59 03/25/17 00:04 Morphine Sulfate (Morphine Sulfate) 4 mg Q4H PRN IVP Severe Pain (Pain Scale 7-10) 03/20/17 19:00 03/27/17 23:59 Ondansetron HCl (Zofran) 4 mg Q6H PRN IVP Nausea & Vomiting 03/15/17 23:00 04/14/17 22:59 Polyethylene Glycol (Miralax) 17 gm DAILYPRN PRN GT Constipation 03/16/17 15:00 04/14/17 22:59 Sodium Chloride 1,000 ml @ 75 mls/hr [id number] IV 03/21/17 14:00 04/20/17 13:59 03/24/17 23:41 Sodium Citrate (Bicitra) 30 ml EVERY 6 HOURS GT 03/24/17 09:45 04/23/17 09:44 03/25/17 06:18 Tigecycline 50 mg/ Dextrose 110 ml @ 220 mls/hr Q12H IVPB 03/20/17 08:00 03/27/17 07:59 03/25/17 08:31 LIGIA JARAMILLO Mar 25, 2017 10:34
[2017-03-25 11:43] VITALS: BP 86/36
--- NOTE | 2017-03-25 13:31 | Wound Nurse Progress Note ---
Wound RN Progress Note Wound Consult #1 Sacrococcygeal unstageable pressure ulcer that extended to left and right buttocks- continue current treatment effective, no further deterioration present.12.0cmx10.0cmxutd 20%pink,40%yellow,40% black/brown moderate serosanguineous drainage. #2 Right shoulder blood filled DTI pressure ulcer- intact, no further deterioration present.1.0cmx1.0cm #3 Right scapula stage II pressure ulcer- remains stage 2 wound bed pink noted decrease in size 2.0cmx3.0cmx 0.1 pink wound bed scant serosanguineous drainage. #4 Right lower trochanter DTI pressure ulcer- noted site present self as stage 2 resolving, 5.0cmx 3.0cm less than 0.1,wound bed pink,scant serosanguineous drainage. site revealed self as stage 2 ,recommendation -cleanse with normal saline, pat dry, apply TRIAD ,cover with bordered dressing DAILY and PRN if soiled/dislodged. #5 Right upper lateral thigh open blister - noted good progress resolving. #6 Right inner upper thigh open blister- noted good progress resolving. #7 Left lower lateral leg unstageable pressure ulcer-noted good progress decrease in size no further deterioration present. 8.0cmx1.5cmxutd #8 Right heel DTI pressure ulcer-remains intact, site remains maroon in color , no further deterioration present. 5.0cmx 6.5cmx utd #9 Left heel unstageable pressure ulcer with black eschar adhered to wound bed- noted black eschar still present noted 8.5cmx8.5cmxutd foul odor,moderate serosanguineous, boggy , #10 Left lateral malleolus DTI pressure ulcer- no further deterioration present.remains dti, intact.no change in size #11 Left medial malleolus DTI pressure ulcer-no further deterioration present remains dry, intact.no change in size #12 Right mid foot DTI pressure ulcer- no further deterioration present remains dry, intact.no change in size. #13 Right 1st lateral metatarsal head DTI pressure ulcer-no further deterioration remains dry and intact.no change in size. #14 Lower back with scattered stage II pressure ulcers and with scattered scars -scattered resolving remains stage 2 ,no further deterioration present. Recommendation -Local wound care per protocol -Low air loss mattress -Optimize nutrition -Keep clean and dry -Turn and reposition -Offload both heels -Heel protector on both heels -FOLLOW UP with Podiatry consult for left foot heel. -Assess and f/u accordingly for any changes RYANN BASILIO Mar 25, 2017 13:31
--- NOTE | 2017-03-25 13:44 | General Progress Note ---
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 Anemia requiring blood transfusion Elevated inflammatory markers Dysphagia, G tube Functional quadriplegia Chronic vegetative state Multiple decub ulcers POA: sacrococcyx decub ulcer st 3, R scapula decub ulcer st 2 POA, L heel pressure ulcer unstageable L heel dry gangrene Coagulopathy Sugg: add bicitra- Transfuse per PMD, 2 units Urine studies- Avoid Nephrotoxics if possible: On colistin and received Amikacin and Vanco Monitor renal parameters Keep BP and BS in check stop Lopressor Subjective ROS Limited/Unobtainable: Yes Allergies: Coded Allergies: No Known Allergies (Unverified , 03/15/17) Objective Last 24 Hour Vital Signs Date Time Temp Pulse Resp B/P (MAP) Pulse Ox O2 Delivery O2 Flow Rate FiO2 03/25/17 13:03 116 31 30 03/25/17 12:00 115 03/25/17 11:43 97.5 120 24 86/36 100 Mechanical Ventilator 30 03/25/17 10:38 106 28 30 03/25/17 08:56 99 27 30 03/25/17 08:00 95.7 97 24 79/46 100 Mechanical Ventilator 30 03/25/17 08:00 83 03/25/17 08:00 30 03/25/17 07:05 93 26 30 03/25/17 05:13 103 31 30 03/25/17 04:13 30 03/25/17 04:00 91 03/25/17 04:00 92.9 85 30 88/48 100 Mechanical Ventilator 30 03/25/17 03:08 90 29 30 03/25/17 01:25 104 24 30 03/25/17 00:09 106 32 101/42 98 Mechanical Ventilator 30 03/25/17 00:00 92 03/24/17 22:31 102 22 30 03/24/17 21:15 79 23 30 03/24/17 20:00 91 27 84/39 100 Mechanical Ventilator 30 03/24/17 20:00 71 03/24/17 20:00 30 03/24/17 19:06 67 27 30 03/24/17 17:08 67 23 30 03/24/17 16:00 79 03/24/17 16:00 96.0 72 30 102/57 100 Mechanical Ventilator 30 03/24/17 16:00 30 03/24/17 15:19 93 30 30 Laboratory Tests 03/25/17 05:15: White Blood Count 14.6#H, Red Blood Count 3.17L, Hemoglobin 10.1#L, Hematocrit 30.3#L, Mean Corpuscular Volume 96, Mean Corpuscular Hemoglobin 31.8H, Mean Corpuscular Hemoglobin Concent 33.2, Red Cell Distribution Width 14.2, Platelet Count 98L, Mean Platelet Volume 10.7H, Neutrophils (%) (Auto) , Lymphocytes (%) (Auto) , Monocytes (%) (Auto) , Eosinophils (%) (Auto) , Basophils (%) (Auto) , Sodium Level 138, Potassium Level 5.3H, Chloride Level 103, Carbon Dioxide Level 13L, Anion Gap 22H, Blood Urea Nitrogen 106H, Creatinine 3.8H, Estimat Glomerular Filtration Rate , Glucose Level 91, Calcium Level 8.1L, Phosphorus Level 9.0H, Magnesium Level 2.3, Total Bilirubin 1.4H, Direct Bilirubin 1.0H, Aspartate Amino Transf (AST/SGOT) 49H, Alanine Aminotransferase (ALT/SGPT) 21, Alkaline Phosphatase 165H, C-Reactive Protein, Quantitative 20.8H, Pro-B-Type Natriuretic Peptide 44390J, Total Protein 5.4L, Albumin 1.7L, Globulin 3.7, Albumin/Globulin Ratio 0.4L Height (Feet): 5 Height (Inches): 8.00 Weight (Pounds): 160 General Appearance: lethargic Cardiovascular: tachycardia Respiratory/Chest: decreased breath sounds Abdomen: distended MIGUEL SLOAN Mar 25, 2017 13:44
--- NOTE | 2017-03-25 14:27 | Wound Care Consultation ---
Wound Assessment Wound Assessment #1: Wound Number: 1 Wound Present on Admission: No New Wound: Yes Status Change of Wound: No Wound Location Body Site Modif: left, mid, lateral Wound Location Body Site: foot Wound Type: pressure ulcer Eliz Test: Does not Eliz Pressure Ulcer Stage: deep tissue injury Wound Thickness: Full Thickness Wound Length: 1.0 Wound Width: 1.0 Wound Depth: utd Percent of Wound Purple/Maroon: 100 Wound Drainage Amount: None Wound Drainage Odor: None/Absent Tissue Surrounding Wound: Intact Wound General Appearance: Clean/Dry Wound Assessment #2: Wound Number: 2 Wound Present on Admission: No New Wound: Yes Status Change of Wound: No Wound Location Body Site Modif: left, upper, medial Wound Location Body Site: leg Wound Type: blister - scattered ruptured blisters Eliz Test: Does not Eliz Wound Thickness: Partial Thickness Percent of Wound [place]/Red: 100 - scattered Wound Drainage Amount: None Wound Drainage Odor: None/Absent Tissue Surrounding Wound: Erythemic Wound General Appearance: Reddened Wound Assessment #3: Wound Number: 3 Wound Present on Admission: No New Wound: Yes Status Change of Wound: No Wound Location Body Site: other - anterior penile area Wound Type: other - open wound etiology unknown Eliz Test: Does not Eliz Wound Thickness: Partial Thickness Wound Length: 1.0 Wound Width: 1.0 Wound Depth: 0.1 Percent of Wound [place]/Red: 100 Wound Drainage Amount: None Wound Drainage Odor: None/Absent Tissue Surrounding Wound: Erythemic Wound General Appearance: Reddened Wound Assessment #4: Wound Number: 4 Wound Present on Admission: No New Wound: Yes Status Change of Wound: No Wound Location Body Site: perianal Wound Type: chemical burn - with erosion Eliz Test: Does not Eliz Wound Thickness: Partial Thickness Percent of Wound [place]/Red: 100 - scattered Wound Drainage Amount: None Wound Drainage Odor: None/Absent Tissue Surrounding Wound: Macerated Wound General Appearance: Reddened, Open to air Wound Assessment #5: Wound Number: 5 Wound Present on Admission: No New Wound: Yes Status Change of Wound: No Wound Location Body Site Modif: right, dorsal Wound Location Body Site: foot - aspect of foot Wound Type: pressure ulcer Eliz Test: Does not Eliz Pressure Ulcer Stage: I Percent of Wound [place]/Red: 100 Wound Drainage Amount: None Wound Drainage Odor: None/Absent Tissue Surrounding Wound: Erythemic Wound General Appearance: Reddened Wound Assessment #6: Wound Number: 6 Wound Present on Admission: No New Wound: Yes Status Change of Wound: No Wound Location Body Site Modif: left, mid, posterior Wound Location Body Site: thigh Wound Type: blister - denuded Eliz Test: Does not Eliz Blisters: Denuded Blister - with sloughing yelloe/white cap Wound Thickness: Partial Thickness Wound Length: 1.5 Wound Width: 1.0 Wound Depth: utd Percent of Wound [place]/Red: 80 Percent of Wound Bed Yellow/Wh: 20 Wound Drainage Description: Serosanguineous Wound Drainage Amount: Scant Wound Drainage Odor: None/Absent Tissue Surrounding Wound: Denuded Wound General Appearance: Reddened Wound Comment #1 Left lateral foot deep tissue injury. #2 left inner upper leg scattered blisters. #3 penile area open wound-etiology unknown. #4 perianal chemical burn with erosion. #5 right dorsal aspect of foot stage 1. #6 Left posterior thigh denuded blister. FOLLOW UP WITH MD FOR PODIATRY CONSULT TO LEFT HEEL . Recommendation. -Local wound care as ordered. -Keep clean and dry. -Optimize nutrition. -Turn and reposition. -Heel protectors. -low air loss mattress for wound and skin management. -Avoid shear and friction. -Offload affected wound sites. -Offload heels and feet. -Assess and notify MD for any changes of condition noted to skin. RYANN BASILIO Mar 25, 2017 14:27
[2017-03-25] MEDS: Aluminum Hydroxide Gel Susp 15ml GT SCH ×2 (14:29→21:09)
--- NOTE | 2017-03-25 15:58 | Infectious Diseases Prog Note ---
Assessment/Plan Assessment/Plan Assessment: --Polymicrobial MDR Gram negative septicemia (KPC, MDR ACB); persistent (03/16), (03/18), cleared on 03/20, prior picc tip from 03/19 negative. 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 colistin --Chronic vegetative state, vent dependent, s/p peg tube --HIV and viral hepatitis serology negative --elevated inflammatory markers (CRP 23 mg/dL) --severe diffuse xerosis --b/l onychomycosis --poor healing potential --torso/upper arm rash --increased alk phos Plan: -- cont Merrem d# 4 / 5 ( synergic effect w Colistin ) --Continue colistin 1.5mg/kg IV q36hr renally dosed D# 7 ( will cont despite of ARF, pt has no better AB Rx choice a this time ) --Continue tigecycline 50mg IV q12hr D# 6 /7 -- ( IV zosyn D#4 ) (03/19 s/p IV IV vancomycin D#4 (03/18 s/p IV amikacin D#2) --f/u surveillance blood cx (03/20) --worsened leukocytosis today w/o fevers. Will send C diff, repeat blood cx now. continue current therapy. long-term plan likely to change once distant family arrives later this week. --continue wound care. s/p wound care consultation. continue topical/chemical debridements as needed -- Nephro is following -- family may consider comfort-care Subjective ROS Limited/Unobtainable: Yes Allergies: Coded Allergies: No Known Allergies (Unverified , 03/15/17) Subjective afebrile since 03/20 Objective Vital Signs Last 24 Hour Vital Signs Date Time Temp Pulse Resp B/P (MAP) Pulse Ox O2 Delivery O2 Flow Rate FiO2 03/25/17 14:48 129 34 30 03/25/17 13:03 116 31 30 03/25/17 12:00 115 03/25/17 12:00 30 03/25/17 11:43 97.5 120 24 86/36 100 Mechanical Ventilator 30 03/25/17 10:38 106 28 30 03/25/17 08:56 99 27 30 03/25/17 08:00 95.7 97 24 79/46 100 Mechanical Ventilator 03/25/17 08:00 83 03/25/17 08:00 30 03/25/17 07:05 93 26 30 03/25/17 05:13 103 31 30 03/25/17 04:13 30 03/25/17 04:00 91 03/25/17 04:00 92.9 85 30 88/48 100 Mechanical Ventilator 30 03/25/17 03:08 90 29 30 03/25/17 01:25 104 24 30 03/25/17 00:09 106 32 101/42 98 Mechanical Ventilator 03/25/17 00:00 92 03/24/17 22:31 102 22 30 03/24/17 21:15 79 23 30 03/24/17 20:00 91 27 84/39 100 Mechanical Ventilator 03/24/17 20:00 71 03/24/17 20:00 30 03/24/17 19:06 67 27 30 03/24/17 17:08 67 23 30 03/24/17 16:00 79 03/24/17 16:00 96.0 72 30 102/57 100 Mechanical Ventilator 30 03/24/17 16:00 30 Height (Feet): 5 Height (Inches): 8.00 Weight (Pounds): 160 Objective gen: eyes open, not responsive heent: sclera anicteric, oral mucosa dry cv: tachycardic, no murmurs lungs: faint rhonchi, scant trach aspirate abd: soft, nt, difficult exam, peg tube c/d/i ext: new picc c/d/i w/o surrounding erythema. L heel with large dry eschar w/o surrounding erythema. gu: condom cath in place skin: faint erythematous rash developing on torso and upper arms reviewed wound care notes and wound care photos, demonstrating a stage IV sacral decubitus ulcer that doesn't seem to extend deep. Laboratory Tests Test 03/25/17 05:15 White Blood Count 14.6 K/UL (4.8-10.8) #H Red Blood Count 3.17 M/UL (4.70-6.10) L Hemoglobin 10.1 G/DL (14.2-18.0) #L Hematocrit 30.3 % (42.0-52.0) #L Mean Corpuscular Volume 96 FL (80-99) Mean Corpuscular Hemoglobin 31.8 PG (27.0-31.0) H Mean Corpuscular Hemoglobin Concent 33.2 G/DL (32.0-36.0) Red Cell Distribution Width 14.2 % (11.6-14.8) Platelet Count 98 K/UL (150-450) L Mean Platelet Volume 10.7 FL (6.5-10.1) H Neutrophils (%) (Auto) % (45.0-75.0) Lymphocytes (%) (Auto) % (20.0-45.0) Monocytes (%) (Auto) % (1.0-10.0) Eosinophils (%) (Auto) % (0.0-3.0) Basophils (%) (Auto) % (0.0-2.0) Sodium Level 138 mEQ/L (135-145) Potassium Level 5.3 mEQ/L (3.4-4.9) H Chloride Level 103 mEQ/L (98-107) Carbon Dioxide Level 13 mEQ/L (20-30) L Anion Gap 22 (5-15) H Blood Urea Nitrogen 106 mg/dL (7-23) H Creatinine 3.8 mg/dL (0.7-1.2) H Estimat Glomerular Filtration Rate mL/min (>60) Glucose Level 91 mg/dL (74-106) Calcium Level 8.1 mg/dL (8.6-10.2) L Phosphorus Level 9.0 mg/dL (2.5-4.8) H Magnesium Level 2.3 mg/dL (1.7-2.5) Total Bilirubin 1.4 mg/dL (0.0-1.2) H Direct Bilirubin 1.0 mg/dL (0.1-0.3) H Aspartate Amino Transf (AST/SGOT) 49 U/L (5-40) H Alanine Aminotransferase (ALT/SGPT) 21 U/L (3-41) Alkaline Phosphatase 165 U/L (40-129) H C-Reactive Protein, Quantitative 20.8 mg/dL (< 0.5) H Pro-B-Type Natriuretic Peptide 22093 pg/mL (0-450) H Total Protein 5.4 g/dL (6.6-8.7) L Albumin 1.7 g/dL (3.5-5.2) L Globulin 3.7 g/dL Albumin/Globulin Ratio 0.4 (1.0-2.7) L Current Medications Medications (Trade) Dose Ordered Sig/Millicent Route PRN Reason Start Time Stop Time Status Last Admin Dose Admin Acetaminophen (Tylenol) 650 mg EVERY 4 HOURS PRN GT fever 03/20/17 08:15 04/19/17 08:14 03/20/17 16:17 Albuterol/ Ipratropium (DuoNeb 0.5-3(2.5)mg/3ml) 3 ml Q4H PRN HHN Shortness of Breath 03/20/17 19:00 03/25/17 23:59 Aluminum Hydroxide (Amphojel) 1,920 mg Q6H GT 03/25/17 13:45 04/24/17 13:44 03/25/17 14:29 Chlorhexidine Gluconate (Ivanna-Hex 2%) 1 applic QHS TOPIC 03/19/17 21:00 04/18/17 20:59 03/24/17 20:51 Colistimethate Sodium (Colistin) 100 mg Q36H IVP 03/23/17 21:00 03/30/17 20:59 03/25/17 09:18 Dextrose (Dextrose 50%) STAT PRN IV Hypoglycemia 03/15/17 23:00 04/14/17 22:59 Insulin Aspart (NovoLOG) Q6HR SUBQ 03/16/17 12:00 04/15/17 11:59 03/24/17 17:52 Lorazepam (Ativan 2mg/ml 1ml) 2 mg Q2H PRN IV For Anxiety 03/20/17 19:00 03/27/17 23:59 Meropenem 1 gm/ Sodium Chloride 110 ml @ 220 mls/hr Q12H IVPB 03/23/17 01:00 03/28/17 00:59 03/25/17 12:32 Midodrine (Pro-Amatine) 10 mg THREE TIMES A DAY GT 03/25/17 18:00 04/24/17 17:59 Morphine Sulfate (Morphine Sulfate) 4 mg Q4H PRN IVP Severe Pain (Pain Scale 7-10) 03/20/17 19:00 03/27/17 23:59 Ondansetron HCl (Zofran) 4 mg Q6H PRN IVP Nausea & Vomiting 03/15/17 23:00 04/14/17 22:59 Sodium Chloride 1,000 ml @ 150 mls/hr Q6H40M IV 03/25/17 15:45 04/24/17 15:44 UNV Sodium Chloride 1,000 ml @ 999 mls/hr Q1H1M ONCE IV 03/25/17 15:45 03/25/17 16:45 UNV Sodium Citrate (Bicitra) 30 ml EVERY 6 HOURS GT 03/24/17 09:45 04/23/17 09:44 03/25/17 12:32 Tigecycline 50 mg/ Dextrose 110 ml @ 220 mls/hr Q12H IVPB 03/20/17 08:00 03/27/17 07:59 03/25/17 08:31 Moises Aleman M.D. Mar 25, 2017 15:58
[2017-03-25 16:00] VITALS: BP 91/56
--- NOTE | 2017-03-25 17:38 | Cardiology Progress Note ---
Assessment/Plan Assessment/Plan 1. Permanent atrial fibrillation. 2. Anoxic encephalopathy. 3. Sepsis. 4. ARF on vetn iv abx hhn tel noted afib vr 120's poor anticoag candidate dig level was ok will resume cr continues to increase renal following lopressor was dc heart rate may increase may need resumed echo for lv function ivf Subjective ROS Limited/Unobtainable: Yes Objective Last 24 Hour Vital Signs Date Time Temp Pulse Resp B/P (MAP) Pulse Ox O2 Delivery O2 Flow Rate FiO2 03/25/17 16:51 121 33 30 03/25/17 16:19 30 03/25/17 16:00 121 03/25/17 16:00 98.7 125 33 91/56 100 Mechanical Ventilator 03/25/17 14:48 129 34 30 03/25/17 13:03 116 31 30 03/25/17 12:00 115 03/25/17 12:00 30 03/25/17 11:43 97.5 120 24 86/36 100 Mechanical Ventilator 03/25/17 10:38 106 28 30 03/25/17 08:56 99 27 30 03/25/17 08:00 95.7 97 24 79/46 100 Mechanical Ventilator 03/25/17 08:00 83 03/25/17 08:00 30 03/25/17 07:05 93 26 30 03/25/17 05:13 103 31 30 03/25/17 04:13 30 03/25/17 04:00 91 03/25/17 04:00 92.9 85 30 88/48 100 Mechanical Ventilator 03/25/17 03:08 90 29 30 03/25/17 01:25 104 24 30 03/25/17 00:09 106 32 101/42 98 Mechanical Ventilator 03/25/17 00:00 92 03/24/17 22:31 102 22 30 03/24/17 21:15 79 23 30 03/24/17 20:00 91 27 84/39 100 Mechanical Ventilator 03/24/17 20:00 71 03/24/17 20:00 30 03/24/17 19:06 67 27 30 General Appearance: on vent, patient on isolation Laboratory Tests Test 03/25/17 05:15 White Blood Count 14.6 K/UL (4.8-10.8) #H Red Blood Count 3.17 M/UL (4.70-6.10) L Hemoglobin 10.1 G/DL (14.2-18.0) #L Hematocrit 30.3 % (42.0-52.0) #L Mean Corpuscular Volume 96 FL (80-99) Mean Corpuscular Hemoglobin 31.8 PG (27.0-31.0) H Mean Corpuscular Hemoglobin Concent 33.2 G/DL (32.0-36.0) Red Cell Distribution Width 14.2 % (11.6-14.8) Platelet Count 98 K/UL (150-450) L Mean Platelet Volume 10.7 FL (6.5-10.1) H Neutrophils (%) (Auto) % (45.0-75.0) Lymphocytes (%) (Auto) % (20.0-45.0) Monocytes (%) (Auto) % (1.0-10.0) Eosinophils (%) (Auto) % (0.0-3.0) Basophils (%) (Auto) % (0.0-2.0) Sodium Level 138 mEQ/L (135-145) Potassium Level 5.3 mEQ/L (3.4-4.9) H Chloride Level 103 mEQ/L (98-107) Carbon Dioxide Level 13 mEQ/L (20-30) L Anion Gap 22 (5-15) H Blood Urea Nitrogen 106 mg/dL (7-23) H Creatinine 3.8 mg/dL (0.7-1.2) H Estimat Glomerular Filtration Rate mL/min (>60) Glucose Level 91 mg/dL (74-106) Calcium Level 8.1 mg/dL (8.6-10.2) L Phosphorus Level 9.0 mg/dL (2.5-4.8) H Magnesium Level 2.3 mg/dL (1.7-2.5) Total Bilirubin 1.4 mg/dL (0.0-1.2) H Direct Bilirubin 1.0 mg/dL (0.1-0.3) H Aspartate Amino Transf (AST/SGOT) 49 U/L (5-40) H Alanine Aminotransferase (ALT/SGPT) 21 U/L (3-41) Alkaline Phosphatase 165 U/L (40-129) H C-Reactive Protein, Quantitative 20.8 mg/dL (< 0.5) H Pro-B-Type Natriuretic Peptide 86485 pg/mL (0-450) H Total Protein 5.4 g/dL (6.6-8.7) L Albumin 1.7 g/dL (3.5-5.2) L Globulin 3.7 g/dL Albumin/Globulin Ratio 0.4 (1.0-2.7) L DEBORAH MUKHERJEE Mar 25, 2017 17:38
[2017-03-25] MEDS: Midodrine 10mg tab GT SCH (18:01)
[2017-03-25 20:00] VITALS: BP 106/75
[2017-03-25] MEDS: Dyna-Hex 2% Top Sol 8oz TOPIC SCH (21:09)
--- NOTE | 2017-03-25 23:00 | Consultation ---
DATE OF CONSULTATION: 03/16/2017 INFECTIOUS DISEASE CONSULTATION This consult is for coverage of Dr. Crawley. PRIMARY ATTENDING PHYSICIAN: Dago Dao M.D. REASON FOR CONSULTATION: Sepsis. HISTORY OF PRESENT ILLNESS: This is an 82-year-old Romans[place] male, who is a detention resident, admitted last night because of fever with a temperature of 102 degrees in the facility and in the ER had a temperature 101.1 degrees. The patient is not a source of history. He had recent admission to [facility] with sepsis. He had a PICC line at the time of admission. He had leukocytosis and lactic acidosis. PAST MEDICAL HISTORY: Significant for diabetes mellitus, hypertension, ventilator-dependent respiratory failure, status post G-tube, chronic atrial fibrillation, anemia, dementia, and persistent vegetative state. MEDICATIONS: Getting vancomycin, insulin, digoxin, metoprolol, heparin, Zosyn, DuoNeb inhaler, Tylenol, morphine, MiraLax, Zofran, and lorazepam. ALLERGIES: No known drug allergies. SOCIAL HISTORY: A detention resident with poor mental functional status. . PHYSICAL EXAMINATION: VITAL SIGNS: Temperature 99.5 degrees, pulse 99, and blood pressure 128/49. HEAD AND NECK: Status post tracheostomy. HEART: Tachycardic. Irregular. LUNGS: On mechanical ventilator. ABDOMEN: Soft. G-tube in place. EXTREMITIES: No edema. Right arm PICC line. SKIN: The patient has multiple skin tears and large pressure ulcer that is unstageable at the sacral area and there is also right foot ulcer. LABORATORY DATA: WBC 14.3, hemoglobin 7.7, hematocrit 23.6, and platelets is 166,000. Sodium 133, potassium 4.3, chloride 99, bicarbonate 24, BUN 20, and creatinine 0.7. Glucose 167. Lactic acid was 2.9 that comes to 1.7. Albumin is 2.1. UA shows WBC of 5 to 10, RBC of 10 to 15, and leukocyte 2+. Chest x-ray showed no acute infiltrate. IMPRESSION: Sepsis with lactic acidosis, leukocytosis, and fever. Source might be urinary tract infection. The patient has pyuria. The patient has ventilator-dependant respiratory failure, chronic atrial fibrillation, severe anemia, diabetes, hypertension, and advanced dementia. RECOMMENDATIONS: We will continue with vancomycin and Zosyn. We will follow up the culture. The patient is at risk of line infection. At the end of my exam, I thank Dr. Dao for involving me in the care of this patient. Flavio Sparks M.D. DR: ELVER JOB#: [id number] CC: PATRICIA
--- NOTE | 2017-03-25 23:16 | General Progress Note ---
Assessment/Plan Status: stable Assessment/Plan 1. Coagulopathy. PTT study reviewed. -->2/2 sepsis vs medications 2. Anemia, likely secondary to hemodilution. --> Monitor 3. Anemia, secondary to chronic disease. Anemia workup has been completed and reviewed. --> continue to monitor counts --> give blood transfusion if symptomatic or hgb <7.5 --> S/P blood transfusion, hemoglobin now >10 4. Leukocytosis, potentially secondary to underlying sepsis with a left shift, neutrophil predominant leukocytosis. --> id following --> On Antibiotics, wbc count elevated 5. Hypocalcemia potentially secondary to hemodilution. Continue to monitor. 6. Sepsis. He is on antibiotics. 7. Chronic vegetative state 8. Atherosclerotic disease. --> Ultrasound of abdomen revealed small bilateral renal cysts Subjective Date patient seen: Mar 25, 2017 Time patient seen: 06:00 Constitutional: Denies: no symptoms, chills, diaphoresis, fever, malaise, weakness, other HEENT: Denies: no symptoms, eye pain, blurred vision, tearing, double vision, ear pain, ear discharge, nose pain, nose congestion, throat pain, throat swelling, mouth pain, mouth swelling, other Cardiovascular: Denies: no symptoms, chest pain, edema, irregular heart rate, lightheadedness, palpitations, syncope, other Gastrointestinal/Abdominal: Denies: no symptoms, abdomen distended, abdominal pain, black stools, tarry stools, blood in stool, constipated, diarrhea, difficulty swallowing, nausea, poor appetite, poor fluid intake, rectal bleeding , vomiting, other Hematologic/Lymphatic: Reports: anemia Allergies: Coded Allergies: No Known Allergies (Unverified , 03/15/17) Subjective No acute distress. Afebrile. S/P Blood transfusion, hemoglobin now >10 Objective Last 24 Hour Vital Signs Date Time Temp Pulse Resp B/P (MAP) Pulse Ox O2 Delivery O2 Flow Rate FiO2 03/25/17 22:45 142 35 30 03/25/17 20:44 132 32 30 03/25/17 20:29 127 03/25/17 20:00 99.1 132 32 106/75 100 Mechanical Ventilator 30 03/25/17 20:00 30 03/25/17 19:06 126 30 30 03/25/17 16:51 121 33 30 8/31/17 16:19 30 03/25/17 16:00 121 03/25/17 16:00 98.7 125 33 91/56 100 Mechanical Ventilator 30 03/25/17 14:48 129 34 30 03/25/17 13:03 116 31 30 03/25/17 12:00 115 03/25/17 12:00 30 03/25/17 11:43 97.5 120 24 86/36 100 Mechanical Ventilator 30 03/25/17 10:38 106 28 30 03/25/17 08:56 99 27 30 03/25/17 08:00 95.7 97 24 79/46 100 Mechanical Ventilator 30 03/25/17 08:00 83 03/25/17 08:00 30 03/25/17 07:05 93 26 30 03/25/17 05:13 103 31 30 03/25/17 04:13 30 03/25/17 04:00 91 03/25/17 04:00 92.9 85 30 88/48 100 Mechanical Ventilator 30 03/25/17 03:08 90 29 30 03/25/17 01:25 104 24 30 03/25/17 00:09 106 32 101/42 98 Mechanical Ventilator 30 03/25/17 00:00 92 Intake and Output 03/25/17 03/26/17 19:00 07:00 Intake Total 1095 ml Output Total 150 ml Balance 945 ml Free Water 200 ml IV Total 220 ml Tube Feeding 495 ml Other 180 ml Output Urine Total 150 ml # Bowel Movements 50 Laboratory Tests 03/25/17 05:15: White Blood Count 14.6#H, Red Blood Count 3.17L, Hemoglobin 10.1#L, Hematocrit 30.3#L, Mean Corpuscular Volume 96, Mean Corpuscular Hemoglobin 31.8H, Mean Corpuscular Hemoglobin Concent 33.2, Red Cell Distribution Width 14.2, Platelet Count 98L, Mean Platelet Volume 10.7H, Neutrophils (%) (Auto) , Lymphocytes (%) (Auto) , Monocytes (%) (Auto) , Eosinophils (%) (Auto) , Basophils (%) (Auto) , Sodium Level 138, Potassium Level 5.3H, Chloride Level 103, Carbon Dioxide Level 13L, Anion Gap 22H, Blood Urea Nitrogen 106H, Creatinine 3.8H, Estimat Glomerular Filtration Rate , Glucose Level 91, Calcium Level 8.1L, Phosphorus Level 9.0H, Magnesium Level 2.3, Total Bilirubin 1.4H, Direct Bilirubin 1.0H, Aspartate Amino Transf (AST/SGOT) 49H, Alanine Aminotransferase (ALT/SGPT) 21, Alkaline Phosphatase 165H, C-Reactive Protein, Quantitative 20.8H, Pro-B-Type Natriuretic Peptide 68347F, Total Protein 5.4L, Albumin 1.7L, Globulin 3.7, Albumin/Globulin Ratio 0.4L Height (Feet): 5 Height (Inches): 8.00 Weight (Pounds): 160 General Appearance: lethargic Cardiovascular: tachycardia Respiratory/Chest: decreased breath sounds Abdomen: distended AMALIA SAEED Mar 25, 2017 23:16
[2017-03-26] VITALS (11 sets, daily range): BP systolic 82–111; BP diastolic 39–63
[2017-03-26] MEDS: Sodium Citrate 30ml GT SCH ×2 (00:04→06:09)
[2017-03-26] MEDS: Meropenem 1 GM in NS 110 ML IVPB SCH (00:06)
[2017-03-26 01:58] LABS: BASOPHILS % (AUTO) 0.8 % (0.0-2.0); EOSINOPHILS % (AUTO) 2.2 % (0.0-3.0); LYMPHOCYTES % (AUTO) 13.5 % (20.0-45.0); MEAN CORPUSCULAR HEMOGLOBIN 32.3 PG (27.0-31.0); MEAN CORPUSCULAR HGB CONC 34.3 G/DL (32.0-36.0); MEAN CORPUSCULAR VOLUME 94 FL (80-99); MEAN PLATELET VOLUME 8.5 FL (6.5-10.1); MONOCYTES % (AUTO) 8.7 % (1.0-10.0); NEUTROPHILS % (AUTO) 74.7 % (45.0-75.0); PLATELET COUNT 121 K/UL (150-450); RED CELL DISTRIBUTION WIDTH 14.8 % (11.6-14.8); WHITE BLOOD COUNT 16.3 K/UL (4.8-10.8)
[2017-03-26] MEDS: Aluminum Hydroxide Gel Susp 15ml GT SCH ×2 (02:09→08:20)
[2017-03-26 02:21] LABS: ALANINE AMINOTRANSFERASE 19 U/L (3-41); ALBUMIN/GLOBULIN RATIO 0.3 (1.0-2.7); ANION GAP 21 (5-15); ASPARTATE AMINO TRANSFERASE 36 U/L (5-40); CALCIUM 7.8 mg/dL (8.6-10.2); CARBON DIOXIDE 14 mEQ/L (20-30); CHLORIDE 103 mEQ/L (98-107); CREATININE 4.3 mg/dL (0.7-1.2); CRP QUANT 24.8 mg/dL (< 0.5); HEMOLYSIS 5; MAGNESIUM 2.4 mg/dL (1.7-2.5); PHOSPHORUS 9.9 mg/dL (2.5-4.8); SODIUM 138 mEQ/L (135-145); TOTAL PROTEIN 5.7 g/dL (6.6-8.7); URIC ACID 7.5 mg/dL (3.0-7.5)
[2017-03-26 02:37] LABS: POTASSIUM 5.9 mEQ/L (3.4-4.9)
[2017-03-26] MEDS: NovoLOG Insulin Flexpen SUBQ SCH ×3 (06:00→12:36)
[2017-03-26] MEDS: Tigecycline 50 MG in D5W 110 ML IVPB SCH (08:20)
[2017-03-26] MEDS: Midodrine 10mg tab GT SCH ×2 (09:00→13:00)
[2017-03-26] MEDS ORDERED: Sodium Polystyrene Sulfonate 15gm Powder GT ONE (09:30)
--- NOTE | 2017-03-26 11:14 | Pulmonology Progress Note ---
Assessment/Plan Problems: (1) ATN (acute tubular necrosis) (2) Acute and chronic respiratory failure (3) Sepsis (4) Bacteremia (5) Anemia (6) Chronic vegetative state (7) Feeding by G-tube Respiratory: monitor respiratory rate, adjust FIO2, CXR Cardiac: continue pressors, continue to monitor HR/BP Renal: F/U I&O, keep IV fluid, increase IV fluid Infectious Disease: check cultures, continue antibiotics Endocrine: monitor blood sugar, check HgA1C Hematologic: monitor H/H Neurologic: PRN Ativan, PRN Morphine Affect: PRN ativan Prophylaxis: Heparin Notes Reviewed: cardio Discussed with: nurses, consultants, patient case manager Subjective ROS Limited/Unobtainable: Yes Constitutional: Reports: no symptoms HEENT: Repors: no symptoms Respiratory: Reports: no symptoms Cardiovascular: Reports: no symptoms Allergies: Coded Allergies: No Known Allergies (Unverified , 03/15/17) Objective Last 24 Hour Vital Signs Date Time Temp Pulse Resp B/P (MAP) Pulse Ox O2 Delivery O2 Flow Rate FiO2 03/26/17 09:44 30 03/26/17 09:18 107 27 30 03/26/17 08:43 96.1 110 28 111/46 97 Mechanical Ventilator 30 03/26/17 08:00 30 03/26/17 07:47 109 03/26/17 07:10 113 33 30 03/26/17 05:30 117 33 30 03/26/17 04:02 115 03/26/17 04:00 96.6 125 34 111/57 100 Mechanical Ventilator 30 03/26/17 04:00 30 03/26/17 02:58 117 35 30 03/26/17 01:02 124 34 30 03/26/17 00:00 30 03/26/17 00:00 130 03/26/17 00:00 99.1 128 36 95/60 100 Mechanical Ventilator 30 03/25/17 22:45 142 35 30 03/25/17 20:44 132 32 30 03/25/17 20:29 127 03/25/17 20:00 99.1 132 32 106/75 100 Mechanical Ventilator 30 03/25/17 20:00 30 03/25/17 19:06 126 30 30 03/25/17 16:51 121 33 30 03/25/17 16:19 30 03/25/17 16:00 121 03/25/17 16:00 98.7 125 33 91/56 100 Mechanical Ventilator 30 03/25/17 14:48 129 34 30 03/25/17 13:03 116 31 30 03/25/17 12:00 115 03/25/17 12:00 30 03/25/17 11:43 97.5 120 24 86/36 100 Mechanical Ventilator 30 Intake and Output 03/26/17 03/27/17 19:00 07:00 Intake Total 550 ml Balance 550 ml IV Total 335 ml Tube Feeding 135 ml Other 80 ml General Appearance: cachetic HEENT: normocephalic, atraumatic Respiratory/Chest: chest wall non-tender, lungs clear Cardiovascular: normal peripheral pulses, normal rate Abdomen: normal bowel sounds, soft, non tender Extremities: no cyanosis Skin: no rash Neurologic/Psychiatric: compliance specialist II-XII grossly normal, no motor/sensory deficits Laboratory Tests 03/26/17 01:50: White Blood Count 16.3H, Red Blood Count 3.00L, Hemoglobin 9.7L, Hematocrit 28.2L, Mean Corpuscular Volume 94, Mean Corpuscular Hemoglobin 32.3H, Mean Corpuscular Hemoglobin Concent 34.3, Red Cell Distribution Width 14.8, Platelet Count 121L, Mean Platelet Volume 8.5, Neutrophils (%) (Auto) 74.7, Lymphocytes ( %) (Auto) 13.5L, Monocytes (%) (Auto) 8.7, Eosinophils (%) (Auto) 2.2, Basophils (%) (Auto) 0.8, Sodium Level 138, Potassium Level 5.9H, Chloride Level 103, Carbon Dioxide Level 14L, Anion Gap 21H, Blood Urea Nitrogen 111H, Creatinine 4.3H, Estimat Glomerular Filtration Rate , Glucose Level 75, Uric Acid 7.5, Calcium Level 7.8L, Phosphorus Level 9.9H, Magnesium Level 2.4, Total Bilirubin 0.7, Aspartate Amino Transf (AST/SGOT) 36, Alanine Aminotransferase ( ALT/SGPT) 19, Alkaline Phosphatase 196H, C-Reactive Protein, Quantitative 24.8H , Pro-B-Type Natriuretic Peptide 25019Q, Total Protein 5.7L, Albumin 1.6L, Globulin 4.1, Albumin/Globulin Ratio 0.3L Current Medications Medications (Trade) Dose Ordered Sig/Millicent Route PRN Reason Start Time Stop Time Status Last Admin Dose Admin Acetaminophen (Tylenol) 650 mg EVERY 4 HOURS PRN GT fever 03/20/17 08:15 04/19/17 08:14 03/20/17 16:17 Albuterol/ Ipratropium (DuoNeb 0.5-3(2.5)mg/3ml) 3 ml Q4H PRN HHN Shortness of Breath 03/20/17 19:00 03/25/17 23:59 Aluminum Hydroxide (Amphojel) 1,920 mg Q6H GT 03/25/17 13:45 04/24/17 13:44 03/26/17 08:20 Chlorhexidine Gluconate (Ivanna-Hex 2%) 1 applic QHS TOPIC 03/19/17 21:00 04/18/17 20:59 03/25/17 21:09 Colistimethate Sodium (Colistin) 100 mg Q36H IVP 03/23/17 21:00 03/30/17 20:59 03/25/17 09:18 Dextrose (Dextrose 50%) STAT PRN IV Hypoglycemia 03/15/17 23:00 04/14/17 22:59 Insulin Aspart (NovoLOG) Q6HR SUBQ 03/16/17 12:00 04/15/17 11:59 03/24/17 17:52 Lorazepam (Ativan 2mg/ml 1ml) 2 mg Q2H PRN IV For Anxiety 03/20/17 19:00 03/27/17 23:59 Meropenem 1 gm/ Sodium Chloride 110 ml @ 220 mls/hr Q12H IVPB 03/23/17 01:00 03/28/17 00:59 03/26/17 00:06 Midodrine (Pro-Amatine) 10 mg THREE TIMES A DAY GT 03/25/17 18:00 04/24/17 17:59 03/25/17 18:01 Morphine Sulfate (Morphine Sulfate) 4 mg Q4H PRN IVP Severe Pain (Pain Scale 7-10) 03/20/17 19:00 03/27/17 23:59 Ondansetron HCl (Zofran) 4 mg Q6H PRN IVP Nausea & Vomiting 03/15/17 23:00 04/14/17 22:59 Sodium Chloride 1,000 ml @ 75 mls/hr [id number] IV 03/26/17 10:00 04/25/17 09:59 03/26/17 09:41 Tigecycline 50 mg/ Dextrose 110 ml @ 220 mls/hr Q12H IVPB 03/20/17 08:00 03/27/17 07:59 03/26/17 08:20 LIGIA JARAMILLO Mar 26, 2017 11:14
[2017-03-26] MEDS ORDERED: Sodium Polystyrene Sulfonate 15gm Powder ORAL ONE (12:00)
[2017-03-26] MEDS ORDERED: Tubing IV Blood Pump IV ONE (14:02)
[2017-03-26] MEDS ORDERED: NS 275ml ONE (14:02)
[2017-03-26] MEDS ORDERED: Tubing IV Secondary IV ONE (14:02)
--- NOTE | 2017-03-26 14:48 | General Progress Note ---
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 Anemia requiring blood transfusion Elevated inflammatory markers Dysphagia, G tube Functional quadriplegia Chronic vegetative state Multiple decub ulcers POA: sacrococcyx decub ulcer st 3, R scapula decub ulcer st 2 POA, L heel pressure ulcer unstageable L heel dry gangrene Coagulopathy Sugg: Dialysis is needed, yet the family considering terminal extubation and I concur Transfuse d Urine studies- Avoid Nephrotoxics if possible: On colistin and received Amikacin and Vanco Monitor renal parameters Keep BP and BS in check stop Lopressor Subjective ROS Limited/Unobtainable: Yes Allergies: Coded Allergies: No Known Allergies (Unverified , 03/15/17) Objective Last 24 Hour Vital Signs Date Time Temp Pulse Resp B/P (MAP) Pulse Ox O2 Delivery O2 Flow Rate FiO2 03/26/17 13:40 111 26 84/58 96 Mechanical Ventilator 30 03/26/17 13:06 103/53 03/26/17 12:51 105 28 100/57 96 Mechanical Ventilator 30 03/26/17 12:37 110 26 99/49 96 Mechanical Ventilator 30 03/26/17 11:52 118 28 85/46 97 Mechanical Ventilator 30 03/26/17 11:50 112 03/26/17 11:49 96.3 110 29 82/46 97 Mechanical Ventilator 30 03/26/17 11:45 100 26 90/63 96 Mechanical Ventilator 30 03/26/17 11:38 113 26 96/39 96 Mechanical Ventilator 30 03/26/17 11:23 96 29 30 03/26/17 09:44 30 03/26/17 09:18 107 27 30 03/26/17 08:43 96.1 110 28 111/46 97 Mechanical Ventilator 30 03/26/17 08:00 30 03/26/17 07:47 109 03/26/17 07:10 113 33 30 03/26/17 05:30 117 33 30 03/26/17 04:02 115 03/26/17 04:00 96.6 125 34 111/57 100 Mechanical Ventilator 30 03/26/17 04:00 30 03/26/17 02:58 117 35 30 03/26/17 01:02 124 34 30 03/26/17 00:00 30 03/26/17 00:00 130 03/26/17 00:00 99.1 128 36 95/60 100 Mechanical Ventilator 30 03/25/17 22:45 142 35 30 03/25/17 20:44 132 32 30 03/25/17 20:29 127 03/25/17 20:00 99.1 132 32 106/75 100 Mechanical Ventilator 30 03/25/17 20:00 30 03/25/17 19:06 126 30 30 03/25/17 16:51 121 33 30 03/25/17 16:19 30 03/25/17 16:00 121 03/25/17 16:00 98.7 125 33 91/56 100 Mechanical Ventilator 30 03/25/17 14:48 129 34 30 Intake and Output 03/26/17 03/27/17 19:00 07:00 Intake Total 2262 ml Balance 2262 ml IV Total 2047 ml Tube Feeding 135 ml Other 80 ml Laboratory Tests 03/26/17 01:50: White Blood Count 16.3H, Red Blood Count 3.00L, Hemoglobin 9.7L, Hematocrit 28.2L, Mean Corpuscular Volume 94, Mean Corpuscular Hemoglobin 32.3H, Mean Corpuscular Hemoglobin Concent 34.3, Red Cell Distribution Width 14.8, Platelet Count 121L, Mean Platelet Volume 8.5, Neutrophils (%) (Auto) 74.7, Lymphocytes ( %) (Auto) 13.5L, Monocytes (%) (Auto) 8.7, Eosinophils (%) (Auto) 2.2, Basophils (%) (Auto) 0.8, Sodium Level 138, Potassium Level 5.9H, Chloride Level 103, Carbon Dioxide Level 14L, Anion Gap 21H, Blood Urea Nitrogen 111H, Creatinine 4.3H, Estimat Glomerular Filtration Rate , Glucose Level 75, Uric Acid 7.5, Calcium Level 7.8L, Phosphorus Level 9.9H, Magnesium Level 2.4, Total Bilirubin 0.7, Aspartate Amino Transf (AST/SGOT) 36, Alanine Aminotransferase ( ALT/SGPT) 19, Alkaline Phosphatase 196H, C-Reactive Protein, Quantitative 24.8H , Pro-B-Type Natriuretic Peptide 48116S, Total Protein 5.7L, Albumin 1.6L, Globulin 4.1, Albumin/Globulin Ratio 0.3L Height (Feet): 5 Height (Inches): 8.00 Weight (Pounds): 160 General Appearance: mild distress Respiratory/Chest: decreased breath sounds Abdomen: distended MIGUEL SLOAN Mar 26, 2017 14:48
--- NOTE | 2017-03-26 15:28 | Infectious Diseases Prog Note ---
Assessment/Plan Assessment/Plan Assessment: --Polymicrobial MDR Gram negative septicemia (KPC, MDR ACB); persistent (03/16), (03/18), cleared on 03/20, prior picc tip from 03/19 negative. 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 colistin nephrotoxicity less likely as it's typically a cumulative dose dependent phenomenon --Chronic vegetative state, vent dependent, s/p peg tube --HIV and viral hepatitis serology negative --elevated inflammatory markers (CRP 23 mg/dL) --severe diffuse xerosis --b/l onychomycosis --poor healing potential --torso/upper arm rash --increased alk phos Plan: --transitioned to hospice, so can d/c IV delroy (d#5), colistin (D#8), and tigelycine (D#7) ( IV zosyn D#4 ) (03/19 s/p IV IV vancomycin D#4 (03/18 s/p IV amikacin D#2) hospice dispo today Subjective ROS Limited/Unobtainable: Yes Allergies: Coded Allergies: No Known Allergies (Unverified , 03/15/17) Subjective afebrile since 03/20 Objective Vital Signs Last 24 Hour Vital Signs Date Time Temp Pulse Resp B/P (MAP) Pulse Ox O2 Delivery O2 Flow Rate FiO2 03/26/17 13:40 111 26 84/58 96 Mechanical Ventilator 30 03/26/17 13:06 103/53 03/26/17 12:51 105 28 100/57 96 Mechanical Ventilator 30 03/26/17 12:37 110 26 99/49 96 Mechanical Ventilator 30 03/26/17 11:52 118 28 85/46 97 Mechanical Ventilator 30 03/26/17 11:50 112 03/26/17 11:49 96.3 110 29 82/46 97 Mechanical Ventilator 30 03/26/17 11:45 100 26 90/63 96 Mechanical Ventilator 30 03/26/17 11:38 113 26 96/39 96 Mechanical Ventilator 30 03/26/17 11:23 96 29 30 03/26/17 09:44 30 03/26/17 09:18 107 27 30 03/26/17 08:43 96.1 110 28 111/46 97 Mechanical Ventilator 30 03/26/17 08:00 30 03/26/17 07:47 109 03/26/17 07:10 113 33 30 03/26/17 05:30 117 33 30 03/26/17 04:02 115 03/26/17 04:00 96.6 125 34 111/57 100 Mechanical Ventilator 30 03/26/17 04:00 30 03/26/17 02:58 117 35 30 03/26/17 01:02 124 34 30 03/26/17 00:00 30 03/26/17 00:00 130 03/26/17 00:00 99.1 128 36 95/60 100 Mechanical Ventilator 03/25/17 22:45 142 35 30 03/25/17 20:44 132 32 30 03/25/17 20:29 127 03/25/17 20:00 99.1 132 32 106/75 100 Mechanical Ventilator 03/25/17 20:00 30 03/25/17 19:06 126 30 30 03/25/17 16:51 121 33 30 03/25/17 16:19 30 03/25/17 16:00 121 03/25/17 16:00 98.7 125 33 91/56 100 Mechanical Ventilator 30 Height (Feet): 5 Height (Inches): 8.00 Weight (Pounds): 160 Objective gen: eyes open, not responsive heent: sclera anicteric, oral mucosa dry cv: tachycardic, no murmurs lungs: faint rhonchi, scant trach aspirate abd: soft, nt, difficult exam, peg tube c/d/i ext: new picc c/d/i w/o surrounding erythema. L heel with large dry eschar w/o surrounding erythema. worsening anasarca gu: condom cath in place reviewed wound care notes and wound care photos, demonstrating a stage IV sacral decubitus ulcer Microbiology Date/Time Source Procedure Growth Status 03/26/17 06:30 Stool Clostridium difficile Toxin Assay - Final Complete Laboratory Tests Test 03/26/17 01:50 White Blood Count 16.3 K/UL (4.8-10.8) H Red Blood Count 3.00 M/UL (4.70-6.10) L Hemoglobin 9.7 G/DL (14.2-18.0) L Hematocrit 28.2 % (42.0-52.0) L Mean Corpuscular Volume 94 FL (80-99) Mean Corpuscular Hemoglobin 32.3 PG (27.0-31.0) H Mean Corpuscular Hemoglobin Concent 34.3 G/DL (32.0-36.0) Red Cell Distribution Width 14.8 % (11.6-14.8) Platelet Count 121 K/UL (150-450) L Mean Platelet Volume 8.5 FL (6.5-10.1) Neutrophils (%) (Auto) 74.7 % (45.0-75.0) Lymphocytes (%) (Auto) 13.5 % (20.0-45.0) L Monocytes (%) (Auto) 8.7 % (1.0-10.0) Eosinophils (%) (Auto) 2.2 % (0.0-3.0) Basophils (%) (Auto) 0.8 % (0.0-2.0) Sodium Level 138 mEQ/L (135-145) Potassium Level 5.9 mEQ/L (3.4-4.9) H Chloride Level 103 mEQ/L (98-107) Carbon Dioxide Level 14 mEQ/L (20-30) L Anion Gap 21 (5-15) H Blood Urea Nitrogen 111 mg/dL (7-23) H Creatinine 4.3 mg/dL (0.7-1.2) H Estimat Glomerular Filtration Rate mL/min (>60) Glucose Level 75 mg/dL (74-106) Uric Acid 7.5 mg/dL (3.0-7.5) Calcium Level 7.8 mg/dL (8.6-10.2) L Phosphorus Level 9.9 mg/dL (2.5-4.8) H Magnesium Level 2.4 mg/dL (1.7-2.5) Total Bilirubin 0.7 mg/dL (0.0-1.2) Aspartate Amino Transf (AST/SGOT) 36 U/L (5-40) Alanine Aminotransferase (ALT/SGPT) 19 U/L (3-41) Alkaline Phosphatase 196 U/L (40-129) H C-Reactive Protein, Quantitative 24.8 mg/dL (< 0.5) H Pro-B-Type Natriuretic Peptide 89036 pg/mL (0-450) H Total Protein 5.7 g/dL (6.6-8.7) L Albumin 1.6 g/dL (3.5-5.2) L Globulin 4.1 g/dL Albumin/Globulin Ratio 0.3 (1.0-2.7) L Current Medications Medications (Trade) Dose Ordered Sig/Millicent Route PRN Reason Start Time Stop Time Status Last Admin Dose Admin Acetaminophen (Tylenol) 650 mg EVERY 4 HOURS PRN GT fever 03/20/17 08:15 04/19/17 08:14 03/20/17 16:17 Albuterol/ Ipratropium (DuoNeb 0.5-3(2.5)mg/3ml) 3 ml Q4H PRN HHN Shortness of Breath 03/20/17 19:00 03/25/17 23:59 Aluminum Hydroxide (Amphojel) 1,920 mg Q6H GT 03/25/17 13:45 04/24/17 13:44 03/26/17 08:20 Chlorhexidine Gluconate (Ivanna-Hex 2%) 1 applic QHS TOPIC 03/19/17 21:00 04/18/17 20:59 03/25/17 21:09 Colistimethate Sodium (Colistin) 100 mg Q36H IVP 03/23/17 21:00 03/30/17 20:59 03/25/17 09:18 Dextrose (Dextrose 50%) STAT PRN IV Hypoglycemia 03/15/17 23:00 04/14/17 22:59 03/26/17 12:33 Insulin Aspart (NovoLOG) Q6HR SUBQ 03/16/17 12:00 04/15/17 11:59 8/30/17 17:52 Lorazepam (Ativan 2mg/ml 1ml) 2 mg Q2H PRN IV For Anxiety 03/20/17 19:00 03/27/17 23:59 Meropenem 1 gm/ Sodium Chloride 110 ml @ 220 mls/hr Q12H IVPB 03/23/17 01:00 03/28/17 00:59 03/26/17 00:06 Midodrine (Pro-Amatine) 10 mg THREE TIMES A DAY GT 03/25/17 18:00 04/24/17 17:59 03/25/17 18:01 Morphine Sulfate (Morphine Sulfate) 4 mg Q4H PRN IVP Severe Pain (Pain Scale 7-10) 03/20/17 19:00 03/27/17 23:59 Ondansetron HCl (Zofran) 4 mg Q6H PRN IVP Nausea & Vomiting 03/15/17 23:00 04/14/17 22:59 03/26/17 11:54 Sodium Chloride 1,000 ml @ 75 mls/hr [id number] IV 03/26/17 10:00 04/25/17 09:59 03/26/17 09:41 Tigecycline 50 mg/ Dextrose 110 ml @ 220 mls/hr Q12H IVPB 03/20/17 08:00 03/27/17 07:59 03/26/17 08:20 oMises Aleman M.D. Mar 26, 2017 15:28
--- NOTE | 2017-03-26 22:18 | General Progress Note ---
Assessment/Plan Status: not improved Assessment/Plan 1. Coagulopathy. PTT study reviewed. -->2/2 sepsis vs medications 2. Anemia, likely secondary to hemodilution. --> Monitor 3. Anemia, secondary to chronic disease. Anemia workup has been completed and reviewed. --> continue to monitor counts --> give blood transfusion if symptomatic or hgb <7.5 --> S/P blood transfusion, hemoglobin now >9 4. Leukocytosis, potentially secondary to underlying sepsis with a left shift, neutrophil predominant leukocytosis. --> id following --> On Antibiotics, wbc count remains elevated 5. Hypocalcemia potentially secondary to hemodilution. Continue to monitor. 6. Sepsis. He is on antibiotics. 7. Chronic vegetative state 8. Atherosclerotic disease. --> Ultrasound of abdomen revealed small bilateral renal cysts Subjective Date patient seen: Mar 26, 2017 Time patient seen: 06:00 Hematologic/Lymphatic: Reports: anemia Allergies: Coded Allergies: No Known Allergies (Unverified , 03/15/17) Subjective No acute distress. Afebrile. S/P Blood transfusion. Leukocytosis. Objective Last 24 Hour Vital Signs Date Time Temp Pulse Resp B/P (MAP) Pulse Ox O2 Delivery O2 Flow Rate FiO2 03/26/17 13:40 111 26 84/58 96 Mechanical Ventilator 30 03/26/17 13:06 103/53 03/26/17 12:51 105 28 100/57 96 Mechanical Ventilator 30 03/26/17 12:37 110 26 99/49 96 Mechanical Ventilator 30 03/26/17 11:52 118 28 85/46 97 Mechanical Ventilator 30 03/26/17 11:50 112 03/26/17 11:49 96.3 110 29 82/46 97 Mechanical Ventilator 30 03/26/17 11:45 100 26 90/63 96 Mechanical Ventilator 30 03/26/17 11:38 113 26 96/39 96 Mechanical Ventilator 30 03/26/17 11:23 96 29 30 03/26/17 09:44 30 03/26/17 09:18 107 27 30 03/26/17 08:43 96.1 110 28 111/46 97 Mechanical Ventilator 30 03/26/17 08:00 30 03/26/17 07:47 109 03/26/17 07:10 113 33 30 03/26/17 05:30 117 33 30 03/26/17 04:02 115 03/26/17 04:00 96.6 125 34 111/57 100 Mechanical Ventilator 30 03/26/17 04:00 30 03/26/17 02:58 117 35 30 03/26/17 01:02 124 34 30 03/26/17 00:00 30 03/26/17 00:00 130 03/26/17 00:00 99.1 128 36 95/60 100 Mechanical Ventilator 30 03/25/17 22:45 142 35 30 Intake and Output 03/26/17 03/27/17 19:00 07:00 Intake Total 2262 ml Balance 2262 ml IV Total 2047 ml Tube Feeding 135 ml Other 80 ml Laboratory Tests 03/26/17 01:50: White Blood Count 16.3H, Red Blood Count 3.00L, Hemoglobin 9.7L, Hematocrit 28.2L, Mean Corpuscular Volume 94, Mean Corpuscular Hemoglobin 32.3H, Mean Corpuscular Hemoglobin Concent 34.3, Red Cell Distribution Width 14.8, Platelet Count 121L, Mean Platelet Volume 8.5, Neutrophils (%) (Auto) 74.7, Lymphocytes ( %) (Auto) 13.5L, Monocytes (%) (Auto) 8.7, Eosinophils (%) (Auto) 2.2, Basophils (%) (Auto) 0.8, Sodium Level 138, Potassium Level 5.9H, Chloride Level 103, Carbon Dioxide Level 14L, Anion Gap 21H, Blood Urea Nitrogen 111H, Creatinine 4.3H, Estimat Glomerular Filtration Rate , Glucose Level 75, Uric Acid 7.5, Calcium Level 7.8L, Phosphorus Level 9.9H, Magnesium Level 2.4, Total Bilirubin 0.7, Aspartate Amino Transf (AST/SGOT) 36, Alanine Aminotransferase ( ALT/SGPT) 19, Alkaline Phosphatase 196H, C-Reactive Protein, Quantitative 24.8H , Pro-B-Type Natriuretic Peptide 29123Q, Total Protein 5.7L, Albumin 1.6L, Globulin 4.1, Albumin/Globulin Ratio 0.3L Height (Feet): 5 Height (Inches): 8.00 Weight (Pounds): 160 General Appearance: mild distress Cardiovascular: tachycardia Respiratory/Chest: decreased breath sounds Abdomen: distended AMALIA SAEED Mar 26, 2017 22:18
--- NOTE | 2017-03-30 10:01 | Discharge Summary ---
Discharge Summary Hospital Course Date of Admission Mar 15, 2017 at 23:09 Date of Discharge Mar 26, 2017 at 14:03 Admitting Diagnosis SEPSIS STEVEN Cruz is a 82 year old male who was admitted on Mar 15, 2017 at 23:09 for Sepsis Hospital Course dc summary #[id number] Discharge Medications New Medications: Diazepam* (Valium*) 10 Mg Tablet 10 MG ORAL TID PRN, #30 TAB 0 Refills Discharge Discharge Disposition Patient was discharged to SNF/Subacute Facility(03) with hospice services Discharge Diagnoses: Meliton (Darryl)Chelly NP Mar 30, 2017 10:01
--- NOTE | 2017-03-31 07:00 | Discharge Summary 2 SIG ---
DATE OF ADMISSION: 03/15/2017 DATE OF DISCHARGE: 03/26/2017 REASON FOR ADMISSION: 82-year-old male with chronic ventilator-dependent respiratory failure, dysphagia, G-tube, and chronic anoxic encephalopathy, was recently discharged from [facility] for sepsis secondary to urinary tract infection. [facility] was [facility] from the [facility] for evaluation of fever - 102 degrees. Workup in the emergency room revealed WBC- 13.5. Lactic acid -2.9. Urinalysis revealed pyuria and yeast. BUN -24 and creatinine- 0.7. EKG revealed atrial fibrillation. Temperature -101.1 degrees and blood pressure- 92/44. Hemoglobin -7.3 and hematocrit -21.8. Initial chest x-ray revealed bibasilar subsegmental atelectasis, right greater than left with associated right lung volume loss. The patient was admitted for further management. ADMITTING DIAGNOSES: 1. Acute on chronic respiratory failure. 2. Sepsis. 3. Chronic vegetative state. 4. Anemia. 5. Dysphagia, gastrostomy tube. 6.Multiple decubitus ulcers, present on admission including sacral coccyx decubitus ulcer stage III, right scapula decubitus stage II, and left heel pressure ulcer un-stageable. HOSPITAL COURSE: The patient was admitted. Ventilator support and pulmonary toilet provided as needed. Baseline ABG was stable on current settings. Settings were kept as is and titrated as needed. The patient was on antibiotics. ID followed. Sputum culture was likely colonized as per ID. The patient status post treatment with antibiotic. Blood culture with polymicrobial gram-negative multidrug-resistant organism, KPC and multidrug resistant Acinetobacter persistent, clear on 03/20/2017. PICC tip culture negative, done on 03/19/2017. Cause of bacteremia likely chronic wound infection. Ultrasound of abdomen was negative for biliary source of infection. Stool for C. difficile was negative. The patient was persistently febrile. Fever resolved on 03/20/2017, no further fever The last chest x-ray showed dense consolidation versus atelectasis. X-ray of the left heel was consistent with findings of osteomyelitis of the left calcaneus. X-ray of the right heel showed possible early osteomyelitis. CT of the pelvis revealed no significant bony erosion and no abscess. Wound care provided as per wound care nurse recommendation for present on admission multiple decubitus ulcers. Senior Radiation Protection Technician followed for anemia. Anemia workup revealed anemia of chronic disease. The patient was transfused as needed. Coagulopathy likely secondary to sepsis versus medication. Stool for OB was negative. Strict aspiration precaution were maintained. G-tube feeding was restarted. patient was able to tolerate tube feeding. Venous duplex of bilateral lower extremities was negative. SCD provided for mechanical prophylaxis of DVT. Director Workforce Management followed. The patient has a permanent atrial fibrillation. Digoxin and beta-marcy continued, rate overall controlled. The patient was a poor candidate for anticoagulation. The patient initially presented with normal creatinine, however, creatinine started to worsen. Subsequently Nephrology consult was requested. On 03/21/2017, noted creatinine 2 and BUN 52. Abdominal ultrasound revealed findings consistent with echogenic kidneys and medical renal disease. Acoustical Material Worker suspected acute renal failure was likely secondary to sepsis versus nephrotoxic drugs. Creatinine was trending up. On 03/26/2017, creatinine up to 4.3. Acoustical Material Worker discussed with the family need for dialysis , however, family decided on end of life comfort care. The patient with DNR/DNI status. IV antibiotics were discontinued. The patient was transferred to subacute facility for end of life care. DISCHARGE DIAGNOSES: 1. Sepsis with bacteremia. 2. Polymicrobial multidrug resistant gram-negative septicemia (Klebsiella pneumoniae carbapenem resistant, multidrug-resistant Acinetobacter). 3. Acute on chronic respiratory failure. 4. Ventilator-dependent respiratory failure/tracheostomy. 5. Possible pneumonia. 6. Persistent febrile illness, resolved. . 7. Acute renal failure (likely secondary to sepsis versus nephrotoxic), possible acute tubular necrosis. 8. Likely osteomyelitis, left calcaneus. 9. Possible osteomyelitis, right calcaneus. 10. Anemia of chronic disease requiring blood transfusion. 11. Elevated inflammatory markers. 12. Dysphagia, gastrostomy tube. 13. Functional quadriplegia. 14. Chronic vegetative state. 15. Multiple decubitus ulcers, present on admission including sacral coccyx decubitus ulcer stage III, right scapula decubitus stage II, and left heel pressure ulcer un-stageable. 16. Left heel dry gangrene. 17. Coagulopathy. 18. Permanent atrial fibrillation. 19. Anoxic encephalopathy. DISCHARGE MEDICATIONS: See medication reconciliation list. DISCHARGE INSTRUCTIONS: The patient was discharged to subacute nursing facility. Terminal extubation at the facility with comfort measures for end of life care. Dago Dao M.D. Chelly Coelho N.P. ([place]) DR: REKHA JOB#: [id number] CC: PATRICIA
== END 2017-03-26 14:03 | DRG 870 ==
LOC: EDBD 22:38 → EMR 22:51 → 2W 23:09 → EDBEDREQ 03-16 02:06 → 2W 03-16 03:29
PROC: 5A1955Z Respiratory Ventilation, Greater than 96 Consecutive Hours (ICD-10-PCS; principal; 2017-03-15)
PROC: 05H433Z Insertion of Infusion Device into Left Innominate Vein, Percutaneous Approach (ICD-10-PCS; 2017-03-19)
PROC: B54NZZA Ultrasonography of Left Upper Extremity Veins, Guidance (ICD-10-PCS; 2017-03-19)
DX: A41.50 Gram-negative sepsis, unspecified (principal); J96.20 Acute and chronic respiratory failure, unspecified whether with hypoxia or hypercapnia; N17.0 Acute kidney failure with tubular necrosis; J18.9 Pneumonia, unspecified organism; R40.3 Persistent vegetative state; G93.1 Anoxic brain damage, not elsewhere classified; Z99.11 Dependence on respirator [ventilator] status; L89.153 Pressure ulcer of sacral region, stage 3; D68.9 Coagulation defect, unspecified; R53.2 Functional quadriplegia; E11.52 Type 2 diabetes mellitus with diabetic peripheral angiopathy with gangrene; N30.00 Acute cystitis without hematuria; M86.8X7 Other osteomyelitis, ankle and foot; Z93.0 Tracheostomy status; Z93.1 Gastrostomy status; E88.09 Other disorders of plasma-protein metabolism, not elsewhere classified; Z74.01 Bed confinement status; D63.8 Anemia in other chronic diseases classified elsewhere; E83.51 Hypocalcemia; I10 Essential (primary) hypertension; I48.2 Chronic atrial fibrillation; Z79.01 Long term (current) use of anticoagulants; F03.90 Unspecified dementia, unspecified severity, without behavioral disturbance, psychotic disturbance, mood disturbance, and anxiety; R13.10 Dysphagia, unspecified; B35.1 Tinea unguium; R21 Rash and other nonspecific skin eruption; L89.112 Pressure ulcer of right upper back, stage 2; L89.620 Pressure ulcer of left heel, unstageable; Z51.5 Encounter for palliative care; Z66 Do not resuscitate
CPT/HCPCS: 36415; 36569; 36600; 71010; 72193; 74000; 76700; 76937; 80048; 80053; 80069; 80150; 80162; 80202; 81001; 81003; 82248; 82270; 82378; 82550; 82553; 82607; 82728; 82746; 82803; 82962; 82977; 83540; 83550; 83605; 83735; 83880; 83921; 84100; 84133; 84134; 84153; 84300; 84443; 84484; 84550; 85007; 85025; 85044; 85060; 85384; 85610; 85651; 85730; 86140; 86703; 86705; 86709; 86803; 86850; 86870; 86880; 86900; 86901; 86904; 86920; 87040; 87070; 87081; 87086; 87181; 87205; 87324; 87340; 89050; 93005; 93970; 94002; 94003; J1815; J2405